=== PATIENT | male | born 1945 | race Caucasian/White ===

== ENCOUNTER → 2018-12-22 08:10 | Outpatient (CLI) | payer MEDICARE, SELFPAY ==
[2018-08-17 11:13] VITALS: BMI 33.3
[2018-12-22 10:04] LABS: Anion Gap 9 (5-15); BUN 16 mg/dL (7-18); BUN/Creat Ratio 13.1 RATIO (10-20); Calcium,Total 8.9 mg/dL (8.5-10.1); Chloride 103 mmol/L (98-107); Creatinine, Serum 1.22 mg/dL (0.70-1.30); EST Glomerular Filtration Rate 62 mL/min (>60); Est Glom Filt Rate - Afr Amer 75 mL/min (>60); Glucose 141 mg/dL (74-106); Potassium 4.3 mmol/L (3.5-5.1); Sodium Level 141 mmol/L (136-145)
--- OUTSIDE RECORDS SUMMARY | 2019-02-23 08:51 | XMS RPT_ITS ---
:1945 Author Organization OH[facility] Care Team Providers Name Role Phone Stefanie Almaguer Attending Unavailable Shiraz Mejia Attending Unavailable Antoino Jhon Referring Unavailable Shiraz Mejia Attending Unavailable Shiraz Mejia Referring Unavailable Small, Jhon Primary Care Unavailable SMALL, JHON L Attending Unavailable SMALL, JHON L Referring Unavailable SMALL, JHON L Referring Unavailable CORNIELLO, MADELYN L (BRUSHER TENDER) Referring Unavailable SMALL, JHON L Attending Unavailable SMALL, JHON L Referring Unavailable CORNIELLO, MADELYN L (BRUSHER TENDER) Referring Unavailable BABS BRONSON (WAX COATING MACHINE TENDER) Attending Unavailable SMALL, JHON L Referring Unavailable CORNIELLO, MADELYN L (BRUSHER TENDER) Referring Unavailable CORNIELLO, MADELYN L (BRUSHER TENDER) Attending Unavailable SMALL, JHON L Referring Unavailable SMALL, JHON L Attending Unavailable SMALL, JHON L Referring Unavailable SMALL, JHON L Attending Unavailable SMALL, JHON L Referring Unavailable SMALL, JHON L Referring Unavailable CORNIELLO, MADELYN L (BRUSHER TENDER) Referring Unavailable CORNIELLO, MADELYN L (BRUSHER TENDER) Attending Unavailable CORNIELLO, MADELYN L (BRUSHER TENDER) Referring Unavailable CORNIELLO, MADELYN L (BRUSHER TENDER) Referring Unavailable SMALL, JHON L Attending Unavailable SMALL, JHON L Referring Unavailable SMALL, JHON L Referring Unavailable Teofilo Bronson Attending Unavailable Russell Aparicio Attending Unavailable Jhon Small [place] Primary Care Unavailable Russell Aparicio Attending Unavailable Jhon Small Primary Care Unavailable Russell Aparicio Attending Unavailable Russell Aparicio Primary Care Unavailable Teofilo Bronson Attending Unavailable Jhon Small Primary Care Unavailable Toefilo Bronson Attending Unavailable Jhon Small Primary Care Unavailable Russell Aparicio Attending Unavailable PROBLEMS PROBLEMS DATE TYPE CONDITION / CODE ATTENDING STATUS SOURCE 11/20/2018 Active Encounter for NA Active [facility] screening for [facility] malignant neoplasm [place] of colon / Repository Z12.11(ICD-10) 10/30/2018 Active Other abnormal NA Active [facility] findings in urine / [facility] R82.998(ICD-10) [facility] Repository 10/21/2018 Active Pain in right knee / NA Active [facility] M25.561(ICD-10) [facility] Repository 10/21/2018 Active Pain in left knee / NA Active [facility] M25.562(ICD-10) [facility] Repository 10/21/2018 Active Other chronic pain / NA Active [facility] G89.29(ICD-10) [facility] Repository 07/01/2017 Active Type 2 diabetes NA Active [facility] mellitus without [facility] complications / [facility] E11.9(ICD-10) Repository 10/19/2018 Unknown I25.10 - [place], Active [place] Atherosclerotic [facility] heart disease of Hospital [place] coronary Repository artery without angina pectoris / I25.10(ICD-10) 10/19/2018 Unknown Z95.1 - Presence of [place], Active [facility] aortocoronary bypass [facility] graft / Hospital Z95.1(ICD-10) Repository 10/19/2018 Unknown I35.0 - Nonrheumatic [place], Active [facility] aortic (valve) [facility] stenosis / Hospital I35.0(ICD-10) Repository 10/19/2018 Unknown E78.00 - Pure [place], Active [place] hypercholesterolemia [facility] , unspecified / Hospital E78.00(ICD-10) Repository 10/19/2018 Unknown I10 - Essential [place], Active [facility] (primary) [facility] hypertension / Hospital I10(ICD-10) Repository 02/17/2018 Active Vitamin D SMALL, Active [place] deficiency, JHON L [facility] unspecified / [facility] E55.9(ICD-10) Repository 02/16/2018 Active Arthropathy, SMALL, Active [facility] unspecified / JHON L [facility] M12.9(ICD-10) [facility] Repository 02/16/2018 Active Spinal stenosis, SMALL, Active [facility] lumbar region JHON L [facility] without neurogenic [place] claudication / Repository M48.061(ICD-10) 07/01/2017 Active Essential (primary) SMALL, Active [place] hypertension / JHON L [facility] I10(ICD-10) [facility] Repository 07/01/2017 Active Obesity, unspecified SMALL, Active [place] / E66.9(ICD-10) JHON L [facility] [place] Repository 05/19/2018 Active Emphysema, SMALL, Active [place] unspecified / JHON L [facility] J43.9(ICD-10) [facility] Repository 05/13/2018 Active Other manager terminal NA Active [place] (current) drug [facility] therapy / [facility] Z79.899(ICD-10) Repository 03/08/2015 Active Hyperlipidemia, NA Active [place] unspecified / [facility] E78.5(ICD-10) [facility] Repository 03/16/2018 Admitting Unknown / Teofilo Bronson Active [facility] Medical diagnosis UNK(Unknown) [facility] [place] Repository 02/12/2018 Active Abnormal levels of NA Active [place] other serum enzymes [facility] / R74.8(ICD-10) [facility] Repository 02/05/2018 Active Cramp and spasm / NA Active [place] R25.2(ICD-10) [facility] [place] Repository 02/05/2018 Active Unspecified NA Active [place] abdominal pain / [facility] R10.9(ICD-10) [facility] Repository 02/05/2018 Active Other specified NA Active [place] diabetes mellitus [facility] with hyperglycemia / [facility] E13.65(ICD-10) Repository 01/02/2018 Active Unknown / SMALL, Active [place] UNK(Unknown) JHON L [facility] [place] Repository PROCEDURES PROCEDURES No Procedure Records FoundRESULTS RESULTS BASIC METABOLIC Collected: 12/22/2018 Status: F Source: [facility] PROFILE (BMP) 8:19 AM [facility] REPOSITORY TYPE CODE TESTS RESULT OUT OF RANGE REFERENCE UNITS LAB L501.0100 74-106 mg/dL High GLU 141 Result Comment: Fasting Glucose result greater than or equal to 126 mg/dL suggests DIABETES MELLITUS per A.D.A. criteria. Please note revised GLUCOSE reference range effective 2018. LAB L501.1000 7-18 mg/dL Normal BUN 16 LAB L501.1100 0.70-1.30 mg/dL Normal CREAT,SERUM 1.22 Result Comment: The validity of the calculated GFR AND GFRAA in patients over 70 years has not been determined. Clinical correlation is essential. LAB L501.1110 >60 mL/min Normal EST GFR 62 Result Comment: Non- GFR Calc LAB L501.1115 >60 mL/min Normal EST GFR - AA 75 Result Comment: GFR Calc LAB L501.1300 10-20 RATIO Normal BUN/CRE 13.1 LAB L501.2200 8.5-10.1 mg/dL CA Normal 8.9 LAB L501.5300 136-145 mmol/L NA Normal 141 LAB L501.5600 3.5-5.1 mmol/L K Normal 4.3 LAB L501.5900 98-107 mmol/L CL Normal 103 LAB L501.6100 21.0-32.0 mmol/L Normal CO2 29.0 LAB L501.6200 5-15 Normal GAP 9 Performed By: #### L500.2500 #### [facility] [address] [place], [address] TOXASSURE COMPR Collected: 12/07/2018 Status: F Source: [facility] 3:55 PM [facility] REPOSITORY TYPE CODE TESTS RESULT OUT OF RANGE REFERENCE UNITS LAB L600.84271 () Normal TOXASSURE COMPR FINAL Result Comment: TOXASSURE COMP DRUG ANALYSIS,UR Test Result Flag Units Drug Present and Declared for Prescription Verification Oxycodone 629 EXPECTED ng/mg creat Oxymorphone 401 EXPECTED ng/mg creat Noroxycodone 470 EXPECTED ng/mg creat Noroxymorphone 115 EXPECTED ng/mg creat Sources of oxycodone are scheduled prescription medications. Oxymorphone, noroxycodone, and noroxymorphone are expected metabolites of oxycodone. Oxymorphone is also available as a scheduled prescription medication. Acetaminophen PRESENT EXPECTED Drug Present not Declared for Prescription Verification Chlorpheniramine PRESENT UNEXPECTED Diphenhydramine PRESENT UNEXPECTED Dextromethorphan PRESENT UNEXPECTED Dextrorphan/Levorphanol PRESENT UNEXPECTED Dextrorphan is an expected metabolite of dextromethorphan, an ayni-itc-ytekryv or prescription cough suppressant. Dextrorphan cannot be distinguished from the scheduled prescription medication levorphanol by the method used for analysis. Metoprolol PRESENT UNEXPECTED Test Result Flag Units Ref Range Creatinine 157 mg/dL >=20 Declared Medications: The flagging and interpretation on this report are based on the following declared medications. Unexpected results may arise from inaccuracies in the declared medications. Note: The testing scope of this panel includes these medications: Oxycodone (Percocet) Note: The testing scope of this panel does not include small to moderate amounts of these reported medications: Acetaminophen (Percocet) For clinical consultation, please call . Performed At: [facility] [address], [place] [id number] [facility] [id number] Performed By: #### L600.31809 #### [facility] [id number] [place] [address] # [phone] FECAL OCCULT BLD Collected: 11/20/2018 Status: F Source: [place] 12:00 PM [facility] REPOSITORY TYPE CODE TESTS RESULT OUT OF REFERENCE UNITS RANGE LAB IFO Negative Immuno Negative FOB Result Comment: This test was developed and its performance characteristics determined by [facility]'s [facility] [place] ([facility] [place]). It has not been cleared or approved by the FDA. [facility] is regulated under CLIA as qualified to perform high-complexity testing. This test is used for clinical purposes. It should not be regarded as investigational or for research. Performed By: #### IFOBT #### [facility] [address] [place], [place] [address] PROGRESS Observed: 11/18/2018 Status: COMPLETED Source: [place] 4:45 PM [facility] REPOSITORY HNO ID: [id number] Author: Jhon Small Service: (none) Author Type: Physician Type: Progress Notes Filed: 11/18/2018 4:50 PM Note Text: Patient presents with: Follow Up: 3 months HPI: Kaitlynn Bronson is a 72 year old male who presents to the office today for review of health conditions. Concerns today: Bilateral knee pain, worsening, xray shows severe medial knee arthritis, in the process of possibly changing insurance due to high co pays. Hasn't seen Orthopedic surgeon recently but pain is worsening. Mr. Bronson has past history of diabetes. Since our last visit he denies excessive thirst or increased frequency of urination, chest pain or dyspnea , new or unusual visual symptoms and low sugar/hypoglycemic reactions. Follows a diabetic diet some of the time. He is compliant with medication(s) and is tolerating med(s) without any side effects. He reports checking his glucose on a once a day schedule with sugars in the <200 range. Patient's last HgA1C was Hemoglobin A1C (%) Date Value 10/21/2018 6.4 05/13/2018 6.6 ) Last Ophthalmology exam was within the past 12 months Mr. Bronson reports history of hyperlipidemia. Current therapy includes simvastatin (Zocor) 20 mg. Denies side effects of muscle weakness or achiness. His most recent lipid panels are reviewed. Cholesterol, Total (mg/dL) Date Value 08/19/2018 187 HDL Cholesterol (mg/dL) Date Value 08/19/2018 41 LDL Cholesterol (mg/dL) Date Value 08/19/2018 105 Triglyceride (mg/dL) Date Value 08/19/2018 204 Mr. Bronson indicates a history of hypertension and states that he is feeling well and denies any symptoms referable to elevated blood pressure. Specifically denies headache, chest pain, palpitations, dyspnea and peripheral edema. Patient denies any side effects of his medication(s) and is compliant with their regimen. Last 3 Encounter BP Readings: Date: BP: 11/18/2018 138/70 10/21/2018 130/86 08/19/2018 184/92 He watches his diet for sodium, low fat and low cholesterol some of the time. He does not check BP's generally. Kaitlynn gets minimal exercise. PAST MEDICAL HISTORY Diagnosis Date - Aortic valve stenosis mild per 04/27/14 echo - CAD (coronary artery disease) - Chronic back pain sees Dr. 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) - COPD (chronic obstructive pulmonary disease) (HCC) - Diabetes mellitus without mention of complication Diabetes mellitus - History of kidney stones - Hyperlipidemia - Unspecified essential hypertension Essential hypertension PAST SURGICAL HISTORY Procedure Laterality Date - COLONOSCOP W/ OR W/O BRSH SPEC 04/27/2015 Colonoscopy - EGD W/O OR W/BRUSH/WASH 04/27/2015 EGD - PAST SURGICAL HISTORY OF 2011 [address]pass Social History Marital status: Single Spouse name: Years of education: Number of children: Social History Main Topics Smoking status: Former Smoker Packs/day: 2.00 Years: 30.00 Types: Cigarettes Quit date: 03/08/2005 Smokeless tobacco: Former User Types: Chew Quit date: 03/08/2005 Alcohol use: Yes Comment: 1-2 beers daily Drug use: No FAMILY HISTORY Problem Relation Age of Onset - Heart Paternal Uncle - Heart Paternal Uncle Allergies: ALLERGIES Allergen Reactions - Crestor [Rosuvastat* Myalgia - Gabapentin Itching - Tape [Adhesive Tape* Other: See Comments Redness at site - Throat [place] [Pheno* Swelling Tongue swelled - Ultram [Tramadol Hc* itching - Vicodin [Hydrocodon* Itching Current Meds: acetaminophen (TYLENOL) 325 mg tablet Take 2 tablets by mouth every 6 hours as needed for Pain. albuterol HFA (PROAIR HFA) 90 mcg/actuation inhaler 2 puffs every 4 hours as needed amLODIPine (NORVASC) 10 mg tablet Take 1 tablet by mouth once daily. Dr. Mejia aspirin, enteric coated (ASPIRIN, ENTERIC COATED) 81 mg EC tablet Take 81 mg by mouth once daily. CETIRIZINE HCL (ZYRTEC ORAL) Take by mouth. cholecalciferol, Vitamin D3, (VITAMIN D3) 50,000 unit cap capsule Take 1 capsule by mouth once each week. dexamethasone 0.1% 0.1 % ophthalmic solution 1 Drop twice daily as needed (into bilateral ears for itchy prn). furosemide (LASIX) 40 mg tablet Take 1 tablet by mouth once daily. gabapentin enacarbil (HORIZANT) 600 mg TbER Take 1 tablet by mouth daily at bedtime. Dr. Nelson glimepiride (AMARYL) 2 mg tablet Take 1 tablet by mouth daily with breakfast. hydrOXYzine HCl (ATARAX) 25 mg tablet Take 1 tablet by mouth every 8 hours as needed for Itching/Rash. Ipratropium [place] (ATROVENT) 0.03 % nasal spray Use 2 Sprays in the nose every 12 hours. lidocaine viscous (LIDOCAINE VISCOUS) 2 % solution Gargle and spit 10-15mLs every 3-4 hours as need for throat discomfort. losartan (COZAAR) 100 mg tablet Take 1 tablet by mouth once daily. Dr. Mejia metoprolol tartrate, short acting, (LOPRESSOR) 100 mg tablet Take 1 tablet by mouth twice daily. Dr. Mejia omeprazole (PRILOSEC) 20 mg capsule Take 1 capsule by mouth twice daily. 1/2 hr before meal. oxyCODONE-acetaminophen (PERCOCET) 7.5-325 mg tablet simvastatin (ZOCOR) 20 mg tablet Take 1 tablet by mouth daily at bedtime. Vardenafil HCl (LEVITRA) 5 mg tablet Take 1 tablet by mouth as needed. Review of Systems: The remainder of the review of systems is negative. PE: 11/18/18 1533 BP: 138/70 Pulse: 84 Resp: 20 Temp: 37.8 ?C (100 ?F) TempSrc: Left Tympanic Weight: 93.4 kg (206 lb) Gen: AANDO, NAD, non-toxic appearing, Pleasant, cooperative HEENT: NT/AC, PERRLA, EOMs intact b/l, nares clear and patent b/l, pharynx without erythema, exudate or lesions. Uvula midline.MMM Neck: supple, No cervical LAD, no thyromegaly, no carotid bruits CV: RRR, normal S1 and S2, 3/6 HSM RUSB murmurs, no gallops, no rubs, Pulses 2+ and symmetric in UE and LE b/l Lungs: normal respiratory effort, CTA b/l, no wheezing or rhonchi or rales Abd: soft, obese, NT, ND, +BS, no hepatosplenomegaly MS: medial joint line TTP b/l knees without effusion or erythema, antalgic gait with use of cane Neuro: CN II-XII intact b/l, strength 5/5 b/l UE and LE, DTRs 2/4 UE and LE, sensation intact. Skin: warm, dry, intact, No rashes or lesions on exposed skin. Foot exam: Monofilament normal on right and left feet. Calluses heels ASSESSMENT/PLAN: 1. Type 2 diabetes mellitus without complication, unspecified whether manager terminal insulin use (HCC) - ICD9: 250.00, ICD10: E11.9 (primary diagnosis) Controlled. Poor adherence to plan of care. - Continue current medications - Blood glucose monitoring on a once a day schedule 2. Arthritis of knee - ICD9: 716.96, ICD10: M17.10 - rx as below, will need to f/u with Orthopedic surgeon, likely to need total knee replacement - PARKING FOR HANDICAPPED 3. Screening for colon cancer - ICD9: V76.51, ICD10: Z12.11 - FECAL OCCULT BLOOD TEST 4. Hyperlipidemia, unspecified hyperlipidemia type - ICD9: 272.4, ICD10: E78.5 - suboptimal control - Encouraged following a low fat, low cholesterol diet. - Discussed the benefits of regular aerobic exercise and weight loss. 5. Vitamin D deficiency - ICD9: 268.9, ICD10: E55.9 - continue supplement 6. Essential hypertension - ICD9: 401.9, ICD10: I10 - good control - Continue current medication(s) - Recommended regular aerobic exercise. - Recommend home blood pressure monitoring, to bring results in on next visit - Goal of BP <130/80 Jhon Small DO To ER if develops chest pain, shortness of breath, or severe worsening of symptoms. Discussed risks, benefits, alternatives, and potential side effects of medications. Patient expressed understanding and agreed with the plan. Jhon Small DO [address] [place] [address] CNOV Observed: 11/18/2018 Status: COMPLETED Source: [place] 3:40 PM [facility] REPOSITORY Office Visit (FAMPWS) KAITLYNN BRONSON ([id number]) 1945 M Date Time Provider Department 11/18/18 3:40 PM JHON SMALL During your visit today, we recorded the following information about you: Temperature Pulse Respiration Blood pressure 100 degrees 84/minute 20/minute 138/70 Weight 93.4 kg Jhon Small DO 11/18/2018 4:50 PM Signed Patient presents with: Follow Up: 3 months HPI: Kaitlynn Bronson is a 72 year old male who presents to the office today for review of health conditions. Concerns today: Bilateral knee pain, worsening, xray shows severe medial knee arthritis, in the process of possibly changing insurance due to high co pays. Hasn't seen Orthopedic surgeon recently but pain is worsening. Mr. Bronson has past history of diabetes. Since our last visit he denies excessive thirst or increased frequency of urination, chest pain or dyspnea , new or unusual visual symptoms and low sugar/hypoglycemic reactions. Follows a diabetic diet some of the time. He is compliant with medication(s) and is tolerating med(s) without any side effects. He reports checking his glucose on a once a day schedule with sugars in the <200 range. Patient's last HgA1C was Hemoglobin A1C (%) Date Value 10/21/2018 6.4 05/13/2018 6.6 ) Last Ophthalmology exam was within the past 12 months Mr. Bronson reports history of hyperlipidemia. Current therapy includes simvastatin (Zocor) 20 mg. Denies side effects of muscle weakness or achiness. His most recent lipid panels are reviewed. Cholesterol, Total (mg/dL) Date Value 08/19/2018 187 HDL Cholesterol (mg/dL) Date Value 08/19/2018 41 LDL Cholesterol (mg/dL) Date Value 08/19/2018 105 Triglyceride (mg/dL) Date Value 08/19/2018 204 Mr. Bronson indicates a history of hypertension and states that he is feeling well and denies any symptoms referable to elevated blood pressure. Specifically denies headache, chest pain, palpitations, dyspnea and peripheral edema. Patient denies any side effects of his medication(s) and is compliant with their regimen. Last 3 Encounter BP Readings: Date: BP: 11/18/2018 138/70 10/21/2018 130/86 08/19/2018 184/92 He watches his diet for sodium, low fat and low cholesterol some of the time. He does not check BP's generally. Kaitlynn gets minimal exercise. PAST MEDICAL HISTORY Diagnosis Date - Aortic valve stenosis mild per 04/27/14 echo - CAD (coronary artery disease) - Chronic back pain sees Dr. 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) - COPD (chronic obstructive pulmonary disease) (HCC) - Diabetes mellitus without mention of complication Diabetes mellitus - History of kidney stones - Hyperlipidemia - Unspecified essential hypertension Essential hypertension PAST SURGICAL HISTORY Procedure Laterality Date - COLONOSCOP W/ OR W/O BRSH SPEC 04/27/2015 Colonoscopy - EGD W/O OR W/BRUSH/WASH 04/27/2015 EGD - PAST SURGICAL HISTORY OF 2011 [address] Social History Marital status: Single Spouse name: Years of education: Number of children: Social History Main Topics Smoking status: Former Smoker Packs/day: 2.00 Years: 30.00 Types: Cigarettes Quit date: 03/08/2005 Smokeless tobacco: Former User Types: Chew Quit date: 03/08/2005 Alcohol use: Yes Comment: 1-2 beers daily Drug use: No FAMILY HISTORY Problem Relation Age of Onset - Heart Paternal Uncle - Heart Paternal Uncle Allergies: ALLERGIES Allergen Reactions - Crestor [Rosuvastat* Myalgia - Gabapentin Itching - Tape [Adhesive Tape* Other: See Comments Redness at site - Throat [place] [Pheno* Swelling Tongue swelled - Ultram [Tramadol Hc* itching - Vicodin [Hydrocodon* Itching Current Meds: acetaminophen (TYLENOL) 325 mg tablet Take 2 tablets by mouth every 6 hours as needed for Pain. albuterol HFA (PROAIR HFA) 90 mcg/actuation inhaler 2 puffs every 4 hours as needed amLODIPine (NORVASC) 10 mg tablet Take 1 tablet by mouth once daily. Dr. Mejia aspirin, enteric coated (ASPIRIN, ENTERIC COATED) 81 mg EC tablet Take 81 mg by mouth once daily. CETIRIZINE HCL (ZYRTEC ORAL) Take by mouth. cholecalciferol, Vitamin D3, (VITAMIN D3) 50,000 unit cap capsule Take 1 capsule by mouth once each week. dexamethasone 0.1% 0.1 % ophthalmic solution 1 Drop twice daily as needed (into bilateral ears for itchy prn). furosemide (LASIX) 40 mg tablet Take 1 tablet by mouth once daily. gabapentin enacarbil (HORIZANT) 600 mg TbER Take 1 tablet by mouth daily at bedtime. Dr. Nelson glimepiride (AMARYL) 2 mg tablet Take 1 tablet by mouth daily with breakfast. hydrOXYzine HCl (ATARAX) 25 mg tablet Take 1 tablet by mouth every 8 hours as needed for Itching/Rash. Ipratropium [place] (ATROVENT) 0.03 % nasal spray Use 2 Sprays in the nose every 12 hours. lidocaine viscous (LIDOCAINE VISCOUS) 2 % solution Gargle and spit 10-15mLs every 3-4 hours as need for throat discomfort. losartan (COZAAR) 100 mg tablet Take 1 tablet by mouth once daily. Dr. Mejia metoprolol tartrate, short acting, (LOPRESSOR) 100 mg tablet Take 1 tablet by mouth twice daily. Dr. Mejia omeprazole (PRILOSEC) 20 mg capsule Take 1 capsule by mouth twice daily. 1/2 hr before meal. oxyCODONE-acetaminophen (PERCOCET) 7.5-325 mg tablet simvastatin (ZOCOR) 20 mg tablet Take 1 tablet by mouth daily at bedtime. Vardenafil HCl (LEVITRA) 5 mg tablet Take 1 tablet by mouth as needed. Review of Systems: The remainder of the review of systems is negative. PE: 11/18/18 1533 BP: 138/70 Pulse: 84 Resp: 20 Temp: 37.8 ?C (100 ?F) TempSrc: Left Tympanic Weight: 93.4 kg (206 lb) Gen: AANDO, NAD, non-toxic appearing, Pleasant, cooperative HEENT: NT/AC, PERRLA, EOMs intact b/l, nares clear and patent b/l, pharynx without erythema, exudate or lesions. Uvula midline.MMM Neck: supple, No cervical LAD, no thyromegaly, no carotid bruits CV: RRR, normal S1 and S2, 3/6 HSM RUSB murmurs, no gallops, no rubs, Pulses 2+ and symmetric in UE and LE b/l Lungs: normal respiratory effort, CTA b/l, no wheezing or rhonchi or rales Abd: soft, obese, NT, ND, +BS, no hepatosplenomegaly MS: medial joint line TTP b/l knees without effusion or erythema, antalgic gait with use of cane Neuro: CN II-XII intact b/l, strength 5/5 b/l UE and LE, DTRs 2/4 UE and LE, sensation intact. Skin: warm, dry, intact, No rashes or lesions on exposed skin. Foot exam: Monofilament normal on right and left feet. Calluses heels ASSESSMENT/PLAN: 1. Type 2 diabetes mellitus without complication, unspecified whether senior care insulin use (HCC) - ICD9: 250.00, ICD10: E11.9 (primary diagnosis) Controlled. Poor adherence to plan of care. - Continue current medications - Blood glucose monitoring on a once a day schedule 2. Arthritis of knee - ICD9: 716.96, ICD10: M17.10 - rx as below, will need to f/u with Orthopedic surgeon, likely to need total knee replacement - PARKING FOR HANDICAPPED 3. Screening for colon cancer - ICD9: V76.51, ICD10: Z12.11 - FECAL OCCULT BLOOD TEST 4. Hyperlipidemia, unspecified hyperlipidemia type - ICD9: 272.4, ICD10: E78.5 - suboptimal control - Encouraged following a low fat, low cholesterol diet. - Discussed the benefits of regular aerobic exercise and weight loss. 5. Vitamin D deficiency - ICD9: 268.9, ICD10: E55.9 - continue supplement 6. Essential hypertension - ICD9: 401.9, ICD10: I10 - good control - Continue current medication(s) - Recommended regular aerobic exercise. - Recommend home blood pressure monitoring, to bring results in on next visit - Goal of BP <130/80 Jhon Small DO To ER if develops chest pain, shortness of breath, or severe worsening of symptoms. Discussed risks, benefits, alternatives, and potential side effects of medications. Patient expressed understanding and agreed with the plan. Jhon Small DO [address] [place] [address] Referring Provider: JHON SMALL [[id number]] Allergies As of Date: 11/18/2018 Noted Allergy Reaction CRESTOR (ROSUVASTATIN CALCIUM) 01/01/2017 17 - Myalgia GABAPENTIN 03/08/2015 9 - Itching TAPE (ADHESIVE TAPE-SILICONES) 03/08/2015 14 - Other: See Comments Comments: Redness at site THROAT SPRAY (PHENOL-PHENOLATE SO*10/30/2015 7 - Swelling Comments: Tongue swelled ULTRAM (TRAMADOL HCL) 03/13/2009 Comments: itching VICODIN (HYDROCODONE-ACETAMINOPHE*03/08/2015 9 - Itching Date Reviewed: 10/21/2018 Reviewed by: Benjamin Vega LPN - Fully Assessed Reason for Visit: Follow Up [171] Cmt: 3 months Primary Visit Diagnosis:Type 2 diabetes mellitus without complication, unspecified whether senior care insulin use (HCC) [E11.9] Other Visit Diagnoses:Arthritis of knee [M17.10] Screening for colon cancer [Z12.11] Hyperlipidemia, unspecified hyperlipidemia type [E78.5] Vitamin D deficiency [E55.9] Essential hypertension [I10] Order(s):FECAL OCCULT BLOOD TEST [SQIFOBT] Order #: [id number] FUTURE PARKING FOR HANDICAPPED [8843210] Order #: [id number]: 2 Prescriptions as of 11/18/2018 Sig: ACETAMINOPHEN 325 MG TABLET Take 2 tablets by mouth every* ALBUTEROL SULFATE HFA 90 MCG/* 2 puffs every 4 hours as need* AMLODIPINE 10 MG TABLET Take 1 tablet by mouth once d* ASPIRIN 81 MG TABLET,DELAYED * Take 81 mg by mouth once ho* ZYRTEC ORAL Take by mouth. CHOLECALCIFEROL (VITAMIN D3) * Take 1 capsule by mouth once * DEXAMETHASONE 0.1 % EYE DROPS 1 Drop twice daily as needed * FUROSEMIDE 40 MG TABLET Take 1 tablet by mouth once d* GABAPENTIN ENACARBIL ER 600 M* Take 1 tablet by mouth daily * GLIMEPIRIDE 2 MG TABLET Take 1 tablet by mouth daily * HYDROXYZINE HCL 25 MG TABLET Take 1 tablet by mouth every * IPRATROPIUM BROMIDE 0.03 % NA* Use 2 Sprays in the nose ever* LIDOCAINE 2 % MUCOSAL SOLUTION Gargle and spit 10-15mLs ever* LOSARTAN 100 MG TABLET Take 1 tablet by mouth once d* METOPROLOL TARTRATE 100 MG TA* Take 1 tablet by mouth twice * OMEPRAZOLE 20 MG CAPSULE,JAGDISH* Take 1 capsule by mouth twice* OXYCODONE-ACETAMINOPHEN 7.5 M* SIMVASTATIN 20 MG TABLET Take 1 tablet by mouth daily * VARDENAFIL 5 MG TABLET Take 1 tablet by mouth as nee* Problem List As Of Date 11/18/2018 Noted Resolved PAIN IN JOINT, LOWER LEG [M25.569] INVALID FOR* Chronic back pain [M54.9, G89.29] INVALID FOR* 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.1] INVALID FOR* Hyperlipidemia [E78.5] INVALID FOR* HTN (hypertension) [I10] INVALID FOR* DM2 (diabetes mellitus, type 2) (HCC) [E11.9] INVALID FOR* Heart murmur [R01.1] INVALID FOR* COPD (chronic obstructive pulmonary disease) (H*INVALID FOR* History of kidney stones [Z87.442] INVALID FOR* Aortic valve stenosis [I35.0] INVALID FOR* Obesity [E66.9] INVALID FOR* CAD (coronary artery disease) [I25.10] INVALID FOR* Nausea alone [R11.0] INVALID FOR*04/27/2015 Abdominal pain, right lower quadrant [R10.31] INVALID FOR*04/27/2015 BPH (benign prostatic hyperplasia) [N40.0] INVALID FOR* Adrenal mass (HCC) [E27.9] INVALID FOR* Bladder wall thickening [N32.89] INVALID FOR* Kidney stone [N20.0] INVALID FOR* Noncompliance with medication regimen [Z91.14] INVALID FOR* Obesity, Class I, BMI 30-34.9 [E66.9] INVALID FOR* Post-nasal drainage [R09.82] INVALID FOR* Malaise and fatigue [R53.81, R53.83] INVALID FOR* Essential hypertension [I10] INVALID FOR* Type 2 diabetes mellitus without complication (*INVALID FOR* 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 pylori infection [A04.8] INVALID FOR* Muscle cramp [R25.2] INVALID FOR* Arthritis of knee [M17.10] INVALID FOR* Encounter Status:Closed by JHON SMALL DO on 11/18/18 PROGRESS Observed: 10/30/2018 Status: COMPLETED Source: [place] 10:19 AM [facility] REPOSITORY HNO ID: [id number] Author: Cassandra Goins Rdms Service: (none) Author Type: (none) Type: Progress Notes Filed: 10/30/2018 10:19 AM Note Text: Radiology Service Progress Note PATIENT NAME: Kaitlynn Bronson DATE OF SERVICE: October 30, 2018 TIME: 10:19 AM PATIENT IDENTITY VERIFICATION COMPLETED USING TWO (2) METHODS: Patient confirmed name verbally and Date of . PATIENT GENDER DATA: Male PATIENT RELEVANT IMPLANT DATA REVIEWED: Not Applicable RADIOLOGY DEPARTMENT: Ultrasound PERIPHERAL IV DATA: Not applicable SIGNED BY: Cassandra Palmerclement Anthony October 30, 2018 10:19 AM US KIDNEY/BLADDER Observed: 10/30/2018 Status: F Source: [place] 10:18 AM [facility] REPOSITORY * * *Final Report* * * DATE OF EXAM: Oct 30 2018 10:18AM [facility]U [id number] - US KIDNEY/BLADDER / PROCEDURE REASON: High urine creatine/creatinine ratio * * * * Physician Interpretation * * * * EXAMINATION: RENAL ULTRASOUND CLINICAL HISTORY: Right-sided pain. TECHNIQUE: Sonography of the kidneys and urinary bladder was performed. Images were obtained and stored in a permanent archive. MQ: UR_1 COMPARISON: CT abdomen and pelvis dated 05/10/2015. RESULT: Right Kidney: -Renal length: 11.7 cm -Parenchyma: Normal parenchymal echogenicity. Normal parenchymal thickness. -Collecting system: No hydronephrosis. -Calculus: There is an approximately 1.7 cm shadowing calculus seen within interpolar segment of the right kidney. -Lesion: None. Left Kidney: -Renal length: 12.3 cm -Parenchyma: Normal parenchymal echogenicity. Normal parenchymal thickness. -Collecting system: No hydronephrosis. -Calculus: No echogenic, shadowing calculus. -Lesion: None. Bladder: Normal sonographic appearance. There is a urinary bladder volume of 120.7 cc. Patient unable to void. IMPRESSION: Nonobstructing right nephrolithiasis. No hydronephrosis. Fha Underwriter: PSCB Transcribe Date/Time: Nov 02 2018 8:16A Dictated by : KALLIE JOSEPH MD This examination was interpreted and the report reviewed and electronically signed by: KALLIE JOSEPH MD on Nov 02 2018 8:18AM EST [id number] PROGRESS Observed: 10/21/2018 Status: COMPLETED Source: [place] 9:08 AM [facility] REPOSITORY HNO ID: [id number] Author: Alejandro Valle (Rt) Service: (none) Author Type: Senior Inspector Type: Progress Notes Filed: 10/21/2018 9:09 AM Note Text: Radiology Service Progress Note PATIENT NAME: Kaitlynn Bronson DATE OF SERVICE: October 21, 2018 TIME: 9:08 AM PATIENT IDENTITY VERIFICATION COMPLETED USING TWO (2) METHODS: Patient confirmed name verbally and Date of . PATIENT GENDER DATA: Male PATIENT RELEVANT IMPLANT DATA REVIEWED: Not Applicable RADIOLOGY DEPARTMENT: General X-ray: Exam(s) Completed: Lower Extremity X-Ray(s): Knee, AP / Lat / Tunne / Merchant Bilateral and Wt. Bearing: PERIPHERAL IV DATA: Not applicable SIGNED BY: RT Tori October 21, 2018 9:08 AM XR KNEE 4V AP/PA/LAT/MERCH Observed: 10/21/2018 Status: F Source: [place] 9:07 AM [facility] REPOSITORY * * *Final Report* * * DATE OF EXAM: Oct 21 2018 9:07AM WOX [id number] - XR KNEE 4V AP/PA/LAT/MERCH MA[place] / PROCEDURE REASON: multiple diagnoses * * * * Physician Interpretation * * * * HISTORY: 72-YEAR-OLD MALE WITH Chronic pain of both knees Chronic pain of both knees Chronic pain of both knees . bilateral generalize chronic knee pain after back injection 1 month ago. no injury TECHNIQUE: XR KNEE 4V AP/PA/LAT/MERCH MAITE Laterality: BILATERAL Number of different views (projections): 4- each COMPARISON: 05/12/2009 RESULT: Severe medial compartment joint space narrowing bilaterally with [id number]-[id number] contact. Mild genu varus. Patellofemoral joint is maintained bilaterally with small osteophytes. Intra-articular osteophyte at the patellofemoral joint on the left. Small joint effusion on left. No joint effusion on the right. Enthesophyte on the patella tendon insertion quadriceps tendon bilaterally. Arterial calcifications are present bilaterally. Surgical clips in the soft tissues medial to the left knee. IMPRESSION: BILATERAL DEGENERATIVE JOINT DISEASE MOST SEVERE IN THE MEDIAL COMPARTMENT BILATERALLY AND SIGNIFICANTLY PROGRESSED SINCE THE PREVIOUS EXAM. Fha Underwriter: JOSEPH Transcribe Date/Time: Oct 21 2018 3:31P Dictated by : DARLEEN CHRISTIANSON MD This examination was interpreted and the report reviewed and electronically signed by: DARLEEN CHRISTIANSON MD on Oct 21 2018 3:33PM EST [id number] PROGRESS Observed: 10/21/2018 Status: COMPLETED Source: [place] 8:10 AM [facility] [place] REPOSITORY HNO ID: [id number] Author: Madelyn Majano (Senior Gamemaster) John Service: (none) Author Type: Nurse Practitioner Type: Progress Notes Filed: 10/21/2018 11:56 AM Note Text: HPI/CC: Kaitlynn Bronson is a 72 year old male who presents for Discussion (saw pain managment yesterday for chronic knee pain- recommended xrays and was told PCP needed to order). Bilateral knee pain x several years, pain is worsened by walking, pain is a achy pain. Sees pain management for chronic back pain- takes percocet, meloxicam and injections Reports right big toe pain x 3 weeks. Pain management thought it maybe gout. Denies numbness or tingling, falls, locking, giving out, weakness. ROS as above, otherwise non-contributory. Reviewed PMHx, PSHx, social Hx, medications and allergies. PHYSICAL EXAMINATION: BP 130/86 Pulse 72 Resp 16 Wt 92.1 kg (203 lb) BMI 33.27 kg/m? General appearance: Well appearing, alert, in no acute distress, well-hydrated, well nourished. and Obese Skin: Skin color, texture, turgor normal, no suspicious rashes or lesions Lungs: lungs clear to auscultation. No wheezing, rhonchi, rales Heart: RRR, +systoloc murmur at LSB, no gallop, or rubs. No ectopy Extremities: No deformities, edema, skin discoloration, clubbing or cyanosis. Good capillary refill. Musculoskeletal: No joint swelling, deformity, or tenderness. Bilateral knees- FROM, Bilateral knee : pain of the patellar tendon, medial joint line, lateral joint line, medial epicondyle and lateral epicondyle . Patellar Apprehension/subluxation negative Brian negative Lela negative. ROM: full ASSESSMENT/PLAN: 1. Toe joint pain, right - ICD9: 719.47, ICD10: M25.571 (primary diagnosis) - URIC ACID BLOOD 2. Chronic pain of both knees - ICD9: 719.46, 338.29, ICD10: M25.561, M25.562, G89.29 - XR KNEE GENERAL 4V AP BOTH/PA BOTH/LAT/MERC BILAT 3. History of tobacco use - ICD9: V15.82, ICD10: Z87.891 - CONSULT LUNG CANCER SCREENING CLINIC - f/u PRN Madelyn Lopez APRN.CNP CNOV Observed: 10/21/2018 Status: COMPLETED Source: [place] 8:00 AM [facility] REPOSITORY Office Visit (FAMPWS) KAITLYNN BRONSON ([id number]) 1945 M Date Time Provider Department 10/21/18 8:00 AM [facility] During your visit today, we recorded the following information about you: Pulse Respiration Blood pressure Weight 72/minute 16/minute 130/86 92.1 kg Madelyn Lopez APRN.CNP 10/21/2018 11:56 AM Addendum HPI/CC: Kaitlynn Bronson is a 72 year old male who presents for Discussion (saw pain managment yesterday for chronic knee pain- recommended xrays and was told PCP needed to order). Bilateral knee pain x several years, pain is worsened by walking, pain is a achy pain. Sees pain management for chronic back pain- takes percocet, meloxicam and injections Reports right big toe pain x 3 weeks. Pain management thought it maybe gout. Denies numbness or tingling, falls, locking, giving out, weakness. ROS as above, otherwise non-contributory. Reviewed PMHx, PSHx, social Hx, medications and allergies. PHYSICAL EXAMINATION: BP 130/86 Pulse 72 Resp 16 Wt 92.1 kg (203 lb) BMI 33.27 kg/m? General appearance: Well appearing, alert, in no acute distress, well-hydrated, well nourished. and Obese Skin: Skin color, texture, turgor normal, no suspicious rashes or lesions Lungs: lungs clear to auscultation. No wheezing, rhonchi, rales Heart: RRR, +systoloc murmur at LSB, no gallop, or rubs. No ectopy Extremities: No deformities, edema, skin discoloration, clubbing or cyanosis. Good capillary refill. Musculoskeletal: No joint swelling, deformity, or tenderness. Bilateral knees- FROM, Bilateral knee : pain of the patellar tendon, medial joint line, lateral joint line, medial epicondyle and lateral epicondyle . Patellar Apprehension/subluxation negative Brian negative Lela negative. ROM: full ASSESSMENT/PLAN: 1. Toe joint pain, right - ICD9: 719.47, ICD10: M25.571 (primary diagnosis) - URIC ACID BLOOD 2. Chronic pain of both knees - ICD9: 719.46, 338.29, ICD10: M25.561, M25.562, G89.29 - XR KNEE GENERAL 4V AP BOTH/PA BOTH/LAT/MERC BILAT 3. History of tobacco use - ICD9: V15.82, ICD10: Z87.891 - CONSULT LUNG CANCER SCREENING CLINIC - f/u PRN Madelyn Lopez APRN.LUCI Lopez APRN.CNP 10/21/2018 8:24 AM Signed Lung Cancer Screening: What to Expect What is screening? Screening means that a test is done to look for a disease, in someone at risk of developing the disease, before the disease has advanced enough to cause symptoms. The goal of screening is to reduce the number of people who from the disease by detecting the disease early in its course, when it is easier to treat, with minimal harm to those who are screened. Benefits of lung cancer screening You can be screened for lung cancer using a low-dose computed tomography (CT) scan. CT scans combine X-ray views from multiple angles, creating a two-dimensional, cross-sectional image of your lungs. Having a lung cancer screening chest CT reduces the chance of dying from lung cancer in those at very high risk of developing lung cancer. Eligibility for lung cancer screening To be a candidate for lung screening, an individual must be: ? 55 to 77 years old. ? A smoker or a person who quit smoking less than 15 years ago. ? Have a smoking history of at least 30 pack-years. (A pack year is a way of determining how many cigarettes a person has smoked during his or her lifetime. One pack year is equal to smoking 20 cigarettes, or one pack, every day for one year.) ? Have no new symptoms that could be related to lung cancer ? Be healthy enough to tolerate curative intent treatment for early stage lung cancer ? Have not had a Chest CT in the last 12 months Drawbacks to consider Screening for lung cancer with a chest CT can find small spots in the lungs of at least 25 percent of all people who get the scan. These spots are called lung nodules. Only three or four out of 100 lung nodules found are cancer. The rest are small scars that will never affect your health. There is no way to tell if many of these small lung nodules are scars or lung cancer without further tests. CT scans are usually done over time to see if the lung nodule grows. You might need a biopsy if the lung nodule is large enough. Therefore, many people who are screened will have further tests without actually having lung cancer. The lung cancer screening program will talk with you about whether or not you need more tests. Lung cancer screening CTs use a very small dose of radiation to take pictures of your lungs. The dose of radiation is quite low (five times less than a standard chest CT scan). The effects of radiation from lung cancer screening are not known. The benefits are thought to outweigh any consequences. Quitting smoking If you smoke, you can cut your risk of dying from lung cancer by quitting. We advise all smokers to quit. You can find help from your doctor or through counselors within the screening program. Components of our Lung Cancer Screening Program ? Participants selected according to current national health guidelines. ? In-person discussion about the benefits and harms of lung cancer screening to help make informed choices. ? Standardized low-dose chest CT. ? Chest CT interpretation by radiologists with expertise in chest imaging. ? Lung nodule evaluation care pathway. ? Tobacco treatment experts integrated with the program. ? Cutting-edge research to improve tomorrow?s outcomes. ? Experts in the treatment of lung cancer. ? Central call-in number for questions. Questions? If you have any questions about our Lung Cancer Screening Program, please call , or go on line to: [email or web address] Referring Provider: SELF [200] Allergies As of Date: 10/21/2018 Noted Allergy Reaction CRESTOR (ROSUVASTATIN CALCIUM) 01/01/2017 17 - Myalgia GABAPENTIN 03/08/2015 9 - Itching TAPE (ADHESIVE TAPE-SILICONES) 03/08/2015 14 - Other: See Comments Comments: Redness at site THROAT SPRAY (PHENOL-PHENOLATE SO*10/30/2015 7 - Swelling Comments: Tongue swelled ULTRAM (TRAMADOL HCL) 03/13/2009 Comments: itching VICODIN (HYDROCODONE-ACETAMINOPHE*03/08/2015 9 - Itching Date Reviewed: 10/21/2018 Reviewed by: Benjamin Vega LPN - Fully Assessed Reason for Visit: Discussion [813] Cmt: saw pain managment yesterday for chronic knee pain- recommended xrays and was told PCP needed to order Primary Visit Diagnosis:Toe joint pain, right [M25.571] Other Visit Diagnoses:Chronic pain of both knees [M25.561, M25.562, G89.29] History of tobacco use [Z87.891] Order(s):URIC ACID BLOOD [SQURIC] Order #: [id number] FUTURE XR KNEE GENERAL 4V AP BOTH/PA BOTH/LAT/MERC BILAT [[id number]] Order #: [id number] FUTURE CONSULT LUNG CANCER SCREENING CLINIC [[id number]] Order #: [id number]: 1 Prescriptions as of 10/21/2018 Sig: SIMVASTATIN 20 MG TABLET Take 1 tablet by mouth daily * VARDENAFIL 5 MG TABLET Take 1 tablet by mouth as nee* HYDROXYZINE HCL 25 MG TABLET Take 1 tablet by mouth every * GLIMEPIRIDE 2 MG TABLET Take 1 tablet by mouth daily * OMEPRAZOLE 20 MG CAPSULE,JAGDISH* Take 1 capsule by mouth twice* IPRATROPIUM BROMIDE 0.03 % NA* Use 2 Sprays in the nose ever* LIDOCAINE 2 % MUCOSAL SOLUTION Gargle and spit 10-15mLs ever* CHOLECALCIFEROL (VITAMIN D3) * Take 1 capsule by mouth once * ZYRTEC ORAL Take by mouth. DEXAMETHASONE 0.1 % EYE DROPS 1 Drop twice daily as needed * ALBUTEROL SULFATE HFA 90 MCG/* 2 puffs every 4 hours as need* OXYCODONE-ACETAMINOPHEN 7.5 M* ASPIRIN 81 MG TABLET,DELAYED * Take 81 mg by mouth once ho* LOSARTAN 100 MG TABLET Take 1 tablet by mouth once d* FUROSEMIDE 40 MG TABLET Take 1 tablet by mouth once d* METOPROLOL TARTRATE 100 MG TA* Take 1 tablet by mouth twice * AMLODIPINE 10 MG TABLET Take 1 tablet by mouth once d* GABAPENTIN ENACARBIL ER 600 M* Take 1 tablet by mouth daily * ACETAMINOPHEN 325 MG TABLET Take 2 tablets by mouth every* Problem List As Of Date 10/21/2018 Noted Resolved PAIN IN JOINT, LOWER LEG [M25.569] INVALID FOR* Chronic back pain [M54.9, G89.29] INVALID FOR* 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.1] INVALID FOR* Hyperlipidemia [E78.5] INVALID FOR* HTN (hypertension) [I10] INVALID FOR* DM2 (diabetes mellitus, type 2) (HCC) [E11.9] INVALID FOR* Heart murmur [R01.1] INVALID FOR* COPD (chronic obstructive pulmonary disease) (H*INVALID FOR* History of kidney stones [Z87.442] INVALID FOR* Aortic valve stenosis [I35.0] INVALID FOR* Obesity [E66.9] INVALID FOR* CAD (coronary artery disease) [I25.10] INVALID FOR* Nausea alone [R11.0] INVALID FOR*04/27/2015 Abdominal pain, right lower quadrant [R10.31] INVALID FOR*04/27/2015 BPH (benign prostatic hyperplasia) [N40.0] INVALID FOR* Adrenal mass (HCC) [E27.9] INVALID FOR* Bladder wall thickening [N32.89] INVALID FOR* Kidney stone [N20.0] INVALID FOR* Noncompliance with medication regimen [Z91.14] INVALID FOR* Obesity, Class I, BMI 30-34.9 [E66.9] INVALID FOR* Post-nasal drainage [R09.82] INVALID FOR* Malaise and fatigue [R53.81, R53.83] INVALID FOR* Essential hypertension [I10] INVALID FOR* Type 2 diabetes mellitus without complication (*INVALID FOR* 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 pylori infection [A04.8] INVALID FOR* Muscle cramp [R25.2] INVALID FOR* Other instructions from your clinician: Lung Cancer Screening: What to Expect What is screening? Screening means that a test is done to look for a disease, in someone at risk of developing the disease, before the disease has advanced enough to cause symptoms. The goal of screening is to reduce the number of people who from the disease by detecting the disease early in its course, when it is easier to treat, with minimal harm to those who are screened. Benefits of lung cancer screening You can be screened for lung cancer using a low-dose computed tomography (CT) scan. CT scans combine X-ray views from multiple angles, creating a two-dimensional, cross-sectional image of your lungs. Having a lung cancer screening chest CT reduces the chance of dying from lung cancer in those at very high risk of developing lung cancer. Eligibility for lung cancer screening To be a candidate for lung screening, an individual must be: ? 55 to 77 years old. ? A smoker or a person who quit smoking less than 15 years ago. ? Have a smoking history of at least 30 pack-years. (A pack year is a way of determining how many cigarettes a person has smoked during his or her lifetime. One pack year is equal to smoking 20 cigarettes, or one pack, every day for one year.) ? Have no new symptoms that could be related to lung cancer ? Be healthy enough to tolerate curative intent treatment for early stage lung cancer ? Have not had a Chest CT in the last 12 months Drawbacks to consider Screening for lung cancer with a chest CT can find small spots in the lungs of at least 25 percent of all people who get the scan. These spots are called lung nodules. Only three or four out of 100 lung nodules found are cancer. The rest are small scars that will never affect your health. There is no way to tell if many of these small lung nodules are scars or lung cancer without further tests. CT scans are usually done over time to see if the lung nodule grows. You might need a biopsy if the lung nodule is large enough. Therefore, many people who are screened will have further tests without actually having lung cancer. The lung cancer screening program will talk with you about whether or not you need more tests. Lung cancer screening CTs use a very small dose of radiation to take pictures of your lungs. The dose of radiation is quite low (five times less than a standard chest CT scan). The effects of radiation from lung cancer screening are not known. The benefits are thought to outweigh any consequences. Quitting smoking If you smoke, you can cut your risk of dying from lung cancer by quitting. We advise all smokers to quit. You can find help from your doctor or through counselors within the screening program. Components of our Lung Cancer Screening Program ? Participants selected according to current national health guidelines. ? In-person discussion about the benefits and harms of lung cancer screening to help make informed choices. ? Standardized low-dose chest CT. ? Chest CT interpretation by radiologists with expertise in chest imaging. ? Lung nodule evaluation care pathway. ? Tobacco treatment experts integrated with the program. ? Cutting-edge research to improve tomorrow?s outcomes. ? Experts in the treatment of lung cancer. ? Central call-in number for questions. Questions? If you have any questions about our Lung Cancer Screening Program, please call , or go on line to: [email or web address] Encounter Status:Closed by MADELYN LOPEZ CNP on 10/21/18 URIC ACID Collected: 10/21/2018 Status: F Source: [place] 7:41 [facility] REPOSITORY TYPE CODE TESTS RESULT OUT OF RANGE REFERENCE UNITS LAB URIC 4.0-8.1 mg/dL Uric Acid 7.3 Performed By: #### URIC #### [facility] [address] [place], [place] [address] COMP METABOLIC PANEL Collected: 10/21/2018 Status: F Source: [place] 7:41 [facility] REPOSITORY TYPE CODE TESTS RESULT OUT OF REFERENCE UNITS RANGE LAB TP 6.3-8.0 g/dL Protein, Total 6.6 LAB ALB 3.9-4.9 g/dL Albumin 4.3 LAB CA 8.5-10.2 mg/dL Calcium, Total 9.5 LAB TBIL 0.2-1.3 mg/dL Bilirubin, Total 0.6 LAB ALKP 38-113 U/L Alkaline Phosphatase 56 LAB AST 14-40 U/L AST 34 LAB GLU 74-99 mg/dL Glucose 95 Result Comment: The [place] Diabetes Association (ADA) provides guidance for cutoff values for fasting glucose and random glucose. The ADA defines fasting as no caloric intake for at least 8 hours. Fas ting plasma glucose results between 100 to 125 mg/dL indicate increased risk for diabetes (prediabetes). Fasting plasma glucose results greater than or equal to 126 mg/dL meet the criteria for diagnosis of diabetes. In the absence of unequivocal hyperglycemia, results should be confirmed by repeat testing. In a patient with classic symptoms of hyperglycemia or hyperglycemic crisis, random plasma glucose results greater than or equal to 200 mg/dL meet the criteria for diagnosis of diabetes. Reference: Standards of Medical Care in Diabetes 2016, [place] Diabetes Association. Diabetes Care. 2016.39(Suppl 1). LAB BUN 9-24 mg/dL BUN 18 LAB CRET 0.73-1.22 mg/dL Creatinine 1.13 LAB NA 136-144 mmol/L Sodium 142 LAB K 3.7-5.1 mmol/L Potassium 4.4 LAB CL 97-105 mmol/L Chloride 101 LAB CO2 22-30 mmol/L CO2 27 LAB AGAP 9-18 mmol/L Anion Gap 14 LAB ALT 10-54 U/L ALT 21 LAB GFRAA eGFR- Amer. >60 LAB GFRNAA . eGFR-All Other Races >60 Result Comment: eGFR (Estimated GFR) Units of measure: mL/min/1.73 meters squared eGFR is derived from the reexpressed MDRD Study equation using the following parameters: serum creatinine, age, gender and race. The creatinine assay has been calibrated to be traceable to IDMS. An eGFR <60 mL/min/1.73m2 for >3 months is consistent with chronic kidney disease. Refer to KDOQI guidelines for clinical interpretation. In patients with unstable renal function, e.g. those with acute kidney injury, the eGFR may not accurately reflect actual GFR. Performed By: #### CMP, HBA1C #### [facility] [address] [place], [place] [address] HEMOGLOBIN A1C Collected: 10/21/2018 Status: F Source: [place] 7:41 AM [facility] REPOSITORY TYPE CODE TESTS RESULT OUT OF REFERENCE UNITS RANGE LAB HGBA1C 4.3-5.6 % High Hemoglobin A1c 6.4 Result Comment: [place] Diabetes Association guidelines indicate that patients with HgbA1c in the range 5.7-6.4% are at increased risk for development of diabetes, and intervention by lifestyle modification may be beneficial. HgbA1c greater or equal to 6.5% is considered diagnostic of diabetes. LAB HBA0 mg/dL Est. Average Glucose 137 Result Comment: eAG: (Estimated average glucose) is a calculated value from HgbA1c and is medical claims representative of the average blood glucose level in the last 2-3 month period. Performed By: #### CMP, HBA1C #### [facility] [address] [place], [place] [id number] ALBUMIN/CREAT RATIO Collected: 10/21/2018 Status: F Source: [place] 7:33 AM [facility] REPOSITORY TYPE CODE TESTS RESULT OUT OF REFERENCE UNITS RANGE LAB UCRR 20-300 mg/dL Creatinine,Ur 92.2 ine,Ran LAB UALBR 0.0-23.0 mg/L High Albumin Urine 553.0 Random LAB UALBCR 0-30 mg/g High Albumin/Creat 600 Ratio Result Comment: 30 to 300 mg/g indicates an increased risk for diabetic nephropathy. Greater than 300 mg/g is consistent with clinical nephropathy. (Am J Kidney Disease 1994, 25:107) Performed By: #### UACR #### [facility] [address] [place], [place] [address] PROGRESS Observed: 08/24/2018 Status: COMPLETED Source: [place] 10:01 AM [facility] REPOSITORY HNO ID: [id number] Author: Ana Govea Cma Service: (none) Author Type: (none) Type: Progress Notes Filed: 08/24/2018 10:01 AM Note Text: Reminders/release mailed to patient. CNCO Observed: 08/24/2018 Status: COMPLETED Source: [place] 12:00 AM [facility] REPOSITORY Letter Text [id number] [id number] Kaitlynn Bronson [address] [address] Clinic #: [id number] 08/24/2018 Dear Mr. Bronson, I have received the results of your recent tests. No concerns with labs except cholesterol labs have come back and could be improved with diet and exercise in addition to the Zocor. ? For diet, please focus on: - More lean meats like chicken, fish, turkey rather than red meats - Less carbs and when having carbs, more complex carbs such as beans, wheat or multigrain and brown rice - more vegetables - healthy fats such as olive oil, nuts, avocados - portion control ? For exercise: Please try and aim for a goal of 30 min a day most days of the week with a goal of 150min/wk. Brisk walking is plenty, if you can increase it later, then that is good, but if you are going from little or no exercise to this new routine, I do not want you to go too extreme. If you already exercise, I encourage you to try and do a little more than what you have been doing. ? We can discuss this at your next visit. Please do not hesitate to contact me with any questions. Sincerely, Gini Eden APRN.BRUSHER TENDER electronically signed to expedite mailing PROGRESS Observed: 08/21/2018 Status: COMPLETED Source: [place] 9:54 AM [facility] REPOSITORY HNO ID: [id number] Author: Ana Govea Cma Service: (none) Author Type: (none) Type: Progress Notes Filed: 08/24/2018 10:01 AM Note Text: [facility] CARE GAP REGISTRY DOCUMENTATION (OUTSIDE TEAMLET) Provider Action/FYI: Please file future labs - I will send appointment reminders once labs are filed. PSR Action/FYI: Pend labs Send reminder and DM retinal reminder/release form Patient identified by name and date of . Last BP/Labs: Blood Pressure: Last 3 Encounter BP Readings: Date: BP: 08/19/2018 184/92 05/19/2018 138/80 05/04/2018 130/80 Lipids: Cholesterol, Total (mg/dL) Date Value 08/19/2018 187 04/07/2018 156 HDL Cholesterol (mg/dL) Date Value 08/19/2018 41 04/07/2018 30 LDL Cholesterol (mg/dL) Date Value 08/19/2018 105 04/07/2018 84 Triglyceride (mg/dL) Date Value 08/19/2018 204 04/07/2018 208 HGB A1C: Lab Results Component Value Date HBA1C 6.6 05/13/2018 HBA1C 6.1 11/18/2017 HBA1C 6.4 05/13/2017 TSH: TSH (uU/mL) Date Value 11/18/2017 1.810 ) ? Patient has the following care gap registry disease diagnosis:DM ? HTN ? COPD ? Hyperlipidemia ? CAD ? Patient has the following open care gaps: Health Maintenance Due: BP CONTROLLED (<130/80) due on 1962 DTAP,TDAP,TD(1 - Tdap) due on 1963 DILATED RETINAL EXAM due on 12/16/2017 DIABETIC FOOT EXAM due on 07/01/2018 ? Last office visit: 08/19/18 ? Future office visit:Follow-up scheduled 11/18/18 needs labs prior Ana Govea Cma CNPTOUTREACH Observed: 08/21/2018 Status: COMPLETED Source: [place] 12:00 AM [facility] REPOSITORY Patient Outreach (INTMWS) KAITLYNN BRONSON ([id number]) 1945 M Date Time Provider Department 08/21/18 ANA GOVEA ([facility]) INTMWS During your visit today, we recorded the following information about you: Ana Govea Cma 08/24/2018 10:01 AM Signed [facility] CARE GAP REGISTRY DOCUMENTATION (OUTSIDE TEAMLET) Provider Action/FYI: Please file future labs - I will send appointment reminders once labs are filed. PSR Action/FYI: Pend labs Send reminder and DM retinal reminder/release form Patient identified by name and date of . Last BP/Labs: Blood Pressure: Last 3 Encounter BP Readings: Date: BP: 08/19/2018 184/92 05/19/2018 138/80 05/04/2018 130/80 Lipids: Cholesterol, Total (mg/dL) Date Value 08/19/2018 187 04/07/2018 156 HDL Cholesterol (mg/dL) Date Value 08/19/2018 41 04/07/2018 30 LDL Cholesterol (mg/dL) Date Value 08/19/2018 105 04/07/2018 84 Triglyceride (mg/dL) Date Value 08/19/2018 204 04/07/2018 208 HGB A1C: Lab Results Component Value Date HBA1C 6.6 05/13/2018 HBA1C 6.1 11/18/2017 HBA1C 6.4 05/13/2017 TSH: TSH (uU/mL) Date Value 11/18/2017 1.810 ) ? Patient has the following care gap registry disease diagnosis:DM ? HTN ? COPD ? Hyperlipidemia ? CAD ? Patient has the following open care gaps: Health Maintenance Due: BP CONTROLLED (<130/80) due on 1962 DTAP,TDAP,TD(1 - Tdap) due on 1963 DILATED RETINAL EXAM due on 12/16/2017 DIABETIC FOOT EXAM due on 07/01/2018 ? Last office visit: 08/19/18 ? Future office visit:Follow-up scheduled 11/18/18 needs labs prior Ana Govea Yarn Weigher [place] Yarn Weigher 08/24/2018 10:01 AM Signed Reminders/release mailed to patient. Allergies As of Date: 08/21/2018 Noted Allergy Reaction CRESTOR (ROSUVASTATIN CALCIUM) 01/01/2017 17 - Myalgia GABAPENTIN 03/08/2015 9 - Itching TAPE (ADHESIVE TAPE-SILICONES) 03/08/2015 14 - Other: See Comments Comments: Redness at site THROAT SPRAY (PHENOL-PHENOLATE SO*10/30/2015 7 - Swelling Comments: Tongue swelled ULTRAM (TRAMADOL HCL) 03/13/2009 Comments: itching VICODIN (HYDROCODONE-ACETAMINOPHE*03/08/2015 9 - Itching Date Reviewed: 08/19/2018 Reviewed by: Yarelis Velasco LPN - Fully Assessed Reason for Visit: PHMA/Care Gap Outreach [[id number]] Primary Visit Diagnosis:Essential hypertension [I10] Other Visit Diagnosis:Type 2 diabetes mellitus without complication, unspecified whether senior care insulin use (HCC) [E11.9] Order(s):HGB A1C [[id number]] Order #: [id number] FUTURE COMP METABOLIC PANEL [SQCMP] Order #: [id number] FUTURE ALBUMIN/CREAT RATIO RND UR [SQUACR] Order #: [id number] FUTURE Prescriptions as of 08/21/2018 Sig: OMEPRAZOLE 20 MG CAPSULE,JAGDISH* Take 1 capsule by mouth twice* SIMVASTATIN 20 MG TABLET Take 1 tablet by mouth daily * HYDROXYZINE HCL 25 MG TABLET Take 1 tablet by mouth every * LIDOCAINE 2 % MUCOSAL SOLUTION Gargle and spit 10-15mLs ever* CHOLECALCIFEROL (VITAMIN D3) * Take 1 capsule by mouth once * ZYRTEC ORAL Take by mouth. DEXAMETHASONE 0.1 % EYE DROPS 1 Drop twice daily as needed * GLIMEPIRIDE 2 MG TABLET Take 1 tablet by mouth daily * ALBUTEROL SULFATE HFA 90 MCG/* 2 puffs every 4 hours as need* OXYCODONE-ACETAMINOPHEN 7.5 M* ASPIRIN 81 MG TABLET,DELAYED * Take 81 mg by mouth once ho* LOSARTAN 100 MG TABLET Take 1 tablet by mouth once d* FUROSEMIDE 40 MG TABLET Take 1 tablet by mouth once d* METOPROLOL TARTRATE 100 MG TA* Take 1 tablet by mouth twice * AMLODIPINE 10 MG TABLET Take 1 tablet by mouth once d* GABAPENTIN ENACARBIL ER 600 M* Take 1 tablet by mouth daily * ACETAMINOPHEN 325 MG TABLET Take 2 tablets by mouth every* Problem List As Of Date 08/21/2018 Noted Resolved PAIN IN JOINT, LOWER LEG [M25.569] INVALID FOR* Chronic back pain [M54.9, G89.29] INVALID FOR* 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.1] INVALID FOR* Hyperlipidemia [E78.5] INVALID FOR* HTN (hypertension) [I10] INVALID FOR* DM2 (diabetes mellitus, type 2) (HCC) [E11.9] INVALID FOR* Heart murmur [R01.1] INVALID FOR* COPD (chronic obstructive pulmonary disease) (H*INVALID FOR* History of kidney stones [Z87.442] INVALID FOR* Aortic valve stenosis [I35.0] INVALID FOR* Obesity [E66.9] INVALID FOR* CAD (coronary artery disease) [I25.10] INVALID FOR* Nausea alone [R11.0] INVALID FOR*04/27/2015 Abdominal pain, right lower quadrant [R10.31] INVALID FOR*04/27/2015 BPH (benign prostatic hyperplasia) [N40.0] INVALID FOR* Adrenal mass (HCC) [E27.9] INVALID FOR* Bladder wall thickening [N32.89] INVALID FOR* Kidney stone [N20.0] INVALID FOR* Noncompliance with medication regimen [Z91.14] INVALID FOR* Obesity, Class I, BMI 30-34.9 [E66.9] INVALID FOR* Post-nasal drainage [R09.82] INVALID FOR* Malaise and fatigue [R53.81, R53.83] INVALID FOR* Essential hypertension [I10] INVALID FOR* Type 2 diabetes mellitus without complication (*INVALID FOR* 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 pylori infection [A04.8] INVALID FOR* Muscle cramp [R25.2] INVALID FOR* Letter Text [facility] Jhon Small DO [address] [phone] Dear Kaitlynn Bronson Your health care is very important to us. Our records indicate that you may be due for a diabetic eye exam. If you have had a diabetic eye exam within the last year, please have your records sent to us so that we may update your medical records. There is a medical records of release of information included in this letter. Please take the release to your eye doctor for future appointments to have your records forwarded to us. Important facts about diabetic eye exams Diabetic retinal exams should be done yearly for all patients with a diagnosis of diabetes. Risks such as diabetic retinopathy can be reduced with blood glucose control and early detection of potential problems. Diabetic retinopathy is damage to the small blood vessels in the retina that can lead to blindness Thank you, Jhon Small DO Letter [facility] [address] [address] Office: [phone] Jhon Small DO REQUEST FOR EYE EXAM FINDINGS December 20, 2016 Dear eye career information specialist, Thank you for coordinating eye care for our mutual patient, Kaitlynn Bronson (1945). Please fax this letter back to me with the most appropriate response selected below. Please allow the patient's signature to serve as permission to share your findings. Sincerely, Jhon Small, DO Patient Signature Date Date of eye exam: Findings Both Eyes Right Left No Retinopathy Detected Non Proliferative Retinopathy Mild Moderate Severe Proliferative Retinopathy Macular Edema Further testing and/or treatment indicated Comments: Patient is to return: Encounter Status:Closed by ANA GOVEA CMA on 08/24/18 CBC Collected: 08/19/2018 Status: F Source: [place] 10:34 AM [facility] REPOSITORY TYPE CODE TESTS RESULT OUT OF REFERENCE UNITS RANGE LAB WBC 3.70-11.00 k/uL WBC 7.04 LAB RBC 4.20-6.00 m/uL RBC 4.43 LAB HGB 13.0-17.0 g/dL Hemoglobin 13.9 LAB HCT 39.0-51.0 % Hematocrit 42.3 LAB MCV 80.0-100.0 fL MCV 95.5 LAB MCH 26.0-34.0 pG MCH 31.4 LAB MCHC 30.5-36.0 g/dL MCHC 32.9 LAB RDWCV 11.5-15.0 % RDW-CV 12.8 LAB PLTCT 150-400 k/uL Platelet Count 167 LAB MPV 9.0-12.7 fL MPV 12.0 LAB ABSNUC <0.01 k/uL Absolute nRBC <0.01 Performed By: #### CBC, CMP, LIPB, VITD #### [facility] [address] [place], [place] [address] COMP METABOLIC PANEL Collected: 08/19/2018 Status: F Source: [place] 10:34 AM [facility] REPOSITORY TYPE CODE TESTS RESULT OUT OF REFERENCE UNITS RANGE LAB TP 6.3-8.0 g/dL Protein, Total 6.6 LAB ALB 3.9-4.9 g/dL Albumin 4.5 LAB CA 8.5-10.2 mg/dL Calcium, Total 9.2 LAB TBIL 0.2-1.3 mg/dL Bilirubin, Total 0.8 LAB ALKP 36-108 U/L Alkaline Phosphatase 48 LAB AST 14-40 U/L AST 34 LAB GLU 74-99 mg/dL Glucose High 128 Result Comment: The [place] Diabetes Association (ADA) provides guidance for cutoff values for fasting glucose and random glucose. The ADA defines fasting as no caloric intake for at least 8 hours. Fas ting plasma glucose results between 100 to 125 mg/dL indicate increased risk for diabetes (prediabetes). Fasting plasma glucose results greater than or equal to 126 mg/dL meet the criteria for diagnosis of diabetes. In the absence of unequivocal hyperglycemia, results should be confirmed by repeat testing. In a patient with classic symptoms of hyperglycemia or hyperglycemic crisis, random plasma glucose results greater than or equal to 200 mg/dL meet the criteria for diagnosis of diabetes. Reference: Standards of Medical Care in Diabetes 2016, [place] Diabetes Association. Diabetes Care. 2016.39(Suppl 1). LAB BUN 9-24 mg/dL BUN 18 LAB CRET 0.73-1.22 mg/dL Creatinine 0.86 LAB NA 136-144 mmol/L Sodium 141 LAB K 3.7-5.1 mmol/L Potassium 4.3 LAB CL 97-105 mmol/L Chloride 101 LAB CO2 22-30 mmol/L CO2 24 LAB AGAP 9-18 mmol/L Anion Gap 16 LAB ALT 10-54 U/L ALT 26 LAB GFRAA eGFR- Amer. >60 LAB GFRNAA . eGFR-All Other Races >60 Result Comment: eGFR (Estimated GFR) Units of measure: mL/min/1.73 meters squared eGFR is derived from the reexpressed MDRD Study equation using the following parameters: serum creatinine, age, gender and race. The creatinine assay has been calibrated to be traceable to IDMS. An eGFR <60 mL/min/1.73m2 for >3 months is consistent with chronic kidney disease. Refer to KDOQI guidelines for clinical interpretation. In patients with unstable renal function, e.g. those with acute kidney injury, the eGFR may not accurately reflect actual GFR. Performed By: #### CBC, CMP, LIPB, VITD #### [facility] [address] [place], [place] [address] LIPID PANEL, BASIC Collected: 08/19/2018 Status: F Source: [place] 10:34 AM [facility] REPOSITORY TYPE CODE TESTS RESULT OUT OF REFERENCE UNITS RANGE LAB CHOL <200 mg/dL Cholesterol 187 Result Comment: <200 mg/dL, Desirable 200-239 mg/dL, Borderline high >239 mg/dL, High LAB TRIGLY <150 mg/dL Triglyceride High 204 Result Comment: <150 mg/dL, Normal 150-199 mg/dL, Borderline high 200-499 mg/dL, High >499 mg/dL, Very high LAB HDL >39 mg/dL HDL-Cholesterol 41 Result Comment: 40-59 mg/dL, Acceptable >59 mg/dL, High: Negative risk factor for coronary heart disease <40 mg/dL, Low: Positive risk factor for coronary heart disease LAB LDL <100 mg/dL LDL-Cholesterol High 105 Result Comment: <100 mg/dL, Optimal 100-129 mg/dL, Near optimal/above optimal 130-159 mg/dL, Borderline high 160-189 mg/dL, High >189 mg/dL, Very high Secondary prevention optimal LDL Cholesterol levels are recommended to be < 70 mg/dL LAB NONHDL <130 mg/dL Non HDL High Cholesterol 146 Result Comment: <130 mg/dL, Optimal 130-159 mg/dL, Near optimal/above optimal 160-189 mg/dL, Borderline high 190-219 mg/dL, High >219 mg/dL, Very high Secondary prevention optimal non HDL Cholesterol levels are recommended to be < 100 mg/dL LAB FT hrs Fasting Time 2 Result Comment: CREAM IN COFFEE LAB VLDL <30 mg/dL VLDL High Cholesterol 41 LAB TCHDL <5.10 TC:HDL Ratio 4.56 LAB LDLHDL <2.54 LDL:HDL Ratio High 2.56 Result Comment: Reference: 1. National Cholesterol Education Program ATP III Guideline At-A-Glance Quick Desk Reference: National Heart, Lung, and Blood [place]. National Institutes of Health. 2001: NIH Publication No. 01-3305. 2. An International Atherosclerosis Society position paper: global recommendations for the management of dyslipidemia: executive summary, Atherosclerosis. 2014: 232(2):410-413. Performed By: #### CBC, CMP, LIPB, VITD #### [facility] [address] [place], [place] [address] VITAMIN D 25 HYDROXY Collected: 08/19/2018 Status: F Source: [place] 10:34 AM [facility] REPOSITORY TYPE CODE TESTS RESULT OUT OF REFERENCE UNITS RANGE LAB VITD 31.0-80.0 ng/mL Vitamin D 25 52.7 Hydroxy Result Comment: Classification of 25 [place] Vitamin D status: Insufficiency/Moderate Deficiency: < or = 30 ng/mL Sufficiency/Optimal Levels: 31 to 80 ng/mL Toxicity: > 100 ng/mL Test performed by chemiluminescent immunoassay. Performed By: #### CBC, CMP, LIPB, VITD #### [facility] [address] [place], [place] [address] PROGRESS Observed: 08/19/2018 Status: COMPLETED Source: [place] 10:02 AM [facility] REPOSITORY HNO ID: [id number] Author: Jhon Small Service: (none) Author Type: Physician Type: Progress Notes Filed: 08/19/2018 10:55 AM Note Text: Patient presents with: Follow Up: 3 months HPI: Kaitlynn Bronson is a 72 year old male who presents to the office today for review of health conditions. Concerns today: Chronic back pain, seeing pain mgmt, had spine injections without relief. Getting frustrated with his leg bilateral pain and weakness, difficulty with prolonged walking due to back pain, no fevers or chills or new bladder or bowel incontinence or retention symptoms. Elevated blood pressure, seen in Dr. Mejia office yesterday and it was also high, is supposed to follow up next week in his office and if still high will have medication changed at that time. Mr. Bronson has past history of diabetes. Since our last visit he denies excessive thirst or increased frequency of urination, chest pain or dyspnea , new or unusual visual symptoms and low sugar/hypoglycemic reactions. Follows a diabetic diet some of the time. He is compliant with medication(s) and is tolerating med(s) without any side effects. He reports checking his glucose on a once a day schedule with sugars in the <150 range. Patient's last HgA1C was Hemoglobin A1C (%) Date Value 05/13/2018 6.6 11/18/2017 6.1 ) Last Ophthalmology exam was within the past 12 months Mr. Bronson reports history of hyperlipidemia. Current therapy includes simvastatin (Zocor) 20 mg. Denies side effects of muscle weakness or achiness. His most recent lipid panels are reviewed. Cholesterol, Total (mg/dL) Date Value 04/07/2018 156 HDL Cholesterol (mg/dL) Date Value 04/07/2018 30 LDL Cholesterol (mg/dL) Date Value 04/07/2018 84 Triglyceride (mg/dL) Date Value 04/07/2018 208 Mr. Bronson indicates a history of hypertension and states that he is feeling well and denies any symptoms referable to elevated blood pressure. Specifically denies headache, chest pain, palpitations, dyspnea and peripheral edema. Patient denies any side effects of his medication(s) and is compliant with their regimen. Last 3 Encounter BP Readings: Date: BP: 08/19/2018 184/92 05/19/2018 138/80 05/04/2018 130/80 He watches his diet for sodium, low fat and low cholesterol some of the time. He does not check BP's generally. Kaitlynn gets minimal exercise. PAST MEDICAL HISTORY Diagnosis Date - Aortic valve stenosis mild per 04/27/14 echo - CAD (coronary artery disease) - Chronic back pain sees Dr. 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) - COPD (chronic obstructive pulmonary disease) (HCC) - Diabetes mellitus without mention of complication Diabetes mellitus - History of kidney stones - Hyperlipidemia - Unspecified essential hypertension Essential hypertension PAST SURGICAL HISTORY Procedure Laterality Date - [facility]/2015 Colonoscopy - EGD W/O OR W/BRUSH/WASH 04/27/2015 EGD - PAST SURGICAL HISTORY OF 2011 Quad Bypass Social History Marital status: Single Spouse name: Years of education: Number of children: Social History Main Topics Smoking status: Former Smoker Packs/day: 2.00 Years: 30.00 Types: Cigarettes Quit date: 03/08/2005 Smokeless tobacco: Former User Types: Chew Quit date: 03/08/2005 Alcohol use: Yes Comment: 1-2 beers daily Drug use: No FAMILY HISTORY Problem Relation Age of Onset - Heart Paternal Uncle - Heart Paternal Uncle Allergies: ALLERGIES Allergen Reactions - Crestor [Rosuvastat* Myalgia - Gabapentin Itching - Tape [Adhesive Tape* Other: See Comments Redness at site - Throat [place] [Pheno* Swelling Tongue swelled - Ultram [Tramadol Hc* itching - Vicodin [Hydrocodon* Itching Current Meds: omeprazole (PRILOSEC) 20 mg capsule Take 1 capsule by mouth twice daily. 1/2 hr before meal. simvastatin (ZOCOR) 20 mg tablet Take 1 tablet by mouth daily at bedtime. hydrOXYzine HCl (ATARAX) 25 mg tablet Take 1 tablet by mouth every 8 hours as needed for Itching/Rash. lidocaine viscous (LIDOCAINE VISCOUS) 2 % solution Gargle and spit 10-15mLs every 3-4 hours as need for throat discomfort. cholecalciferol, Vitamin D3, (VITAMIN D3) 50,000 unit cap capsule Take 1 capsule by mouth once each week. CETIRIZINE HCL (ZYRTEC ORAL) Take by mouth. dexamethasone 0.1% 0.1 % ophthalmic solution 1 Drop twice daily as needed (into bilateral ears for itchy prn). glimepiride (AMARYL) 2 mg tablet Take 1 tablet by mouth daily with breakfast. albuterol HFA (PROAIR HFA) 90 mcg/actuation inhaler 2 puffs every 4 hours as needed oxyCODONE-acetaminophen (PERCOCET) 7.5-325 mg tablet aspirin, enteric coated (ASPIRIN, ENTERIC COATED) 81 mg EC tablet Take 81 mg by mouth once daily. losartan (COZAAR) 100 mg tablet Take 1 tablet by mouth once daily. Dr. Mejia furosemide (LASIX) 40 mg tablet Take 1 tablet by mouth once daily. metoprolol tartrate, short acting, (LOPRESSOR) 100 mg tablet Take 1 tablet by mouth twice daily. Dr. Mejia amLODIPine (NORVASC) 10 mg tablet Take 1 tablet by mouth once daily. Dr. Mejia gabapentin enacarbil (HORIZANT) 600 mg TbER Take 1 tablet by mouth daily at bedtime. Dr. Nelson acetaminophen (TYLENOL) 325 mg tablet Take 2 tablets by mouth every 6 hours as needed for Pain. Review of Systems: The remainder of the review of systems is negative. PE: 08/19/18 0943 BP: 184/92 Pulse: 80 Resp: 16 Temp: 36.1 ?C (97 ?F) TempSrc: Left Tympanic Weight: 90.7 kg (200 lb) Gen: AANDO, NAD, non-toxic appearing, Pleasant, cooperative, hard of hearing, obese HEENT: NT/AC, PERRLA, EOMs intact b/l, nares clear and patent b/l, pharynx without erythema, exudate or lesions. Uvula midline. EACs without erythema or debris. TMs pearly pitts with intact landmarks b/l. Neck: supple, No cervical LAD, no thyromegaly, no carotid bruits CV: RRR, normal S S2, 2/6 HSM RUSB murmurs, no gallops, no rubs, Pulses 2+ and symmetric in UE and LE b/l Lungs: normal respiratory effort, CTA b/l, no wheezing or rhonchi or rales Abd: soft, obese, NT, ND, +BS, no hepatosplenomegaly MS: FROM all 4 extremities Neuro: CN II-XII intact b/l, strength 5/5 b/l UE and LE, DTRs 2/4 UE and LE, sensation intact. Skin: warm, dry, intact, scattered seborrheic keratoses, solar lentigos and angiomas Trace b/l leg non pitting edema ASSESSMENT/PLAN: 1. Type 2 diabetes mellitus without complication, unspecified whether senior care insulin use (HCC) - ICD9: 250.00, ICD10: E11.9 (primary diagnosis) Controlled. - Continue current medications 2. Vitamin D deficiency - ICD9: 268.9, ICD10: E55.9 - continue supplement, recheck level - VITAMIN D 25 HYDROXY 3. Need for vaccination - ICD9: V05.9, ICD10: Z23 - ADMIN OF INFLUENZA VACCINE - INFLUENZA SEASONAL HIGH DOSE AGE 65+ 4. Essential hypertension - ICD9: 401.9, ICD10: I10 - good control - Continue current medication(s) - Encouraged dietary sodium restriction/DASH diet - Recommended regular aerobic exercise. - Recommend home blood pressure monitoring, to bring results in on next visit - Goal of BP <130/80 5. Hyperlipidemia, unspecified hyperlipidemia type - ICD9: 272.4, ICD10: E78.5 - to be determined upon return of lab results - Continue current medication. - Encouraged following a low fat, low cholesterol diet. - Discussed the benefits of regular aerobic exercise and weight loss. - Check fasting lipid panel - LIPID PANEL BASIC - COMP METABOLIC PANEL - CBC Jhon Small DO To ER if develops chest pain, shortness of breath, or severe worsening of symptoms. Discussed risks, benefits, alternatives, and potential side effects of medications. Patient expressed understanding and agreed with the plan. Jhon Small DO [address] [place] [address] CNOV Observed: 08/19/2018 Status: COMPLETED Source: [place] 9:40 AM [facility] REPOSITORY Office Visit (FAMPWS) KAITLYNN BRONSON ([id number]) 1945 M Date Time Provider Department 08/19/18 9:40 AM [facility] During your visit today, we recorded the following information about you: Temperature Pulse Respiration Blood pressure 97 degrees 80/minute 16/minute 184/92 Weight 90.7 kg Yarelis FonsecaOmar DAI 08/19/2018 9:52 AM Signed Influenza Vaccine Documentation: ? Patient is identified by name and date of : Yes ? Patient is older than 6 months of age: Yes ? Patient denies a severe allergy to any vaccine component or to a previous dose of influenza vaccine: Yes FOR EGG ALLERGY CONCERNS, REFER TO PROVIDER. ? Denies allergy to gelatin, formaldehyde, thimerosol :Yes ? Patient is afebrile and not moderately or severely ill: Yes ? Does the patient have a history of Guillain ?[place] Syndrome (a severe paralytic illness): No ? Denies bone marrow transplant prior 6 months or solid organ transplant prior 3 months: Yes ? Denies a history of fainting after a prior injection or medical procedure? Yes If patient has fainted in the past, the CDC recommends sitting or lying down for 15 minutes after the vaccination. ? VIS sheet provided: Yes ? See Immunization Form in [employer] for details of immunizations administered today. If patient reports dizziness, vision changes or ringing in the ears post vaccination ? please have patient sit or lie down for 15 minutes. Jhon Small DO 08/19/2018 10:55 AM Signed Patient presents with: Follow Up: 3 months HPI: Kaitlynn Bronson is a 72 year old male who presents to the office today for review of health conditions. Concerns today: Chronic back pain, seeing pain mgmt, had spine injections without relief. Getting frustrated with his leg bilateral pain and weakness, difficulty with prolonged walking due to back pain, no fevers or chills or new bladder or bowel incontinence or retention symptoms. Elevated blood pressure, seen in Dr. Mejia office yesterday and it was also high, is supposed to follow up next week in his office and if still high will have medication changed at that time. Mr. Bronson has past history of diabetes. Since our last visit he denies excessive thirst or increased frequency of urination, chest pain or dyspnea , new or unusual visual symptoms and low sugar/hypoglycemic reactions. Follows a diabetic diet some of the time. He is compliant with medication(s) and is tolerating med(s) without any side effects. He reports checking his glucose on a once a day schedule with sugars in the <150 range. Patient's last HgA1C was Hemoglobin A1C (%) Date Value 05/13/2018 6.6 11/18/2017 6.1 ) Last Ophthalmology exam was within the past 12 months Mr. Bronson reports history of hyperlipidemia. Current therapy includes simvastatin (Zocor) 20 mg. Denies side effects of muscle weakness or achiness. His most recent lipid panels are reviewed. Cholesterol, Total (mg/dL) Date Value 04/07/2018 156 HDL Cholesterol (mg/dL) Date Value 04/07/2018 30 LDL Cholesterol (mg/dL) Date Value 04/07/2018 84 Triglyceride (mg/dL) Date Value 04/07/2018 208 Mr. Bronson indicates a history of hypertension and states that he is feeling well and denies any symptoms referable to elevated blood pressure. Specifically denies headache, chest pain, palpitations, dyspnea and peripheral edema. Patient denies any side effects of his medication(s) and is compliant with their regimen. Last 3 Encounter BP Readings: Date: BP: 08/19/2018 184/92 05/19/2018 138/80 05/04/2018 130/80 He watches his diet for sodium, low fat and low cholesterol some of the time. He does not check BP's generally. Kaitlynn gets minimal exercise. PAST MEDICAL HISTORY Diagnosis Date - Aortic valve stenosis mild per 04/27/14 echo - CAD (coronary artery disease) - Chronic back pain sees Dr. 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) - COPD (chronic obstructive pulmonary disease) (HCC) - Diabetes mellitus without mention of complication Diabetes mellitus - History of kidney stones - Hyperlipidemia - Unspecified essential hypertension Essential hypertension PAST SURGICAL HISTORY Procedure Laterality Date - COLONOSCOP W/ OR W/O BRSH SPEC 04/27/2015 Colonoscopy - EGD W/O OR W/BRUSH/WASH 04/27/2015 EGD - PAST SURGICAL HISTORY OF 2011 Quad Bypass Social History Marital status: Single Spouse name: Years of education: Number of children: Social History Main Topics Smoking status: Former Smoker Packs/day: 2.00 Years: 30.00 Types: Cigarettes Quit date: 03/08/2005 Smokeless tobacco: Former User Types: Chew Quit date: 03/08/2005 Alcohol use: Yes Comment: 1-2 beers daily Drug use: No FAMILY HISTORY Problem Relation Age of Onset - Heart Paternal Uncle - Heart Paternal Uncle Allergies: ALLERGIES Allergen Reactions - Crestor [Rosuvastat* Myalgia - Gabapentin Itching - Tape [Adhesive Tape* Other: See Comments Redness at site - Throat [place] [Pheno* Swelling Tongue swelled - Ultram [Tramadol Hc* itching - Vicodin [Hydrocodon* Itching Current Meds: omeprazole (PRILOSEC) 20 mg capsule Take 1 capsule by mouth twice daily. 1/2 hr before meal. simvastatin (ZOCOR) 20 mg tablet Take 1 tablet by mouth daily at bedtime. hydrOXYzine HCl (ATARAX) 25 mg tablet Take 1 tablet by mouth every 8 hours as needed for Itching/Rash. lidocaine viscous (LIDOCAINE VISCOUS) 2 % solution Gargle and spit 10-15mLs every 3-4 hours as need for throat discomfort. cholecalciferol, Vitamin D3, (VITAMIN D3) 50,000 unit cap capsule Take 1 capsule by mouth once each week. CETIRIZINE HCL (ZYRTEC ORAL) Take by mouth. dexamethasone 0.1% 0.1 % ophthalmic solution 1 Drop twice daily as needed (into bilateral ears for itchy prn). glimepiride (AMARYL) 2 mg tablet Take 1 tablet by mouth daily with breakfast. albuterol HFA (PROAIR HFA) 90 mcg/actuation inhaler 2 puffs every 4 hours as needed oxyCODONE-acetaminophen (PERCOCET) 7.5-325 mg tablet aspirin, enteric coated (ASPIRIN, ENTERIC COATED) 81 mg EC tablet Take 81 mg by mouth once daily. losartan (COZAAR) 100 mg tablet Take 1 tablet by mouth once daily. Dr. Mejia furosemide (LASIX) 40 mg tablet Take 1 tablet by mouth once daily. metoprolol tartrate, short acting, (LOPRESSOR) 100 mg tablet Take 1 tablet by mouth twice daily. Dr. Mejia amLODIPine (NORVASC) 10 mg tablet Take 1 tablet by mouth once daily. Dr. Mejia gabapentin enacarbil (HORIZANT) 600 mg TbER Take 1 tablet by mouth daily at bedtime. Dr. Nelson acetaminophen (TYLENOL) 325 mg tablet Take 2 tablets by mouth every 6 hours as needed for Pain. Review of Systems: The remainder of the review of systems is negative. PE: 08/19/18 0943 BP: 184/92 Pulse: 80 Resp: 16 Temp: 36.1 ?C (97 ?F) TempSrc: Left Tympanic Weight: 90.7 kg (200 lb) Gen: AANDO, NAD, non-toxic appearing, Pleasant, cooperative, hard of hearing, obese HEENT: NT/AC, PERRLA, EOMs intact b/l, nares clear and patent b/l, pharynx without erythema, exudate or lesions. Uvula midline. EACs without erythema or debris. TMs pearly pitts with intact landmarks b/l. Neck: supple, No cervical LAD, no thyromegaly, no carotid bruits CV: RRR, normal S S2, 2/6 HSM RUSB murmurs, no gallops, no rubs, Pulses 2+ and symmetric in UE and LE b/l Lungs: normal respiratory effort, CTA b/l, no wheezing or rhonchi or rales Abd: soft, obese, NT, ND, +BS, no hepatosplenomegaly MS: FROM all 4 extremities Neuro: CN II-XII intact b/l, strength 5/5 b/l UE and LE, DTRs 2/4 UE and LE, sensation intact. Skin: warm, dry, intact, scattered seborrheic keratoses, solar lentigos and angiomas Trace b/l leg non pitting edema ASSESSMENT/PLAN: 1. Type 2 diabetes mellitus without complication, unspecified whether manager terminal insulin use (HCC) - ICD9: 250.00, ICD10: E11.9 (primary diagnosis) Controlled. - Continue current medications 2. Vitamin D deficiency - ICD9: 268.9, ICD10: E55.9 - continue supplement, recheck level - VITAMIN D 25 HYDROXY 3. Need for vaccination - ICD9: V05.9, ICD10: Z23 - ADMIN OF INFLUENZA VACCINE - INFLUENZA SEASONAL HIGH DOSE AGE 65+ 4. Essential hypertension - ICD9: 401.9, ICD10: I10 - good control - Continue current medication(s) - Encouraged dietary sodium restriction/DASH diet - Recommended regular aerobic exercise. - Recommend home blood pressure monitoring, to bring results in on next visit - Goal of BP <130/80 5. Hyperlipidemia, unspecified hyperlipidemia type - ICD9: 272.4, ICD10: E78.5 - to be determined upon return of lab results - Continue current medication. - Encouraged following a low fat, low cholesterol diet. - Discussed the benefits of regular aerobic exercise and weight loss. - Check fasting lipid panel - LIPID PANEL BASIC - COMP METABOLIC PANEL - CBC Jhon Small DO To ER if develops chest pain, shortness of breath, or severe worsening of symptoms. Discussed risks, benefits, alternatives, and potential side effects of medications. Patient expressed understanding and agreed with the plan. Jhon Small DO [address] [place] [address] Referring Provider: JHON SMALL [[id number]] Allergies As of Date: 08/19/2018 Noted Allergy Reaction CRESTOR (ROSUVASTATIN CALCIUM) 01/01/2017 17 - Myalgia GABAPENTIN 03/08/2015 9 - Itching TAPE (ADHESIVE TAPE-SILICONES) 03/08/2015 14 - Other: See Comments Comments: Redness at site THROAT SPRAY (PHENOL-PHENOLATE SO*10/30/2015 7 - Swelling Comments: Tongue swelled ULTRAM (TRAMADOL HCL) 03/13/2009 Comments: itching VICODIN (HYDROCODONE-ACETAMINOPHE*03/08/2015 9 - Itching Date Reviewed: 08/19/2018 Reviewed by: Yarelis Velasco LPN - Fully Assessed Reason for Visit: Follow Up [171] Cmt: 3 months Primary Visit Diagnosis:Type 2 diabetes mellitus without complication, unspecified whether senior care insulin use (HCC) [E11.9] Other Visit Diagnoses:Vitamin D deficiency [E55.9] Need for vaccination [Z23] Essential hypertension [I10] Hyperlipidemia, unspecified hyperlipidemia type [E78.5] Order(s):ADMIN OF INFLUENZA VACCINE [[id number]] Order #: [id number]: 1 INFLUENZA SEASONAL HIGH DOSE AGE 65+ [[id number]] Order #: [id number] VITAMIN D 25 HYDROXY [SQVITD] Order #: [id number] FUTURE LIPID PANEL BASIC [SQLIPB] Order #: [id number] FUTURE COMP METABOLIC PANEL [SQCMP] Order #: [id number] FUTURE CBC [SQCBC] Order #: [id number] FUTURE Prescriptions as of 08/19/2018 Sig: OMEPRAZOLE 20 MG CAPSULE,JAGDISH* Take 1 capsule by mouth twice* SIMVASTATIN 20 MG TABLET Take 1 tablet by mouth daily * HYDROXYZINE HCL 25 MG TABLET Take 1 tablet by mouth every * LIDOCAINE 2 % MUCOSAL SOLUTION Gargle and spit 10-15mLs ever* CHOLECALCIFEROL (VITAMIN D3) * Take 1 capsule by mouth once * ZYRTEC ORAL Take by mouth. DEXAMETHASONE 0.1 % EYE DROPS 1 Drop twice daily as needed * GLIMEPIRIDE 2 MG TABLET Take 1 tablet by mouth daily * ALBUTEROL SULFATE HFA 90 MCG/* 2 puffs every 4 hours as need* OXYCODONE-ACETAMINOPHEN 7.5 M* ASPIRIN 81 MG TABLET,DELAYED * Take 81 mg by mouth once ho* LOSARTAN 100 MG TABLET Take 1 tablet by mouth once d* FUROSEMIDE 40 MG TABLET Take 1 tablet by mouth once d* METOPROLOL TARTRATE 100 MG TA* Take 1 tablet by mouth twice * AMLODIPINE 10 MG TABLET Take 1 tablet by mouth once d* GABAPENTIN ENACARBIL ER 600 M* Take 1 tablet by mouth daily * ACETAMINOPHEN 325 MG TABLET Take 2 tablets by mouth every* Problem List As Of Date 08/19/2018 Noted Resolved PAIN IN JOINT, LOWER LEG [M25.569] INVALID FOR* Chronic back pain [M54.9, G89.29] INVALID FOR* 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.1] INVALID FOR* Hyperlipidemia [E78.5] INVALID FOR* HTN (hypertension) [I10] INVALID FOR* DM2 (diabetes mellitus, type 2) (HCC) [E11.9] INVALID FOR* Heart murmur [R01.1] INVALID FOR* COPD (chronic obstructive pulmonary disease) (H*INVALID FOR* History of kidney stones [Z87.442] INVALID FOR* Aortic valve stenosis [I35.0] INVALID FOR* Obesity [E66.9] INVALID FOR* CAD (coronary artery disease) [I25.10] INVALID FOR* Nausea alone [R11.0] INVALID FOR*04/27/2015 Abdominal pain, right lower quadrant [R10.31] INVALID FOR*04/27/2015 BPH (benign prostatic hyperplasia) [N40.0] INVALID FOR* Adrenal mass (HCC) [E27.9] INVALID FOR* Bladder wall thickening [N32.89] INVALID FOR* Kidney stone [N20.0] INVALID FOR* Noncompliance with medication regimen [Z91.14] INVALID FOR* Obesity, Class I, BMI 30-34.9 [E66.9] INVALID FOR* Post-nasal drainage [R09.82] INVALID FOR* Malaise and fatigue [R53.81, R53.83] INVALID FOR* Essential hypertension [I10] INVALID FOR* Type 2 diabetes mellitus without complication (*INVALID FOR* 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 pylori infection [A04.8] INVALID FOR* Muscle cramp [R25.2] INVALID FOR* Visit Notes: >> Yarelis Velasco LPN Wed Aug 19, 2018 9:47 AM Status: Signed Influenza Vaccine Documentation: ? Patient is identified by name and date of : Yes ? Patient is older than 6 months of age: Yes ? Patient denies a severe allergy to any vaccine component or to a previous dose of influenza vaccine: Yes FOR EGG ALLERGY CONCERNS, REFER TO PROVIDER. ? Denies allergy to gelatin, formaldehyde, thimerosol :Yes ? Patient is afebrile and not moderately or severely ill: Yes ? Does the patient have a history of Guillain ?[place] Syndrome (a severe paralytic illness): No ? Denies bone marrow transplant prior 6 months or solid organ transplant prior 3 months: Yes ? Denies a history of fainting after a prior injection or medical procedure? Yes If patient has fainted in the past, the CDC recommends sitting or lying down for 15 minutes after the vaccination. ? VIS sheet provided: Yes ? See Immunization Form in [facility] for details of immunizations administered today. If patient reports dizziness, vision changes or ringing in the ears post vaccination ? please have patient sit or lie down for 15 minutes. Encounter Status:Closed by JHON SMALL DO on 08/19/18 CARDIOLOGY VISIT Observed: 08/17/2018 Status: F Source: [place] RE[facility] 12:01 PM [facility] REPOSITORY [facility] [address] [place] [address] OFFICE VISIT Date of Service: 08/17/18 MR#: [id number] Acct: [id number] Name: KAITLYNN BRONSON Rep #: [id number] : 1945 Provider: Shiraz Mejia MD Age/Sex: 72/M Location: [facility] Status: Signed HPI HPI Details: KAITLYNN BRONSON, is a 72 M who presents to the office today for for outpatient cardiovascular follow-up. He states overall he has been doing well with respect and not having ongoing chest discomfort or difficulty breathing at rest or with exertion. There has been no obvious issues with respect to palpitations or rapid heart rates. There is been no near syncope or syncope. He states his main concern has been intermittent hematuria and low back discomfort. He was referred to a urologist. He states he has yet to establish an appointment with the urologist. He notes his lipids have been obtained by his primary care physician. He believes they are under good control. They are unavailable at this time for review. His blood pressure was elevated today. He states it is because he is upset because of the need for automobile mechanical issues/parts. He states he does check his blood pressure at home and it is usually under good control. His blood pressure was rechecked today. His systolic blood pressure on repeat was approximately 160 mmHg with a diastolic blood pressure of approximately 84 mmHg. Intake Vital Signs08/17/18 Height 5 ft 5 in 08/17/18 Weight: 200 lb 08/17/18 Body Mass Index (BMI) 33.3 08/17/18 Blood Pressure 172/78 Intake Visit Reasons: 6 M FU Allergies tramadol [From [facility]] Allergy (Severe, Verified 08/17/18 11:13) Itching adhesive Allergy (Verified 08/17/18 11:13) Rash gabapentin Allergy (Verified 08/17/18 11:13) Itching Medications aspirin 81 mg tablet,delayed release 81 mg PO QDAY 11/03/17 [History Confirmed 08/17/18] glimepiride 2 mg tablet 2 mg PO QAM 11/03/17 [History Confirmed 08/17/18] losartan 100 mg tablet 100 mg PO QDAY 11/03/17 [History Confirmed 08/17/18] simvastatin 10 mg tablet 10 mg PO QPM 11/03/17 [History Confirmed 08/17/18] furosemide 40 mg tablet 40 mg PO QDAY 12/24/17 [History Confirmed 08/17/18] potassium chloride ER 10 mEq tablet,extended release 10 meq PO BID #60 tab 01/12/18 [Rx Confirmed 08/17/18] metoprolol tartrate 100 mg tablet 100 mg PO BID #60 tab 03/17/18 [Rx Confirmed 08/17/18] amlodipine 5 mg tablet 5 mg PO QDAY #90 tab 06/17/18 [Rx Confirmed 08/17/18] cetirizine 10 mg tablet 5 mg PO DAILY PRN 08/17/18 [History Confirmed 08/17/18] oxycodone-acetaminophen 7.5 mg-325 mg tablet 1 tab PO Q4H PRN 08/17/18 [History Confirmed 08/17/18] vitamin B complex and vit C no.3 15 mg-10 mg-50 mg-5 mg-300 mg capsule 1 cap PO DAILY 08/17/18 [History Confirmed 08/17/18] PFS Medical History Type 2 diabetes mellitus (Chronic) Hypertension (Chronic) Nonrheumatic aortic (valve) stenosis (Acute) Atherosclerotic heart disease of [place] coronary artery without angina pectoris (Chronic) Hyperlipidemia (Chronic) BPH (benign prostatic hyperplasia) (Chronic) COPD (chronic obstructive pulmonary disease) (Chronic) GERD (gastroesophageal reflux disease) (Chronic) Surgical History History of coronary artery bypass surgery (Chronic 09/30/12) Family History Mother , at age 48 PVD CAD (coronary artery disease) PVD (peripheral vascular disease) Father , Black lung disease No problems noted. Brother Hypertension PVD (peripheral vascular disease) Son Hypertension Social History adopted: No household members: spouse housing: house number of children: 5 current occupational status: retired current occupational exposures/hazards: No pets and animals: Yes (2) pets and animals: cat(s) leisure activities: other history of recent travel: No other: watching television Smoking Status: Former smoker second hand exposure: Yes alcohol intake: current alcohol intake frequency: holidays/special occasions only Alcohol type: beer substance use type: does not use well-balanced diet: about half the time caffeine: Yes Type: coffee Number of servings: 1 eating out: 1-3 times/week what type of physical activity do you participate in: none seatbelt use: always do you feel safe at home: Yes ROS Const Const: Negative for fatigue, weakness, weight gain, weight loss, frequent falls or excessive sweating Eyes Eyes: Negative for change in vision, blurry vision or transient loss of vision ENT ENT: Negative for dizziness or balance problems Cardio Chest Pain: No Palpitations: No Edema: Bilateral (occasional) Muscle aches with walking: None Resp Respiratory: Positive for SOB with activity (baseline); negative for SOB at rest GI GI: Negative vomiting or vomiting blood/hematemesis : Negative for hematuria Musc Musc: Positive for muscle aches/ myalgia (HX Chronic Back pain) and joint pain (HX Arthritis); negative for balance problems or muscle weakness Skin Skin: Negative non-healing lesions or rash Neuro Neuro: Positive for lightheadedness (occasional while up and moving about); negative for weakness, blurry vision, dizziness, frequent falls or orthostatic symptoms Garret Hematologic/Lymphatic: Negative for easy bleeding Endo Endo: Negative for fatigue or excessive sweating Psych Psych: Negative for anxiety or depression Allergy Allergy/Immunology: Negative for hives, Negative for rash Cardiology Exam Const Appearance: cooperative, healthy appearing, no acute distress, comfortable, well developed and well groomed Nutritional Appearance: overweight Orientation: alert and oriented x3 Head Head: normocephalic and normal to inspection Ears: hearing grossly normal bilaterally Nose: external nose normal Face and Sinus: face symmetric Mouth: oral mucosae normal Teeth and gingiva: fair dentition Eyes General: appearance normal, both eyes and all related structures Eyelids: eyelids normal Conjunctivae: conjunctivae normal Pupils: PERRL EOM: EOM intact bilaterally Neck Neck: normal visual inspection, no JVD and full ROM Carotids: normal carotid upstroke Chest Chest inspection: normal inspection of the chest and symmetric chest movement Auscultation: Bilateral: Clear to Auscultation Cardio Palpation: normal PMI Rate: regular rate Rhythm: regular rhythm Heart sounds: S1 normal, S2 normal and murmur Murmur: Grade 3/6, mid systolic, LLSB, LVOT and sternal notch GI GI: normal to inspection, soft and bowel sounds present Neuro General: alert, awake and oriented x3 Skin Skin: no rashes or lesions noted Extremities Pulses: Normal: Right Dorsalis Pedis Pulse, Left Dorsalis Pedis Pulse, Right Radial Pulse, Left Radial Pulse Lower Extremity Edema: None: Bilateral Psych Psychological: normal affect Supplemental Info He did have a transthoracic echocardiogram performed on 05/07/2017 at [facility] Interpretation Summary Left ventricular systolic function is normal. The estimated ejection fraction is 55 %. Post operative septal motion. Mild concentric left ventricular hypertrophy. Sigmoid septum. There is mild mitral annular calcification. Mild (1+) mitral valve insufficiency. Trivial tricuspid valve insufficiency. Mild aortic stenosis. Trivial pulmonic valve insufficiency. Calcified aortic root. Transmitral diastolic flow velocities suggest diastolic dysfunction (pseudonormal pattern). He did have a transesophageal echocardiogram performed on 08/25/2012 at [facility] ry Left ventricular systolic function is normal. The estimated ejection fraction is 60 %. There is no sponatenous contrast in the left atrium. No thrombus is detected in the left atrial appendage. There is mild mitral annular calcification. Trivial mitral valve insufficiency. Trivia.1 tricuspid valve insufficiency. Aortic valve a.aguila by planimetry: approximately 1.5 cm squared c/w mild aortic valve stenosis. Bubbl.e contrast study negative for right to left intera.tria.l shunt. Calcified aortic root. Mild atherosclerosis of the aortic arch. Mild atherosclerosis of the descending aorta. He did have an exercise tolerance test performed on 12/05/2017 at [facility] Procedure: Pharmacologic stress nuclear imaging study Indications: Shortness of breath/dyspnea; CAD; CABG Consent: Per the patient Procedure: The patient underwent pharmacologic (Regadenoson) evaluation with a peak heart rate of 90 bpm (60% predicted maximal heart rate) with a peak blood pressure 160/94 mmHg. The baseline ECG demonstrated normal sinus rhythm with a nonspecific IVCD pattern. The peak pharmacologic ECG demonstrated no obvious ECG changes. There were no obvious cardiac dysrhythmias pretest, during pharmacologic infusion, or recovery. There were no complaints of chest discomfort during pharmacologic infusion or recovery. The examination was discontinued secondary to completion of protocol. Impression: 1. Pharmacologic (Regadenoson) evaluation 2. Peak pharmacologic ECG with continued nonspecific IVCD pattern with no obvious ECG changes 3. Nuclear images pending Myocardial perfusion imaging study: Technique: The patient was injected with 14.0 mCi of technetium 99m Cardiolite and subsequently rest SPECT Cardiolite nuclear imaging was obtained in the horizontal long, vertical long, and short axis views. The patient underwent pharmacologic (Regadenoson) evaluation with a peak heart rate of 90 bpm (60% predicted maximal heart rate) with a peak blood pressure 160/94 mmHg and the patient was injected with 45.0 mCi of technetium 99m Cardiolite and subsequently stress SPECT Cardiolite nuclear imaging was obtained in the horizontal long, vertical long, and short axis views. A gated Cardiolite study at peak stress was obtained. Interpretation: Rest and stress SPECT cardiac nuclear imaging status post realignment, normalization, and attenuation correction, demonstrates the appearance of relative uniform tracer uptake with the exception of a small area of subtle diminished tracer uptake near the apical segments without significant change between rest and stress. There is end systolic thickening and brightening. The gated Cardiolite study demonstrates myocardial thickening and inward wall motion. The reported LVEF is 57%. Impression: 1. Rest and stress SPECT current nuclear imaging demonstrate myocardial perfusion changes appearing compatible with physiologic apical thinning with no myocardial perfusion changes consider diagnostic for associated stress-induced myocardial ischemia or previous myocardial injury/infarction. 2. The gated Cardiolite study reports an LVEF of 57%. He did have a diagnostic cardiac catheterization performed at [facility] on 06/17/2012 No complications. Impression: Severe coronary artery disease. Moderate to severe left main coronary artery disease. 50 to 75% stenosis in the left main coronary artery. Occluded mid left anterior descending artery. 50% stenosis in the proximal left circumflex artery. 85% stenosis in the proximal to mid ramus intermedius. Faint collateral vessels from the left circumflex artery to the left anterior descending artery were present. Mild aortic valve stenosis was seen. (see above> Mild to moderate pulmonary hypertension. The left internal thoracic artery was normal and large. The left ventricular ejection fraction was 65%. Normal left ventricular size and contractility. He did have a Holter monitor performed on 05/05/2013 at [facility] NORMAL SINUS RHYTHM WITH T WAVE INVERSION IN CHANNEL 2 AND 3. MINIMUM HR 64 BPM AT 8:47:27 PM, NO ACTIVITY OR SYMPTOM RECORDED. AVERAGE 84 6PM MAXIMUM HR 105 6PM AT 2:25:23 PM, NO ACTIVITY OR SYMPTOM RECORDED. RARE ISOLATED PREMATURE ATRIAL COMPLEXES, RARELY NONCONDUCTED. NO RUNS NOTED. RARE ISOLATED PREMATURE VENTRICULAR COMPLEXES. NO RUNS NOTED. NO SYMPTOMS DOCUMENTED IN 24 HOUR HOLTER DIARY. He had CT surgery performed at [facility] on 09/30/2012 PROCEDURE PERFORMED: Four-vessel coronary artery bypass grafting utilizing internal mammary to the anterior descending, saphenous vein grafting sequentially to the ramus branch and lateral circumflex branches and individual saphenous vein bypass grafting to the posterior descending branch of the right coronary artery. All utilizing cardiopulmonary bypass, cold blood cardioplegia with endo vein harvesting of the saphenous vein. Assessment AND Plan 1. Atherosclerotic heart disease of [place] coronary artery without angina pectoris I25.10 Plan At the present time he appears to be doing well. He will continue his current cardiovascular medical management. A copy of his lipid profile will be requested for continuity of care 2. History of coronary artery bypass graft Z95.1 CABG x 4 KNOWLES to LAD, SVG to Ramus, SVG to lateral CX, and SVG to post descending branch of RCA 09/30/12 @ [facility] Plan He does have a history of CABG as noted above. Again he will continue his current medical management and follow-up. 3. Nonrheumatic aortic (valve) stenosis I35.0 Plan His aortic valve is being followed. He had a transthoracic echocardiogram in 2017 as noted above. It was not felt this need to be repeated at this time. This will be reassessed over time as deemed appropriate. 4. Pure hypercholesterolemia E78.00 Plan Again, a copy of his lipid profile will be requested for continuity of care purposes. 5. Essential hypertension I10 Plan He was asked to monitor his blood pressure at home. He will bring us blood pressure recordings in approximately 4-6 weeks. If his blood pressures remain elevated then he will need adjustment of his medication Plan Detail Additional Comments Thank you for allowing me to participate in the care of your patient. Please don't hesitate to call if any issues arise. This note was generated using a voice recognition system and there may be incorrect words, spelling or punctuation that were not noted when reviewing the office note prior to saving. Follow Up 9 Months (PFM) 08/17/18 (Copy of PCP lipid labs) Coding Level of Care Code Off vis,est,level 3 Diagnoses Atherosclerotic heart disease of [place] coronary artery without angina pectoris I25.10 History of coronary artery bypass graft Z95.1 Nonrheumatic aortic (valve) stenosis I35.0 Pure hypercholesterolemia E78.00 Hyperlipidemia type: pure hypercholesterolemia Essential hypertension I10 Hypertension type: essential hypertension Coding Level of Care Code Off vis,est,level 3 Diagnoses Atherosclerotic heart disease of [place] coronary artery without angina pectoris I25.10 History of coronary artery bypass graft Z95.1 Nonrheumatic aortic (valve) stenosis I35.0 Pure hypercholesterolemia E78.00 Hyperlipidemia type: pure hypercholesterolemia Essential hypertension I10 Hypertension type: essential hypertension 08/17/18 1201 <Electronically signed by Shiraz Mejia MD> Date Shiraz Mejia MD Cosigner Signature: Date (if applicable) CC: Jhon Cuevas, DO FLUOROSCOPY IN OR/PAIN Observed: 07/30/2018 Status: F Source: [facility] MGT 7:04 AM [facility] FLUOROSCOPY IN OR/PAIN MGT Ordering Physician: Russell Aparicio MD 07/30/2018 9:30 AM FLUOROSCOPY IN OR/PAIN MANAGEMENT Clinical Statement: Sacroiliitis Comparison: None FINDINGS: Fluoroscopy was provided to Dr. Aparicio who performed the procedure. Two fluoroscopic spot views demonstrate needles directed over the bilateral SI joints. 8.2 seconds of fluoroscopic time was utilized. IMPRESSION: Report generated to document fluoroscopic time utilized in pain management. ---- Electronic Signature on File ---- Signed By: Jasson Akers MD [email or web address] Dictated: 07/30/2018 9:32 AM Signed: 07/30/2018 9:33 AM Reported By: JASSON AKERS M.D. Signed By: JASSON AKERS M.D. PROGRESS Observed: 05/19/2018 Status: COMPLETED Source: [place] 9:46 AM [facility] REPOSITORY HNO ID: [id number] Author: Jhon Small Service: (none) Author Type: Physician Type: Progress Notes Filed: 05/19/2018 10:24 AM Note Text: Patient presents with: Follow Up: 3 months HPI: Kaitlynn Bronson is a 72 year old male who presents to the office today for review of health conditions. Concerns today: Hx of tobacco abuse, pulmonary emphysema, no new symptoms/changes, no hemoptysis or chest pains or dyspnea or wheezing, Use of albuterol intermittently Chronic back pain, managed by Dr. Omid holman mgmt, no new changes Mr. Bronson has past history of diabetes. Since our last visit he denies excessive thirst or increased frequency of urination, chest pain or dyspnea , new or unusual visual symptoms and low sugar/hypoglycemic reactions. Follows a diabetic diet some of the time. He is compliant with medication(s) and is tolerating med(s) without any side effects. He reports checking his glucose on a infrequent to not at all basis schedule. Patient's last HgA1C was Hemoglobin A1C (%) Date Value 05/13/2018 6.6 11/18/2017 6.1 ) Last Ophthalmology exam was within the past 12 months Mr. Bronson reports history of hyperlipidemia. Current therapy includes simvastatin (Zocor) 20 mg. Denies side effects of muscle weakness or achiness. His most recent lipid panels are reviewed. Cholesterol, Total (mg/dL) Date Value 04/07/2018 156 HDL Cholesterol (mg/dL) Date Value 04/07/2018 30 LDL Cholesterol (mg/dL) Date Value 04/07/2018 84 Triglyceride (mg/dL) Date Value 04/07/2018 208 Mr. Bronson indicates a history of hypertension and states that he is feeling well and denies any symptoms referable to elevated blood pressure. Specifically denies headache, chest pain, palpitations, dyspnea and peripheral edema. Patient denies any side effects of his medication(s) and is compliant with their regimen. Last 3 Encounter BP Readings: Date: BP: 05/19/2018 138/80 05/04/2018 130/80 04/14/2018 142/78 He watches his diet for sodium, low fat and low cholesterol some of the time. He does not check BP's generally. Kaitlynn gets minimal exercise. PAST MEDICAL HISTORY Diagnosis Date - Aortic valve stenosis mild per 04/27/14 echo - CAD (coronary artery disease) - Chronic back pain sees Dr. Nelson for Pain Management - CKD stage 3 secondary to diabetes ([facility]) - COPD (chronic obstructive pulmonary disease) ([facility]) - Diabetes mellitus without mention of complication Diabetes mellitus - History of kidney stones - Hyperlipidemia - Unspecified essential hypertension Essential hypertension PAST SURGICAL HISTORY Procedure Laterality Date - [facility]/ [facility] 04/27/2015 Colonoscopy - EGD W/O OR W/BRUSH/WASH 04/27/2015 EGD - PAST SURGICAL HISTORY OF 2011 Quad Bypass Social History Marital status: Single Spouse name: Years of education: Number of children: Social History Main Topics Smoking status: Former Smoker Packs/day: 2.00 Years: 30.00 Types: Cigarettes Quit date: 03/08/2005 Smokeless tobacco: Former User Types: Chew Quit date: 03/08/2005 Alcohol use: Yes Comment: 1-2 beers daily Drug use: No FAMILY HISTORY Problem Relation Age of Onset - Heart Paternal Uncle - Heart Paternal Uncle Allergies: ALLERGIES Allergen Reactions - Crestor [Rosuvastat* Myalgia - Gabapentin Itching - Tape [Adhesive Tape* Other: See Comments Redness at site - Throat Joliet [Pheno* Swelling Tongue swelled - Ultram [Tramadol Hc* itching - Vicodin [Hydrocodon* Itching Current Meds: omeprazole (PRILOSEC) 20 mg capsule Take 1 capsule by mouth twice daily. 1/2 hr before meal. lidocaine viscous (LIDOCAINE VISCOUS) 2 % solution Gargle and spit 10-15mLs every 3-4 hours as need for throat discomfort. simvastatin (ZOCOR) 20 mg tablet Take 1 tablet by mouth daily at bedtime. cholecalciferol, Vitamin D3, (VITAMIN D3) 50,000 unit cap capsule Take 1 capsule by mouth once each week. CETIRIZINE HCL (ZYRTEC ORAL) Take by mouth. dexamethasone 0.1% 0.1 % ophthalmic solution 1 Drop twice daily as needed (into bilateral ears for itchy prn). glimepiride (AMARYL) 2 mg tablet Take 1 tablet by mouth daily with breakfast. albuterol HFA (PROAIR HFA) 90 mcg/actuation inhaler 2 puffs every 4 hours as needed aspirin, enteric coated (ASPIRIN, ENTERIC COATED) 81 mg EC tablet Take 81 mg by mouth once daily. losartan (COZAAR) 100 mg tablet Take 1 tablet by mouth once daily. Dr. Mejia furosemide (LASIX) 40 mg tablet Take 1 tablet by mouth once daily. metoprolol tartrate, short acting, (LOPRESSOR) 100 mg tablet Take 1 tablet by mouth twice daily. Dr. Mejia amLODIPine (NORVASC) 10 mg tablet Take 1 tablet by mouth once daily. Dr. Mejia gabapentin enacarbil (HORIZANT) 600 mg TbER Take 1 tablet by mouth daily at bedtime. Dr. Nelson acetaminophen (TYLENOL) 325 mg tablet Take 2 tablets by mouth every 6 hours as needed for Pain. predniSONE (DELTASONE) 10 mg tablet Take 40 mg x 3 days, 20 mg x 3 days, 10 mg x 3 days. Take with food, once daily B Complex Vitamins capsule Take 1 capsule by mouth once daily. KLOR-CON M10 10 mEq tablet oxyCODONE-acetaminophen (PERCOCET) 7.5-325 mg tablet Review of Systems: The remainder of the review of systems is negative. PE: 05/19/18 0923 BP: 138/80 Pulse: 76 Resp: 16 Temp: 36.1 ?C (97 ?F) TempSrc: Left Tympanic Weight: 89.4 kg (197 lb) Gen: AANDO, NAD, non-toxic appearing, obese, cooperative HEENT: NT/AC, PERRLA, EOMs intact b/l, nares clear and patent b/l, pharynx without erythema, exudate or lesions. Uvula midline. MMM Neck: supple, No cervical LAD, no thyromegaly, no carotid bruits CV: RRR, normal S1S2, 2/6 HSM RUSB murmurs, no gallops, no rubs, Pulses 2+ and symmetric in UE and LE b/l Lungs: normal respiratory effort, CTA b/l, no wheezing or rhonchi or rales Abd: soft, obese, NT, ND, +BS MS: FROM all 4 extremities Neuro: CN II-XII intact b/l grossly Skin: warm, dry, intact, No rashes or lesions on exposed skin. Trace non pitting edema b/l legs ASSESSMENT/PLAN: 1. Controlled type 2 diabetes mellitus without complication, without long-term current use of insulin (HCC) - ICD9: 250.00, ICD10: E11.9 (primary diagnosis) Controlled. - Continue current medications and monitoring daily fasting blood glucose - Check HgA1C, fasting glucose and fasting lipid panel in 3 months 2. Vitamin D deficiency - ICD9: 268.9, ICD10: E55.9 - continue supplement 3. Hyperlipidemia, unspecified hyperlipidemia type - ICD9: 272.4, ICD10: E78.5 - suboptimal control - Continue current medication. - Encouraged following a low fat, low cholesterol diet. - Discussed the benefits of regular aerobic exercise and weight loss. - Check fasting lipid panel and ALT in 12 weeks. 4. Spinal stenosis of lumbar region without neurogenic claudication - ICD9: 724.02, ICD10: M48.061 Chronic low back pain - f/u with pain mgmt 5. Essential hypertension - ICD9: 401.9, ICD10: I10 - good control - Continue current medication(s) - Encouraged dietary sodium restriction/DASH diet - Recommended regular aerobic exercise. - Recommend home blood pressure monitoring, to bring results in on next visit - Goal of BP <130/80 6. Arthritis, multiple joint involvement - ICD9: 716.99, ICD10: M12.9 - f/u with pain mgmt 7. Obesity, Class I, BMI 30-34.9 - ICD9: 278.00, ICD10: E66.9 - Lengthy discussion in office today regarding diet and exercise. Discussed use of small plate to eat meals from, drink 1 glass of water 10-15 minutes prior to eating meal, drink 8 glasses of water daily, eat fresh fruit and vegetable during meal first then lean protein such as grilled/baked chicken breast or fish, limit carbohydrate intake (less pasta, breads, rice and snack foods) as well as limiting sugars (desserts etc). Important to count / track your calories and exercise as well. 8. Pulmonary emphysema, unspecified emphysema type (HCC) - ICD9: 492.8, ICD10: J43.9 - stable Jhon Small DO To ER if develops chest pain, shortness of breath, or severe worsening of symptoms. Discussed risks, benefits, alternatives, and potential side effects of medications. Patient expressed understanding and agreed with the plan. Jhon Small DO [address] [place] [address] CNOV Observed: 05/19/2018 Status: COMPLETED Source: [place] 9:20 AM [facility] REPOSITORY Office Visit (FAMPWS) KAITLYNN BRONSON ([id number]) 1945 M Date Time Provider Department 05/19/18 9:20 AM JHON SMALL During your visit today, we recorded the following information about you: Temperature Pulse Respiration Blood pressure 97 degrees 76/minute 16/minute 138/80 Weight 89.4 kg Jhon Small DO 05/19/2018 10:24 AM Signed Patient presents with: Follow Up: 3 months HPI: Kaitlynn Bronson is a 72 year old male who presents to the office today for review of health conditions. Concerns today: Hx of tobacco abuse, pulmonary emphysema, no new symptoms/changes, no hemoptysis or chest pains or dyspnea or wheezing, Use of albuterol intermittently Chronic back pain, managed by Dr. Omid bingham, no new changes Mr. Bronson has past history of diabetes. Since our last visit he denies excessive thirst or increased frequency of urination, chest pain or dyspnea , new or unusual visual symptoms and low sugar/hypoglycemic reactions. Follows a diabetic diet some of the time. He is compliant with medication(s) and is tolerating med(s) without any side effects. He reports checking his glucose on a infrequent to not at all basis schedule. Patient's last HgA1C was Hemoglobin A1C (%) Date Value 05/13/2018 6.6 11/18/2017 6.1 ) Last Ophthalmology exam was within the past 12 months Mr. Bronson reports history of hyperlipidemia. Current therapy includes simvastatin (Zocor) 20 mg. Denies side effects of muscle weakness or achiness. His most recent lipid panels are reviewed. Cholesterol, Total (mg/dL) Date Value 04/07/2018 156 HDL Cholesterol (mg/dL) Date Value 04/07/2018 30 LDL Cholesterol (mg/dL) Date Value 04/07/2018 84 Triglyceride (mg/dL) Date Value 04/07/2018 208 Mr. Bronson indicates a history of hypertension and states that he is feeling well and denies any symptoms referable to elevated blood pressure. Specifically denies headache, chest pain, palpitations, dyspnea and peripheral edema. Patient denies any side effects of his medication(s) and is compliant with their regimen. Last 3 Encounter BP Readings: Date: BP: 05/19/2018 138/80 05/04/2018 130/80 04/14/2018 142/78 He watches his diet for sodium, low fat and low cholesterol some of the time. He does not check BP's generally. Kaitlynn gets minimal exercise. PAST MEDICAL HISTORY Diagnosis Date - Aortic valve stenosis mild per 04/27/14 echo - CAD (coronary artery disease) - Chronic back pain sees Dr. 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) - COPD (chronic obstructive pulmonary disease) (HCC) - Diabetes mellitus without mention of complication Diabetes mellitus - History of kidney stones - Hyperlipidemia - Unspecified essential hypertension Essential hypertension PAST SURGICAL HISTORY Procedure Laterality Date - COLONOSCOP W/ OR W/O [facility] SPEC 04/27/2015 Colonoscopy - EGD W/O OR W/BRUSH/WASH 04/27/2015 EGD - PAST SURGICAL HISTORY OF 2011 Quad Bypass Social History Marital status: Single Spouse name: Years of education: Number of children: Social History Main Topics Smoking status: Former Smoker Packs/day: 2.00 Years: 30.00 Types: Cigarettes Quit date: 03/08/2005 Smokeless tobacco: Former User Types: Chew Quit date: 03/08/2005 Alcohol use: Yes Comment: 1-2 beers daily Drug use: No FAMILY HISTORY Problem Relation Age of Onset - Heart Paternal Uncle - Heart Paternal Uncle Allergies: ALLERGIES Allergen Reactions - Crestor [Rosuvastat* Myalgia - Gabapentin Itching - Tape [Adhesive Tape* Other: See Comments Redness at site - Throat [place]ol[place] [Pheno* Swelling Tongue swelled - Ultram [Tramadol Hc* itching - Vicodin [Hydrocodon* Itching Current Meds: omeprazole (PRILOSEC) 20 mg capsule Take 1 capsule by mouth twice daily. 1/2 hr before meal. lidocaine viscous (LIDOCAINE VISCOUS) 2 % solution Gargle and spit 10-15mLs every 3-4 hours as need for throat discomfort. simvastatin (ZOCOR) 20 mg tablet Take 1 tablet by mouth daily at bedtime. cholecalciferol, Vitamin D3, (VITAMIN D3) 50,000 unit cap capsule Take 1 capsule by mouth once each week. CETIRIZINE HCL (ZYRTEC ORAL) Take by mouth. dexamethasone 0.1% 0.1 % ophthalmic solution 1 Drop twice daily as needed (into bilateral ears for itchy prn). glimepiride (AMARYL) 2 mg tablet Take 1 tablet by mouth daily with breakfast. albuterol HFA (PROAIR HFA) 90 mcg/actuation inhaler 2 puffs every 4 hours as needed aspirin, enteric coated (ASPIRIN, ENTERIC COATED) 81 mg EC tablet Take 81 mg by mouth once daily. losartan (COZAAR) 100 mg tablet Take 1 tablet by mouth once daily. Dr. Mejia furosemide (LASIX) 40 mg tablet Take 1 tablet by mouth once daily. metoprolol tartrate, short acting, (LOPRESSOR) 100 mg tablet Take 1 tablet by mouth twice daily. Dr. Mejia amLODIPine (NORVASC) 10 mg tablet Take 1 tablet by mouth once daily. Dr. Mejia gabapentin enacarbil (HORIZANT) 600 mg TbER Take 1 tablet by mouth daily at bedtime. Dr. Nelson acetaminophen (TYLENOL) 325 mg tablet Take 2 tablets by mouth every 6 hours as needed for Pain. predniSONE (DELTASONE) 10 mg tablet Take 40 mg x 3 days, 20 mg x 3 days, 10 mg x 3 days. Take with food, once daily B Complex Vitamins capsule Take 1 capsule by mouth once daily. KLOR-CON M10 10 mEq tablet oxyCODONE-acetaminophen (PERCOCET) 7.5-325 mg tablet Review of Systems: The remainder of the review of systems is negative. PE: 05/19/18 0923 BP: 138/80 Pulse: 76 Resp: 16 Temp: 36.1 ?C (97 ?F) TempSrc: Left Tympanic Weight: 89.4 kg (197 lb) Gen: AANDO, NAD, non-toxic appearing, obese, cooperative HEENT: NT/AC, PERRLA, EOMs intact b/l, nares clear and patent b/l, pharynx without erythema, exudate or lesions. Uvula midline. MMM Neck: supple, No cervical LAD, no thyromegaly, no carotid bruits CV: RRR, normal S1S2, 2/6 HSM RUSB murmurs, no gallops, no rubs, Pulses 2+ and symmetric in UE and LE b/l Lungs: normal respiratory effort, CTA b/l, no wheezing or rhonchi or rales Abd: soft, obese, NT, ND, +BS MS: FROM all 4 extremities Neuro: CN II-XII intact b/l grossly Skin: warm, dry, intact, No rashes or lesions on exposed skin. Trace non pitting edema b/l legs ASSESSMENT/PLAN: 1. Controlled type 2 diabetes mellitus without complication, without long-term current use of insulin (HCC) - ICD9: 250.00, ICD10: E11.9 (primary diagnosis) Controlled. - Continue current medications and monitoring daily fasting blood glucose - Check HgA1C, fasting glucose and fasting lipid panel in 3 months 2. Vitamin D deficiency - ICD9: 268.9, ICD10: E55.9 - continue supplement 3. Hyperlipidemia, unspecified hyperlipidemia type - ICD9: 272.4, ICD10: E78.5 - suboptimal control - Continue current medication. - Encouraged following a low fat, low cholesterol diet. - Discussed the benefits of regular aerobic exercise and weight loss. - Check fasting lipid panel and ALT in 12 weeks. 4. Spinal stenosis of lumbar region without neurogenic claudication - ICD9: 724.02, ICD10: M48.061 Chronic low back pain - f/u with pain mgmt 5. Essential hypertension - ICD9: 401.9, ICD10: I10 - good control - Continue current medication(s) - Encouraged dietary sodium restriction/DASH diet - Recommended regular aerobic exercise. - Recommend home blood pressure monitoring, to bring results in on next visit - Goal of BP <130/80 6. Arthritis, multiple joint involvement - ICD9: 716.99, ICD10: M12.9 - f/u with pain mgmt 7. Obesity, Class I, BMI 30-34.9 - ICD9: 278.00, ICD10: E66.9 - Lengthy discussion in office today regarding diet and exercise. Discussed use of small plate to eat meals from, drink 1 glass of water 10- 15 minutes prior to eating meal, drink 8 glasses of water daily, eat fresh fruit and vegetable during meal first then lean protein such as grilled/baked chicken breast or fish, limit carbohydrate intake (less pasta, breads, rice and snack foods) as well as limiting sugars (desserts etc). Important to count / track your calories and exercise as well. 8. Pulmonary emphysema, unspecified emphysema type (HCC) - ICD9: 492.8, ICD10: J43.9 - stable Jhon Small DO To ER if develops chest pain, shortness of breath, or severe worsening of symptoms. Discussed risks, benefits, alternatives, and potential side effects of medications. Patient expressed understanding and agreed with the plan. Jhon Small DO [address] [place] [address] Referring Provider: JHON SMALL [[id number]] Allergies As of Date: 05/19/2018 Noted Allergy Reaction CRESTOR (ROSUVASTATIN CALCIUM) 01/01/2017 17 - Myalgia GABAPENTIN 03/08/2015 9 - Itching TAPE (ADHESIVE TAPE-SILICONES) 03/08/2015 14 - Other: See Comments Comments: Redness at site THROAT SPRAY (PHENOL-PHENOLATE SO*10/30/2015 7 - Swelling Comments: Tongue swelled ULTRAM (TRAMADOL HCL) 03/13/2009 Comments: itching VICODIN (HYDROCODONE-ACETAMINOPHE*03/08/2015 9 - Itching Date Reviewed: 05/04/2018 Reviewed by: Alondra Nix Ma - Fully Assessed Reason for Visit: Follow Up [171] Cmt: 3 months Primary Visit Diagnosis:Controlled type 2 diabetes mellitus without complication, without long-term current use of insulin (HCC) [E11.9] Other Visit Diagnoses:Vitamin D deficiency [E55.9] Hyperlipidemia, unspecified hyperlipidemia type [E78.5] Spinal stenosis of lumbar region without neurogenic claudication [M48.061] Essential hypertension [I10] Arthritis, multiple joint involvement [M12.9] Obesity, Class I, BMI 30-34.9 [E66.9] Pulmonary emphysema, unspecified emphysema type (HCC) [J43.9] Prescriptions as of 05/19/2018 Sig: OMEPRAZOLE 20 MG CAPSULE,JAGDISH* Take 1 capsule by mouth twice* LIDOCAINE 2 % MUCOSAL SOLUTION Gargle and spit 10-15mLs ever* SIMVASTATIN 20 MG TABLET Take 1 tablet by mouth daily * CHOLECALCIFEROL (VITAMIN D3) * Take 1 capsule by mouth once * ZYRTEC ORAL Take by mouth. DEXAMETHASONE 0.1 % EYE DROPS 1 Drop twice daily as needed * GLIMEPIRIDE 2 MG TABLET Take 1 tablet by mouth daily * ALBUTEROL SULFATE HFA 90 MCG/* 2 puffs every 4 hours as need* ASPIRIN 81 MG TABLET,DELAYED * Take 81 mg by mouth once ho* LOSARTAN 100 MG TABLET Take 1 tablet by mouth once d* FUROSEMIDE 40 MG TABLET Take 1 tablet by mouth once d* METOPROLOL TARTRATE 100 MG TA* Take 1 tablet by mouth twice * AMLODIPINE 10 MG TABLET Take 1 tablet by mouth once d* GABAPENTIN ENACARBIL ER 600 M* Take 1 tablet by mouth daily * ACETAMINOPHEN 325 MG TABLET Take 2 tablets by mouth every* OXYCODONE-ACETAMINOPHEN 7.5 M* Problem List As Of Date 05/19/2018 Noted Resolved PAIN IN JOINT, LOWER LEG [M25.569] INVALID FOR* Chronic back pain [M54.9, G89.29] INVALID FOR* 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.1] INVALID FOR* Hyperlipidemia [E78.5] INVALID FOR* HTN (hypertension) [I10] INVALID FOR* DM2 (diabetes mellitus, type 2) (HCC) [E11.9] INVALID FOR* Heart murmur [R01.1] INVALID FOR* COPD (chronic obstructive pulmonary disease) (H*INVALID FOR* History of kidney stones [Z87.442] INVALID FOR* Aortic valve stenosis [I35.0] INVALID FOR* Obesity [E66.9] INVALID FOR* CAD (coronary artery disease) [I25.10] INVALID FOR* Nausea alone [R11.0] INVALID FOR*04/27/2015 Abdominal pain, right lower quadrant [R10.31] INVALID FOR*04/27/2015 BPH (benign prostatic hyperplasia) [N40.0] INVALID FOR* Adrenal mass (HCC) [E27.9] INVALID FOR* Bladder wall thickening [N32.89] INVALID FOR* Kidney stone [N20.0] INVALID FOR* Noncompliance with medication regimen [Z91.14] INVALID FOR* Obesity, Class I, BMI 30-34.9 [E66.9] INVALID FOR* Post-nasal drainage [R09.82] INVALID FOR* Malaise and fatigue [R53.81, R53.83] INVALID FOR* Essential hypertension [I10] INVALID FOR* Type 2 diabetes mellitus without complication (*INVALID FOR* 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 pylori infection [A04.8] INVALID FOR* Muscle cramp [R25.2] INVALID FOR* Medications Discontinued During This Encounter predniSONE (DELTASONE) 10 mg tablet 21 t* 0 04/14/2018 05/19/2018 Sig: Take 40 mg x 3 days, 20 mg x 3 days, 10 mg x 3 days. Take with food, once daily Disc: Reason for discontinue is not on file. B Complex Vitamins capsule 05/19/2018 Class: Historical Med Route: ORAL Sig: Take 1 capsule by mouth once daily. Disc: Reason for discontinue is not on file. KLOR-CON M10 10 mEq tablet 12/19/2016 05/19/2018 Class: Historical Med Sig: Disc: Reason for discontinue is not on file. Encounter Status:Closed by JHON SMALL DO on 05/19/18 HEMOGLOBIN A1C Collected: 05/13/2018 Status: F Source: [place] 2:48 PM [facility] REPOSITORY TYPE CODE TESTS RESULT OUT OF REFERENCE UNITS RANGE LAB HGBA1C 4.3-5.6 % High Hemoglobin A1c 6.6 LAB HBA0 mg/dL Est. Average Glucose 143 Result Comment: eAG: (Estimated average glucose) is a calculated value from HgbA1c and is medical claims representative of the average blood glucose level in the last 2-3 month period. Performed By: #### HBA1C #### [facility] [address] [place], [place] [address] CNPTOUTREACH Observed: 05/05/2018 Status: COMPLETED Source: [place] 12:00 AM [facility] REPOSITORY Patient Outreach ([facility]) KAITLYNN BRONSON ([id number]) 1945 M Date Time Provider Department 05/05/18 JHON SMALL [facility] During your visit today, we recorded the following information about you: Allergies As of Date: 05/05/2018 Noted Allergy Reaction CRESTOR (ROSUVASTATIN CALCIUM) 01/01/2017 17 - Myalgia GABAPENTIN 03/08/2015 9 - Itching TAPE (ADHESIVE TAPE-SILICONES) 03/08/2015 14 - Other: See Comments Comments: Redness at site THROAT SPRAY (PHENOL-PHENOLATE SO*10/30/2015 7 - Swelling Comments: Tongue swelled ULTRAM (TRAMADOL HCL) 03/13/2009 Comments: itching VICODIN (HYDROCODONE-ACETAMINOPHE*03/08/2015 9 - Itching Date Reviewed: 05/04/2018 Reviewed by: Alondra Nix Ma - Fully Assessed Visit Diagnosis:Medication management [Z79.899] Order(s):HGB A1C [[id number]] Order #: [id number] FUTURE Prescriptions as of 05/05/2018 Sig: PREDNISONE 20 MG TABLET Take 2 tablets by mouth once * TRIAMCINOLONE ACETONIDE 0.1 %* Apply 1 application to affect* LIDOCAINE 2 % MUCOSAL SOLUTION Gargle and spit 10-15mLs ever* X PREDNISONE 10 MG TABLET Take 40 mg x 3 days, 20 mg x * X OMEPRAZOLE 20 MG CAPSULE,JAGDISH* Take 1 capsule by mouth twice* X SIMVASTATIN 20 MG TABLET Take 1 tablet by mouth daily * CHOLECALCIFEROL (VITAMIN D3) * Take 1 capsule by mouth once * ZYRTEC ORAL Take by mouth. X VITAMIN B COMPLEX CAPSULE Take 1 capsule by mouth once * DEXAMETHASONE 0.1 % EYE DROPS 1 Drop twice daily as needed * X GLIMEPIRIDE 2 MG TABLET Take 1 tablet by mouth daily * ALBUTEROL SULFATE HFA 90 MCG/* 2 puffs every 4 hours as need* OXYCODONE-ACETAMINOPHEN 7.5 M* X KLOR-CON M10 MEQ TABLET,EXTEN* ASPIRIN 81 MG TABLET,DELAYED * Take 81 mg by mouth once ho* LOSARTAN 100 MG TABLET Take 1 tablet by mouth once d* FUROSEMIDE 40 MG TABLET Take 1 tablet by mouth once d* METOPROLOL TARTRATE 100 MG TA* Take 1 tablet by mouth twice * AMLODIPINE 10 MG TABLET Take 1 tablet by mouth once d* GABAPENTIN ENACARBIL ER 600 M* Take 1 tablet by mouth daily * ACETAMINOPHEN 325 MG TABLET Take 2 tablets by mouth every* Problem List As Of Date 05/05/2018 Noted Resolved PAIN IN JOINT, LOWER LEG [M25.569] INVALID FOR* Chronic back pain [M54.9, G89.29] INVALID FOR* 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.1] INVALID FOR* Hyperlipidemia [E78.5] INVALID FOR* HTN (hypertension) [I10] INVALID FOR* DM2 (diabetes mellitus, type 2) (HCC) [E11.9] INVALID FOR* Heart murmur [R01.1] INVALID FOR* COPD (chronic obstructive pulmonary disease) (H*INVALID FOR* History of kidney stones [Z87.442] INVALID FOR* Aortic valve stenosis [I35.0] INVALID FOR* Obesity [E66.9] INVALID FOR* CAD (coronary artery disease) [I25.10] INVALID FOR* Nausea alone [R11.0] INVALID FOR*04/27/2015 Abdominal pain, right lower quadrant [R10.31] INVALID FOR*04/27/2015 BPH (benign prostatic hyperplasia) [N40.0] INVALID FOR* Adrenal mass (HCC) [E27.9] INVALID FOR* Bladder wall thickening [N32.89] INVALID FOR* Kidney stone [N20.0] INVALID FOR* Noncompliance with medication regimen [Z91.14] INVALID FOR* Obesity, Class I, BMI 30-34.9 [E66.9] INVALID FOR* Post-nasal drainage [R09.82] INVALID FOR* Malaise and fatigue [R53.81, R53.83] INVALID FOR* Essential hypertension [I10] INVALID FOR* Type 2 diabetes mellitus without complication (*INVALID FOR* 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 pylori infection [A04.8] INVALID FOR* Muscle cramp [R25.2] INVALID FOR* Encounter Status:Closed by EPIC, PRODUSER on 09/11/18 PROGRESS Observed: 05/04/2018 Status: COMPLETED Source: [place] 11:56 AM [facility] REPOSITORY HNO ID: [id number] Author: Cori Gordillo Service: (none) Author Type: Nurse Practitioner Type: Progress Notes Filed: 05/04/2018 12:00 PM Note Text: Subjective HPI Pt presents with itchy rash to left arm x 2 days. Has been applying anti-itch cream and neosporin with no improvement. Pt also developed a sore throat this am. Denies fever, chills, URI sx. Has not taken any OTC medications. Review of Systems Constitutional: Negative for chills and fever. HENT: Positive for sore throat. Negative for congestion, ear discharge, ear pain, sinus pain and tinnitus. Respiratory: Negative for cough, sputum production, shortness of breath and wheezing. Cardiovascular: Negative for chest pain. Skin: Positive for itching and rash. Neurological: Negative for headaches. Objective Physical Exam Constitutional: He is oriented to person, place, and time and well-developed, well-nourished, and in no distress. No distress. HENT: Head: Normocephalic. Right Ear: Hearing, tympanic membrane, external ear and ear canal normal. Left Ear: Hearing, tympanic membrane, external ear and ear canal normal. Nose: Nose normal. Right sinus exhibits no maxillary sinus tenderness and no frontal sinus tenderness. Left sinus exhibits no maxillary sinus tenderness and no frontal sinus tenderness. Mouth/Throat: Uvula is midline and mucous membranes are normal. Posterior oropharyngeal erythema present. No oropharyngeal exudate, posterior oropharyngeal edema or tonsillar abscesses. Eyes: Conjunctivae are normal. Pupils are equal, round, and reactive to light. Right eye exhibits no discharge. Left eye exhibits no discharge. Neck: Neck supple. Cardiovascular: Normal rate, regular rhythm and normal heart sounds. Exam reveals no gallop and no friction rub. No murmur heard. Pulmonary/Chest: Effort normal and breath sounds normal. No accessory muscle usage. No tachypnea. No respiratory distress. He has no decreased breath sounds (CTA, good air movement throughout, no cough noted during exam.). He has no wheezes. He has no rhonchi. He has no rales. Lymphadenopathy: He has no cervical adenopathy. Neurological: He is alert and oriented to person, place, and time. Skin: Skin is warm and dry. Rash noted. Rash is maculopapular. He is not diaphoretic. [place], Maculopapular lesions scattered to areas noted. o signs of secondary infection. No drainage, heat, edema. +blanching. BP 130/80 Pulse 68 Temp 36.6 ?C (97.9 ?F) (Left Tympanic) Resp 18 Wt 91.6 kg (202 lb) BMI 33.10 kg/m? .Patient presents with: Sore Throat: started this am Rash: Left arm PAST MEDICAL HISTORY Diagnosis Date - Aortic valve stenosis mild per 04/27/14 echo - CAD (coronary artery disease) - Chronic back pain sees Dr. 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) - COPD (chronic obstructive pulmonary disease) (HCC) - Diabetes mellitus without mention of complication Diabetes mellitus - History of kidney stones - Hyperlipidemia - Unspecified essential hypertension Essential hypertension PAST SURGICAL HISTORY Procedure Laterality Date - [facility] Colonoscopy - EGD W/O OR W/BRUSH/WASH 04/27/2015 EGD - PAST SURGICAL HISTORY OF 2011 Quad Bypass ALLERGIES Crestor [Rosuvastatin Calcium]; Gabapentin; Tape [Adhesive Tape-Silicones]; Throat [place] [Phenol-Phenolate Sodium]; Ultram [Tramadol Hcl]; Vicodin [Hydrocodone-Acetaminophen] MEDICATIONS omeprazole (PRILOSEC) 20 mg capsule Take 1 capsule by mouth twice daily. 1/2 hr before meal. simvastatin (ZOCOR) 20 mg tablet Take 1 tablet by mouth daily at bedtime. cholecalciferol, Vitamin D3, (VITAMIN D3) 50,000 unit cap capsule Take 1 capsule by mouth once each week. B Complex Vitamins capsule Take 1 capsule by mouth once daily. CETIRIZINE HCL (ZYRTEC ORAL) Take by mouth. dexamethasone 0.1% 0.1 % ophthalmic solution 1 Drop twice daily as needed (into bilateral ears for itchy prn). glimepiride (AMARYL) 2 mg tablet Take 1 tablet by mouth daily with breakfast. albuterol HFA (PROAIR HFA) 90 mcg/actuation inhaler 2 puffs every 4 hours as needed KLOR-CON M10 10 mEq tablet oxyCODONE-acetaminophen (PERCOCET) 7.5-325 mg tablet aspirin, enteric coated (ASPIRIN, ENTERIC COATED) 81 mg EC tablet Take 81 mg by mouth once daily. losartan (COZAAR) 100 mg tablet Take 1 tablet by mouth once daily. Dr. Mejia furosemide (LASIX) 40 mg tablet Take 1 tablet by mouth once daily. metoprolol tartrate, short acting, (LOPRESSOR) 100 mg tablet Take 1 tablet by mouth twice daily. Dr. Mejia amLODIPine (NORVASC) 10 mg tablet Take 1 tablet by mouth once daily. Dr. Mejia gabapentin enacarbil (HORIZANT) 600 mg TbER Take 1 tablet by mouth daily at bedtime. Dr. Nelson acetaminophen (TYLENOL) 325 mg tablet Take 2 tablets by mouth every 6 hours as needed for Pain. predniSONE (DELTASONE) 20 mg tablet Take 2 tablets by mouth once daily for 5 days. Take daily with food. triamcinolone acetonide (KENALOG) 0.1 % ointment Apply 1 application to affected area twice daily for 7 days. lidocaine viscous (LIDOCAINE VISCOUS) 2 % solution Gargle and spit 10-15mLs every 3-4 hours as need for throat discomfort. predniSONE (DELTASONE) 10 mg tablet Take 40 mg x 3 days, 20 mg x 3 days, 10 mg x 3 days. Take with food, once daily FAMILY HISTORY Problem Relation Age of Onset - Heart Paternal Uncle - Heart Paternal Uncle Social History Substance Use Topics - Smoking status: Former Smoker Packs/day: 2.00 Years: 30.00 Types: Cigarettes Quit date: 03/08/2005 - Smokeless tobacco: Former User Types: Chew Quit date: 03/08/2005 - Alcohol use Yes Comment: 1-2 beers daily ASSESSMENT/PLAN: 1. Sore throat - ICD9: 462, ICD10: J02.9 (primary diagnosis) - Rapid Strep negative in the office today and Throat culture pending - Discussed supportive care treatment with fluids, rest and analgesia. - The patient should follow up in 3-5 days if symptoms persist or worsen - Call back if drooling, increased temperature, symptoms of dehydration and/or still sick in one week - RAPID STREP TEST B/O - LIDOCAINE 2 % MUCOSAL SOLUTION - GROUP A STREPTOCOCCUS BY PCR 2. Rash - ICD9: 782.1, ICD10: R21 - PREDNISONE 20 MG TABLET - TRIAMCINOLONE ACETONIDE 0.1 % TOPICAL OINTMENT The patient is instructed to return or seek emergency treatment if symptoms become worse or with any acute change in condition. The patient verbalizes understanding and is in agreement with plan of care. Cori Gordillo CNP GROUP A STREP BY Collected: 05/04/2018 Status: F Source: [place] PCR 11:40 AM [facility] REPOSITORY TYPE CODE TESTS RESULT OUT OF REFERENCE UNITS RANGE LAB GASSRC Throat Swab GAS Specimen Source LAB PCRGAS Negative for Group A Strep Group A PCR Streptococcus by PCR. Result Comment: This test was developed and its performance characteristics determined by [facility] [place] ([facility]). It has not been cleared or approved by the FDA. [facility] is regulated under CLIA as qualified to perform high-complexity testing. This test is used for clinical purposes. It should not be regarded as inv estigational or for research. Performed By: #### GASPCR #### [facility] [address] [place], [place] [address] CNOV Observed: 05/04/2018 Status: COMPLETED Source: [place] 11:15 AM [facility] REPOSITORY Office Visit ([facility]) KAITLYNN BRONSON ([id number]) 1945 M Date Time Provider Department 05/04/18 11:15 AM CORI GORDILLO [facility] During your visit today, we recorded the following information about you: Temperature Pulse Respiration Blood pressure 97.9 degrees 68/minute 18/minute 130/80 Weight 91.6 kg Cori Gordillo APRN.BRUSHER TENDER 05/04/2018 12:00 PM Signed Subjective HPI Pt presents with itchy rash to left arm x 2 days. Has been applying anti-itch cream and neosporin with no improvement. Pt also developed a sore throat this am. Denies fever, chills, URI sx. Has not taken any OTC medications. Review of Systems Constitutional: Negative for chills and fever. HENT: Positive for sore throat. Negative for congestion, ear discharge, ear pain, sinus pain and tinnitus. Respiratory: Negative for cough, sputum production, shortness of breath and wheezing. Cardiovascular: Negative for chest pain. Skin: Positive for itching and rash. Neurological: Negative for headaches. Objective Physical Exam Constitutional: He is oriented to person, place, and time and well-developed, well-nourished, and in no distress. No distress. HENT: Head: Normocephalic. Right Ear: Hearing, tympanic membrane, external ear and ear canal normal. Left Ear: Hearing, tympanic membrane, external ear and ear canal normal. Nose: Nose normal. Right sinus exhibits no maxillary sinus tenderness and no frontal sinus tenderness. Left sinus exhibits no maxillary sinus tenderness and no frontal sinus tenderness. Mouth/Throat: Uvula is midline and mucous membranes are normal. Posterior oropharyngeal erythema present. No oropharyngeal exudate, posterior oropharyngeal edema or tonsillar abscesses. Eyes: Conjunctivae are normal. Pupils are equal, round, and reactive to light. Right eye exhibits no discharge. Left eye exhibits no discharge. Neck: Neck supple. Cardiovascular: Normal rate, regular rhythm and normal heart sounds. Exam reveals no gallop and no friction rub. No murmur heard. Pulmonary/Chest: Effort normal and breath sounds normal. No accessory muscle usage. No tachypnea. No respiratory distress. He has no decreased breath sounds (CTA, good air movement throughout, no cough noted during exam.). He has no wheezes. He has no rhonchi. He has no rales. Lymphadenopathy: He has no cervical adenopathy. Neurological: He is alert and oriented to person, place, and time. Skin: Skin is warm and dry. Rash noted. Rash is maculopapular. He is not diaphoretic. [place], Maculopapular lesions scattered to areas noted. o signs of secondary infection. No drainage, heat, edema. +blanching. BP 130/80 Pulse 68 Temp 36.6 ?C (97.9 ?F) (Left Tympanic) Resp 18 Wt 91.6 kg (202 lb) BMI 33.10 kg/m? .Patient presents with: Sore Throat: started this am Rash: Left arm PAST MEDICAL HISTORY Diagnosis Date - Aortic valve stenosis mild per 04/27/14 echo - CAD (coronary artery disease) - Chronic back pain sees Dr. 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) - COPD (chronic obstructive pulmonary disease) (HCC) - Diabetes mellitus without mention of complication Diabetes mellitus - History of kidney stones - Hyperlipidemia - Unspecified essential hypertension Essential hypertension PAST SURGICAL HISTORY Procedure Laterality Date - [facility]COP W/ [facility] 04/27/2015 Colonoscopy - EGD W/O OR W/BRUSH/WASH 04/27/2015 EGD - PAST SURGICAL HISTORY OF 2011 Quad Bypass ALLERGIES Crestor [Rosuvastatin Calcium]; Gabapentin; Tape [Adhesive Tape-Silicones]; Throat [place] [Phenol-Phenolate Sodium]; Ultram [Tramadol Hcl]; Vicodin [Hydrocodone-Acetaminophen] MEDICATIONS omeprazole (PRILOSEC) 20 mg capsule Take 1 capsule by mouth twice daily. 1/2 hr before meal. simvastatin (ZOCOR) 20 mg tablet Take 1 tablet by mouth daily at bedtime. cholecalciferol, Vitamin D3, (VITAMIN D3) 50,000 unit cap capsule Take 1 capsule by mouth once each week. B Complex Vitamins capsule Take 1 capsule by mouth once daily. CETIRIZINE HCL (ZYRTEC ORAL) Take by mouth. dexamethasone 0.1% 0.1 % ophthalmic solution 1 Drop twice daily as needed (into bilateral ears for itchy prn). glimepiride (AMARYL) 2 mg tablet Take 1 tablet by mouth daily with breakfast. albuterol HFA (PROAIR HFA) 90 mcg/actuation inhaler 2 puffs every 4 hours as needed KLOR-CON M10 10 mEq tablet oxyCODONE-acetaminophen (PERCOCET) 7.5-325 mg tablet aspirin, enteric coated (ASPIRIN, ENTERIC COATED) 81 mg EC tablet Take 81 mg by mouth once daily. losartan (COZAAR) 100 mg tablet Take 1 tablet by mouth once daily. Dr. Mejia furosemide (LASIX) 40 mg tablet Take 1 tablet by mouth once daily. metoprolol tartrate, short acting, (LOPRESSOR) 100 mg tablet Take 1 tablet by mouth twice daily. Dr. Mejia amLODIPine (NORVASC) 10 mg tablet Take 1 tablet by mouth once daily. Dr. Mejia gabapentin enacarbil (HORIZANT) 600 mg TbER Take 1 tablet by mouth daily at bedtime. Dr. Nelson acetaminophen (TYLENOL) 325 mg tablet Take 2 tablets by mouth every 6 hours as needed for Pain. predniSONE (DELTASONE) 20 mg tablet Take 2 tablets by mouth once daily for 5 days. Take daily with food. triamcinolone acetonide (KENALOG) 0.1 % ointment Apply 1 application to affected area twice daily for 7 days. lidocaine viscous (LIDOCAINE VISCOUS) 2 % solution Gargle and spit 10-15mLs every 3-4 hours as need for throat discomfort. predniSONE (DELTASONE) 10 mg tablet Take 40 mg x 3 days, 20 mg x 3 days, 10 mg x 3 days. Take with food, once daily FAMILY HISTORY Problem Relation Age of Onset - Heart Paternal Uncle - Heart Paternal Uncle Social History Substance Use Topics - Smoking status: Former Smoker Packs/day: 2.00 Years: 30.00 Types: Cigarettes Quit date: 03/08/2005 - Smokeless tobacco: Former User Types: Chew Quit date: 03/08/2005 - Alcohol use Yes Comment: 1-2 beers daily ASSESSMENT/PLAN: 1. Sore throat - ICD9: 462, ICD10: J02.9 (primary diagnosis) - Rapid Strep negative in the office today and Throat culture pending - Discussed supportive care treatment with fluids, rest and analgesia. - The patient should follow up in 3-5 days if symptoms persist or worsen - Call back if drooling, increased temperature, symptoms of dehydration and/or still sick in one week - RAPID STREP TEST B/O - LIDOCAINE 2 % MUCOSAL SOLUTION - GROUP A STREPTOCOCCUS BY PCR 2. Rash - ICD9: 782.1, ICD10: R21 - PREDNISONE 20 MG TABLET - TRIAMCINOLONE ACETONIDE 0.1 % TOPICAL OINTMENT The patient is instructed to return or seek emergency treatment if symptoms become worse or with any acute change in condition. The patient verbalizes understanding and is in agreement with plan of care. Cori Gordillo CNP Referring Provider: SELF [[id number]] Allergies As of Date: 05/04/2018 Noted Allergy Reaction CRESTOR (ROSUVASTATIN CALCIUM) 01/01/2017 17 - Myalgia GABAPENTIN 03/08/2015 9 - Itching TAPE (ADHESIVE TAPE-SILICONES) 03/08/2015 14 - Other: See Comments Comments: Redness at site THROAT SPRAY (PHENOL-PHENOLATE SO*10/30/2015 7 - Swelling Comments: Tongue swelled ULTRAM (TRAMADOL HCL) 03/13/2009 Comments: itching VICODIN (HYDROCODONE-ACETAMINOPHE*03/08/2015 9 - Itching Date Reviewed: 05/04/2018 Reviewed by: Alondra Nix Ma - Fully Assessed Reason for Visit: Sore Throat [200] Cmt: started this am Rash [1087] Cmt: Left arm Primary Visit Diagnosis:Sore throat [J02.9] Other Visit Diagnosis:Rash [R21] Order(s):RAPID STREP TEST B/O [[id number]] Order #: [id number] predniSONE (DELTASONE) 20 mg tabletTake 2 tablets by mouth once daily for 5 days. Take daily with food.Disp: 10 tabletRfl: 0 triamcinolone acetonide (KENALOG) 0.1 % ointmentApply 1 application to affected area twice daily for 7 days.Disp: 80 gRfl: 0 lidocaine viscous (LIDOCAINE VISCOUS) 2 % solutionGargle and spit 10-15mLs every 3-4 hours as need for throat discomfort.Disp: 120 mLRfl: 0 GROUP A STREPTOCOCCUS BY PCR [SQGASPCR] Order #: [id number] Prescriptions as of 05/04/2018 Sig: OMEPRAZOLE 20 MG CAPSULE,JAGDISH* Take 1 capsule by mouth twice* SIMVASTATIN 20 MG TABLET Take 1 tablet by mouth daily * CHOLECALCIFEROL (VITAMIN D3) * Take 1 capsule by mouth once * VITAMIN B COMPLEX CAPSULE Take 1 capsule by mouth once * ZYRTEC ORAL Take by mouth. DEXAMETHASONE 0.1 % EYE DROPS 1 Drop twice daily as needed * GLIMEPIRIDE 2 MG TABLET Take 1 tablet by mouth daily * ALBUTEROL SULFATE HFA 90 MCG/* 2 puffs every 4 hours as need* KLOR-CON M10 MEQ TABLET,EXTEN* OXYCODONE-ACETAMINOPHEN 7.5 M* ASPIRIN 81 MG TABLET,DELAYED * Take 81 mg by mouth once ho* LOSARTAN 100 MG TABLET Take 1 tablet by mouth once d* FUROSEMIDE 40 MG TABLET Take 1 tablet by mouth once d* METOPROLOL TARTRATE 100 MG TA* Take 1 tablet by mouth twice * AMLODIPINE 10 MG TABLET Take 1 tablet by mouth once d* GABAPENTIN ENACARBIL ER 600 M* Take 1 tablet by mouth daily * ACETAMINOPHEN 325 MG TABLET Take 2 tablets by mouth every* PREDNISONE 20 MG TABLET Take 2 tablets by mouth once * TRIAMCINOLONE ACETONIDE 0.1 %* Apply 1 application to affect* LIDOCAINE 2 % MUCOSAL SOLUTION Gargle and spit 10-15mLs ever* PREDNISONE 10 MG TABLET Take 40 mg x 3 days, 20 mg x * Problem List As Of Date 05/04/2018 Noted Resolved PAIN IN JOINT, LOWER LEG [M25.569] INVALID FOR* Chronic back pain [M54.9, G89.29] INVALID FOR* 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.1] INVALID FOR* Hyperlipidemia [E78.5] INVALID FOR* HTN (hypertension) [I10] INVALID FOR* DM2 (diabetes mellitus, type 2) (HCC) [E11.9] INVALID FOR* Heart murmur [R01.1] INVALID FOR* COPD (chronic obstructive pulmonary disease) (H*INVALID FOR* History of kidney stones [Z87.442] INVALID FOR* Aortic valve stenosis [I35.0] INVALID FOR* Obesity [E66.9] INVALID FOR* CAD (coronary artery disease) [I25.10] INVALID FOR* Nausea alone [R11.0] INVALID FOR*04/27/2015 Abdominal pain, right lower quadrant [R10.31] INVALID FOR*04/27/2015 BPH (benign prostatic hyperplasia) [N40.0] INVALID FOR* Adrenal mass (HCC) [E27.9] INVALID FOR* Bladder wall thickening [N32.89] INVALID FOR* Kidney stone [N20.0] INVALID FOR* Noncompliance with medication regimen [Z91.14] INVALID FOR* Obesity, Class I, BMI 30-34.9 [E66.9] INVALID FOR* Post-nasal drainage [R09.82] INVALID FOR* Malaise and fatigue [R53.81, R53.83] INVALID FOR* Essential hypertension [I10] INVALID FOR* Type 2 diabetes mellitus without complication (*INVALID FOR* 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 pylori infection [A04.8] INVALID FOR* Muscle cramp [R25.2] INVALID FOR* Prescriptions ordered this encounter Disp Refills Start End PREDNISONE 20 MG TABLET 10 t* 0 05/04/2018 05/09/2018 Route: ORAL Sig: Take 2 tablets by mouth once daily for 5 days. Take daily with food. TRIAMCINOLONE ACETONIDE 0.1 % TOPICA* 80 g 0 05/04/2018 05/11/2018 Route: TOPICAL Sig: Apply 1 application to affected area twice daily for 7 days. LIDOCAINE 2 % MUCOSAL SOLUTION 120 * 0 05/04/2018 Sig: Gargle and spit 10-15mLs every 3-4 hours as need for throat discomfort. Encounter Status:Closed by CORI GORDILLO CNP on 05/04/18 PROGRESS Observed: 04/14/2018 Status: COMPLETED Source: [place] 11:53 AM [facility] REPOSITORY HNO ID: [id number] Author: Madelyn Majano (Luci) John Service: (none) Author Type: Nurse Practitioner Type: Progress Notes Filed: 04/14/2018 12:20 PM Note Text: This note was created using Earshotriter. Subjective Kaitlynn Bronson is a 72 year old male. The history is provided by the patient and a relative. No speech language pathologist assistant was used. Cough This is a new problem. The current episode started 2 days ago. The problem occurs constantly. The problem has been gradually worsening. The cough is productive of sputum. Maximum temperature: subjective. Associated symptoms include ear congestion, ear pain, headaches and sore throat. Treatments tried: zyertec, HBP, acetaminophen. Allergies This is a new problem. The current episode started in the past 7 days. The problem has been gradually worsening. Associated symptoms include congestion, coughing, headaches, a sore throat and swollen glands. Pertinent negatives include no rash. Nothing aggravates the symptoms. He has tried nothing for the symptoms. The treatment provided no relief. Sore Throat This is a new problem. The current episode started in the past 7 days. The problem has been gradually worsening. Neither side of throat is experiencing more pain than the other. The fever has been present for 1 to 2 days. Associated symptoms include congestion, coughing, diarrhea (resolved), ear pain, headaches, a hoarse voice, a plugged ear sensation and swollen glands. Pertinent negatives include no ear discharge. Review of Systems HENT: Positive for congestion, ear pain, hoarse voice and sore throat. Negative for ear discharge. Respiratory: Positive for cough. Gastrointestinal: Positive for diarrhea (resolved). Skin: Negative for rash. Neurological: Positive for headaches. Objective BP 142/78 Pulse 76 Temp 36.6 ?C (97.8 ?F) Resp 16 Wt 90.3 kg (199 lb) SpO2 97% BMI 32.61 kg/m? Physical Exam Constitutional: He appears well-developed and well-nourished. HENT: Head: Normocephalic and atraumatic. Right Ear: Tympanic membrane, external ear and ear canal normal. Left Ear: Hearing, tympanic membrane, external ear and ear canal normal. Nose: Nose normal. Mouth/Throat: Oropharynx is clear and moist. No oropharyngeal exudate. Right hearing aid removed for assessment Cardiovascular: Normal rate, regular rhythm, S1 normal, S2 normal and normal heart sounds. No murmur heard. Pulmonary/Chest: Effort normal. No respiratory distress. He has decreased breath sounds. He has no wheezes. He has no rales. Lymphadenopathy: Head (right side): No submental, no submandibular, no tonsillar, no preauricular and no posterior auricular adenopathy present. Head (left side): No submental, no submandibular, no tonsillar, no preauricular and no posterior auricular adenopathy present. He has no cervical adenopathy. Right cervical: No superficial cervical and no posterior cervical adenopathy present. Left cervical: No superficial cervical and no posterior cervical adenopathy present. ASSESSMENT/PLAN: 1. Viral illness - ICD9: 079.99, ICD10: B34.9 - Discussed viral etiology and rationale for treatment. - Symptomatic treatment with prn analgesia - Supportive care with fluids and rest - see patient instructions - PREDNISONE 10 MG TABLET PINKY RoqueOV Observed: 04/14/2018 Status: COMPLETED Source: [place] 11:20 AM [facility] REPOSITORY Office Visit (FAMPWS) KAITLYNN BRONSON ([id number]) 1945 M Date Time Provider Department 04/14/18 11:20 AM MADELYN LOPEZ (LUCI) FAMPWS During your visit today, we recorded the following information about you: Temperature Pulse Respiration Blood pressure 97.8 degrees 76/minute 16/minute 142/78 Weight 90.3 kg Madelyn Lopez APRN.CNP 04/14/2018 12:20 PM Signed This note was created using Earshotriter. Subjective Kaitlynnodilia Bronson is a 72 year old male. The history is provided by the patient and a relative. No speech language pathologist assistant was used. Cough This is a new problem. The current episode started 2 days ago. The problem occurs constantly. The problem has been gradually worsening. The cough is productive of sputum. Maximum temperature: subjective. Associated symptoms include ear congestion, ear pain, headaches and sore throat. Treatments tried: zyertec, HBP, acetaminophen. Allergies This is a new problem. The current episode started in the past 7 days. The problem has been gradually worsening. Associated symptoms include congestion, coughing, headaches, a sore throat and swollen glands. Pertinent negatives include no rash. Nothing aggravates the symptoms. He has tried nothing for the symptoms. The treatment provided no relief. Sore Throat This is a new problem. The current episode started in the past 7 days. The problem has been gradually worsening. Neither side of throat is experiencing more pain than the other. The fever has been present for 1 to 2 days. Associated symptoms include congestion, coughing, diarrhea (resolved), ear pain, headaches, a hoarse voice, a plugged ear sensation and swollen glands. Pertinent negatives include no ear discharge. Review of Systems HENT: Positive for congestion, ear pain, hoarse voice and sore throat. Negative for ear discharge. Respiratory: Positive for cough. Gastrointestinal: Positive for diarrhea (resolved). Skin: Negative for rash. Neurological: Positive for headaches. Objective BP 142/78 Pulse 76 Temp 36.6 ?C (97.8 ?F) Resp 16 Wt 90.3 kg (199 lb) SpO2 97% BMI 32.61 kg/m? Physical Exam Constitutional: He appears well-developed and well-nourished. HENT: Head: Normocephalic and atraumatic. Right Ear: Tympanic membrane, external ear and ear canal normal. Left Ear: Hearing, tympanic membrane, external ear and ear canal normal. Nose: Nose normal. Mouth/Throat: Oropharynx is clear and moist. No oropharyngeal exudate. Right hearing aid removed for assessment Cardiovascular: Normal rate, regular rhythm, S1 normal, S2 normal and normal heart sounds. No murmur heard. Pulmonary/Chest: Effort normal. No respiratory distress. He has decreased breath sounds. He has no wheezes. He has no rales. Lymphadenopathy: Head (right side): No submental, no submandibular, no tonsillar, no preauricular and no posterior auricular adenopathy present. Head (left side): No submental, no submandibular, no tonsillar, no preauricular and no posterior auricular adenopathy present. He has no cervical adenopathy. Right cervical: No superficial cervical and no posterior cervical adenopathy present. Left cervical: No superficial cervical and no posterior cervical adenopathy present. ASSESSMENT/PLAN: 1. Viral illness - ICD9: 079.99, ICD10: B34.9 - Discussed viral etiology and rationale for treatment. - Symptomatic treatment with prn analgesia - Supportive care with fluids and rest - see patient instructions - PREDNISONE 10 MG TABLET PINKY Roque APRN.CNP 04/14/2018 12:02 PM Signed Home going instructions for viral Upper Respiratory Infections and Sinusitis In General: - Drink lots of fluids - at least one gallon of non-caffeinated liquids per day - Make sure you are eating well - Get plenty of rest - at least 8 hours of sleep per night for adults - ibuprofen 600mg every 8 hours as needed for discomfort - acetaminophen 500mg every 4-6 hours as needed for fever and discomfort. - may alternate ibuprofen and acetaminophen For nasal congestion try: -Vaporizers, Neti Pot, humidifiers, hot showers, and hot fluids help open respiratory and sinus passages. - Gerton Nasal [place] may offer relief of nasal and head congestion 2-3 times per day as needed. For Sore Throat try: - Salt water gargles every 2-3 hours as needed for discomfort - Chloraceptic spray or throat lozenges (Cepacol) For Cough and chest congestion try one of the following: - If you have high blood pressure or hypertension it is safe to take Coricidin? HBP Cough AND Cold. If you smoke it is advised that you quit smoking. CONTACT YOUR DOCTOR IF: 1. You have fevers for longer than five days or a fever more than 102 degrees 2. You are still sick after 10 days 3. After several days you are getting worse rather than better 4. You develop nausea, vomiting, diarrhea, or a rash. Go to the ER if you - experience pressure or pain in your chest - experience difficulty swallowing - experience difficulty breathing Follow up in 7-10 days or before if your symptoms get worse. Madelyn Lopez APRN.CNP F [facility] [address] [facility] [phone] Referring Provider: SELF [200] Allergies As of Date: 04/14/2018 Noted Allergy Reaction CRESTOR (ROSUVASTATIN CALCIUM) 01/01/2017 17 - Myalgia GABAPENTIN 03/08/2015 9 - Itching TAPE (ADHESIVE TAPE-SILICONES) 03/08/2015 14 - Other: See Comments Comments: Redness at site THROAT SPRAY (PHENOL-PHENOLATE SO*10/30/2015 7 - Swelling Comments: Tongue swelled ULTRAM (TRAMADOL HCL) 03/13/2009 Comments: itching VICODIN (HYDROCODONE-ACETAMINOPHE*03/08/2015 9 - Itching Date Reviewed: 04/14/2018 Reviewed by: Benjamin Vega LPN - Fully Assessed Reason for Visit: Cough [28] Allergies [4] Sore Throat [200] Watery Eyes [1390] Headache [52] Reason For Visit History Recorded Primary Visit Diagnosis:Viral illness [B34.9] Order(s):predniSONE (DELTASONE) 10 mg tabletTake 40 mg x 3 days, 20 mg x 3 days, 10 mg x 3 days. Take with food, once dailyDisp: 21 tabletRfl: 0 Prescriptions as of 04/14/2018 Sig: OMEPRAZOLE 20 MG CAPSULE,JAGDISH* Take 1 capsule by mouth twice* SIMVASTATIN 20 MG TABLET Take 1 tablet by mouth daily * CHOLECALCIFEROL (VITAMIN D3) * Take 1 capsule by mouth once * ZYRTEC ORAL Take by mouth. DEXAMETHASONE 0.1 % EYE DROPS 1 Drop twice daily as needed * GLIMEPIRIDE 2 MG TABLET Take 1 tablet by mouth daily * ALBUTEROL SULFATE HFA 90 MCG/* 2 puffs every 4 hours as need* OXYCODONE-ACETAMINOPHEN 7.5 M* ASPIRIN 81 MG TABLET,DELAYED * Take 81 mg by mouth once ho* LOSARTAN 100 MG TABLET Take 1 tablet by mouth once d* FUROSEMIDE 40 MG TABLET Take 1 tablet by mouth once d* METOPROLOL TARTRATE 100 MG TA* Take 1 tablet by mouth twice * AMLODIPINE 10 MG TABLET Take 1 tablet by mouth once d* GABAPENTIN ENACARBIL ER 600 M* Take 1 tablet by mouth daily * ACETAMINOPHEN 325 MG TABLET Take 2 tablets by mouth every* PREDNISONE 10 MG TABLET Take 40 mg x 3 days, 20 mg x * VITAMIN B COMPLEX CAPSULE Take 1 capsule by mouth once * KLOR-CON M10 MEQ TABLET,EXTEN* Problem List As Of Date 04/14/2018 Noted Resolved PAIN IN JOINT, LOWER LEG [M25.569] INVALID FOR* Chronic back pain [M54.9, G89.29] INVALID FOR* 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.1] INVALID FOR* Hyperlipidemia [E78.5] INVALID FOR* HTN (hypertension) [I10] INVALID FOR* DM2 (diabetes mellitus, type 2) (HCC) [E11.9] INVALID FOR* Heart murmur [R01.1] INVALID FOR* COPD (chronic obstructive pulmonary disease) (H*INVALID FOR* History of kidney stones [Z87.442] INVALID FOR* Aortic valve stenosis [I35.0] INVALID FOR* Obesity [E66.9] INVALID FOR* CAD (coronary artery disease) [I25.10] INVALID FOR* Nausea alone [R11.0] INVALID FOR*04/27/2015 Abdominal pain, right lower quadrant [R10.31] INVALID FOR*04/27/2015 BPH (benign prostatic hyperplasia) [N40.0] INVALID FOR* Adrenal mass (HCC) [E27.9] INVALID FOR* Bladder wall thickening [N32.89] INVALID FOR* Kidney stone [N20.0] INVALID FOR* Noncompliance with medication regimen [Z91.14] INVALID FOR* Obesity, Class I, BMI 30-34.9 [E66.9] INVALID FOR* Post-nasal drainage [R09.82] INVALID FOR* Malaise and fatigue [R53.81, R53.83] INVALID FOR* Essential hypertension [I10] INVALID FOR* Type 2 diabetes mellitus without complication (*INVALID FOR* 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 pylori infection [A04.8] INVALID FOR* Muscle cramp [R25.2] INVALID FOR* Other instructions from your clinician: Home going instructions for viral Upper Respiratory Infections and Sinusitis In General: - Drink lots of fluids - at least one gallon of non-caffeinated liquids per day - Make sure you are eating well - Get plenty of rest - at least 8 hours of sleep per night for adults - ibuprofen 600mg every 8 hours as needed for discomfort - acetaminophen 500mg every 4-6 hours as needed for fever and discomfort. - may alternate ibuprofen and acetaminophen For nasal congestion try: -Vaporizers, Neti Pot, humidifiers, hot showers, and hot fluids help open respiratory and sinus passages. - [place] Nasal [place] may offer relief of nasal and head congestion 2-3 times per day as needed. For Sore Throat try: - Salt water gargles every 2-3 hours as needed for discomfort - Chloraceptic spray or throat lozenges (Cepacol) For Cough and chest congestion try one of the following: - If you have high blood pressure or hypertension it is safe to take Coricidin? HBP Cough AND Cold. If you smoke it is advised that you quit smoking. CONTACT YOUR DOCTOR IF: 1. You have fevers for longer than five days or a fever more than 102 degrees 2. You are still sick after 10 days 3. After several days you are getting worse rather than better 4. You develop nausea, vomiting, diarrhea, or a rash. Go to the ER if you - experience pressure or pain in your chest - experience difficulty swallowing - experience difficulty breathing Follow up in 7-10 days or before if your symptoms get worse. Madelyn Lopez APRN.[facility] [facility] [address] [phone] Prescriptions ordered this encounter Disp Refills Start End PREDNISONE 10 MG TABLET 21 t* 0 04/14/2018 Sig: Take 40 mg x 3 days, 20 mg x 3 days, 10 mg x 3 days. Take with food, once daily Encounter Status:Closed by MADELYN LOPEZ CNP on 04/14/18 LIPID PANEL, BASIC Collected: 04/07/2018 Status: F Source: [place] 8:20 AM [facility] REPOS[facility]ORY TYPE CODE TESTS RESULT OUT OF REFERENCE UNITS RANGE LAB CHOL <200 mg/dL Cholesterol 156 Result Comment: <200 mg/dL, Desirable 200-239 mg/dL, Borderline high >239 mg/dL, High LAB TRIGLY <150 mg/dL Triglyceride High 208 Result Comment: <150 mg/dL, Normal 150-199 mg/dL, Borderline high 200-499 mg/dL, High >499 mg/dL, Very high LAB HDL >39 mg/dL HDL-Cholesterol Low 30 Result Comment: 40-59 mg/dL, Acceptable >59 mg/dL, High: Negative risk factor for coronary heart disease <40 mg/dL, Low: Positive risk factor for coronary heart disease LAB LDL <100 mg/dL LDL-Cholesterol 84 Result Comment: <100 mg/dL, Optimal 100-129 mg/dL, Near optimal/above optimal 130-159 mg/dL, Borderline high 160-189 mg/dL, High >189 mg/dL, Very high Secondary prevention optimal LDL Cholesterol levels are recommended to be < 70 mg/dL LAB NONHDL <130 mg/dL Non HDL Cholesterol 126 Result Comment: <130 mg/dL, Optimal 130-159 mg/dL, Near optimal/above optimal 160-189 mg/dL, Borderline high 190-219 mg/dL, High >219 mg/dL, Very high Secondary prevention optimal non HDL Cholesterol levels are recommended to be < 100 mg/dL LAB FT hrs Fasting Time 10 LAB VLDL <30 mg/dL High VLDL Cholesterol 42 LAB TCHDL <5.10 High TC:HDL Ratio 5.20 LAB LDLHDL <2.54 High LDL:HDL Ratio 2.80 Result Comment: Reference: 1. National Cholesterol Education Program ATP III Guideline At-A-Glance Quick Desk Reference: National Heart, Lung, and Blood [place]. National Institutes of Health. 2001: NIH Publication No. 01-3305. 2. An International Atherosclerosis Society position paper: global recommendations for the management of dyslipidemia: executive summary, Atherosclerosis. 2014: 232(2):410-413. Performed By: #### LIPB #### [facility] [address], [place] [address] PROGRESS Observed: 02/27/2018 Status: COMPLETED Source: [place] 10:34 AM [facility] REPOSITORY HNO ID: [id number] Author: Babs Payan (Mara) Audie Service: (none) Author Type: Nurse Practitioner Type: Progress Notes Filed: 02/27/2018 12:21 PM Note Text: Chief Complaint Patient presents with: Hematuria HPI Kaitlynn Bronson is a 72 year old male who presents here today for ongoing hematuria. Was seen earlier this week in , note reviewed. H/o kidney stones. Was to have cystoscopy, patient refused in the past. States hematuria has been ongoing off and on for several months to few years. May have episodes of hematuria lasting few weeks, then will completely resolved. Describes as beet colored or punch colored urine, painless hematuria. Former smoker. Last episodes of hematuria was yesterday. Urine dip positive in UC, culture showed no growth. Was prescribed Cipro, then because patient was completing course of Clarithromycin and Amoxicillin for h pylori he was advised to hold off on Cipro. He denies any fever, chills, dysuria or urinary frequency, urgency. Component Latest Ref Rng AND Units 02/24/2018 Glucose, Urine Neg mg/dL NEG Bilirubin, Urine Neg SMALL Ketones, Urine Neg NEG Specific [place], Ur 1.005 - 1.030 1.010 Hemoglobin/Blood,Ur Neg LARGE pH, Urine 4.5 - 8.0 8.0 Protein, Urine Neg mg/dL 100 Urobilinogen, Urine Normal (<1.1) EU 0.2 Nitrites Neg POSITIVE Leukocytes Neg -- Color/Appearance comment: cloudy red Quality Check yes/no Yes Component Latest Ref Rng AND Units 02/24/2018 Specimen Request Specimen received in preservative Culture No growth (<1,000 CFU/ml) The ROS is otherwise negative. Past medical history, appointments, medications, allergies reviewed. Patient Allergies ALLERGIES Allergen Reactions - Crestor [Rosuvastat* Myalgia - Gabapentin Itching - Tape [Adhesive Tape* Other: See Comments Redness at site - Throat [place] [Pheno* Swelling Tongue swelled - Ultram [Tramadol Hc* itching - Vicodin [Hydrocodon* Itching Current Medications Current Outpatient Prescriptions on File Prior to Visit: B Complex Vitamins capsule Take 1 capsule by mouth once daily. CETIRIZINE HCL (ZYRTEC ORAL) Take by mouth. ciprofloxacin HCl (CIPRO) 500 mg tablet Take 1 tablet by mouth twice daily for 7 days. omeprazole (PRILOSEC) 20 mg capsule Take 1 capsule by mouth twice daily. 1/2 hr before meal. meloxicam (MOBIC) 15 mg tablet Take 1 tablet by mouth once daily. For joint pain cholecalciferol, Vitamin D3, (VITAMIN D3) 50,000 unit cap capsule Take 1 capsule by mouth once each week. dexamethasone 0.1% 0.1 % ophthalmic solution 1 Drop twice daily as needed (into bilateral ears for itchy prn). simvastatin (ZOCOR) 20 mg tablet Take 1 tablet by mouth daily at bedtime. glimepiride (AMARYL) 2 mg tablet Take 1 tablet by mouth daily with breakfast. albuterol HFA (PROAIR HFA) 90 mcg/actuation inhaler 2 puffs every 4 hours as needed oxyCODONE-acetaminophen (PERCOCET) 7.5-325 mg tablet aspirin, enteric coated (ASPIRIN, ENTERIC COATED) 81 mg EC tablet Take 81 mg by mouth once daily. losartan (COZAAR) 100 mg tablet Take 1 tablet by mouth once daily. Dr. Mejia furosemide (LASIX) 40 mg tablet Take 1 tablet by mouth once daily. metoprolol tartrate, short acting, (LOPRESSOR) 100 mg tablet Take 1 tablet by mouth twice daily. Dr. Mejia amLODIPine (NORVASC) 10 mg tablet Take 1 tablet by mouth once daily. Dr. Mejia gabapentin enacarbil (HORIZANT) 600 mg TbER Take 1 tablet by mouth daily at bedtime. Dr. Nelson acetaminophen (TYLENOL) 325 mg tablet Take 2 tablets by mouth every 6 hours as needed for Pain. KLOR-CON M10 10 mEq tablet No current facility-administered medications on file prior to visit. Previous Medical History PAST MEDICAL HISTORY Diagnosis Date - Aortic valve stenosis mild per 04/27/14 echo - CAD (coronary artery disease) - Chronic back pain sees Dr. 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) - COPD (chronic obstructive pulmonary disease) (HCC) - Diabetes mellitus without mention of complication Diabetes mellitus - History of kidney stones - Hyperlipidemia - Unspecified essential hypertension Essential hypertension Previous Surgical History PAST SURGICAL HISTORY Procedure Laterality Date - COLONOSCOP W/ OR W/O [facility] SPEC 04/27/2015 Colonoscopy - EGD W/O OR W/BRUSH/WASH 04/27/2015 EGD - PAST SURGICAL HISTORY OF 2012 Quad Bypass Family History FAMILY HISTORY Problem Relation Age of Onset - Heart Paternal Uncle - Heart Paternal Uncle Social History Social History Marital status: Single Spouse name: Years of education: Number of children: Social History Main Topics Smoking status: Former Smoker Packs/day: 2.00 Years: 30.00 Types: Cigarettes Quit date: 03/08/2005 Smokeless status: Former User Types: Chew Quit date: 03/08/2005 Alcohol use: Yes Comment: 1-2 beers daily Drug use: No EXAM: BP 142/82 (BP Site: Right Arm, BP Position: Sitting, BP Cuff Size: Large Adult) Pulse 98 Resp 16 Wt 92.5 kg (204 lb) BMI 33.43 kg/m2 General Appearance: Well appearing, alert, in no acute distress, well-hydrated, well nourished.. Neck: Supple, no adenopathy; thyroid symmetric, normal size, Lungs: Lungs clear to auscultation. No wheezing, rhonchi, rales. Heart: RRR without , gallop, or rubs. No ectopy, Positive findings: II/ PETER over 4th ICS LSB. Abdomen: obese to inspection. ASSESSMENT/PLAN: 1. Hematuria, unspecified type - ICD9: 599.70, ICD10: R31.9 - Bashir and lengthy discussion with patient regarding painless hematuria and need for further evaluation to r/o bladder lesion, specifically cancer. He is adamant that if he proceeds with procedure he wants to be sedated knocked out. Explained he needs to discuss his concerns and wishes with the specialist. - Reviewed case with Dr. Small, despite negative culture, recommending he go ahead and take the Cipro due to positive nitrites in urine. This was relayed to the patient. The patient indicates understanding of these issues and agrees with the plan. - CONSULT TO UROLOGY Babs Bronson MSN EVENT CREW TECHNICIAN.LUCI CNOV Observed: 02/27/2018 Status: COMPLETED Source: [place] 10:20 AM [facility] REPOSITORY Office Visit (FAMPWS) KAITLYNN BRONSON ([id number]) 1945 M Date Time Provider Department 02/27/18 10:20 AM BABS BRONSON (MARA) FAMBRIAN During your visit today, we recorded the following information about you: Pulse Respiration Blood pressure Weight 98/minute 16/minute 138/70 92.5 kg Babs Bronson MSN EVENT CREW TECHNICIAN.LUCI 02/27/2018 12:21 PM Signed Chief Complaint Patient presents with: Hematuria HPI Kaitlynn Bronson is a 72 year old male who presents here today for ongoing hematuria. Was seen earlier this week in UC, note reviewed. H/o kidney stones. Was to have cystoscopy, patient refused in the past. States hematuria has been ongoing off and on for several months to few years. May have episodes of hematuria lasting few weeks, then will completely resolved. Describes as ANDquot;beet coloredANDquot; or ANDquot; punchANDquot; colored urine, painless hematuria. Former smoker. Last episodes of hematuria was yesterday. Urine dip positive in UC, culture showed no growth. Was prescribed Cipro, then because patient was completing course of Clarithromycin and Amoxicillin for h pylori he was advised to hold off on Cipro. He denies any fever, chills, dysuria or urinary frequency, urgency. Component Latest Ref Rng ANDamp; Units 02/24/2018 Glucose, Urine Neg mg/dL NEG Bilirubin, Urine Neg SMALL Ketones, Urine Neg NEG Specific Montgomery, Ur 1.005 - 1.030 1.010 Hemoglobin/Blood,Ur Neg LARGE pH, Urine 4.5 - 8.0 8.0 Protein, Urine Neg mg/dL 100 Urobilinogen, Urine Normal (ANDlt;1.1) EU 0.2 Nitrites Neg POSITIVE Leukocytes Neg -- Color/Appearance comment: cloudy red Quality Check yes/no Yes Component Latest Ref Rng ANDamp; Units 02/24/2018 Specimen Request Specimen received in preservative Culture No growth (ANDlt;1,000 CFU/ml) The ROS is otherwise negative. Past medical history, appointments, medications, allergies reviewed. Patient Allergies ALLERGIES Allergen Reactions - Crestor [Rosuvastat* Myalgia - Gabapentin Itching - Tape [Adhesive Tape* Other: See Comments Redness at site - Throat [place] [Pheno* Swelling Tongue swelled - Ultram [Tramadol Hc* itching - Vicodin [Hydrocodon* Itching Current Medications Current Outpatient Prescriptions on File Prior to Visit: B Complex Vitamins capsule Take 1 capsule by mouth once daily. CETIRIZINE HCL (ZYRTEC ORAL) Take by mouth. ciprofloxacin HCl (CIPRO) 500 mg tablet Take 1 tablet by mouth twice daily for 7 days. omeprazole (PRILOSEC) 20 mg capsule Take 1 capsule by mouth twice daily. 1/2 hr before meal. meloxicam (MOBIC) 15 mg tablet Take 1 tablet by mouth once daily. For joint pain cholecalciferol, Vitamin D3, (VITAMIN D3) 50,000 unit cap capsule Take 1 capsule by mouth once each week. dexamethasone 0.1% 0.1 % ophthalmic solution 1 Drop twice daily as needed (into bilateral ears for itchy prn). simvastatin (ZOCOR) 20 mg tablet Take 1 tablet by mouth daily at bedtime. glimepiride (AMARYL) 2 mg tablet Take 1 tablet by mouth daily with breakfast. albuterol HFA (PROAIR HFA) 90 mcg/actuation inhaler 2 puffs every 4 hours as needed oxyCODONE-acetaminophen (PERCOCET) 7.5-325 mg tablet aspirin, enteric coated (ASPIRIN, ENTERIC COATED) 81 mg EC tablet Take 81 mg by mouth once daily. losartan (COZAAR) 100 mg tablet Take 1 tablet by mouth once daily. Dr. Mejia furosemide (LASIX) 40 mg tablet Take 1 tablet by mouth once daily. metoprolol tartrate, short acting, (LOPRESSOR) 100 mg tablet Take 1 tablet by mouth twice daily. Dr. Mejia amLODIPine (NORVASC) 10 mg tablet Take 1 tablet by mouth once daily. Dr. Mejia gabapentin enacarbil (HORIZANT) 600 mg TbER Take 1 tablet by mouth daily at bedtime. Dr. Nelson acetaminophen (TYLENOL) 325 mg tablet Take 2 tablets by mouth every 6 hours as needed for Pain. KLOR-CON M10 10 mEq tablet No current facility-administered medications on file prior to visit. Previous Medical History PAST MEDICAL HISTORY Diagnosis Date - Aortic valve stenosis mild per 04/27/14 echo - CAD (coronary artery disease) - Chronic back pain sees Dr. 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) - COPD (chronic obstructive pulmonary disease) (HCC) - Diabetes mellitus without mention of complication Diabetes mellitus - History of kidney stones - Hyperlipidemia - Unspecified essential hypertension Essential hypertension Previous Surgical History PAST SURGICAL HISTORY Procedure Laterality Date - COLONOSCOP W/ OR W/O BRSH SPEC 04/27/2015 Colonoscopy - EGD W/O OR W/BRUSH/WASH 04/27/2015 EGD - PAST SURGICAL HISTORY OF 2011 Quad Bypass Family History FAMILY HISTORY Problem Relation Age of Onset - Heart Paternal Uncle - Heart Paternal Uncle Social History Social History Marital status: Single Spouse name: Years of education: Number of children: Social History Main Topics Smoking status: Former Smoker Packs/day: 2.00 Years: 30.00 Types: Cigarettes Quit date: 03/08/2005 Smokeless status: Former User Types: Chew Quit date: 03/08/2005 Alcohol use: Yes Comment: 1-2 beers daily Drug use: No EXAM: BP 142/82 (BP Site: Right Arm, BP Position: Sitting, BP Cuff Size: Large Adult) Pulse 98 Resp 16 Wt 92.5 kg (204 lb) BMI 33.43 kg/m2 General Appearance: Well appearing, alert, in no acute distress, well-hydrated, well nourished.. Neck: Supple, no adenopathy; thyroid symmetric, normal size, Lungs: Lungs clear to auscultation. No wheezing, rhonchi, rales. Heart: RRR without , gallop, or rubs. No ectopy, Positive findings: II/ PETER over 4th ICS LSB. Abdomen: obese to inspection. ASSESSMENT/PLAN: 1. Hematuria, unspecified type - ICD9: 599.70, ICD10: R31.9 - Bashir and lengthy discussion with patient regarding painless hematuria and need for further evaluation to r/o bladder lesion, specifically cancer. He is adamant that if he proceeds with procedure he wants to be sedated ANDquot;knocked outANDquot;. Explained he needs to discuss his concerns and wishes with the specialist. - Reviewed case with Dr. Small, despite negative culture, recommending he go ahead and take the Cipro due to positive nitrites in urine. This was relayed to the patient. The patient indicates understanding of these issues and agrees with the plan. - CONSULT TO UROLOGY Babs Bronson, MSN EVENT CREW TECHNICIAN.BRUSHER TENDER Referring Provider: JHON SMALL [[id number]] Allergies As of Date: 02/27/2018 Noted Allergy Reaction CRESTOR (ROSUVASTATIN CALCIUM) 01/01/2017 17 - Myalgia GABAPENTIN 03/08/2015 9 - Itching TAPE (ADHESIVE TAPE-SILICONES) 03/08/2015 14 - Other: See Comments Comments: Redness at site THROAT SPRAY (PHENOL-PHENOLATE SO*10/30/2015 7 - Swelling Comments: Tongue swelled ULTRAM (TRAMADOL HCL) 03/13/2009 Comments: itching VICODIN (HYDROCODONE-ACETAMINOPHE*03/08/2015 9 - Itching Date Reviewed: 02/27/2018 Reviewed by: Crys Agosto LPN - Fully Assessed Reason for Visit: Hematuria [335] Primary Visit Diagnosis:Hematuria, unspecified type [R31.9] Order(s):CONSULT TO UROLOGY [9041] Order #: [id number]: 1 Prescriptions as of 02/27/2018 Sig: VITAMIN B COMPLEX CAPSULE Take 1 capsule by mouth once * ZYRTEC ORAL Take by mouth. CIPROFLOXACIN 500 MG TABLET Take 1 tablet by mouth twice * OMEPRAZOLE 20 MG CAPSULE,JAGDISH* Take 1 capsule by mouth twice* MELOXICAM 15 MG TABLET Take 1 tablet by mouth once d* CHOLECALCIFEROL (VITAMIN D3) * Take 1 capsule by mouth once * DEXAMETHASONE 0.1 % EYE DROPS 1 Drop twice daily as needed * SIMVASTATIN 20 MG TABLET Take 1 tablet by mouth daily * GLIMEPIRIDE 2 MG TABLET Take 1 tablet by mouth daily * ALBUTEROL SULFATE HFA 90 MCG/* 2 puffs every 4 hours as need* OXYCODONE-ACETAMINOPHEN 7.5 M* ASPIRIN 81 MG TABLET,DELAYED * Take 81 mg by mouth once ho* LOSARTAN 100 MG TABLET Take 1 tablet by mouth once d* FUROSEMIDE 40 MG TABLET Take 1 tablet by mouth once d* METOPROLOL TARTRATE 100 MG TA* Take 1 tablet by mouth twice * AMLODIPINE 10 MG TABLET Take 1 tablet by mouth once d* GABAPENTIN ENACARBIL ER 600 M* Take 1 tablet by mouth daily * ACETAMINOPHEN 325 MG TABLET Take 2 tablets by mouth every* KLOR-CON M10 MEQ TABLET,EXTEN* Problem List As Of Date 02/27/2018 Noted Resolved PAIN IN JOINT, LOWER LEG [M25.569] INVALID FOR* Chronic back pain [M54.9, G89.29] INVALID FOR* 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.1] INVALID FOR* Hyperlipidemia [E78.5] INVALID FOR* HTN (hypertension) [I10] INVALID FOR* DM2 (diabetes mellitus, type 2) (HCC) [E11.9] INVALID FOR* Heart murmur [R01.1] INVALID FOR* COPD (chronic obstructive pulmonary disease) (H*INVALID FOR* History of kidney stones [Z87.442] INVALID FOR* Aortic valve stenosis [I35.0] INVALID FOR* Obesity [E66.9] INVALID FOR* CAD (coronary artery disease) [I25.10] INVALID FOR* Nausea alone [R11.0] INVALID FOR*04/27/2015 Abdominal pain, right lower quadrant [R10.31] INVALID FOR*04/27/2015 BPH (benign prostatic hyperplasia) [N40.0] INVALID FOR* Adrenal mass (HCC) [E27.9] INVALID FOR* Bladder wall thickening [N32.89] INVALID FOR* Kidney stone [N20.0] INVALID FOR* Noncompliance with medication regimen [Z91.14] INVALID FOR* Obesity, Class I, BMI 30-34.9 [E66.9] INVALID FOR* Post-nasal drainage [R09.82] INVALID FOR* Malaise and fatigue [R53.81, R53.83] INVALID FOR* Essential hypertension [I10] INVALID FOR* Type 2 diabetes mellitus without complication (*INVALID FOR* 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 pylori infection [A04.8] INVALID FOR* Muscle cramp [R25.2] INVALID FOR* Medications Discontinued During This Encounter tamsulosin ER (FLOMAX) 0.4 mg cp24 90 c* 3 11/18/2017 02/27/2018 Route: ORAL Sig: Take 0.4 mg by mouth daily at bedtime. Disc: Discontinued by Patient potassium chloride (KLOR-CON 10) 10 * 03/08/2015 02/27/2018 Class: Historical Med Route: ORAL Sig: Take 1 tablet by mouth twice daily. Dr. Mejia Disc: Duplicate Entry DICLOFENAC SODIUM ORAL 02/27/2018 Class: Historical Med Route: ORAL Sig: Take 50 mg by mouth. Disc: Discontinued by Patient doxycycline monohydrate 100 mg tablet 20 t* 0 01/02/2018 02/27/2018 Route: ORAL Sig: Take 1 tablet by mouth twice daily. Disc: Course of therapy completed nystatin (MYCOSTATIN) 100,000 unit/m* 200 * 0 04/05/2017 02/27/2018 Route: ORAL Sig: Take 1 mL by mouth four times daily. 1tsp swish in mouth for several minutes, then swallow (or expectorate) 4 times daily until gone. Disc: Course of therapy completed gentamicin (GENTAK) 0.3 % (3 mg/gram* 3.5 g 0 03/17/2017 02/27/2018 Route: RIGHT EYE Sig: Use 1 Tube in the right eye three times daily. Disc: Discontinued by Patient tiaGABine (GABITRIL) 4 mg tablet 02/27/2018 Class: Historical Med Route: ORAL Sig: Take 4 mg by mouth daily at bedtime. Disc: Discontinued by Patient Encounter Status:Closed by AUDIE BABS Schuyler BELLA on 02/27/18 Observed: 02/24/2018 Status: F Source: [place] URINE CULTURE 3:08 PM [facility] REPOSITORY Sp. Request/Comment: - Specimen received in preservative Culture Result - No growth (<1,000 CFU/ml) Performed By: #### URCUL #### [facility] [address] [place], [place] [address] PROGRESS Observed: 02/24/2018 Status: COMPLETED Source: [place] 2:58 PM [facility] REPOSITORY HNO ID: [id number] Author: Jacquie (Senior Gamemaster) ABHINAV Landrum.BRUSHER TENDER Service: (none) Author Type: Nurse Practitioner Type: Progress Notes Filed: 02/24/2018 5:04 PM Note Text: Subjective The history is provided by the patient. No speech language pathologist assistant was used. HPI Kaitlynn Bronson is a 72 year old male who presents today for CC of blood in urine This started today He is also having dull lower back ache Symptoms are worsened by nothing He has tried no treatment or medication Risk factors none known PMH kidney stone BP 152/86 Pulse 80 Temp 36.8 ?C (98.3 ?F) (Tympanic) Resp 20 Wt 92.1 kg (203 lb) BMI 33.27 kg/m2 ALLERGIES Allergen Reactions - Crestor [Rosuvastat* Myalgia - Gabapentin Itching - Tape [Adhesive Tape* Other: See Comments Redness at site - Throat [place] [Pheno* Swelling Tongue swelled - Ultram [Tramadol Hc* itching - Vicodin [Hydrocodon* Itching ACTIVE PROBLEM LIST Pain in Joint, Lower Leg Chronic Back Pain H/O Heart Bypass Surgery Hyperlipidemia Htn (Hypertension) Dm2 (Diabetes Mellitus, Type 2) ([facility]) Heart Murmur Copd (Chronic Obstructive Pulmonary Disease) ([facility]) History of Kidney Stones Aortic Valve Stenosis Obesity Cad (Coronary Artery Disease) Bph (Benign Prostatic Hyperplasia) Adrenal Mass ([facility]) Bladder Wall Thickening Kidney Stone Noncompliance With Medication Regimen Obesity, Class I, Bmi 30-34.9 Post-Nasal Drainage Malaise and Fatigue Essential Hypertension Type 2 Diabetes Mellitus Without Complication ([facility]) Spinal Stenosis of Lumbar Region Without Neurogenic Claudication Arthritis, Multiple Joint Involvement Actinic Keratosis Vitamin D Deficiency H. Pylori Infection Muscle Cramp Family History Problem Relation Age of Onset - Heart Paternal Uncle - Heart Paternal Uncle Social History Marital status: Single Spouse name: Years of education: Number of children: Social History Main Topics Smoking status: Former Smoker Packs/day: 2.00 Years: 30.00 Types: Cigarettes Quit date: 03/08/2005 Smokeless status: Former User Types: Chew Quit date: 03/08/2005 Alcohol use: Yes Comment: 1-2 beers daily Drug use: No Review of Systems Constitutional: Negative for chills, fever and malaise/fatigue. Genitourinary: Positive for dysuria and hematuria. Negative for flank pain, frequency and urgency. Skin: Negative for rash. Neurological: Negative for headaches. Objective Physical Exam Constitutional: He is oriented to person, place, and time and well-developed, well-nourished, and in no distress. HENT: Head: Normocephalic and atraumatic. Eyes: Conjunctivae and EOM are normal. Pupils are equal, round, and reactive to light. Neck: Normal range of motion. Neck supple. Pulmonary/Chest: Effort normal. Abdominal: Soft. Normal appearance and bowel sounds are normal. He exhibits no abdominal bruit, no pulsatile midline mass and no mass. There is no hepatosplenomegaly. There is no tenderness. There is no rigidity, no rebound, no guarding, no CVA tenderness, no tenderness at McBurney's point and negative Marino's sign. Neurological: He is alert and oriented to person, place, and time. Skin: Skin is warm. Psychiatric: Affect normal. Nursing note and vitals reviewed. Urine Dip Result: Leukocytes: small Nitrates: Positive Urobilinogen: normal Protein: 100++ pH: 8.0 Blood: large +++ Specific Montgomery: 1,010 Ketones: negative Bilirubin: small + Glucose: negative ASSESSMENT/PLAN: 1. Hematuria, unspecified type - ICD9: 599.70, ICD10: R31.9 Urinary tract infection (UTI) We will send the urine for culture, which shows us what organism, if any, we are treating. If we need to change the antibiotic coverage, you will receive a call in 48-72 hours. * Seek medical care immediately, call 911, or go to ER if you have high fevers, severe flank or low back pain, blood in your urine. * Follow up with primary care provider if symptoms persist or worsen. - UA DIP B/O - URINE CULTURE - CIPROFLOXACIN 500 MG TABLET Diagnosis and treatment plan were discussed and questions were answered to the patient's satisfaction. Pt acknowledged understanding of concepts and follow up plan. Specific signs and symptoms that would indicate the need for higher level of care were discussed in detail warranting prompt ER evaluation. Jacquie Landrum APRN.CNP Addendum: Patient did not inform and was not on medication list he was on clarithromycin and amoxicillin for H. Pylori - advise to hold cipro until culture results are back from urine, will call with results and treat as needed. Jacquie Landrum APRN.CNP CNOV Observed: 02/24/2018 Status: COMPLETED Source: [place] 2:45 PM [facility] REPOSITORY Office Visit (WSTR) KAITLYNN BRONSON ([id number]) 1945 M Date Time Provider Department 02/24/18 2:45 PM JACQUIE LANDRUM (LUCI) WSTR During your visit today, we recorded the following information about you: Temperature Pulse Respiration Blood pressure 98.3 degrees 80/minute 20/minute 152/86 Weight 92.1 kg Jacquie Landrum APRN.CNP, APRN.CNP 02/24/2018 5:04 PM Addendum Subjective The history is provided by the patient. No speech language pathologist assistant was used. HPI Kaitlynn Bronson is a 72 year old male who presents today for CC of blood in urine This started today He is also having dull lower back ache Symptoms are worsened by nothing He has tried no treatment or medication Risk factors none known PMH kidney stone BP 152/86 Pulse 80 Temp 36.8 ?C (98.3 ?F) (Tympanic) Resp 20 Wt 92.1 kg (203 lb) BMI 33.27 kg/m2 ALLERGIES Allergen Reactions - Crestor [Rosuvastat* Myalgia - Gabapentin Itching - Tape [Adhesive Tape* Other: See Comments Redness at site - Throat [place] [Pheno* Swelling Tongue swelled - Ultram [Tramadol Hc* itching - Vicodin [Hydrocodon* Itching ACTIVE PROBLEM LIST Pain in Joint, Lower Leg Chronic Back Pain H/O Heart Bypass Surgery Hyperlipidemia Htn (Hypertension) Dm2 (Diabetes Mellitus, Type 2) ([facility]) Heart Murmur Copd (Chronic Obstructive Pulmonary Disease) ([facility]) History of Kidney Stones Aortic Valve Stenosis Obesity Cad (Coronary Artery Disease) Bph (Benign Prostatic Hyperplasia) Adrenal Mass ([facility]) Bladder Wall Thickening Kidney Stone Noncompliance With Medication Regimen Obesity, Class I, Bmi 30-34.9 Post-Nasal Drainage Malaise and Fatigue Essential Hypertension Type 2 Diabetes Mellitus Without Complication ([facility]) Spinal Stenosis of Lumbar Region Without Neurogenic Claudication Arthritis, Multiple Joint Involvement Actinic Keratosis Vitamin D Deficiency H. Pylori Infection Muscle Cramp Family History Problem Relation Age of Onset - Heart Paternal Uncle - Heart Paternal Uncle Social History Marital status: Single Spouse name: Years of education: Number of children: Social History Main Topics Smoking status: Former Smoker Packs/day: 2.00 Years: 30.00 Types: Cigarettes Quit date: 03/08/2005 Smokeless status: Former User Types: Chew Quit date: 03/08/2005 Alcohol use: Yes Comment: 1-2 beers daily Drug use: No Review of Systems Constitutional: Negative for chills, fever and malaise/fatigue. Genitourinary: Positive for dysuria and hematuria. Negative for flank pain, frequency and urgency. Skin: Negative for rash. Neurological: Negative for headaches. Objective Physical Exam Constitutional: He is oriented to person, place, and time and well-developed, well-nourished, and in no distress. HENT: Head: Normocephalic and atraumatic. Eyes: Conjunctivae and EOM are normal. Pupils are equal, round, and reactive to light. Neck: Normal range of motion. Neck supple. Pulmonary/Chest: Effort normal. Abdominal: Soft. Normal appearance and bowel sounds are normal. He exhibits no abdominal bruit, no pulsatile midline mass and no mass. There is no hepatosplenomegaly. There is no tenderness. There is no rigidity, no rebound, no guarding, no CVA tenderness, no tenderness at McBurney's point and negative Marino's sign. Neurological: He is alert and oriented to person, place, and time. Skin: Skin is warm. Psychiatric: Affect normal. Nursing note and vitals reviewed. Urine Dip Result: Leukocytes: small Nitrates: Positive Urobilinogen: normal Protein: 100++ pH: 8.0 Blood: large +++ Specific Montgomery: 1,010 Ketones: negative Bilirubin: small + Glucose: negative ASSESSMENT/PLAN: 1. Hematuria, unspecified type - ICD9: 599.70, ICD10: R31.9 Urinary tract infection (UTI) We will send the urine for culture, which shows us what organism, if any, we are treating. If we need to change the antibiotic coverage, you will receive a call in 48-72 hours. * Seek medical care immediately, call 911, or go to ER if you have high fevers, severe flank or low back pain, blood in your urine. * Follow up with primary care provider if symptoms persist or worsen. - UA DIP B/O - URINE CULTURE - CIPROFLOXACIN 500 MG TABLET Diagnosis and treatment plan were discussed and questions were answered to the patient's satisfaction. Pt acknowledged understanding of concepts and follow up plan. Specific signs and symptoms that would indicate the need for higher level of care were discussed in detail warranting prompt ER evaluation. Jacquie Landrum APRN.LUCI Addendum: Patient did not inform and was not on medication list he was on clarithromycin and amoxicillin for H. Pylori - advise to hold cipro until culture results are back from urine, will call with results and treat as needed. Jacquie Landrum APRN.LUCI Landrum APRN.ABHINAV BELLA.LUCI 02/24/2018 3:09 PM Signed ASSESSMENT/PLAN: 1. Hematuria, unspecified type - ICD9: 599.70, ICD10: R31.9 Urinary tract infection (UTI) We will send the urine for culture, which shows us what organism, if any, we are treating. If we need to change the antibiotic coverage, you will receive a call in 48-72 hours. * Seek medical care immediately, call 911, or go to ER if you have high fevers, severe flank or low back pain, blood in your urine. * Follow up with primary care provider if symptoms persist or worsen. - UA DIP B/O - URINE CULTURE - CIPROFLOXACIN 500 MG TABLET Referring Provider: SELF [[id number]] Allergies As of Date: 02/24/2018 Noted Allergy Reaction CRESTOR (ROSUVASTATIN CALCIUM) 01/01/2017 17 - Myalgia GABAPENTIN 03/08/2015 9 - Itching TAPE (ADHESIVE TAPE-SILICONES) 03/08/2015 14 - Other: See Comments Comments: Redness at site THROAT SPRAY (PHENOL-PHENOLATE SO*10/30/2015 7 - Swelling Comments: Tongue swelled ULTRAM (TRAMADOL HCL) 03/13/2009 Comments: itching VICODIN (HYDROCODONE-ACETAMINOPHE*03/08/2015 9 - Itching Date Reviewed: 02/24/2018 Reviewed by: Jacquie ([facility]) ABHINAV Landrum.BRUSHER TENDER - Fully Assessed Reason for Visit: Hematuria [335] Cmt: noted today Primary Visit Diagnosis:Hematuria, unspecified type [R31.9] Order(s):UA DIP B/O [[id number]] Order #: [id number] URINE CULTURE [SQURCUL] Order #: [id number] ciprofloxacin HCl (CIPRO) 500 mg tabletTake 1 tablet by mouth twice daily for 7 days.Disp: 14 tabletRfl: 0 Prescriptions as of 02/24/2018 Sig: VITAMIN B COMPLEX CAPSULE Take 1 capsule by mouth once * DICLOFENAC SODIUM ORAL Take 50 mg by mouth. ZYRTEC ORAL Take by mouth. OMEPRAZOLE 20 MG CAPSULE,JAGDIHS* Take 1 capsule by mouth twice* MELOXICAM 15 MG TABLET Take 1 tablet by mouth once d* CHOLECALCIFEROL (VITAMIN D3) * Take 1 capsule by mouth once * DOXYCYCLINE MONOHYDRATE 100 M* Take 1 tablet by mouth twice * DEXAMETHASONE 0.1 % EYE DROPS 1 Drop twice daily as needed * SIMVASTATIN 20 MG TABLET Take 1 tablet by mouth daily * GLIMEPIRIDE 2 MG TABLET Take 1 tablet by mouth daily * ALBUTEROL SULFATE HFA 90 MCG/* 2 puffs every 4 hours as need* NYSTATIN 100,000 UNIT/ML ORAL* Take 1 mL by mouth four times* GENTAMICIN 0.3 % (3 MG/GRAM) * Use 1 Tube in the right eye t* KLOR-CON M10 MEQ TABLET,EXTEN* OXYCODONE-ACETAMINOPHEN 7.5 M* ASPIRIN 81 MG TABLET,DELAYED * Take 81 mg by mouth once ho* LOSARTAN 100 MG TABLET Take 1 tablet by mouth once d* POTASSIUM CHLORIDE ER 10 MEQ * Take 1 tablet by mouth twice * FUROSEMIDE 40 MG TABLET Take 1 tablet by mouth once d* METOPROLOL TARTRATE 100 MG TA* Take 1 tablet by mouth twice * AMLODIPINE 10 MG TABLET Take 1 tablet by mouth once d* GABAPENTIN ENACARBIL ER 600 M* Take 1 tablet by mouth daily * ACETAMINOPHEN 325 MG TABLET Take 2 tablets by mouth every* CIPROFLOXACIN 500 MG TABLET Take 1 tablet by mouth twice * TAMSULOSIN 0.4 MG CAPSULE Take 0.4 mg by mouth daily at* TIAGABINE 4 MG TABLET Take 4 mg by mouth daily at b* Medication notes this encounter TAMSULOSIN 0.4 MG CAPSULE >> Emerald Pena LPN 02/24/2018 2:44 PM >> EMERALD PENA LPN diaz Feb 24, 2018 2:44 PM Not taking TIAGABINE 4 MG TABLET >> Emerald Pena LPN 02/24/2018 2:43 PM >> EMERALD PENA LPN diaz Feb 24, 2018 2:43 PM Not taking Problem List As Of Date 02/24/2018 Noted Resolved PAIN IN JOINT, LOWER LEG [M25.569] INVALID FOR* Chronic back pain [M54.9, G89.29] INVALID FOR* 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.1] INVALID FOR* Hyperlipidemia [E78.5] INVALID FOR* HTN (hypertension) [I10] INVALID FOR* DM2 (diabetes mellitus, type 2) (HCC) [E11.9] INVALID FOR* Heart murmur [R01.1] INVALID FOR* COPD (chronic obstructive pulmonary disease) (H*INVALID FOR* History of kidney stones [Z87.442] INVALID FOR* Aortic valve stenosis [I35.0] INVALID FOR* Obesity [E66.9] INVALID FOR* CAD (coronary artery disease) [I25.10] INVALID FOR* Nausea alone [R11.0] INVALID FOR*04/27/2015 Abdominal pain, right lower quadrant [R10.31] INVALID FOR*04/27/2015 BPH (benign prostatic hyperplasia) [N40.0] INVALID FOR* Adrenal mass (HCC) [E27.9] INVALID FOR* Bladder wall thickening [N32.89] INVALID FOR* Kidney stone [N20.0] INVALID FOR* Noncompliance with medication regimen [Z91.14] INVALID FOR* Obesity, Class I, BMI 30-34.9 [E66.9] INVALID FOR* Post-nasal drainage [R09.82] INVALID FOR* Malaise and fatigue [R53.81, R53.83] INVALID FOR* Essential hypertension [I10] INVALID FOR* Type 2 diabetes mellitus without complication (*INVALID FOR* 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 pylori infection [A04.8] INVALID FOR* Muscle cramp [R25.2] INVALID FOR* Other instructions from your clinician: ASSESSMENT/PLAN: 1. Hematuria, unspecified type - ICD9: 599.70, ICD10: R31.9 Urinary tract infection (UTI) We will send the urine for culture, which shows us what organism, if any, we are treating. If we need to change the antibiotic coverage, you will receive a call in 48-72 hours. * Seek medical care immediately, call 911, or go to ER if you have high fevers, severe flank or low back pain, blood in your urine. * Follow up with primary care provider if symptoms persist or worsen. - UA DIP B/O - URINE CULTURE - CIPROFLOXACIN 500 MG TABLET Prescriptions ordered this encounter Disp Refills Start End CIPROFLOXACIN 500 MG TABLET 14 t* 0 02/24/2018 03/03/2018 Route: ORAL Sig: Take 1 tablet by mouth twice daily for 7 days. Encounter Status:Closed by JACQUIE LANDRUM CNP on 02/24/18 US ABD SPLEEN -NB Observed: 02/17/2018 Status: F Source: [place] 9:58 [facility] REPOSITORY * * *Final Report* * * DATE OF EXAM: Feb 17 2018 9:58AM [facility] 1232 - US ABD SPLEEN -NB / PROCEDURE REASON: Abnormal levels of other serum enzymes * * * * Physician Interpretation * * * * RIGHT UPPER QUADRANT AND SPLENIC ULTRASOUND HISTORY: Elevated LFTs. COMPARISON: CT 05/10/2015. TECHNIQUE: Sonography of the right upper quadrant and spleen were performed. Images were obtained and stored in a permanent archive. RESULT: Pancreas: The visualized pancreas is unremarkable. Portions obscured: Distal body and tail Lesions: None Liver: Echotexture: Normal, homogeneous Echogenicity: Increased Surface contour: Smooth Lesions: None. Focal fatty sparing at the gallbladder fossa noted. Biliary: Intrahepatic Biliary Dilation: Absent CBD: 0.5 cm, normal Gallbladder: -Cholelithiasis: Several mobile, echogenic stones in the gallbladder neck. -Wall thickening: Absent No pericholecystic fluid, negative sonographic Marino's sign. Kidneys: No hydronephrosis. 1.1 cm echogenic, shadowing right interpolar calculus. Spleen: Measures 10.0 x 8.6 x 8.9 cm cm, within normal limits. Normal echotexture without focal lesion. Ascites: None. IMPRESSION: CHOLELITHIASIS WITHOUT SECONDARY SIGNS OF ACUTE CHOLECYSTITIS. HEPATIC STEATOSIS. RIGHT NEPHROLITHIASIS. Fha Underwriter: PSCB Transcribe Date/Time: Feb 17 2018 4:36P Dictated by : RUCHI SEN DO This examination was interpreted and the report reviewed and electronically signed by: RUCHI SEN DO on Feb 17 2018 4:42PM EST [id number] US ABD RIGHT UPPER Observed: 02/17/2018 Status: F Source: [facility] 9:58 AM [facility] REPOSITORY * * *Final Report* * * DATE OF EXAM: Feb 17 2018 9:58AM [facility] 1032 - US ABD RIGHT UPPER QUADRANT / PROCEDURE REASON: Abnormal levels of other serum enzymes * * * * Physician Interpretation * * * * RIGHT UPPER QUADRANT AND SPLENIC ULTRASOUND HISTORY: Elevated LFTs. COMPARISON: CT 05/10/2015. TECHNIQUE: Sonography of the right upper quadrant and spleen were performed. Images were obtained and stored in a permanent archive. RESULT: Pancreas: The visualized pancreas is unremarkable. Portions obscured: Distal body and tail Lesions: None Liver: Echotexture: Normal, homogeneous Echogenicity: Increased Surface contour: Smooth Lesions: None. Focal fatty sparing at the gallbladder fossa noted. Biliary: Intrahepatic Biliary Dilation: Absent CBD: 0.5 cm, normal Gallbladder: -Cholelithiasis: Several mobile, echogenic stones in the gallbladder neck. -Wall thickening: Absent No pericholecystic fluid, negative sonographic Marino's sign. Kidneys: No hydronephrosis. 1.1 cm echogenic, shadowing right interpolar calculus. Spleen: Measures 10.0 x 8.6 x 8.9 cm cm, within normal limits. Normal echotexture without focal lesion. Ascites: None. IMPRESSION: CHOLELITHIASIS WITHOUT SECONDARY SIGNS OF ACUTE CHOLECYSTITIS. HEPATIC STEATOSIS. RIGHT NEPHROLITHIASIS. Fha Underwriter: JOSEPH Transcribe Date/Time: Feb 17 2018 4:36P Dictated by : RUCHI SEN DO This examination was interpreted and the report reviewed and electronically signed by: RUCHI SEN DO on Feb 17 2018 4:42PM EST [id number] PROGRESS Observed: 02/17/2018 Status: COMPLETED Source: [place] 9:09 AM [facility] REPOSITORY HNO ID: [id number] Author: Elvira Allen Service: (none) Author Type: (none) Type: Progress Notes Filed: 02/17/2018 9:58 AM Note Text: Radiology Service Progress Note PATIENT NAME: Kaitlynn Bronson DATE OF SERVICE: February 17, 2018 TIME: 9:10 AM PATIENT IDENTITY VERIFICATION COMPLETED USING TWO (2) METHODS: Patient confirmed name verbally and Date of . PATIENT GENDER DATA: Male PATIENT RELEVANT IMPLANT DATA REVIEWED: Yes RADIOLOGY DEPARTMENT: Ultrasound PERIPHERAL IV DATA: Not applicable SIGNED BY: Elvira Allen February 17, 2018 9:10 AM PROGRESS Observed: 02/16/2018 Status: COMPLETED Source: [place] 10:58 AM [facility] REPOSITORY HNO ID: [id number] Author: Jhon Small Service: (none) Author Type: Physician Type: Progress Notes Filed: 02/17/2018 12:17 PM Note Text: Patient presents with: Follow Up: 3 months HPI: Kaitlynn Bronson is a 72 year old male who presents to the office today for review of health conditions. Concerns today: Several itching skin lesions on chest and right arm and back, no ulcerations Diagnosed with H Pylori infection, taking antibiotics as prescribed. Chronic pain, neck, shoulders and back Mr. Bronson has past history of diabetes. Since our last visit he denies excessive thirst or increased frequency of urination, chest pain or dyspnea , new or unusual visual symptoms and low sugar/hypoglycemic reactions. Follows a diabetic diet some of the time. He is compliant with medication(s) and is tolerating med(s) without any side effects. He reports checking his glucose on a once a day schedule with sugars in the <150 range. Patient's last HgA1C was Hemoglobin A1C (%) Date Value 11/18/2017 6.1 05/13/2017 6.4 ) Last Ophthalmology exam was within the past 12 months Mr. Bronson reports history of hyperlipidemia. Current therapy includes simvastatin (Zocor) 20 mg. Denies side effects of muscle weakness or achiness. His most recent lipid panels are reviewed. Cholesterol, Total (mg/dL) Date Value 05/13/2017 201 HDL Cholesterol (mg/dL) Date Value 05/13/2017 28 LDL Cholesterol (mg/dL) Date Value 05/13/2017 Unable to calculate due to increased Triglycerides. See LDL-Chol, Direct. Triglyceride (mg/dL) Date Value 05/13/2017 410 Mr. Bronson indicates a history of hypertension and states that he is feeling well and denies any symptoms referable to elevated blood pressure. Specifically denies headache, chest pain, palpitations, dyspnea and peripheral edema. Patient denies any side effects of his medication(s) and is compliant with their regimen. Last 3 Encounter BP Readings: Date: BP: 02/16/2018 150/80 01/02/2018 138/80 11/18/2017 138/60 He watches his diet for sodium, low fat and low cholesterol some of the time. He does not check BP's generally. Kaitlynn gets minimal exercise. PAST MEDICAL HISTORY Diagnosis Date - Aortic valve stenosis mild per 04/27/14 echo - CAD (coronary artery disease) - Chronic back pain sees Dr. Nelson for Pain Management - CKD stage 3 secondary to diabetes ([facility]) - COPD (chronic obstructive pulmonary disease) ([facility]) - Diabetes mellitus without mention of complication Diabetes mellitus - History of kidney stones - Hyperlipidemia - Unspecified essential hypertension Essential hypertension PAST SURGICAL HISTORY Procedure Laterality Date - COLONOSCOP W/ OR W/O BRSH SPEC 04/27/2015 Colonoscopy - EGD W/O OR W/BRUSH/WASH 04/27/2015 EGD - PAST SURGICAL HISTORY OF 2012 Quad Bypass Social History Marital status: Single Spouse name: Years of education: Number of children: Social History Main Topics Smoking status: Former Smoker Packs/day: 2.00 Years: 30.00 Types: Cigarettes Quit date: 03/08/2005 Smokeless status: Former User Types: Chew Quit date: 03/08/2005 Alcohol use: Yes Comment: 1-2 beers daily Drug use: No FAMILY HISTORY Problem Relation Age of Onset - Heart Paternal Uncle - Heart Paternal Uncle Allergies: ALLERGIES Allergen Reactions - Crestor [Rosuvastat* Myalgia - Gabapentin Itching - Tape [Adhesive Tape* Other: See Comments Redness at site - Throat Joliet [Pheno* Swelling Tongue swelled - Ultram [Tramadol Hc* itching - Vicodin [Hydrocodon* Itching Current Meds: omeprazole (PRILOSEC) 20 mg capsule Take 1 capsule by mouth twice daily. 1/2 hr before meal. cholecalciferol, Vitamin D3, (VITAMIN D3) 50,000 unit cap capsule Take 1 capsule by mouth once each week. amoxicillin (POLYMOX, AMOXIL) 500 mg capsule Take 2 capsules by mouth twice daily for 14 days. clarithromycin (BIAXIN) 500 mg tab Take 1 tablet by mouth every 12 hours for 14 days. dexamethasone 0.1% 0.1 % ophthalmic solution 1 Drop twice daily as needed (into bilateral ears for itchy prn). tamsulosin ER (FLOMAX) 0.4 mg cp24 Take 0.4 mg by mouth daily at bedtime. simvastatin (ZOCOR) 20 mg tablet Take 1 tablet by mouth daily at bedtime. glimepiride (AMARYL) 2 mg tablet Take 1 tablet by mouth daily with breakfast. albuterol HFA (PROAIR HFA) 90 mcg/actuation inhaler 2 puffs every 4 hours as needed nystatin (MYCOSTATIN) 100,000 unit/mL suspension Take 1 mL by mouth four times daily. 1tsp swish in mouth for several minutes, then swallow (or expectorate) 4 times daily until gone. KLOR-CON M10 10 mEq tablet oxyCODONE-acetaminophen (PERCOCET) 7.5-325 mg tablet tiaGABine (GABITRIL) 4 mg tablet Take 4 mg by mouth daily at bedtime. aspirin, enteric coated (ASPIRIN, ENTERIC COATED) 81 mg EC tablet Take 81 mg by mouth once daily. losartan (COZAAR) 100 mg tablet Take 1 tablet by mouth once daily. Dr. Mejia potassium chloride (KLOR-CON 10) 10 mEq tablet Take 1 tablet by mouth twice daily. Dr. Mejia furosemide (LASIX) 40 mg tablet Take 1 tablet by mouth once daily. metoprolol tartrate, short acting, (LOPRESSOR) 100 mg tablet Take 1 tablet by mouth twice daily. Dr. Mejia amLODIPine (NORVASC) 10 mg tablet Take 1 tablet by mouth once daily. Dr. Mejia gabapentin enacarbil (HORIZANT) 600 mg TbER Take 1 tablet by mouth daily at bedtime. Dr. Nelson diclofenac potassium (CATAFLAM) 50 mg tablet Take 1 tablet by mouth three times daily. Take with food. Dr. Nelson acetaminophen (TYLENOL) 325 mg tablet Take 2 tablets by mouth every 6 hours as needed for Pain. doxycycline monohydrate 100 mg tablet Take 1 tablet by mouth twice daily. gentamicin (GENTAK) 0.3 % (3 mg/gram) ophthalmic ointment Use 1 Tube in the right eye three times daily. Review of Systems: The remainder of the review of systems is negative. PE: 02/16/18 1032 BP: 150/80 Pulse: 64 Resp: 20 Temp: 36.4 ?C (97.6 ?F) TempSrc: Right Tympanic Weight: 86.6 kg (191 lb) Gen: AANDO, NAD, non-toxic appearing, Pleasant, obese, hard of hearing, cooperative HEENT: NT/AC, PERRLA, EOMs intact b/l, nares clear and patent b/l, pharynx without erythema, exudate or lesions. Uvula midline. EACs without erythema or debris. TMs pearly pitts with intact landmarks b/l. Neck: supple, No cervical LAD, no thyromegaly, no carotid bruits CV: RRR, normal S1 and S2, no murmurs, no gallops, no rubs, Pulses 2+ and symmetric in UE and LE b/l Lungs: normal respiratory effort, CTA b/l, no wheezing or rhonchi or rales Abd: soft, NT, ND, +BS, no hepatosplenomegaly MS: antalgic gait, reduced ROM of spine neck to lumbar due to discomfort, no spinal TTP, muscle tension paraspinals present Neuro: CN II-XII intact b/l, strength 4-5/5 b/l UE and LE, DTRs 2/4 UE and LE Skin: warm, dry, intact, multiple mari keratoses, 3 actinic keratoses- 2 right forearm, 1 on back mid. ASSESSMENT/PLAN: 1. Type 2 diabetes mellitus without complication, unspecified manager terminal insulin use status (HCC) - ICD9: 250.00, ICD10: E11.9 (primary diagnosis) Controlled. - Continue current medications - Blood glucose monitoring on a once a day schedule 2. Arthritis, multiple joint involvement - ICD9: 716.99, ICD10: M12.9 - d/c NSAID, start on alternative NSAID Mobic, PHYSICAL THERAPY as needed. - MELOXICAM 15 MG TABLET 3. Spinal stenosis of lumbar region without neurogenic claudication - ICD9: 724.02, ICD10: M48.061 - d/c NSAID, start on alternative NSAID Mobic, PHYSICAL THERAPY as needed. - MELOXICAM 15 MG TABLET 4. Essential hypertension - ICD9: 401.9, ICD10: I10 - good control - Continue current medication(s) - Encouraged dietary sodium restriction/DASH diet - Recommended regular aerobic exercise. - Recommend home blood pressure monitoring, to bring results in on next visit - Goal of BP <130/80 5. Muscle cramp - ICD9: 729.82, ICD10: R25.2 - secondary to statin vs. OA changes, start on vitamin D3 and coenzyme Q10 supplement 6. H. pylori infection - ICD9: 041.86, ICD10: A04.8 - finish course of rx 7. Vitamin D deficiency - ICD9: 268.9, ICD10: E55.9 - continue supplement 8. Hyperlipidemia, unspecified hyperlipidemia type - ICD9: 272.4, ICD10: E78.5 - good control - Continue current medication. - Encouraged following a low fat, low cholesterol diet. - Discussed the benefits of regular aerobic exercise and weight loss. 9. Obesity, Class I, BMI 30-34.9 - ICD9: 278.00, ICD10: E66.9 - Lengthy discussion in office today regarding diet and exercise. Discussed use of small plate to eat meals from, drink 1 glass of water 10-15 minutes prior to eating meal, drink 8 glasses of water daily, eat fresh fruit and vegetable during meal first then lean protein such as grilled/baked chicken breast or fish, limit carbohydrate intake (less pasta, breads, rice and snack foods) as well as limiting sugars (desserts etc). Important to count / track your calories and exercise as well. - 10. Actinic keratosis - ICD9: 702.0, ICD10: L57.0 - cryo x 3 today in office Jhon Small DO To ER if develops chest pain, shortness of breath, or severe worsening of symptoms. Discussed risks, benefits, alternatives, and potential side effects of medications. Patient expressed understanding and agreed with the plan. Jhon Small DO [address] [place] [address] CNOV Observed: 02/16/2018 Status: COMPLETED Source: [place] 10:40 AM [facility] REPOSITORY Office Visit (FAMPWS) KAITLYNN BRONSON ([id number]) 1945 M Date Time Provider Department 02/16/18 10:40 AM JHON SMALL During your visit today, we recorded the following information about you: Temperature Pulse Respiration Blood pressure 97.6 degrees 64/minute 20/minute 136/78 Weight 86.6 kg Jhon Small DO 02/17/2018 12:17 PM Signed Patient presents with: Follow Up: 3 months HPI: Kaitlynn Bronson is a 72 year old male who presents to the office today for review of health conditions. Concerns today: Several itching skin lesions on chest and right arm and back, no ulcerations Diagnosed with H Pylori infection, taking antibiotics as prescribed. Chronic pain, neck, shoulders and back Mr. Bronson has past history of diabetes. Since our last visit he denies excessive thirst or increased frequency of urination, chest pain or dyspnea , new or unusual visual symptoms and low sugar/hypoglycemic reactions. Follows a diabetic diet some of the time. He is compliant with medication(s) and is tolerating med(s) without any side effects. He reports checking his glucose on a once a day schedule with sugars in the ANDlt;150 range. Patient's last HgA1C was Hemoglobin A1C (%) Date Value 11/18/2017 6.1 05/13/2017 6.4 ) Last Ophthalmology exam was within the past 12 months Mr. Bronson reports history of hyperlipidemia. Current therapy includes simvastatin (Zocor) 20 mg. Denies side effects of muscle weakness or achiness. His most recent lipid panels are reviewed. Cholesterol, Total (mg/dL) Date Value 05/13/2017 201 HDL Cholesterol (mg/dL) Date Value 05/13/2017 28 LDL Cholesterol (mg/dL) Date Value 05/13/2017 Unable to calculate due to increased Triglycerides. See LDL-Chol, Direct. Triglyceride (mg/dL) Date Value 05/13/2017 410 Mr. Bronson indicates a history of hypertension and states that he is feeling well and denies any symptoms referable to elevated blood pressure. Specifically denies headache, chest pain, palpitations, dyspnea and peripheral edema. Patient denies any side effects of his medication(s) and is compliant with their regimen. Last 3 Encounter BP Readings: Date: BP: 02/16/2018 150/80 01/02/2018 138/80 11/18/2017 138/60 He watches his diet for sodium, low fat and low cholesterol some of the time. He does not check BP's generally. Kaitlynn gets minimal exercise. PAST MEDICAL HISTORY Diagnosis Date - Aortic valve stenosis mild per 04/27/14 echo - CAD (coronary artery disease) - Chronic back pain sees Dr. 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) - COPD (chronic obstructive pulmonary disease) (HCC) - Diabetes mellitus without mention of complication Diabetes mellitus - History of kidney stones - Hyperlipidemia - Unspecified essential hypertension Essential hypertension PAST SURGICAL HISTORY Procedure Laterality Date - COLONOSCOP W/ OR W/O BRSH SPEC 04/27/2015 Colonoscopy - EGD W/O OR W/BRUSH/WASH 04/27/2015 EGD - PAST SURGICAL HISTORY OF 2011 Quad Bypass Social History Marital status: Single Spouse name: Years of education: Number of children: Social History Main Topics Smoking status: Former Smoker Packs/day: 2.00 Years: 30.00 Types: Cigarettes Quit date: 03/08/2005 Smokeless status: Former User Types: Chew Quit date: 03/08/2005 Alcohol use: Yes Comment: 1-2 beers daily Drug use: No FAMILY HISTORY Problem Relation Age of Onset - Heart Paternal Uncle - Heart Paternal Uncle Allergies: ALLERGIES Allergen Reactions - Crestor [Rosuvastat* Myalgia - Gabapentin Itching - Tape [Adhesive Tape* Other: See Comments Redness at site - Throat [place]oliet [Pheno* Swelling Tongue swelled - Ultram [Tramadol Hc* itching - Vicodin [Hydrocodon* Itching Current Meds: omeprazole (PRILOSEC) 20 mg capsule Take 1 capsule by mouth twice daily. 1/2 hr before meal. cholecalciferol, Vitamin D3, (VITAMIN D3) 50,000 unit cap capsule Take 1 capsule by mouth once each week. amoxicillin (POLYMOX, AMOXIL) 500 mg capsule Take 2 capsules by mouth twice daily for 14 days. clarithromycin (BIAXIN) 500 mg tab Take 1 tablet by mouth every 12 hours for 14 days. dexamethasone 0.1% 0.1 % ophthalmic solution 1 Drop twice daily as needed (into bilateral ears for itchy prn). tamsulosin ER (FLOMAX) 0.4 mg cp24 Take 0.4 mg by mouth daily at bedtime. simvastatin (ZOCOR) 20 mg tablet Take 1 tablet by mouth daily at bedtime. glimepiride (AMARYL) 2 mg tablet Take 1 tablet by mouth daily with breakfast. albuterol HFA (PROAIR HFA) 90 mcg/actuation inhaler 2 puffs every 4 hours as needed nystatin (MYCOSTATIN) 100,000 unit/mL suspension Take 1 mL by mouth four times daily. 1tsp swish in mouth for several minutes, then swallow (or expectorate) 4 times daily until gone. KLOR-CON M10 10 mEq tablet oxyCODONE-acetaminophen (PERCOCET) 7.5-325 mg tablet tiaGABine (GABITRIL) 4 mg tablet Take 4 mg by mouth daily at bedtime. aspirin, enteric coated (ASPIRIN, ENTERIC COATED) 81 mg EC tablet Take 81 mg by mouth once daily. losartan (COZAAR) 100 mg tablet Take 1 tablet by mouth once daily. Dr. Mejia potassium chloride (KLOR-CON 10) 10 mEq tablet Take 1 tablet by mouth twice daily. Dr. Mejia furosemide (LASIX) 40 mg tablet Take 1 tablet by mouth once daily. metoprolol tartrate, short acting, (LOPRESSOR) 100 mg tablet Take 1 tablet by mouth twice daily. Dr. Mejia amLODIPine (NORVASC) 10 mg tablet Take 1 tablet by mouth once daily. Dr. Mejia gabapentin enacarbil (HORIZANT) 600 mg TbER Take 1 tablet by mouth daily at bedtime. Dr. Nelson diclofenac potassium (CATAFLAM) 50 mg tablet Take 1 tablet by mouth three times daily. Take with food. Dr. Nelson acetaminophen (TYLENOL) 325 mg tablet Take 2 tablets by mouth every 6 hours as needed for Pain. doxycycline monohydrate 100 mg tablet Take 1 tablet by mouth twice daily. gentamicin (GENTAK) 0.3 % (3 mg/gram) ophthalmic ointment Use 1 Tube in the right eye three times daily. Review of Systems: The remainder of the review of systems is negative. PE: 02/16/18 1032 BP: 150/80 Pulse: 64 Resp: 20 Temp: 36.4 ?C (97.6 ?F) TempSrc: Right Tympanic Weight: 86.6 kg (191 lb) Gen: AANDamp;O, NAD, non-toxic appearing, Pleasant, obese, hard of hearing, cooperative HEENT: NT/AC, PERRLA, EOMs intact b/l, nares clear and patent b/l, pharynx without erythema, exudate or lesions. Uvula midline. EACs without erythema or debris. TMs pearly pitts with intact landmarks b/l. Neck: supple, No cervical LAD, no thyromegaly, no carotid bruits CV: RRR, normal S1 and S2, no murmurs, no gallops, no rubs, Pulses 2+ and symmetric in UE and LE b/l Lungs: normal respiratory effort, CTA b/l, no wheezing or rhonchi or rales Abd: soft, NT, ND, +BS, no hepatosplenomegaly MS: antalgic gait, reduced ROM of spine neck to lumbar due to discomfort, no spinal TTP, muscle tension paraspinals present Neuro: CN II-XII intact b/l, strength 4-5/5 b/l UE and LE, DTRs 2/4 UE and LE Skin: warm, dry, intact, multiple mari keratoses, 3 actinic keratoses- 2 right forearm, 1 on back mid. ASSESSMENT/PLAN: 1. Type 2 diabetes mellitus without complication, unspecified manager terminal insulin use status (HCC) - ICD9: 250.00, ICD10: E11.9 (primary diagnosis) Controlled. - Continue current medications - Blood glucose monitoring on a once a day schedule 2. Arthritis, multiple joint involvement - ICD9: 716.99, ICD10: M12.9 - d/c NSAID, start on alternative NSAID Mobic, PHYSICAL THERAPY as needed. - MELOXICAM 15 MG TABLET 3. Spinal stenosis of lumbar region without neurogenic claudication - ICD9: 724.02, ICD10: M48.061 - d/c NSAID, start on alternative NSAID Mobic, PHYSICAL THERAPY as needed. - MELOXICAM 15 MG TABLET 4. Essential hypertension - ICD9: 401.9, ICD10: I10 - good control - Continue current medication(s) - Encouraged dietary sodium restriction/DASH diet - Recommended regular aerobic exercise. - Recommend home blood pressure monitoring, to bring results in on next visit - Goal of BP ANDlt;130/80 5. Muscle cramp - ICD9: 729.82, ICD10: R25.2 - secondary to statin vs. OA changes, start on vitamin D3 and coenzyme Q10 supplement 6. H. pylori infection - ICD9: 041.86, ICD10: A04.8 - finish course of rx 7. Vitamin D deficiency - ICD9: 268.9, ICD10: E55.9 - continue supplement 8. Hyperlipidemia, unspecified hyperlipidemia type - ICD9: 272.4, ICD10: E78.5 - good control - Continue current medication. - Encouraged following a low fat, low cholesterol diet. - Discussed the benefits of regular aerobic exercise and weight loss. 9. Obesity, Class I, BMI 30-34.9 - ICD9: 278.00, ICD10: E66.9 - Lengthy discussion in office today regarding diet and exercise. Discussed use of small plate to eat meals from, drink 1 glass of water 10- 15 minutes prior to eating meal, drink 8 glasses of water daily, eat fresh fruit and vegetable during meal first then lean protein such as grilled/baked chicken breast or fish, limit carbohydrate intake (less pasta, breads, rice and snack foods) as well as limiting sugars (desserts etc). Important to count / track your calories and exercise as well. - 10. Actinic keratosis - ICD9: 702.0, ICD10: L57.0 - cryo x 3 today in office Jhon Small DO To ER if develops chest pain, shortness of breath, or severe worsening of symptoms. Discussed risks, benefits, alternatives, and potential side effects of medications. Patient expressed understanding and agreed with the plan. Jhon Small DO [address] [place] [address] Jhon Small DO 02/16/2018 11:21 AM Signed Take Coenzyme Q10 supplement once at bedtime with your simvastatin cholesterol medication at bedtime to decrease the muscle cramping. Stop the Diclofenac medication and start the meloxicam for your joint pains (anti inflammatories) Referring Provider: JHON SMALL [[id number]] Allergies As of Date: 02/16/2018 Noted Allergy Reaction CRESTOR (ROSUVASTATIN CALCIUM) 01/01/2017 17 - Myalgia GABAPENTIN 03/08/2015 9 - Itching TAPE (ADHESIVE TAPE-SILICONES) 03/08/2015 14 - Other: See Comments Comments: Redness at site THROAT SPRAY (PHENOL-PHENOLATE SO*10/30/2015 7 - Swelling Comments: Tongue swelled ULTRAM (TRAMADOL HCL) 03/13/2009 Comments: itching VICODIN (HYDROCODONE-ACETAMINOPHE*03/08/2015 9 - Itching Date Reviewed: 02/16/2018 Reviewed by: Yarelis Velasco LPN - Fully Assessed Reason for Visit: Follow Up [171] Cmt: 3 months Primary Visit Diagnosis:Type 2 diabetes mellitus without complication, unspecified manager terminal insulin use status (HCC) [E11.9] Other Visit Diagnoses:Arthritis, multiple joint involvement [M12.9] 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 pylori infection [A04.8] Vitamin D deficiency [E55.9] Hyperlipidemia, unspecified hyperlipidemia type [E78.5] Obesity, Class I, BMI 30-34.9 [E66.9] Actinic keratosis [L57.0] Order(s):meloxicam (MOBIC) 15 mg tabletTake 1 tablet by mouth once daily. For joint painDisp: 30 tabletRfl: 11 Prescriptions as of 02/16/2018 Sig: OMEPRAZOLE 20 MG CAPSULE,JAGDISH* Take 1 capsule by mouth twice* CHOLECALCIFEROL (VITAMIN D3) * Take 1 capsule by mouth once * AMOXICILLIN 500 MG CAPSULE Take 2 capsules by mouth twic* CLARITHROMYCIN 500 MG TABLET Take 1 tablet by mouth every * DEXAMETHASONE 0.1 % EYE DROPS 1 Drop twice daily as needed * TAMSULOSIN 0.4 MG CAPSULE Take 0.4 mg by mouth daily at* SIMVASTATIN 20 MG TABLET Take 1 tablet by mouth daily * GLIMEPIRIDE 2 MG TABLET Take 1 tablet by mouth daily * ALBUTEROL SULFATE HFA 90 MCG/* 2 puffs every 4 hours as need* NYSTATIN 100,000 UNIT/ML ORAL* Take 1 mL by mouth four times* KLOR-CON M10 MEQ TABLET,EXTEN* OXYCODONE-ACETAMINOPHEN 7.5 M* TIAGABINE 4 MG TABLET Take 4 mg by mouth daily at b* ASPIRIN 81 MG TABLET,DELAYED * Take 81 mg by mouth once ho* LOSARTAN 100 MG TABLET Take 1 tablet by mouth once d* POTASSIUM CHLORIDE ER 10 MEQ * Take 1 tablet by mouth twice * FUROSEMIDE 40 MG TABLET Take 1 tablet by mouth once d* METOPROLOL TARTRATE 100 MG TA* Take 1 tablet by mouth twice * AMLODIPINE 10 MG TABLET Take 1 tablet by mouth once d* GABAPENTIN ENACARBIL ER 600 M* Take 1 tablet by mouth daily * ACETAMINOPHEN 325 MG TABLET Take 2 tablets by mouth every* MELOXICAM 15 MG TABLET Take 1 tablet by mouth once d* DOXYCYCLINE MONOHYDRATE 100 M* Take 1 tablet by mouth twice * GENTAMICIN 0.3 % (3 MG/GRAM) * Use 1 Tube in the right eye t* Problem List As Of Date 02/16/2018 Noted Resolved PAIN IN JOINT, LOWER LEG [M25.569] INVALID FOR* Chronic back pain [M54.9, G89.29] INVALID FOR* 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.1] INVALID FOR* Hyperlipidemia [E78.5] INVALID FOR* HTN (hypertension) [I10] INVALID FOR* DM2 (diabetes mellitus, type 2) (HCC) [E11.9] INVALID FOR* Heart murmur [R01.1] INVALID FOR* COPD (chronic obstructive pulmonary disease) (H*INVALID FOR* History of kidney stones [Z87.442] INVALID FOR* Aortic valve stenosis [I35.0] INVALID FOR* Obesity [E66.9] INVALID FOR* CAD (coronary artery disease) [I25.10] INVALID FOR* Nausea alone [R11.0] INVALID FOR*04/27/2015 Abdominal pain, right lower quadrant [R10.31] INVALID FOR*04/27/2015 BPH (benign prostatic hyperplasia) [N40.0] INVALID FOR* Adrenal mass (HCC) [E27.9] INVALID FOR* Bladder wall thickening [N32.89] INVALID FOR* Kidney stone [N20.0] INVALID FOR* Noncompliance with medication regimen [Z91.14] INVALID FOR* Obesity, Class I, BMI 30-34.9 [E66.9] INVALID FOR* Post-nasal drainage [R09.82] INVALID FOR* Malaise and fatigue [R53.81, R53.83] INVALID FOR* Essential hypertension [I10] INVALID FOR* Type 2 diabetes mellitus without complication (*INVALID FOR* 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 Stop the Diclofenac medication and start the meloxicam for your joint pains (anti inflammatories) Prescriptions ordered this encounter Disp Refills Start End MELOXICAM 15 MG TABLET 30 t* 11 02/16/2018 03/18/2018 Route: ORAL Sig: Take 1 tablet by mouth once daily. For joint pain Medications Discontinued During This Encounter diclofenac potassium (CATAFLAM) 50 m* 0 03/08/2015 02/16/2018 Class: Historical Med Route: ORAL Sig: Take 1 tablet by mouth three times daily. Take with food. Dr. Nelson Disc: Reason for discontinue is not on file. Encounter Status:Closed by JHON SMALL DO on 02/17/18 VITAMIN D 25 HYDROXY Collected: 02/12/2018 Status: F Source: [place] 1:36 PM [facility] REPOSITORY TYPE CODE TESTS RESULT OUT OF REFERENCE UNITS RANGE LAB VITD 31.0-80.0 ng/mL Low Vitamin D 25 18.9 Hydroxy Result Comment: Classification of 25 [place] Vitamin D status: Insufficiency/Moderate Deficiency: < or = 30 ng/mL Sufficiency/Optimal Levels: 31 to 80 ng/mL Toxicity: > 100 ng/mL Test performed by chemiluminescent immunoassay. Performed By: #### VITD, HFP, HREMOP #### [facility] [address] [place] [address] HEPATIC FUNCTN PANEL Collected: 02/12/2018 Status: F Source: [place] 1:36 PM [facility] REPOSITORY TYPE CODE TESTS RESULT OUT OF REFERENCE UNITS RANGE LAB ALB 3.9-4.9 g/dL Albumin 4.2 LAB TBIL 0.2-1.3 mg/dL Bilirubin, Total 0.4 LAB CBIL <0.2 mg/dL Bilirubin,Conjuga <0.2 yfn LAB ALKP 36-108 U/L Alkaline Phosphatase 48 LAB AST 14-40 U/L AST 31 LAB ALT 10-54 U/L ALT 21 LAB TP 6.3-8.0 g/dL Protein, Total 7.0 Performed By: #### VITD, HFP, HREMOP #### [facility] [address] [place] [id number] HEPATITIS REMOTE PANEL Collected: 02/12/2018 Status: F Source: [place] 1:36 PM [facility] REPOSITORY TYPE CODE TESTS RESULT OUT OF REFERENCE UNITS RANGE LAB AHBCOT Negative Hep B Core Ab,Total Negative LAB AHCV Negative Hepatitis C Ab Negative IA LAB HBSAGR Negative HBsAg Negative LAB AHBSAG Negative HepB Surface Ab,Qual Negative Result Comment: NEGATIVE Performed By: #### VITD, HFP, HREMOP #### [address] [address] CBC Collected: 02/05/2018 Status: F Source: [place] 11:25 AM [facility] REPOSITORY TYPE CODE TESTS RESULT OUT OF REFERENCE UNITS RANGE LAB WBC 3.70-11.00 k/uL WBC 8.08 LAB RBC 4.20-6.00 m/uL RBC 4.20 LAB HGB 13.0-17.0 g/dL Hemoglobin 13.3 LAB HCT 39.0-51.0 % Hematocrit 41.4 LAB MCV 80.0-100.0 fL MCV 98.6 LAB MCH 26.0-34.0 pG MCH 31.7 LAB MCHC 30.5-36.0 g/dL MCHC 32.1 LAB RDWCV 11.5-15.0 % RDW-CV 13.0 LAB PLTCT 150-400 k/uL Platelet Count 205 LAB MPV 9.0-12.7 fL MPV 12.0 LAB ABSNUC <0.01 k/uL Absolute nRBC <0.01 Performed By: #### CBC, GGT, AMYL, CMP, LIPA, MG1, VITD, HPYLRI, CELSCR #### [place] [id number] GGT Collected: 02/05/2018 Status: F Source: [place] 11:25 AM [facility] REPOSITORY TYPE CODE TESTS RESULT OUT OF RANGE REFERENCE UNITS LAB GGT 10-70 U/L High GGT 171 Performed By: #### CBC, GGT, AMYL, CMP, LIPA, MG1, VITD, HPYLRI, CELSCR #### [address] [address] AMYLASE Collected: 02/05/2018 Status: F Source: [place] 11:25 AM [facility] REPOSITORY TYPE CODE TESTS RESULT OUT OF REFERENCE UNITS RANGE LAB AMYL 30-104 U/L Amylase 55 Performed By: #### CBC, GGT, AMYL, CMP, LIPA, MG1, VITD, HPYLRI, CELSCR #### [facility] [address] [place], [place] [address] COMP METABOLIC PANEL Collected: 02/05/2018 Status: F Source: [place] 11:25 AM [facility] REPOSITORY TYPE CODE TESTS RESULT OUT OF REFERENCE UNITS RANGE LAB TP 6.3-8.0 g/dL Protein, High Total 8.2 LAB ALB 3.9-4.9 g/dL Albumin 4.5 LAB CA 8.5-10.2 mg/dL Calcium, Total 10.0 LAB TBIL 0.2-1.3 mg/dL Bilirubin, Total 0.6 LAB ALKP 36-108 U/L Alkaline Phosphatase 59 LAB AST 14-40 U/L AST 34 LAB GLU 74-99 mg/dL Glucose High 176 Result Comment: The [place] [employer] (ADA) provides guidance for cutoff values for fasting glucose and random glucose. The ADA defines fasting as no caloric intake for at least 8 hours. Fas ting plasma glucose results between 100 to 125 mg/dL indicate increased risk for diabetes (prediabetes). Fasting plasma glucose results greater than or equal to 126 mg/dL meet the criteria for diagnosis of diabetes. In the absence of unequivocal hyperglycemia, results should be confirmed by repeat testing. In a patient with classic symptoms of hyperglycemia or hyperglycemic crisis, random plasma glucose results greater than or equal to 200 mg/dL meet the criteria for diagnosis of diabetes. Reference: Standards of Medical Care in Diabetes 2016, [place] [employer] Association. Diabetes Care. 2016.39(Suppl 1). LAB BUN 9-24 mg/dL BUN 16 LAB CRET 0.73-1.22 mg/dL Creatinine 1.08 LAB NA 136-144 mmol/L Sodium 141 LAB K 3.7-5.1 mmol/L Potassium 4.2 LAB CL 97-105 mmol/L Chloride 99 LAB CO2 22-30 mmol/L Low CO2 19 LAB AGAP 9-18 mmol/L Anion Gap High 23 LAB ALT 10-54 U/L ALT 28 LAB GFRAA eGFR- Amer. >60 LAB GFRNAA . eGFR-All Other Races >60 Result Comment: eGFR (Estimated GFR) Units of measure: mL/min/1.73 meters squared eGFR is derived from the reexpressed MDRD Study equation using the following parameters: serum creatinine, age, gender and race. The creatinine assay has been calibrated to be traceable to IDDC. An eGFR <60 mL/min/1.73m2 for >3 months is consistent with chronic kidney disease. Refer to KDOQI guidelines for clinical interpretation. In patients with unstable renal function, e.g. those with acute kidney injury, the eGFR may not accurately reflect actual GFR. Performed By: #### CBC, GGT, AMYL, CMP, LIPA, MG1, VITD, HPYLRI, CELSCR #### [facility] [address] [place] [address] LIPASE Collected: 02/05/2018 Status: F Source: [place] 11:[address] [place] [address] REPOSITORY TYPE CODE TESTS RESULT OUT OF REFERENCE UNITS RANGE LAB LIPA 16-61 U/L Lipase 42 Performed By: #### CBC, GGT, AMYL, CMP, LIPA, MG1, VITD, HPYLRI, CELSCR #### [place] [address] MAGNESIUM Collected: 02/05/2018 Status: F Source: [place] 11:25 [facility] REPOSITORY TYPE CODE TESTS RESULT OUT OF REFERENCE UNITS RANGE LAB MG 1.7-2.3 mg/dL Magnesium 2.1 Performed By: #### CBC, GGT, AMYL, CMP, LIPA, MG1, VITD, HPYLRI, CELSCR #### [facility] [address] [place] [address] VITAMIN D 25 HYDROXY Collected: 02/05/2018 Status: F Source: [place] 11:[address] [place] [address] REPOSITORY TYPE CODE TESTS RESULT OUT OF REFERENCE UNITS RANGE LAB VITD 31.0-80.0 ng/mL Low Vitamin D 25 15.2 Hydroxy Result Comment: Classification of 25 [place] Vitamin D status: Insufficiency/Moderate Deficiency: < or = 30 ng/mL Sufficiency/Optimal Levels: 31 to 80 ng/mL Toxicity: > 100 ng/mL Test performed by chemiluminescent immunoassay. Performed By: #### CBC, GGT, AMYL, CMP, LIPA, MG1, VITD, HPYLRI, CELSCR #### [place] [address] HELICO PYLORI AB Collected: 02/05/2018 Status: F Source: [place] 11:25 AM [facility] REPOSITORY TYPE CODE TESTS RESULT OUT OF RANGE REFERENCE UNITS LAB HPYLRL Negative Abnormal H. pylori Positive Alert IgG, Qual Result Comment: H. pylori IgG antibodies were detected in the sample. LAB HPYLR U/mL H pylori Ab, IgG 1.1 Result Comment: U/mL are interpreted as follows: Negative specimens <0.9 Indeterminate specimens >=0.9 to <1.1 Positive specimens >=1.1 Results were obtained with the IMMULITE 2000 H.pylori IgG EIA. Results obtained from other manufacturers' assay methods may not be used interchangeably. Performed By: #### CBC, GGT, AMYL, CMP, LIPA, MG1, VITD, HPYLRI, CELSCR #### [facility] [address] [place], [place] [address] CELIAC SCR W REFLEX Collected: 02/05/2018 Status: F Source: [place] 11:25 AM [facility] REPOSITORY TYPE CODE TESTS RESULT OUT OF REFERENCE UNITS RANGE LAB IGA 78-391 mg/dL IgA 343 LAB TGLUTA <20 Units Transglutaminase IgA 5 Result Comment: Negative : < 20 Units Weak Positive : 20 - 30 Units Moderate Pos to Strong Pos: >30 Units The following results were obtained with the [employer] QUANTA Lite h-tTG IgA ANDRESSA. h-tTG IgA values obtained with different manufacturers' assay methods may not be used interchangeably. The magnitude of th e reported IgA levels cannot be correlated to an endpoint titer. LAB CINTER No serologic evidence of Interpretation No celiac disease. serologic evidence of celiac disease. Performed By: #### CBC, GGT, AMYL, CMP, LIPA, MG1, VITD, HPYLRI, CELSCR #### [facility] [address] [place], [place] [address] PROGRESS Observed: 01/02/2018 Status: COMPLETED Source: [place] 1:51 PM [facility] REPOSITORY HNO ID: [id number] Author: Jhon Small Service: (none) Author Type: Physician Type: Progress Notes Filed: 01/02/2018 1:54 PM Note Text: CC: Kaitlynn Bronson is a 72 year old male who presents to the office for cold symptoms HPI Cold symptoms, sinus congestion, rhinorrhea and PND symptoms, no fevers or chills, productive cough- worse at night. + sick contacts. 2-3 weeks of symptoms PAST MEDICAL HISTORY Diagnosis Date - Aortic valve stenosis mild per 04/27/14 echo - CAD (coronary artery disease) - Chronic back pain sees Dr. 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 tamsulosin ER (FLOMAX) 0.4 mg cp24 Take 0.4 mg by mouth daily at bedtime. simvastatin (ZOCOR) 20 mg tablet Take 1 tablet by mouth daily at bedtime. glimepiride (AMARYL) 2 mg tablet Take 1 tablet by mouth daily with breakfast. albuterol HFA (PROAIR HFA) 90 mcg/actuation inhaler 2 puffs every 4 hours as needed nystatin (MYCOSTATIN) 100,000 unit/mL suspension Take 1 mL by mouth four times daily. 1tsp swish in mouth for several minutes, then swallow (or expectorate) 4 times daily until gone. KLOR-CON M10 10 mEq tablet oxyCODONE-acetaminophen (PERCOCET) 7.5-325 mg tablet tiaGABine (GABITRIL) 4 mg tablet Take 4 mg by mouth daily at bedtime. aspirin, enteric coated (ASPIRIN, ENTERIC COATED) 81 mg EC tablet Take 81 mg by mouth once daily. losartan (COZAAR) 100 mg tablet Take 1 tablet by mouth once daily. Dr. Mejia potassium chloride (KLOR-CON 10) 10 mEq tablet Take 1 tablet by mouth twice daily. Dr. Mejia furosemide (LASIX) 40 mg tablet Take 1 tablet by mouth once daily. metoprolol tartrate, short acting, (LOPRESSOR) 100 mg tablet Take 1 tablet by mouth twice daily. Dr. Mejia amLODIPine (NORVASC) 10 mg tablet Take 1 tablet by mouth once daily. Dr. Mejia gabapentin enacarbil (HORIZANT) 600 mg TbER Take 1 tablet by mouth daily at bedtime. Dr. Nelson diclofenac potassium (CATAFLAM) 50 mg tablet Take 1 tablet by mouth three times daily. Take with food. Dr. Nelson acetaminophen (TYLENOL) 325 mg tablet Take 2 tablets by mouth every 6 hours as needed for Pain. doxycycline monohydrate 100 mg tablet Take 1 tablet by mouth twice daily. nystatin (MYCOSTATIN) 100,000 unit/mL suspension Take 5 mL by mouth four times daily for 7 days. 1tsp swish in mouth for several minutes, then swallow (or expectorate) 4 times daily until gone. codeine-guaiFENesin (ROBITUSSIN AC) 10-100 mg/5 mL syrup Take 5-10 mL by mouth four times daily as needed for Cough for up to 7 days. May cause drowsiness. gentamicin (GENTAK) 0.3 % (3 mg/gram) ophthalmic ointment Use 1 Tube in the right eye three times daily. No current facility-administered medications for this visit. ALLERGIES Allergen Reactions - Crestor [Rosuvastat* Myalgia - Gabapentin Itching - Tape [Adhesive Tape* Other: See Comments Redness at site - Throat [place] [Pheno* Swelling Tongue swelled - Ultram [Tramadol Hc* itching - Vicodin [Hydrocodon* Itching Social History Marital status: Single Spouse name: Years of education: Number of children: Social History Main Topics Smoking status: Former Smoker Packs/day: 2.00 Years: 30.00 Types: Cigarettes Quit date: 03/08/2005 Smokeless status: Former User Types: Chew Quit date: 03/08/2005 Alcohol use: Yes Comment: 1-2 beers daily Drug use: No ROS: See HPI PE: BP 138/80 Pulse 80 Temp (Src) 98 (Right Tympanic) Resp 20 Wt 192 lb (87.1kg) Gen: AANDOX3, NAD, non-toxic appearing. cooperative HEENT: PERRLA, EOMs intact b/l, nares with congestion and post nasal drainage, pharynx without erythema, exudate, lesions, or drainage. Uvula midline. MMM, EAC and TM normal b/l Neck: tender anterior cervical shotty LAD, no thyromegaly, no meningismus. CV: RRR, no murmur, normal s1s2 Lungs: coughing, bronchial breath sounds bases, no distress Skin: No rashes, lesions, or wounds on exposed skin. No edema legs ASSESSMENT/PLAN: 1. Acute bronchitis, unspecified organism - ICD9: 466.0, ICD10: J20.9 (primary diagnosis) - rx as ordered. F/u prn - DOXYCYCLINE MONOHYDRATE 100 MG TABLET - NYSTATIN 100,000 UNIT/ML ORAL SUSPENSION - CODEINE 10 MG-GUAIFENESIN 100 MG/5 ML ORAL LIQUID 2. Type 2 diabetes mellitus without complication, unspecified manager terminal insulin use status (HCC) - ICD9: 250.00, ICD10: E11.9 - recheck labs at follow up 3. Essential hypertension - ICD9: 401.9, ICD10: I10 - good control - Continue current medication(s) - Encouraged dietary sodium restriction/DASH diet - Recommended regular aerobic exercise. - Recommend home blood pressure monitoring, to bring results in on next visit - Discussed need and benefit for weight loss. - Goal of BP <130/80 Jhon Small DO Return if no improvement. Follow up with Jhon Small DO. Discussed risks, benefits, alternatives, and potential side effects of medications. Patient/Guardian expressed understanding and agreed with the plan. See patient instructions. Jhon Small DO [address] [place] [address] ALLERGIES ALLERGIES DATE TYPE / CODE NAME / CODE REACTION SEVERITY SOURCE 10/19/2018 Drug clonidine/[id number] Dry Mouth Unknown [place] Allergy/416 5(RXNORM) [place] [id number]([facility] ED CT) Repository 08/17/2018 Drug adhesive/[id number] Rash Unknown Zeb Allergy/416 (RXNORM) [place] 344922([facility] ED CT) Repository 08/17/2018 Drug tramadol/[id number] Itching SV Zeb Allergy/416 (RXNORM) [place] 344922([facility] ED CT) Repository 08/17/2018 Drug gabapentin/[id number] Itching Unknown [place] Allergy/416 15(RXNORM) [place] [address]([facility] ED CT) Repository 01/01/2017 DRUG ROSUVASTATIN Myalgia [facility] INGREDI/419 CALCIUM [place] 020826(SNOM Repository ED CT) 10/30/2015 DRUG/[id number] PHENOL-PHENOLATE SWELLING [facility] 003(SNOMED SODIUM [place]) Repository 03/08/2015 DRUG GABAPENTIN ITCHING [facility] INGREDI/419 [place] 752303(SNOM Repository ED CT) 03/08/2015 DRUG/[id number] ADHESIVE OTHER: SEE C [facility] 003(SNOMED TAPE-SILICONES [place]) Repository 03/08/2015 DRUG/[id number] HYDROCODONE-ACETAMI ITCHING [facility] 003(SNOMED NOPHEN [place] [facility]) Repository 03/13/2009 DRUG TRAMADOL HCL [facility] INGREDI/419 [place] 725903(SNOM Repository ED CT) ENCOUNTERS ENCOUNTERS ADMIT/DISCHARGE ACCOUNT ADMITTING ENCOUNTER LOCATION SOURCE NUMBER CLASS 12/22/2018 [id number] [facility] ing:LAB Repository 12/07/2018 [id number] Ambulatory [facility] [place] g:H.PMJ Repository 11/20/2018/11/20/20 [id number] Ambulatory [address] [place] Repository 11/18/2018/11/19/20 [id number] Ambulatory [address] [place] Repository 10/30/2018/10/30/20 [id number] Ambulatory [address] [place] Repository 10/21/2018/10/21/20 [id number] Ambulatory [address] [place] Repository 10/21/2018/10/23/20 [id number] Ambulatory [address] [place] Repository 10/21/2018/10/21/20 [id number] Ambulatory [address] [place] Repository 10/19/2018 [id number] Ambulatory [facility] g:H.PMJ Repository 09/07/2018 [id number] Ambulatory [facility] [place] g:H.PMJ Repository 08/19/2018/08/19/20 [id number] Ambulatory [address] [place] Repository 08/19/2018/08/20/20 [id number] Ambulatory [address] [place] Repository 08/17/2018/08/17/20 [id number] [place] [facility] 17 [place] [place]2018 [id number] [place] [facility] [id number] [facility] [place] [facility] 07/15/2018 [id number] [facility] [place] [facility] Rep[facility] 06/08/2018 [id number] [facility] [place] [facility] Rep[facility] 05/19/2018/05/20/20 [id number] Ambulatory [address] Repository 05/13/2018 [id number] Ambulatory [facility] Repository 05/04/2018/05/05/20 [id number] Ambulatory [address] Repository 04/14/2018/04/15/20 [id number] Ambulatory [address] Repository 04/07/2018/04/07/20 [id number] Ambulatory [address] Repository 03/16/2018 [id number] Ambulatory [facility] [place] g:H.PMJ Repository 02/27/2018/03/02/20 [id number] Ambulatory [address] [place] Repository 02/24/2018/02/25/20 [id number] Ambulatory [address] Repository 02/17/2018/02/18/20 [id number] Ambulatory [address] Repository 02/16/2018/02/18/20 [id number] Ambulatory [address] [place] Repository 02/12/2018 [id number] Ambulatory [facility] Repository 02/05/2018/02/06/20 [id number] Ambulatory [address] Repository 01/02/2018/01/02/20 [id number] Ambulatory [address] Repository PAYERS PAYERS ENCOUNTER GUARANTOR PAYER SUBSCRIBER SOURCE 12/22/2018 KAITLYNN [place] [facility] KAITLYNN [place] [id number] [place] Insurance:MEDICARE [place]OB: [place] [facility] [place] [place] PART A BPolicy [id number] Hospital [address]Mfi: (330) Number: Repository [phone] (HP) [id number] Date:2018-12-22 12/22/2018 Secondary NOT GIVENUNK [place] Insurance:SELF PAY [facility] Number: Effective Repository Date:2018-12-22 12/07/2018 KAITLYNN AYALA Primary KAITLYNN [facility] [place], [facility] [address]Gye: icy Number: Repository [id number] (HP) Date:[address] CODE KR429STWGBMTXFR[place]CHV[place] [address]: 10/19/2018 KAITLYNN AYALA Primary KAITLYNN [facility] [place], Insurance:[facility] [id number]: MEDICARE ALL ADV Repository PLANSPolicy Number: (HP) [id number] Date:[address]FFYNPD, [place] [address]TC: 09/07/2018 KAITLYNN AYALA [facility] [place], Insurance:[facility] [address]Nyw: MEDICARE ALL ADV Repository PLANSPolicy Number: (HP) [id number] Date:[address], [place] [address]BH: 08/17/2018 KAITLYNN J Primary KAITLYNN [place] [id number] [place] [facility] [place] SENIOR [id number] Hospital [address]Agl: (330) ADVANTAPolicy Number: Repository [phone] (HP) [id number] Date:[id number]XBJWQNZ, [place] [address]MU: 08/17/2018 Secondary NOT GIVENUNK [place] Insurance:SELF PAY [facility] [address] Number: Effective Repository Date:2018-08-17 08/10/2018 KAITLYNN J Primary KAITLYNN [place] [id number] [place] Insurance:MEDICARE SMITHDOB: [facility] [place] PART [facility] olicy [id number] Hospital [address]Wof: (104) Number: Repository [phone] () [id number] Date:2018-08-10 08/10/2018 Secondary KAITLYNN J Zeb Insurance:AARPPolicy ALTONDOB: Community Number: [id number] [id number] Repository Date:[id number]H, [place] [address]TP: 08/10/2018 Tertiary NOT GIVENUNK [place] Insurance:SELF PAY [facility] Number: Effective Repository Date:2018-08-10 07/30/2018 KAITLYNN AYALA Primary KAITLYNN [facility] [place], Insurance:[facility] [address]Uso: MEDICARE ALL ADV Repository PLANSPolicy Number: () [id number] Date:[address]IX[place]HWB, [place] [address]CQ: 07/15/2018 KAITLYNN AYALA Primary KAITLYNN [facility] [place], Insurance:[facility] [id number]: MEDICARE ALL ADV Repository PLANSPolicy Number: (HP) [id number] Date:[address]APSMKEX, [place] [address]WH: 06/08/2018 KAITLYNN AYALA Primary KAITLYNN [facility] [place], Insurance:[facility] [address]Hco: MEDICARE ALL ADV Repository PLANSPolicy Number: (HP) [id number] Date:[address]LCVKEDT [place] [id number]: 03/16/2018 JAMIE [id number] Primary [facility] [place], [place] [address]Oqi: icy Number: Repository [id number] (HP) Date:[address] CODE [place]L830[place]UVUKBOJFREN[place], [place] [address]DM: 03/16/2018 Secondary [facility] Insurance:[facility] [place] MEDICAREPolicy Repository Number: [id number] Date:[address]FNHPYFX [place] [id number]:
== END ==
PROVIDERS: Family Provider Student in an Organized Health Care Education/Training Program; PCP Student in an Organized Health Care Education/Training Program; Referring Provider Internal Medicine Cardiovascular Disease; Visit Provider Internal Medicine Cardiovascular Disease
DX: E11.9 Type 2 diabetes mellitus without complications (principal); I10 Essential (primary) hypertension
CPT/HCPCS: 36415; 80048

== ENCOUNTER → 2019-04-19 | Outpatient (CLI) | payer MEDICARE, OTHER, SELFPAY ==
--- NOTE | 2019-04-19 07:25 | CT_ITS ---
STUDY: CT ABDOMEN AND PELVIS WITH AND WITHOUT CONTRAST REASON FOR EXAM: Male, 73 years old. Chronic gross hematuria. History of kidney stones. RADIATION DOSAGE (If Supplied By Facility): CTDIvol = ( 23.05 ) mGy, DLP = ( 1729.73 ) mGycm TECHNIQUE: Transaxial images were obtained from the dome of the diaphragm to the symphysis pubis without oral contrast. 100mL IV Isovue 300 was administered. Sagittal and coronal images were reconstructed. Individualized dose optimization techniques were used for this CT. COMPARISON: Comparison is made with prior examination dated February 17, 2012. FINDINGS: The visualized lung bases are unremarkable. Coronary artery calcification. There is decreased attenuation of the liver consistent with steatosis. Small gallstone along the posterior dependent aspect of the gallbladder. Normal spleen. Normal pancreas. There is a small, circumscribed, smooth, low attenuation left adrenal mass, consistent with an adrenal adenoma. This measures 1.6 cm. Normal right adrenal gland. There is a 1.6 cm x 1.2 cm calculus in the mid inferior aspect of the right kidney. Normal right Normal left kidney. Normal visualized stomach. Normal small intestine. Normal colon. The appendix is visualized and appears normal. There is diffuse atherosclerotic calcification of the abdominal aorta and its major visceral branches, without a demonstrated aneurysm. Normal inferior vena cava. Normal retroperitoneum. Normal urinary bladder. There is a small umbilical hernia containing fat. Small bilateral inguinal hernias containing fat more prominent on the right side. There are mild degenerative changes of the visualized lumbar spine. CT/CT Abd/Pelvis W/WO Contrast IMPRESSION: 1.6 cm x 1.2 cm calculus in the mid inferior aspect of the right kidney. Fatty infiltration of the liver. Tiny gallstone along the dependent portion of the gallbladder. Electronically Signed: Truong Murray, at 10:56 EDT , Service support ,
[2019-04-19 07:46] LABS: CREATININE FINGERSTICK 1.4 mg/dL (0.70-1.30)
== END | disposition home or self-care (01) ==
LOC: CT 07:19
PROVIDERS: Family Provider Student in an Organized Health Care Education/Training Program; PCP Student in an Organized Health Care Education/Training Program; Referring Provider Nurse Practitioner Adult Health; Visit Provider Nurse Practitioner Adult Health
DX: R31.0 Gross hematuria (principal); N20.0 Calculus of kidney
CPT/HCPCS: 74178; Q9967

== ENCOUNTER 2019-06-04 08:56 | Day surgery (SDC) | payer MEDICARE, OTHER, SELFPAY ==
--- NOTE | 2019-06-04 08:45 | RAD_ITS ---
STUDY: X-RAY - ABDOMEN/PELVIS REASON FOR EXAM: Male, 73 years old. Right renal calculus. TECHNIQUE: Single AP view of the abdomen / pelvis. COMPARISON: None. FINDINGS: Normal visualized lung bases. There is a moderate amount of colonic fecal material. There is a 1.8 cm x 0.7 cm calculus in the mid calyx of the right kidney. There are calcified phleboliths in the pelvis. There are mild degenerative changes of the visualized lumbar spine. RAD/Abdomen Single View IMPRESSION: 1.8 cm x 0.7 cm calculus in the midpole calyx of the right kidney. Electronically Signed: Truong Murray, at 9:24 EDT , Service support ,
[2019-06-04 09:43] VITALS: BP 174/89; PULSE 70; RESP 16; TEMP 36.7; O2SAT 98; BMI 32.1
[2019-06-04 10:06] LABS: Bedside Glucose 152 mg/dL (70-110)
--- NOTE | 2019-06-04 12:43 | DCINST_ITS ---
Discharge Diet: Light diet - advance as tolerated Discharge Activity: Return to Normal Activity Call your doctor if your incision/area has: Sudden Increased Bleeding Call your doctor if you observe: Fever of 101 or Higher Suture Line Care: Avoid Pulling/Pushing, Avoid Pinching/Bending Allergies/Adverse Reactions: Allergies tramadol [From Ultram] Allergy (Severe, Verified 06/04/19 09:35) Itching adhesive Allergy (Verified 06/04/19 09:35) Rash gabapentin Allergy (Verified 06/04/19 09:35) Itching clonidine Adverse Reaction (Verified 06/04/19 09:35) dry mouth ropinirole Adverse Reaction (Verified 06/04/19 09:35) Vomiting Medications to take at Discharge aspirin 81 mg tablet,delayed release 81 mg PO QDAY 11/03/17 glimepiride 2 mg tablet 2 mg PO QAM 11/03/17 simvastatin 10 mg tablet 10 mg PO QPM 11/03/17 metoprolol tartrate 100 mg tablet 100 mg PO BID #60 tab 03/17/18 oxycodone-acetaminophen 7.5 mg-325 mg tablet 1 tab PO Q4H PRN 08/17/18 vitamin B complex and vit C no.3 15 mg-10 mg-50 mg-5 mg-300 mg capsule 1 cap PO MO 08/17/18 amlodipine 10 mg tablet 10 mg PO DAILY #90 tab 09/14/18 furosemide 40 mg tablet 40 mg PO QDAY #90 tab 03/22/19 Albuterol Inhaler [Ventolin Hfa (SP)] 1 - 2 puff INHALATION Q4H PRN PRN 05/25/19 Omeprazole 20 mg PO DAILY 05/25/19 Potassium Chloride 10 meq PO BID 05/25/19 Acetaminophen [Tylenol Extra Strength] 500 mg PO Q4H PRN PRN #20 tab 06/04/19 Ibuprofen 600 mg PO Q6H PRN PRN #20 tab 06/04/19 Phenazopyridine [Pyridium] 100 mg PO TID #14 tab 06/04/19 The following prescriptions were given: Ibuprofen 600 mg PO Q6H PRN PRN #20 tab PRN Reason: Pain Prescription Printed Phenazopyridine [Pyridium] 100 mg PO TID #14 tab Prescription Printed Acetaminophen [Tylenol Extra Strength] 500 mg PO Q4H PRN PRN #20 tab PRN Reason: Pain Prescription Printed Primary Care Physician: Jhon Alvarez DO [Primary Care Provider] - Test Results: Test results from this visit will be discussed in further detail at your follow- up appointment, if applicable. Please Follow Up With: Feliciano Benedict MD When: please call to make an appointment.
[2019-06-04] MEDS: Cefazolin 2 GM in 0.9% Normal Saline 100 ML IV (12:49)
--- NOTE | 2019-06-04 13:53 | PCM.OPRPT ---
Report of Operation Date of Procedure: 06/04/19 Pre-Operative Diagnosis: Right renal calculi, 1.8 cm size Post-Operative Diagnosis: Same Surgery/Procedure Performed:: Cystoscopy, balloon dilation of the right ureter, right ureteroscopy laser lithotripsy of stone and right stent placement, right retrograde pyelogram reintubation fluoroscopic images. Description of Surgical Findings:: 73-year-old male with gross hematuria was found to have a stone in the right kidney fairly large about 1.8 cm centimeter in size in the lower pole the right kidney I recommended we proceed with right ureteroscopy and laser lithotripsy of stone, he understands he may need multiple procedures given such a large hard stone. 73-year-old male taken back to the operating room at the smooth induction of general anesthesia he was placed in dorsolithotomy position went into the bladder with a 21 Tunisian rigid cystourethroscope scope Entire length urethra is normal the prostate was normal he had no significant obstruction of the prostate, the trigone left and right ureteral orifice were normal position then identified the bladder within the bladder there were no tumors or stones identified the right ureteral orifice cannulated this with a Glidewire advanced a wire up into the kidney over the wire then the balloon dilated the distal ureter and then after the balloon dilated the distal ureter went up with a ureteroscope was able to get the kidney quite easily could see the stone peeping out of the lower pole the right kidney and new immediately this can be very difficult case started lasering the stone but then the angulation became extremely difficult I had flex the scope 100% in order to reach the stone and even then I could not reach the stone completely crank the power up on the laser as much as possible the stone did break up the little tiny pieces but still has some fragments in the lower pole of the kidney and some fragments into the upper pole the kidney which is not reachable by ureteroscope so after lasering for about a good hour decided to just place a stent with the bring him back to treat the remaining fragments with ESWL, performed a retrograde pyelogram look to the anatomy and then worked my way down the ureter and interpreted the fluoroscopic images of the wire in place and then over the wire in place a stent to the 6 Tunisian by 28 cm stent stent: The kidney bladder good position took the string out the stent and will leave the stent in place plan to see him next week with a KUB and the plan set up for ESWL the next available appointment. Type of Anesthesia:: General Drains: stent - Admit VTE Documentation VTE Present on Admission: No VTE Mechan Device Prophylaxis: SCD's
[2019-06-04 14:00] VITALS: BP 174/89; BP 195/83; PULSE 79; RESP 16; TEMP 36.4; O2SAT 96
[2019-06-04 14:15] VITALS: BP 160/68; BP 174/89; PULSE 64; RESP 16; O2SAT 94
[2019-06-04 14:30] VITALS: BP 165/71; BP 174/89; PULSE 65; RESP 16; O2SAT 98
[2019-06-04 14:31] LABS: Bedside Glucose 158 mg/dL (70-110)
[2019-06-04] MEDS: Ketorolac 15 MG/ML Vial IV (14:39)
[2019-06-04 14:44] VITALS: BP 154/60; BP 174/89; PULSE 69; RESP 16; TEMP 36.6; O2SAT 96
[2019-06-04 15:52] VITALS: BP 156/63; BP 174/89; PULSE 72; RESP 16; TEMP 36.6; O2SAT 95
--- NOTE | 2019-06-09 12:01 | PCM.HP.BLA ---
History and Physical Date of Admission: 06/04/19 CC: I have blood in my urine. HPI: MODESTA CARRILLO is a 73 year-old male patient who was referred by JO SMALL D.O. who is here for blood in the urine. 73 yo male new pt referred for intermittent gross hematuria. He thinks he first noticed it 3 yrs ago. No dysuria. He has urgency. He quit pop and beer. C/o 2 yrs of intermittent pain right side abd, says w/u neg On tamsulosin for BPH He reports he has a large kidney stone, couldn't be treated since he needed CABG. That was 6 yrs ago. 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 He has not seen blood clots. He does not have a burning sensation when he urinates. He is not currently having trouble urinating. He is having pain. He has not recently had unwanted weight loss. CC: AUA Questions Scoring. HPI: AUA Symptom Score: He never has the sensation of not emptying his bladder completely after finishing urinating. 50% of the time he has to urinate again fewer than two hours after he has finished urinating. He does not have to stop and start again several times when he urinates. Almost always he finds it difficult to postpone urination. Less than 50% of the time he has a weak urinary stream. More than 50% of the time he has to push or strain to begin urination. He has to get up to urinate 3 times from the time he goes to bed until the time he gets up in the morning. Calculated AUA Symptom Score: 17 ALLERGIES: Adhesive tape Neurontin MEDICATIONS: Flomax 0.4 mg capsule Albuterol Sulfate Hfa 90 mcg hfa aerosol with adapter Calcium Magnesium Crestor 20 mg tablet Gabapentin 600 mg tablet Glimepiride Meloxicam Metoprolol Tartrate 100 mg tablet [place] 7.5 mg-325 mg tablet Norvasc 10 mg tablet Potassium Chloride 10 meq tablet, extended release Tylenol 325 mg tablet Notes: Has had the pneumonia vaccine PSH: None NON- PSH: Coronary Artery Bypass Grafting Patient documented to have received pneumococcal vaccination PMH: Calculus of kidney - 2014 Gross hematuria - 2014 Urgency of urination - 2014 Calculus of ureter Hematuria, unspecified Nocturia Other microscopic hematuria Other specified disorders of bladder Personal history of urinary calculi NON- PMH: Disorder of adrenal gland, unspecified Heart disease, unspecified Migraine, unsp, not intractable, without status migrainosus Mild intermittent asthma, uncomplicated Other secondary hypertension 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 Does not use smokeless tobacco. Light Drinker. Does not use drugs. Drinks 1 caffeinated drink per day. Has not had a blood transfusion. REVIEW OF SYSTEMS: Constitutional: Patient denies fever, chills, weight loss, and weight gain. Eyes: Patient reports cataracts. Patient denies blurry vision and vision problems. Ears, Nose, Mouth, Throat: Patient reports hearing loss and sinus infections. Patient denies nasal stuffiness and sleep apnea. Cardiovascular: Patient denies chest pains, swollen ankles, irregular heartbeat, and pacemaker/defibrillator. Respiratory: Patient reports wheezing. Patient denies shortness of breath, use oxygen, cpap at night., and copd. Gastrointestinal: Patient reports abdominal pain. Patient denies nausea/vomiting and change in bowels. Genitourinary: Patient reports frequent urination, get up at night to void, blood in urine, history of stones, and difficulty starting stream. Patient denies urinary retention, leakage of urine, frequent urinary tract infections, weak stream, and bedwetting. Musculoskeletal: Patient reports back pain. Patient denies sore muscles, gout, and arthritis. Integumentary/Skin: Patient reports persistent itching. Patient denies rash and skin cancer history. Neurological: Patient reports history of falling/unsteadiness.. Patient denies numbness, dizziness, and stroke/tia. Hematologic/Lymphatic: Patient denies swollen glands, abnormal bleeding, transfusion history, and blood clots/dvt/pulmonary embolism. VITAL SIGNS: 04/08/2019 08:46 AM Weight 205 lb / 92.99 kg Height 65 in / 165.1 cm BP 150/70 mmHg BMI 34.1 kg/m? PHYSICAL EXAMINATION: Anus and Perineum: No hemorrhoids. No anal stenosis. No rectal fissure, no anal fissure. No edema, no dimple, no perineal tenderness, no anal tenderness. Scrotum: No lesions. No edema. No cysts. No warts. Epididymides: Right: no spermatocele, no masses, no cysts, no tenderness, no induration, no enlargement. Left: no spermatocele, no masses, no cysts, no tenderness, no induration, no enlargement. Testes: No tenderness, no swelling, no enlargement left testes. No tenderness, no swelling, no enlargement right testes. Normal location left testes. Normal location right testes. No mass, no cyst, no varicocele, no hydrocele left testes. No mass, no cyst, no varicocele, no hydrocele right testes. Urethral Meatus: Normal size. No lesion, no wart, no discharge, no polyp. Normal location. Penis: Penis uncircumcised. No foreskin warts, no cracks. No dorsal peyronie's plaques, no left corporal peyronie's plaques, no right corporal peyronie's plaques, no scarring, no shaft warts. No balanitis, no meatal stenosis. Prostate: Prostate about 50 grams. Left lobe normal consistency, right lobe normal consistency. Symmetrical lobes. No prostate nodule. Left lobe no tenderness, right lobe no tenderness. Seminal Vesicles: Nonpalpable. Sphincter Tone: Normal sphincter. No rectal tenderness. No rectal mass. MULTI-SYSTEM PHYSICAL EXAMINATION: Constitutional: Well-nourished. No physical deformities. Normally developed. Good grooming. Skin: No paleness, no jaundice, no cyanosis. No lesion, no ulcer, no rash. Neurologic / Psychiatric: Oriented to time, oriented to place, oriented to person. No depression, no anxiety, no agitation. Gastrointestinal: Abdominal tenderness mid right, obese. No mass, no rigidity. Musculoskeletal: uses a cane PAST DATA REVIEWED: Source Of History: Patient Records Review: Previous Doctor Records Urine Test Review: Urinalysis PROCEDURES: Bladder Scan - 36063 Notes: Bladder scan was used to measure a bladder volume residual. Scanned Volume: 64 cc Urinalysis - 70500 Dipstick Dipstick Cont'd Specimen: Voided Blood: about 250 Appearance: Clear pH: 5.0 Color: Yellow Protein: 2+ Glucose: Normal Urobilinogen: Neg Bilirubin: Neg Nitrites: Neg Ketones: Neg Leukocyte Esterase: Neg ASSESSMENT: ICD-10 Details 1 : Gross hematuria - R31.0 2 Calculus of kidney - N20.0 3 Benign prostatic hyperplasia with lower urinary tract symptoms - N40.1 4 NON-: Type 2 diabetes mellitus without complications - E11.9 PLAN: Document Letter(s): Created for Patient: Clinical Summary The patient and I talked at length about etiologies of hematuria. We discussed the implications of hematuria and many of the possible etiologies including infection, malignancy, scar tissue, idiopathic, urinary tract stones, intrinsic renal disease, the use of blood thinners, bacteriuria, heavy lifting, straining, constipation, UTI, and others. We discussed the fact that hematuria can be indicative of serious urinary tract pathology. Alternative diagnostic and treatment options were discussed with the patient in detail. All questions were answered. I explained that the standard evaluation includes a radiologic test to evaluate the kidneys, ureters, and bladder, a urine culture and cystology or FISH when indicated and a cystoscopy with a possible biopsy to complete the evaluation. The patient gave fully informed consent to proceed with diagnostic and treatment options to evaluate their hematuria. The patient understands that if a urologic evaluation of their hematuria is normal, referral to a lan administrator may be recommended. The patient was given instructions to call for abdominal pain, pelvic pain, perirectal pain, nausea, vomiting, diarrhea, fever over 100??F, chills, continued hematuria, dysuria, frequency, urgency, or urge incontinence. Notes: 73 yo male with recurrent gross hematuria. We discussed in detail. Will get CT abd pel wwo IV contrast, office cystoscopy. Next Appointment: Next Appointment: 04/22/2019 11:00 AM Appointment Type: Active Pt Location: [facility] - [address] [place] [id number] Provider: AIDE Osuna Reason for Visit: Active Pt CARE TEAM: AIDE Osuna Signed by AIDE Osuna on 04/08/19 at 10:11 AM (EDT) APPENDED NOTES: CT/CT Abd/Pelvis W/WO Contrast IMPRESSION: 1.6 cm x 1.2 cm calculus in the mid inferior aspect of the right kidney. Fatty infiltration of the liver. Tiny gallstone along the dependent portion of the gallbladder. Plan for Right ureteroscopy laser stone and stent.
== END 2019-06-04 15:58 | disposition home or self-care (01) ==
LOC: SDC 09:00 → AC 09:00
PROVIDERS: Family Provider Student in an Organized Health Care Education/Training Program; PCP Student in an Organized Health Care Education/Training Program; Referring Provider Urology; Visit Provider Urology
PROC: 0TJ98ZZ Inspection of Ureter, Via Natural or Artificial Opening Endoscopic (ICD-10-PCS; CPT 52352; principal; 2019-06-04 11:05)
DX: N20.0 Calculus of kidney (principal); E11.9 Type 2 diabetes mellitus without complications; E78.00 Pure hypercholesterolemia, unspecified; I10 Essential (primary) hypertension; Z87.891 Personal history of nicotine dependence; Z79.899 Other long term (current) drug therapy; Z79.82 Long term (current) use of aspirin; I25.10 Atherosclerotic heart disease of native coronary artery without angina pectoris; Z95.1 Presence of aortocoronary bypass graft; J45.20 Mild intermittent asthma, uncomplicated; N40.1 Benign prostatic hyperplasia with lower urinary tract symptoms; R31.0 Gross hematuria
CPT/HCPCS: 00918; 52356; 74018; 76000; 82962; J7120; C1769; J2405

== ENCOUNTER 2019-06-16 06:40 | Day surgery (SDC) | payer MEDICARE, OTHER, SELFPAY ==
[2019-06-15 13:15] VITALS: BMI 33.3
[2019-06-16 07:15] VITALS: BP 173/73; PULSE 70; RESP 16; TEMP 36.5; O2SAT 100; BMI 32.9
[2019-06-16 07:21] VITALS: BMI 33.3
[2019-06-16 07:31] LABS: Bedside Glucose 156 mg/dL (70-110)
[2019-06-16] MEDS: Cefazolin 2 GM in 0.9% Normal Saline 100 ML IV (08:37)
--- NOTE | 2019-06-16 08:37 | PCM.DC.URO ---
Discharge Diet: Light diet - advance as tolerated Discharge Activity: Return to Normal Activity Allergies/Adverse Reactions: Allergies tramadol [From [facility]] Allergy (Severe, Verified 06/15/19 13:19) Itching adhesive Allergy (Verified 06/15/19 13:19) Rash gabapentin Allergy (Verified 06/15/19 13:19) Itching clonidine Adverse Reaction (Verified 06/15/19 13:19) dry mouth ropinirole Adverse Reaction (Verified 06/15/19 13:19) Vomiting Medications to take at Discharge aspirin 81 mg tablet,delayed release 81 mg PO QDAY 11/03/17 glimepiride 2 mg tablet 2 mg PO QAM 11/03/17 metoprolol tartrate 100 mg tablet 100 mg PO BID #60 tab 03/17/18 oxycodone-acetaminophen 7.5 mg-325 mg tablet 1 tab PO Q4H PRN 08/17/18 vitamin B complex and vit C no.3 15 mg-10 mg-50 mg-5 mg-300 mg capsule 1 cap PO MO 08/17/18 amlodipine 10 mg tablet 10 mg PO DAILY #90 tab 09/14/18 furosemide 40 mg tablet 40 mg PO QDAY #90 tab 03/22/19 Albuterol Inhaler [Ventolin Hfa (SP)] 1 - 2 puff INHALATION Q4H PRN PRN 05/25/19 Omeprazole 20 mg PO DAILY 05/25/19 Potassium Chloride 10 meq PO BID 05/25/19 Acetaminophen [Tylenol Extra Strength] 500 mg PO Q4H PRN PRN #20 tab 06/04/19 Ibuprofen 600 mg PO Q6H PRN PRN #20 tab 06/04/19 simvastatin 10 mg tablet 5 mg PO QPM tab 06/15/19 Ciprofloxacin [Cipro] 500 mg PO BID #6 tab 06/16/19 Hydrocodone/Acetaminophen [[place] 5-325 Tablet] 1 ea PO Q6H PRN PRN 7 Days #20 tab 06/16/19 The following prescriptions were given: Ciprofloxacin [Cipro] 500 mg PO BID #6 tab Prescription Printed Hydrocodone/Acetaminophen [[place] 5-325 Tablet] 1 ea PO Q6H PRN PRN 7 Days #20 tab PRN Reason: Pain Prescription Printed Primary Care Physician: Jhon Alvarez DO [Primary Care Provider] - Test Results: Test results from this visit will be discussed in further detail at your follow-up appointment, if applicable. Please Follow Up With: Feliciano Benedict MD When: in 2 weeks, please call to make an appointment.
--- NOTE | 2019-06-16 09:36 | OP.PCM_ITS ---
Report of Operation Date of Procedure: 06/16/19 Pre-Operative Diagnosis: Status post treatment of multiple large stones in the right kidney second stage ESWL Post-Operative Diagnosis: The same Surgery/Procedure Performed:: Right extracorporeal shockwave treatment second s tage treatment of stones in the kidney, and cystoscopy and right stent removal Description of Surgical Findings:: Indication is 73-year-old male who had a very large stone in the right kidney and underwent laser lithotripsy the stone however there are multiple fragments that went into the lower pole calyces and midpole calyces that were not able to reach with the cystoscope and the flexible ureteroscope therefore he now presents for treatment of the remaining fragments with shockwave lithotripsy and also we plan to remove the stent. 73-year-old male taken back to the operating room after smooth induction of general anesthesia he underwent a timeout procedure, he was loaded with antibiotics, he underwent anesthesia. Dr. adina Suarez was the anesthesiologist. We then placed him supine on the table and we could see the stent and we could see multiple fragments of the lower pole the kidney in the midpole of the kidney and some of the UPJ we then delivered shockwave treatments to the fragments under direct visualization with fluoroscopic monitoring. He started off at 90 shocks per minute slowly increased our fragmentation power 3 to 5 to 7 kV. We continue to monitor the stones with fluoroscopy during the treatment making sure that all the stones are treated. At the end of the treatment cycle we gave 3000 shockwaves which is the limit of our treatment to break all the stones a little tiny pieces. Penis and testicles were then prepped and draped in usual sterile fashion he was placed in dorsolithotomy position went into the bladder with a cystoscope, went to the urethra the entire length of the urethra was normal sphincter was intact the verumontanum was identified prostate was normal I then identified the stent stent was grabbed with a grasper extracted the stent and then went back into the bladder with a scope drained the bladder and the patient anesthetic was reversed he was extubated taken back to PACU in good condition. Plan to see him back in a few weeks with a KUB to review there are fragmented stones. Type of Anesthesia:: General Drains: remove stent right - Admit VTE Documentation VTE Present on Admission: No VTE Mechan Device Prophylaxis: SCD's
[2019-06-16 09:45] VITALS: BP 148/95; BP 173/73; PULSE 79; RESP 17; TEMP 36.2; O2SAT 98
[2019-06-16 10:00] VITALS: BP 161/87; BP 173/73; PULSE 66; RESP 16; O2SAT 98
[2019-06-16 10:15] VITALS: BP 160/79; BP 173/73; PULSE 64; RESP 16; TEMP 36.1; O2SAT 97
[2019-06-16 11:28] VITALS: BP 153/75; BP 173/73; PULSE 70; RESP 16; TEMP 36.2; O2SAT 97
--- NOTE | 2019-06-17 19:13 | PCM.HP.BLA ---
History and Physical Date of Admission: 06/16/19 I have blood in my urine. HPI: MODESTA CARRILLO is a 73 year-old male patient who was referred by JO SMALL D.O. who is here for blood in the urine. 73 yo male new pt referred for intermittent gross hematuria. He thinks he first noticed it 3 yrs ago. No dysuria. He has urgency. He quit pop and beer. C/o 2 yrs of intermittent pain right side abd, says w/u neg On tamsulosin for BPH He reports he has a large kidney stone, couldn't be treated since he needed CABG. That was 6 yrs ago. 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 He has not seen blood clots. He does not have a burning sensation when he urinates. He is not currently having trouble urinating. He is having pain. He has not recently had unwanted weight loss. CC: AUA Questions Scoring. HPI: AUA Symptom Score: He never has the sensation of not emptying his bladder completely after finishing urinating. 50% of the time he has to urinate again fewer than two hours after he has finished urinating. He does not have to stop and start again several times when he urinates. Almost always he finds it difficult to postpone urination. Less than 50% of the time he has a weak urinary stream. More than 50% of the time he has to push or strain to begin urination. He has to get up to urinate 3 times from the time he goes to bed until the time he gets up in the morning. Calculated AUA Symptom Score: 17 ALLERGIES: Adhesive tape Neurontin MEDICATIONS: Flomax 0.4 mg capsule Albuterol Sulfate Hfa 90 mcg hfa aerosol with adapter Calcium Magnesium Crestor 20 mg tablet Gabapentin 600 mg tablet Glimepiride Meloxicam Metoprolol Tartrate 100 mg tablet [place] 7.5 mg-325 mg tablet Norvasc 10 mg tablet Potassium Chloride 10 meq tablet, extended release Tylenol 325 mg tablet Notes: Has had the pneumonia vaccine PSH: None NON- PSH: Coronary Artery Bypass Grafting Patient documented to have received pneumococcal vaccination PMH: Calculus of kidney - 2014 Gross hematuria - 2014 Urgency of urination - 2014 Calculus of ureter Hematuria, unspecified Nocturia Other microscopic hematuria Other specified disorders of bladder Personal history of urinary calculi NON- PMH: Disorder of adrenal gland, unspecified Heart disease, unspecified Migraine, unsp, not intractable, without status migrainosus Mild intermittent asthma, uncomplicated Other secondary hypertension 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 Does not use smokeless tobacco. Light Drinker. Does not use drugs. Drinks 1 caffeinated drink per day. Has not had a blood transfusion. REVIEW OF SYSTEMS: Constitutional: Patient denies fever, chills, weight loss, and weight gain. Eyes: Patient reports cataracts. Patient denies blurry vision and vision problems. Ears, Nose, Mouth, Throat: Patient reports hearing loss and sinus infections. Patient denies nasal stuffiness and sleep apnea. Cardiovascular: Patient denies chest pains, swollen ankles, irregular heartbeat, and pacemaker/defibrillator. Respiratory: Patient reports wheezing. Patient denies shortness of breath, use oxygen, cpap at night., and copd. Gastrointestinal: Patient reports abdominal pain. Patient denies nausea/vomiting and change in bowels. Genitourinary: Patient reports frequent urination, get up at night to void, blood in urine, history of stones, and difficulty starting stream. Patient denies urinary retention, leakage of urine, frequent urinary tract infections, weak stream, and bedwetting. Musculoskeletal: Patient reports back pain. Patient denies sore muscles, gout, and arthritis. Integumentary/Skin: Patient reports persistent itching. Patient denies rash and skin cancer history. Neurological: Patient reports history of falling/unsteadiness.. Patient denies numbness, dizziness, and stroke/tia. Hematologic/Lymphatic: Patient denies swollen glands, abnormal bleeding, transfusion history, and blood clots/dvt/pulmonary embolism. VITAL SIGNS: 04/08/2019 08:46 AM Weight 205 lb / 92.99 kg Height 65 in / 165.1 cm BP 150/70 mmHg BMI 34.1 kg/m? PHYSICAL EXAMINATION: Anus and Perineum: No hemorrhoids. No anal stenosis. No rectal fissure, no anal fissure. No edema, no dimple, no perineal tenderness, no anal tenderness. Scrotum: No lesions. No edema. No cysts. No warts. Epididymides: Right: no spermatocele, no masses, no cysts, no tenderness, no induration, no enlargement. Left: no spermatocele, no masses, no cysts, no tenderness, no induration, no enlargement. Testes: No tenderness, no swelling, no enlargement left testes. No tenderness, no swelling, no enlargement right testes. Normal location left testes. Normal location right testes. No mass, no cyst, no varicocele, no hydrocele left testes. No mass, no cyst, no varicocele, no hydrocele right testes. Urethral Meatus: Normal size. No lesion, no wart, no discharge, no polyp. Normal location. Penis: Penis uncircumcised. No foreskin warts, no cracks. No dorsal peyronie's plaques, no left corporal peyronie's plaques, no right corporal peyronie's plaques, no scarring, no shaft warts. No balanitis, no meatal stenosis. Prostate: Prostate about 50 grams. Left lobe normal consistency, right lobe normal consistency. Symmetrical lobes. No prostate nodule. Left lobe no tenderness, right lobe no tenderness. Seminal Vesicles: Nonpalpable. Sphincter Tone: Normal sphincter. No rectal tenderness. No rectal mass. MULTI-SYSTEM PHYSICAL EXAMINATION: Constitutional: Well-nourished. No physical deformities. Normally developed. Good grooming. Skin: No paleness, no jaundice, no cyanosis. No lesion, no ulcer, no rash. Neurologic / Psychiatric: Oriented to time, oriented to place, oriented to person. No depression, no anxiety, no agitation. Gastrointestinal: Abdominal tenderness mid right, obese. No mass, no rigidity. Musculoskeletal: uses a cane PAST DATA REVIEWED: Source Of History: Patient Records Review: Previous Doctor Records Urine Test Review: Urinalysis PROCEDURES: Bladder Scan - [address] Notes: Bladder scan was used to measure a bladder volume residual. Scanned Volume: 64 cc Urinalysis - 47695 Dipstick Dipstick Cont'd Specimen: Voided Blood: about 250 Appearance: Clear pH: 5.0 Color: Yellow Protein: 2+ Glucose: Normal Urobilinogen: Neg Bilirubin: Neg Nitrites: Neg Ketones: Neg Leukocyte Esterase: Neg ASSESSMENT: ICD-10 Details 1 : Gross hematuria - R31.0 2 Calculus of kidney - N20.0 3 Benign prostatic hyperplasia with lower urinary tract symptoms - N40.1 4 NON-: Type 2 diabetes mellitus without complications - E11.9 PLAN: Document Letter(s): Created for Patient: Clinical Summary The patient and I talked at length about etiologies of hematuria. We discussed the implications of hematuria and many of the possible etiologies including infection, malignancy, scar tissue, idiopathic, urinary tract stones, intrinsic renal disease, the use of blood thinners, bacteriuria, heavy lifting, straining, constipation, UTI, and others. We discussed the fact that hematuria can be indicative of serious urinary tract pathology. Alternative diagnostic and treatment options were discussed with the patient in detail. All questions were answered. I explained that the standard evaluation includes a radiologic test to evaluate the kidneys, ureters, and bladder, a urine culture and cystology or FISH when indicated and a cystoscopy with a possible biopsy to complete the evaluation. The patient gave fully informed consent to proceed with diagnostic and treatment options to evaluate their hematuria. The patient understands that if a urologic evaluation of their hematuria is normal, referral to a ventilation mechanic may be recommended. The patient was given instructions to call for abdominal pain, pelvic pain, perirectal pain, nausea, vomiting, diarrhea, fever over 100??F, chills, continued hematuria, dysuria, frequency, urgency, or urge incontinence. Notes: 73 yo male with recurrent gross hematuria. We discussed in detail. Will get CT abd pel wwo IV contrast, office cystoscopy. Next Appointment: Next Appointment: 04/22/2019 11:00 AM Appointment Type: Active Pt Location: [facility] - [address] [place] [id number] Provider: AIDE Osuna Reason for Visit: Active Pt CARE TEAM: AIDE Osuna Signed by AIDE Osuna on 04/08/19 at 10:11 AM (EDT) APPENDED NOTES: CT/CT Abd/Pelvis W/WO Contrast IMPRESSION: 1.6 cm x 1.2 cm calculus in the mid inferior aspect of the right kidney. Fatty infiltration of the liver. Tiny gallstone along the dependent portion of the gallbladder. Plan for Right ureteroscopy laser stone and stent. s/p ureteroscopy plan for 2nd stage ESWL to treat remaining fragments.
== END 2019-06-16 11:31 | disposition home or self-care (01) ==
LOC: SDC 06:40 → AC 06:42
PROVIDERS: Family Provider Student in an Organized Health Care Education/Training Program; PCP Student in an Organized Health Care Education/Training Program; Referring Provider Urology; Visit Provider Urology
PROC: (CPT 50590; principal; 2019-06-16 08:40)
DX: N20.0 Calculus of kidney (principal); K21.9 Gastro-esophageal reflux disease without esophagitis; E78.00 Pure hypercholesterolemia, unspecified; E11.9 Type 2 diabetes mellitus without complications; Z79.899 Other long term (current) drug therapy; Z79.82 Long term (current) use of aspirin; I10 Essential (primary) hypertension; J44.9 Chronic obstructive pulmonary disease, unspecified; Z87.891 Personal history of nicotine dependence; Z79.84 Long term (current) use of oral hypoglycemic drugs; N40.1 Benign prostatic hyperplasia with lower urinary tract symptoms; R31.0 Gross hematuria
CPT/HCPCS: 00873; 50590; 82962; J7120; J2405

== ENCOUNTER → 2019-07-01 | Outpatient (CLI) | payer MEDICARE, OTHER, SELFPAY ==
[2019-06-16 07:21] VITALS: BMI 33.3
--- NOTE | 2019-07-01 10:20 | RAD_ITS ---
STUDY: X-RAY - ABDOMEN/PELVIS REASON FOR EXAM: Male, 73 years old. Right renal calculus, recheck TECHNIQUE: Two AP supine views of the abdomen and pelvis. COMPARISON: None. FINDINGS: None visualized lung bases. There is an unremarkable bowel gas pattern. There is no demonstrated free abdominal air. The hourglass shaped stone seen previously in the right kidney is fragmented. A miniscule remnant remains in a mid to lower pole calyx, while a oval-shaped, smoothly rounded 1 cm stone now projects in the expected position of the renal pelvis. The visualized liver and spleen are grossly normal in size and morphology. With atherosclerotic vascular calcifications and calcified phleboliths in the pelvic soft tissues are unchanged. There are stable degenerative changes of the visualized spine. RAD/Abdomen Single View IMPRESSION: 1. Right kidney stone seen previously has fragmented, a miniscule portion remaining in the mid to lower pole calyx while a 1 cm rounded stone is now in expected position of the renal pelvis. 2. Unremarkable bowel gas pattern. 3. Atherosclerotic vascular calcifications and calcified phleboliths again noted in the pelvic soft tissues. Electronically Signed: Lennox Hadley MD at 15:43 EDT , Service support ,
== END | disposition home or self-care (01) ==
LOC: RAD.FUTURE 10:13
PROVIDERS: Family Provider Student in an Organized Health Care Education/Training Program; PCP Student in an Organized Health Care Education/Training Program; Referring Provider Urology; Visit Provider Urology
DX: N20.0 Calculus of kidney (principal)
CPT/HCPCS: 74018

== ENCOUNTER 2019-07-07 10:24 | Day surgery (SDC) | payer MEDICARE, OTHER, SELFPAY ==
[2019-07-07 10:43] VITALS: BP 183/87; PULSE 75; RESP 16; TEMP 36.9; O2SAT 95; BMI 32.2
[2019-07-07 10:56] LABS: Bedside Glucose 145 mg/dL (70-110)
--- NOTE | 2019-07-07 13:18 | HP.PCM_ITS ---
History and Physical Date of Admission: 07/07/19 Patient returns, 73-year-old male weeks we start off of a very large stone in the right kidney underwent ureteroscopy and laser could not reach the entire stone because of its position so then he underwent shockwave lithotripsy. Now comes back after shockwave lithotripsy and still has a very large fragment in the kidney so you recommend we go back to ureteroscopy laser again and do a very best to try laser the stone in finish the stone off completely. ALLERGIES: Adhesive tape Neurontin MEDICATIONS: Flomax 0.4 mg capsule Albuterol Sulfate Hfa 90 mcg hfa aerosol with adapter Calcium Magnesium Crestor 20 mg tablet Gabapentin 600 mg tablet Glimepiride Meloxicam Metoprolol Tartrate 100 mg tablet [place] 7.5 mg-325 mg tablet Norvasc 10 mg tablet Potassium Chloride 10 meq tablet, extended release Tylenol 325 mg tablet Notes: Has had the pneumonia vaccine Immunizations: None MULTI-SYSTEM PHYSICAL EXAMINATION: Constitutional: Well-nourished. No physical deformities. Normally developed. Good grooming. Skin: No paleness, no jaundice, no cyanosis. No lesion, no ulcer, no rash. Neurologic / Psychiatric: Oriented to time, oriented to place, oriented to person. No depression, no anxiety, no agitation. Gastrointestinal: Abdominal tenderness mid right, obese. No mass, no rigidity. Musculoskeletal: uses a cane PAST DATA REVIEWED: Source Of History: Patient PROCEDURES: Notes: patient could not void ASSESSMENT: ICD-10 Details 1 : Calculus of kidney - N20.0 PLAN: Document Letter(s): Created for Patient: Clinical Summary Notes: 73-year-old male very large stone the right kidney's undergone multiple procedures to the persistent stone were to proceed with right ureteroscopy and laser the stone and stent placement.
[2019-07-07] MEDS: Cefazolin 2 GM in 0.9% Normal Saline 100 ML IV (14:00)
--- NOTE | 2019-07-07 14:34 | PCM.DC.URO ---
Discharge Diet: Light diet - advance as tolerated Discharge Activity: Return to Normal Activity Call your doctor if you observe: Fever of 101 or Higher Allergies/Adverse Reactions: Allergies tramadol [From [facility]] Allergy (Severe, Verified 07/06/19 09:36) Itching adhesive Allergy (Verified 07/06/19 09:36) Rash gabapentin Allergy (Verified 07/06/19 09:36) Itching clonidine Adverse Reaction (Verified 07/06/19 09:36) dry mouth ropinirole Adverse Reaction (Verified 07/06/19 09:36) Vomiting Medications to take at Discharge aspirin 81 mg tablet,delayed release 81 mg PO QDAY 11/03/17 glimepiride 2 mg tablet 2 mg PO QAM 11/03/17 metoprolol tartrate 100 mg tablet 100 mg PO BID #60 tab 03/17/18 oxycodone-acetaminophen 7.5 mg-325 mg tablet 1 tab PO Q4H PRN 08/17/18 vitamin B complex and vit C no.3 15 mg-10 mg-50 mg-5 mg-300 mg capsule 1 cap PO MO 08/17/18 amlodipine 10 mg tablet 10 mg PO DAILY #90 tab 09/14/18 furosemide 40 mg tablet 40 mg PO QDAY #90 tab 03/22/19 Albuterol Inhaler [Ventolin Hfa (SP)] 1 - 2 puff INHALATION Q4H PRN PRN 05/25/19 Omeprazole 20 mg PO DAILY 05/25/19 Potassium Chloride 10 meq PO BID 05/25/19 Acetaminophen [Tylenol Extra Strength] 500 mg PO Q4H PRN PRN #20 tab 06/04/19 Ibuprofen 600 mg PO Q6H PRN PRN #20 tab 06/04/19 simvastatin 5 mg tablet 5 mg PO QHS 07/06/19 Ciprofloxacin [Cipro] 500 mg PO BID #6 tab 07/07/19 Hydrocodone/Acetaminophen [[place] 5-325 Tablet] 1 ea PO Q4H PRN PRN 5 Days #14 tab 07/07/19 The following prescriptions were given: Ciprofloxacin [Cipro] 500 mg PO BID #6 tab Prescription Printed Hydrocodone/Acetaminophen [[place] 5-325 Tablet] 1 ea PO Q4H PRN PRN 5 Days #14 tab PRN Reason: Pain Prescription Printed Primary Care Physician: Jhon Alvarez DO [Primary Care Provider] - Test Results: Test results from this visit will be discussed in further detail at your follow-up appointment, if applicable. Please Follow Up With: Feliciano Benedict MD When: in 6 weeks, please call to make an appointment.
--- NOTE | 2019-07-07 14:36 | OP.PCM_ITS ---
Report of Operation Date of Procedure: 07/07/19 Pre-Operative Diagnosis: Right renal and ureteral calculi status post ESWL with remaining fragments Post-Operative Diagnosis: The same and stone in the mid ureter and stone up in the kidney Surgery/Procedure Performed:: Cystoscopy, right retrograde pyelogram, laser lithotripsy of stone in the ureter and stones in the kidney, no stent placed. Interpretation of fluo images. Description of Surgical Findings:: 73-year-old male who underwent shockwave lithotripsy after ureteroscopy for a very large hard stone recent KUB demonstrates still significant fragments in the kidney and some in the ureter and he still has some mild mild symptoms because of these fragments recommend we proceed with one more procedure to laser of the remaining fragments he may need a stent afterwards. 74-year-old male taken back to the operating room at the smooth induction of general anesthesia he is placed in dorsolithotomy position, penis and testicles were prepped and draped in usual sterile fashion, went into the bladder with a 21 [place] rigid cystourethroscope, identify the right ureteral orifice advanced a wire up immediately the wire had a stone in the mid ureter I then went up the wire with a flexible ureteroscope and encountered some stones in the mid ureter laser the stone little tiny pieces worked my way down the ureter the stones passes the breath bladder I then went back up the ureter with the ureteroscope. I then went to the kidney and there was multiple fragments still in the kidney after shockwave lithotripsy the midpole in the upper pole these were all lasered a little tiny pieces and after making sure that these were just then I worked my way down the ureter who performed a retrograde pyelogram interpreted the fluoroscopic images the bladder was drained no stent was placed was taken back to the PACU good condition. Type of Anesthesia:: General Drains: none - Admit VTE Documentation VTE Present on Admission: No VTE Mechan Device Prophylaxis: SCD's
[2019-07-07 14:43] VITALS: BP 168/92; BP 183/87; PULSE 83; RESP 14; TEMP 36.2; O2SAT 100
[2019-07-07 14:47] VITALS: BP 155/79; BP 183/87; PULSE 81; RESP 14; O2SAT 97
[2019-07-07 14:52] VITALS: BP 150/77; BP 183/87; PULSE 77; RESP 16; O2SAT 98
[2019-07-07 14:55] VITALS: BP 150/64; BP 183/87; PULSE 75; RESP 14; TEMP 36.4; O2SAT 96
[2019-07-07] MEDS: HYDROcodone Bitartrate/Apap 5/325 Tablet PO (15:22)
[2019-07-07 16:23] VITALS: BP 176/81; BP 183/87; PULSE 77; RESP 18; TEMP 36.5; O2SAT 95
== END 2019-07-07 16:25 | disposition home or self-care (01) ==
LOC: SDC 10:24 → AC 10:27
PROVIDERS: Family Provider Student in an Organized Health Care Education/Training Program; PCP Student in an Organized Health Care Education/Training Program; Referring Provider Urology; Visit Provider Urology
PROC: 0TJ98ZZ Inspection of Ureter, Via Natural or Artificial Opening Endoscopic (ICD-10-PCS; CPT 52352; principal; 2019-07-07 12:45)
DX: N20.2 Calculus of kidney with calculus of ureter (principal); E11.9 Type 2 diabetes mellitus without complications; K21.9 Gastro-esophageal reflux disease without esophagitis; E78.00 Pure hypercholesterolemia, unspecified; I25.10 Atherosclerotic heart disease of native coronary artery without angina pectoris; Z79.899 Other long term (current) drug therapy; Z79.84 Long term (current) use of oral hypoglycemic drugs; Z95.1 Presence of aortocoronary bypass graft; I10 Essential (primary) hypertension; J44.9 Chronic obstructive pulmonary disease, unspecified; G25.81 Restless legs syndrome
CPT/HCPCS: 52353; 76000; 82962; J7120; J2405

== ENCOUNTER → 2019-07-30 | Outpatient (CLI) | payer MEDICARE, OTHER, SELFPAY ==
[2019-07-07 10:43] VITALS: BMI 32.2
[2019-07-30 09:05] LABS: AST(SGOT) 27 U/L (15-37); Alanine Aminotransfer ALT/SGPT 28 U/L (16-61); Albumin, Serum 3.8 g/dL (3.2-5.0); Alkaline Phosphatase 69 U/L (45-117); Bilirubin, Direct 0.18 mg/dL (0.00-0.30); Cholesterol 241 mg/dL (200); Globulin 3.8 g/dL (2.2-4.2); High Density Lipoprotein 32 mg/dL; Protein, Total 7.6 g/dL (6.4-8.2); Triglycerides 284 mg/dL; Very Low Density Lipoprotein 57 mg/dL (5-40)
== END | disposition home or self-care (01) ==
LOC: LAB 07:46
PROVIDERS: Family Provider Student in an Organized Health Care Education/Training Program; PCP Student in an Organized Health Care Education/Training Program; Referring Provider Nurse Practitioner Family; Visit Provider Nurse Practitioner Family
DX: I25.10 Atherosclerotic heart disease of native coronary artery without angina pectoris (principal); E78.00 Pure hypercholesterolemia, unspecified; Z95.1 Presence of aortocoronary bypass graft
CPT/HCPCS: 36415; 80061; 80076

== ENCOUNTER → 2019-11-02 11:22 | Outpatient (CLI) | payer MEDICARE, OTHER, SELFPAY ==
[2019-11-02 12:47] LABS: Anion Gap 5 (5-15); BUN 13 mg/dL (7-18); Calcium,Total 8.9 mg/dL (8.5-10.1); Chloride 108 mmol/L (98-107); Creatinine, Serum 1.18 mg/dL (0.70-1.30); EST Glomerular Filtration Rate 64 mL/min (>60); Est Glom Filt Rate - Afr Amer 77 mL/min (>60); Glucose 109 mg/dL (74-106); Magnesium 1.7 mg/dL (1.6-2.6); Sodium Level 143 mmol/L (136-145)
== END ==
PROVIDERS: Family Provider Student in an Organized Health Care Education/Training Program; PCP Student in an Organized Health Care Education/Training Program; Referring Provider Internal Medicine Cardiovascular Disease; Visit Provider Internal Medicine Cardiovascular Disease
DX: I25.10 Atherosclerotic heart disease of native coronary artery without angina pectoris (principal); E11.9 Type 2 diabetes mellitus without complications; I10 Essential (primary) hypertension; I35.0 Nonrheumatic aortic (valve) stenosis; E78.5 Hyperlipidemia, unspecified; Z95.1 Presence of aortocoronary bypass graft
CPT/HCPCS: 36415; 80048; 83735

== ENCOUNTER → 2020-04-11 14:46 | Outpatient (CLI) | payer MEDICARE, OTHER, SELFPAY ==
[2019-12-30 11:01] VITALS: BMI 34.3
--- NOTE | 2020-04-11 14:50 | ECHOD_ITS ---
Reason For Study: MURMUR Procedure This was a 2D Doppler, Color Flow transthoracic echocardiogram. The exam was of adequate technical quality. Exam performed in department. Left Ventricle Normal LV size. Mild concentric left ventricular hypertrophy. Left ventricular systolic function is normal. The estimated ejection fraction is 60 %. There is evidence of diastolic dysfunction. No regional wall motion abnormalities noted. Right Ventricle Normal RV size. Normal systolic function. Atria The left atrium is mildly enlarged. Normal right atrium. No doppler evidence for ASD. Mitral Valve There is mild mitral annular calcification. Normal mitral valve. Mild (1+) mitral valve insufficiency. Tricuspid Valve Normal tricuspid valve. Mild tricuspid valve insufficiency. Right ventricular systolic pressure estimated to be 40 mmHg. Aortic Valve Trisinus/trileaflet aortic valve. Moderate diffuse aortic valve calcification. Moderately severe aortic valve stenosis. Pulmonic Valve The pulmonic valve is not well visualized. Great Vessels Normal sized aortic root. Calcified aortic root. Pericardium/Pleural No pericardial effusion. MMode/2D Measurements & Calculations LVIDd: 5.2 cm IVSd: 1.3 cm LVOT diam: 2.2 cm LVIDs: 3.5 cm LVPWd: 1.3 cm LVOT area: 3.7 cm2 RVDd: 3.1 cm FS: 33.0 % Ao root diam: 3.5 cm LAV(MOD-bp): 61.2 ml EDV(MOD-sp4): 84.7 ml LAV(MOD-bp) Indexed: 30.9 ml/m2 ESV(MOD-sp4): 38.5 ml LAV(MOD-sp2): 62.8 ml EF(MOD-sp4): 54.5 % LAV(MOD-sp4): 56.9 ml EDV(MOD-sp2): 93.8 ml SV(MOD-sp4): 46.2 ml SV(MOD-sp2): 64.2 ml EF(MOD-sp2): 68.4 % LA A4 area: 20.0 cm2 LA dimension(2D): 4.7 cm RA A4 area: 12.6 cm2 Time Measurements MV dec time: 0.22 sec Doppler Measurements & Calculations MV E max franco: 118.9 cm/sec Lat Peak E' Franco: 8.6 cm/sec Med Peak E' Franco: 4.8 cm/sec MV A max franco: 142.4 cm/sec E/E' lat: 13.8 E/E' med: 24.9 MV E/A: 0.84 Ao V2 max: 432.9 cm/sec LV V1 max: 114.6 cm/sec SV(LVOT): 88.2 ml Ao max P.0 mmHg LV V1 max P.3 mmHg Ao V2 mean: 314.1 cm/sec LV V1 mean P.8 mmHg Ao mean P.3 mmHg LV V1 mean: 78.0 cm/sec Ao V2 VTI: 88.4 cm LV V1 VTI: 23.5 cm CARLOS(I,D): 1.00 cm2 CARLOS(V,D): 0.99 cm2 PA V2 max: 148.6 cm/sec TR max franco: 304.7 cm/sec TR max P.1 mmHg Interpretation Summary Left ventricular systolic function is normal. The estimated ejection fraction is 60 %. Mild concentric left ventricular hypertrophy. The left atrium is mildly enlarged. There is mild mitral annular calcification. Mild (1+) mitral valve insufficiency. Mild tricuspid valve insufficiency. Moderately severe aortic valve stenosis. Calcified aortic root. Right ventricular systolic pressure estimated to be 40 mmHg. There is evidence of diastolic dysfunction. Ordering Physician: Shiraz Mejia Referring Physician: JO SMALL Performed By: Sayda Rogers, ALPHONSO, RVT
== END ==
PROVIDERS: PCP Student in an Organized Health Care Education/Training Program; Referring Provider Internal Medicine Cardiovascular Disease; Visit Provider Internal Medicine Cardiovascular Disease
DX: I25.10 Atherosclerotic heart disease of native coronary artery without angina pectoris (principal)
CPT/HCPCS: 93306

== ENCOUNTER → 2020-04-27 07:20 | Outpatient (CLI) | payer MEDICARE, OTHER, SELFPAY ==
[2020-04-21 14:28] VITALS: BMI 34.7
[2020-04-27 08:43] LABS: AST(SGOT) 29 U/L (15-37); Alanine Aminotransfer ALT/SGPT 26 U/L (16-61); Albumin, Serum 3.7 g/dL (3.2-5.0); Alkaline Phosphatase 58 U/L (45-117); Bilirubin, Direct 0.18 mg/dL (0.00-0.30); Cholesterol 234 mg/dL (200); Globulin 3.8 g/dL (2.2-4.2); High Density Lipoprotein 37 mg/dL; Protein, Total 7.5 g/dL (6.4-8.2); Triglycerides 254 mg/dL; Very Low Density Lipoprotein 51 mg/dL (5-40)
== END ==
PROVIDERS: PCP Student in an Organized Health Care Education/Training Program; Referring Provider Internal Medicine Cardiovascular Disease; Visit Provider Internal Medicine Cardiovascular Disease
DX: E78.00 Pure hypercholesterolemia, unspecified (principal)
CPT/HCPCS: 36415; 80061; 80076

== ENCOUNTER → 2020-07-26 07:37 | Outpatient (CLI) | payer MEDICARE, OTHER, SELFPAY ==
[2020-07-25 13:26] VITALS: BMI 34.1
[2020-07-26 08:20] LABS: Absolute Lymphocyte Count 2.56 X10^3/uL (0.83-4.51); Absolute Neutrophil Count 3.9 X10^3/uL (2.0-7.7); Basophil# 0.07 X10^3/uL; Basophil% 0.9 % (0-1); Eosinophil# 0.51 X10^3/uL; Eosinophils% 6.3 % (0-5); Hematocrit 39.9 % (40-54); Hemoglobin 13.2 g/dL (13.0-16.5); Lymphocyte # 2.56 X10^3/ul (4.0); Lymphocyte % 31.8 % (19-41); Mean Corp Hgb Conc 33.1 g/dL (32-36); Mean Corpuscular Hgb 31.6 pg (27.0-32.0); Mean Corpuscular Volume 95.5 fL (80-94); Mean Platelet Vol. 11.4 fl (6.2-12.0); Monocyte# 0.97 X10^3/uL; NRBC Flagged by Analyzer 0 % (0-5); Neutrophil # 3.92 X10^3/uL (2.7-7.7); Neutrophil % 48.8 % (47-70); Platelet Count 185 K/mm3 (150-450); RBC Distribution Width CV 12.4 % (11.6-14.6); RBC Distribution Width SD 42.9 fl (35.1-43.9); Red Blood Count 4.18 M/mm3 (4.6-6.2); White Blood Count 8.1 K/mm3 (4.4-11.0)
[2020-07-26 08:45] LABS: AST(SGOT) 31 U/L (15-37); Alanine Aminotransfer ALT/SGPT 27 U/L (16-61); Albumin, Serum 3.8 g/dL (3.2-5.0); Alkaline Phosphatase 61 U/L (45-117); Bilirubin, Direct 0.17 mg/dL (0.00-0.30); Cholesterol 163 mg/dL (200); Globulin 3.8 g/dL (2.2-4.2); High Density Lipoprotein 34 mg/dL; Protein, Total 7.6 g/dL (6.4-8.2); Triglycerides 300 mg/dL; Very Low Density Lipoprotein 60 mg/dL (5-40)
== END ==
PROVIDERS: PCP Student in an Organized Health Care Education/Training Program; Referring Provider Internal Medicine Cardiovascular Disease; Visit Provider Internal Medicine Cardiovascular Disease
DX: I10 Essential (primary) hypertension (principal); E78.5 Hyperlipidemia, unspecified; E11.9 Type 2 diabetes mellitus without complications
CPT/HCPCS: 36415; 80061; 80076; 85025

== ENCOUNTER → 2020-10-13 10:30 | Outpatient (CLI) | payer MEDICARE, OTHER, SELFPAY ==
[2020-07-25 13:26] VITALS: BMI 34.1
--- NOTE | 2020-08-04 07:09 | RAD_ITS ---
STUDY: X-RAY CHEST REASON FOR EXAM: Male, 74 years old. SOB, pre heart cath TECHNIQUE: PA and lateral views of the chest. COMPARISON: Comparison is made with prior study dated 10/19/2012. FINDINGS: Hyperinflation. Scattered calcified granulomas. No acute abnormality is seen. There is no demonstrated pleural abnormality. Sternal cerclage wires and vascular clips are present from a prior sternotomy and coronary artery bypass graft procedure (CABG). Normal mediastinum and clifton. Normal visualized pulmonary arteries. There is atherosclerotic calcification of the aortic arch with tortuosity. There are diffuse degenerative changes of the visualized thoracic spine. Normal visualized ribs, clavicles, and shoulders. There is no demonstrated abnormality of the visualized soft tissue structures of the upper abdomen. RAD/Chest PA and Lateral IMPRESSION: Hyperinflation. The lungs are clear. Prior CABG. Electronically Signed: Truong Murray, at 11:12 EDT , Service support ,
[2020-08-04 07:41] LABS: International Normalized Ratio 1.1; Prothrombin Time (Protime)PT. 13.6 SECONDS (11.7-14.9)
[2020-08-04 07:42] LABS: Partial Thromboplast Time 28.6 Seconds (24.1-36.2)
[2020-08-04 07:47] LABS: Anion Gap 6 (5-15); BUN 16 mg/dL (7-18); BUN/Creat Ratio 12.9 RATIO (10-20); Calcium,Total 8.7 mg/dL (8.5-10.1); Chloride 103 mmol/L (98-107); Creatinine, Serum 1.24 mg/dL (0.70-1.30); EST Glomerular Filtration Rate 60 mL/min (>60); Est Glom Filt Rate - Afr Amer 73 mL/min (>60); Glucose 134 mg/dL (74-106); Potassium 4.3 mmol/L (3.5-5.1); Sodium Level 139 mmol/L (136-145)
[2020-08-21 09:48] VITALS: BMI 34.1
--- NOTE | 2020-08-22 07:45 | HP.PCM_ITS ---
Problem List (1) SOB (shortness of breath) on exertion Status: Acute (2) CAD (coronary artery disease) Status: Chronic (3) History of coronary artery bypass surgery Status: Chronic Comment: CABG x 4 KNOWLES to LAD, SVG to Ramus, SVG to lateral CX, and SVG to post descending branch of RCA 09/30/12 @ [facility] (4) Nonrheumatic aortic (valve) stenosis Status: Chronic (5) Pure hypercholesterolemia Status: Chronic (6) Essential hypertension Status: Chronic History and Physical Date of Admission: 08/22/20 [facility] [address] [place] [address] OFFICE VISIT Date of Service: 07/25/20 MR#: [id number] Acct: [id number] Name: MODESTA CARRILLO Rep #: [id number] : [id number] Provider: DEBBIE Henning Age/Sex: 74/M Location: [facility] Status: Signed HPI HPI History of Present Illness Details: MODESTA CARRILLO, is a 74 year old white male who presents to the office today for for outpatient cardiovascular follow-up with a history of coronary artery disease status post CABG x 4 with KNOWLES to LAD, SVG to Ramus, SVG to lateral CX, and SVG to post descending branch of RCA on 09/30/12 at [facility], aortic valve stenosis, hypertension, and hyperlipidemia. Pt is dealing with sinus issues. He sts that 2 nights ago he had chest heaviness where he felt that it was difficult to breath. He sts that he does not get SOB frequently. He does use an inhaler. This did help with his heaviness the other day. He does have pain in his legs and back. This affects him walking. He does ambulate with a cane. He does not have any orthopnea. He does not any lightheadedness/dizziness. He does not have any syncope. He does not have any does not have any palpitations. He does have some edema. He does not sleep well. 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 Accompanied by: None Is patient in pain?: No Allergies tramadol [From Ultram] Allergy (Severe, Verified 07/25/20 13:26) Itching adhesive Allergy (Verified 07/25/20 13:26) Rash gabapentin Allergy (Verified 07/25/20 13:26) Itching clonidine Adverse Reaction (Verified 07/25/20 13:26) dry mouth ropinirole Adverse Reaction (Verified 07/25/20 13:26) Vomiting Medications aspirin 81 mg tablet,delayed release 81 mg PO QDAY 11/03/17 [History Confirmed 07/25/20] glimepiride 2 mg tablet 2 mg PO QAM 11/03/17 [History Confirmed 07/25/20] oxycodone-acetaminophen 7.5 mg-325 mg tablet 1 tab PO Q4H PRN 08/17/18 [History Confirmed 07/25/20] Albuterol Inhaler [Ventolin Hfa (SP)] 1 - 2 puff INHALATION Q4H PRN PRN 05/25/19 [History Confirmed 07/25/20] Omeprazole 20 mg PO DAILY 05/25/19 [History Confirmed 07/25/20] Acetaminophen [Tylenol Extra Strength] 500 mg PO Q4H PRN PRN #20 tab 06/04/19 [Rx Confirmed 07/25/20] amlodipine 10 mg tablet 10 mg PO DAILY #90 tab 11/26/19 [Rx Confirmed 07/25/20] dexamethasone 0.1 % eye drops,suspension 1 applic OTIC BID PRN 12/30/19 [History Confirmed 07/25/20] ergocalciferol (vitamin D2) 1,250 mcg (50,000 unit) capsule 1,250 mcg PO QWEEK 12/30/19 [History Confirmed 07/25/20] ipratropium bromide 0.03 % nasal spray 2 spray INTRANASAL BID 12/30/19 [History Confirmed 07/25/20] losartan 100 mg tablet 100 mg PO DAILY 12/30/19 [History Confirmed 07/25/20] sildenafil 100 mg tablet 100 mg PO DAILY PRN 12/30/19 [History Confirmed 07/25/20] potassium chloride 10 mEq tablet,extended release 10 meq PO BID #180 tab 01/14/20 [Rx Confirmed 07/25/20] evolocumab 140 mg/mL subcutaneous pen injector 140 mg SC Q2W #2 ml 04/27/20 [Rx Confirmed 07/25/20] furosemide 40 mg tablet 40 mg PO QDAY #90 tab 07/18/20 [Rx Confirmed 07/25/20] carvedilol 12.5 mg tablet 12.5 mg PO BID #60 tab 07/25/20 [Rx Confirmed 07/25/20] hydroxyzine HCl 25 mg tablet 25 mg PO BID PRN 07/25/20 [History Confirmed 07/25/20] [facility] Medical History Pure hypercholesterolemia (Chronic) Essential hypertension (Chronic) Type 2 diabetes mellitus (Chronic) Nonrheumatic aortic (valve) stenosis (Chronic) Atherosclerotic heart disease of sy[place] coronary artery without angina pectoris (Chronic) BPH (benign prostatic hyperplasia) (Chronic) COPD (chronic obstructive pulmonary disease) (Chronic) GERD (gastroesophageal reflux disease) (Chronic) Kidney stones (Resolved) Surgical History History of coronary artery bypass surgery (Chronic ~09/30/12) Family History Mother , at age 48 PVD CAD (coronary artery disease) PVD (peripheral vascular disease) Father , Black lung disease No problems noted. Brother Hypertension PVD (peripheral vascular disease) Son Hypertension Social History (Updated 07/25/20 @ 15:01 by DEBBIE Daly) adopted: No household members: spouse housing: house number of children: 5 current occupational status: retired current occupational exposures/hazards: No pets and animals: Yes (2) pets and animals: cat(s) leisure activities: other history of recent travel: No other: watching television Smoking Status: Former smoker second hand exposure: Yes alcohol intake: current alcohol intake frequency: holidays/special occasions only Alcohol type: beer substance use type: does not use well-balanced diet: about half the time caffeine: Yes Type: coffee Number of servings: 1 eating out: 1-3 times/week what type of physical activity do you participate in: none seatbelt use: always do you feel safe at home: Yes ROS Const Const: Negative for fatigue, weakness, fever(s) or headache(s) Eyes Eyes: Negative for blind spots, loss of peripheral vision or transient loss of vision ENT ENT: Positive for balance problems; negative for headache(s), dizziness, tinnitus or Nosebleed/epistaxis Cardio Chest Pain: No Palpitations: No Edema: None Muscle aches with walking: None Resp Respiratory: Positive for SOB with activity; negative for SOB at rest, SOB orthopnea\SOB lying down or Cough GI GI: Negative nausea, vomiting, heartburn or vomiting blood/hematemesis : Negative for hematuria Musc Musc: Positive for muscle aches/ myalgia, muscle weakness, joint pain and balance problems Neuro Neuro: Negative for dizziness, lightheadedness, near syncope, syncope, orthostatic symptoms, headache(s) or weakness Garret Hematologic/Lymphatic: Negative for easy bleeding Endo Endo: Negative for fatigue Cardiology Exam Const Appearance: cooperative, healthy appearing, comfortable, no acute distress, well developed, well groomed and other (walk with a cane) Nutritional Appearance: well nourished and obese Orientation: alert and oriented x3 Head Head: normal to inspection and normocephalic Ears: hearing grossly normal bilaterally Nose: external nose normal Face and Sinus: face symmetric Eyes Eyelids: eyelids normal Conjunctivae: conjunctivae normal Pupils: PERRL EOM: EOM intact bilaterally Neck Neck: normal visual inspection, full ROM and no JVD Carotids: normal carotid upstroke Chest Chest inspection: normal inspection of the chest, symmetric chest movement and normal respiratory effort Auscultation: Bilateral: Clear to Auscultation Cardio Palpation: normal PMI Rate: regular rate Rhythm: regular rhythm Heart sounds: S1 normal and diminished A2 Murmur: Grade 3/6, high pitched, mid systolic, LLSB, LVOT and sternal notch GI GI: obese Neuro General: alert, awake, oriented x3 and moves all extremities Skin Skin: no rashes or lesions noted Extremities Pulses: Normal: Right Posterior Tibial Pulse, Left Posterior Tibial Pulse, Right Radial Pulse, Left Radial Pulse Lower Extremity Edema: +1: Bilateral Psych Psychological: normal affect Assessment & Plan 1. Atherosclerosis of syc[place] coronary artery of [place] heart without angina pectoris I25.10 Plan Stable, from a cardiac standpoint patient does not have any symptoms of angina. We recommend that they continue with current aggressive medical management and risk factor modification. 2. Nonrheumatic aortic (valve) stenosis I35.0 Plan She does have symptoms of worsening valve function with his increased shortness of breath. Will refer him for surgery for evaluation for a TAVR. Patient Instructions I will refer you to a surgery to discuss your valve 3. Essential hypertension I10 Patient Instructions stop your metoprolol and start carvedilol at 12.5 mg twice a day. Monitor your blood pressure readings at home, I will see you in a few weeks to see if it is better 4. Pure hypercholesterolemia E78.00 Plan Recent lipid profile demonstrates total cholesterol of 234, HDL 37, LDL 146. He recently started repatha. He is d/t have these checked next week. Plan Detail Other Medications New: carvedilol (Coreg) must administer with a meal/food 12.5 mg PO BID 60 tabs 6RF Discontinued: metoprolol tartrate Discontinued Reason: Order Changed 100 mg PO BID 60 tabs 11RF Follow Up 2 Months (MMM) Coding Level of Care Code Off vis,est,level 4 Diagnoses Atherosclerosis of syc[place] coronary artery of [place] heart without angina pectoris I25.10 ??Knik vs. transplanted heart: sy[place] heart Nonrheumatic aortic (valve) stenosis I35.0 Essential hypertension I10 Pure hypercholesterolemia E78.00 Coding Level of Care Code Off vis,est,level 4 Diagnoses Atherosclerosis of [place] coronary artery of [place] heart without angina pectoris I25.10 ??[place] vs. transplanted heart: sy[place] heart Nonrheumatic aortic (valve) stenosis I35.0 Essential hypertension I10 Pure hypercholesterolemia E78.00 Supplemental Info Supplemental Information Echocardiogram from 05/07/2017: Interpretation Summary Left ventricular systolic function is normal. The estimate ejection fraction is 55%. Postoperative septal motion. Mild concentric left ventricular hypertrophy. Sigmoid symptom. There is mild mitral annular consultation. Mild (1+) mitral valve insufficiency. Trivial tricuspid valve insufficiency. Mild aortic stenosis. Trivial pulmonic valve insufficiency. Calcified aortic root. Transmitral diastolic flow velocities suggest diastolic dysfunction (pseudo- normal pattern). Echocardiogram: 04-11-2020 Interpretation Summary Left ventricular systolic function is normal. The estimated ejection fraction is 60 %. Mild concentric left ventricular hypertrophy. The left atrium is mildly enlarged. There is mild mitral annular calcification. Mild (1+) mitral valve insufficiency. Mild tricuspid valve insufficiency. Moderately severe aortic valve stenosis. Calcified aortic root. Right ventricular systolic pressure estimated to be 40 mmHg. There is evidence of diastolic dysfunction. Stress test: Date: 12/05/2017 Procedure: Pharmacologic stress nuclear imaging study Indications: Shortness of breath/dyspnea; CAD; CABG Consent: Per the patient Procedure: The patient underwent pharmacologic (Regadenoson) evaluation with a peak heart rate of 90 bpm (60% predicted maximal heart rate) with a peak blood pressure 160/94 mmHg. The baseline ECG demonstrated normal sinus rhythm with a nonspecific IVCD pattern. The peak pharmacologic ECG demonstrated no obvious ECG changes. There were no obvious cardiac dysrhythmias pretest, during pharmacologic infusion, or recovery. There were no complaints of chest discomfort during pharmacologic infusion or recovery. The examination was discontinued secondary to completion of protocol. Impression: 1. Pharmacologic (Regadenoson) evaluation 2. Peak pharmacologic ECG with continued nonspecific IVCD pattern with no obvious ECG changes 3. Nuclear images pending Myocardial perfusion imaging study: Technique: The patient was injected with 14.0 mCi of technetium 99m Cardiolite and subsequently rest SPECT Cardiolite nuclear imaging was obtained in the horizontal long, vertical long, and short axis views. The patient underwent pharmacologic (Regadenoson) evaluation with a peak heart rate of 90 bpm (60% predicted maximal heart rate) with a peak blood pressure 160/94 mmHg and the patient was injected with 45.0 mCi of technetium 99m Cardiolite and subsequently stress SPECT Cardiolite nuclear imaging was obtained in the horizontal long, vertical long, and short axis views. A gated Cardiolite study at peak stress was obtained. Interpretation: Rest and stress SPECT cardiac nuclear imaging status post realignment, no rmalization, and attenuation correction, demonstrates the appearance of relative uniform tracer uptake with the exception of a small area of subtle diminished tracer uptake near the apical segments without significant change between rest and stress. There is end systolic thickening and brightening. The gated Cardiolite study demonstrates myocardial thickening and inward wall motion. The reported LVEF is 57%. Impression: 1. Rest and stress SPECT current nuclear imaging demonstrate myocardial perfusion changes appearing compatible with physiologic apical thinning with no myocardial perfusion changes consider diagnostic for associated stress-induced myocardial ischemia or previous myocardial injury/infarction. 2. The gated Cardiolite study reports an LVEF of 57%. He did have a diagnostic cardiac catheterization performed at [facility] on 06/17/2012 No complications. Impression: Severe coronary artery disease. Moderate to severe left main coronary artery disease. 50 to 75% stenosis in the left main coronary artery. Occluded mid left anterior descending artery. 50% stenosis in the proximal left circumflex artery. 85% stenosis in the proximal to mid ramus intermedius. Faint collateral vessels from the left circumflex artery to the left anterior descending artery were present. Mild aortic valve stenosis was seen. (see above> Mild to moderate pulmonary hypertension. The left internal thoracic artery was normal and large. The left ventricular ejection fraction was 65%. Normal left ventricular size and contractility. He did have a Holter monitor performed on 05/05/2013 at [facility] NORMAL SINUS RHYTHM WITH T WAVE INVERSION IN CHANNEL 2 & 3. MINIMUM HR 64 BPM AT 8:47:27 PM, NO ACTIVITY OR SYMPTOM RECORDED. AVERAGE 84 6PM MAXIMUM HR 105 6PM AT 2:25:23 PM, NO ACTIVITY OR SYMPTOM RECORDED. RARE ISOLATED PREMATURE ATRIAL COMPLEXES, RARELY NONCONDUCTED. NO RUNS NOTED. RARE ISOLATED PREMATURE VENTRICULAR COMPLEXES. NO RUNS NOTED. NO SYMPTOMS DOCUMENTED IN 24 HOUR HOLTER DIARY. He had CT surgery performed at [facility] on 09/30/2012 PROCEDURE PERFORMED: Four-vessel coronary artery bypass grafting utilizing internal mammary to the anterior descending, saphenous vein grafting sequentially to the ramus branch and lateral circumflex branches and individual saphenous vein bypass grafting to the posterior descending branch of the right coronary artery. All utilizing cardiopulmonary bypass, cold blood cardioplegia with endo vein harvesting of the saphenous vein. He did have a transesophageal echocardiogram performed on 08/25/2012 at [facility] Summary Left ventricular systolic function is normal. The estimated ejection fraction is 60 %. There is no spontaneous contrast in the left atrium. No thrombus is detected in the left atrial appendage. There is mild mitral annular calcification. Trivial mitral valve insufficiency. Trivia.1 tricuspid valve insufficiency. Aortic valve area by planimetry: approximately 1.5 cm squared c/w mild aortic valve stenosis. Bubble contrast study negative for right to left interatrial shunt. Calcified aortic root. Mild atherosclerosis of the aortic arch. Mild atherosclerosis of the descending aorta. Labs LDL Cholesterol 146 mg/dL (0-130) H 04/27/20 HDL Cholesterol 37 mg/dL (40-) L 04/27/20 Triglycerides 254 mg/dL (-199) H 04/27/20 VLDL Cholesterol 51 mg/dL (5-40) H 04/27/20 Diagnostics Echocardiogram 04/11/20 07/25/20 1501 <Electronically signed by Stefanie Arellano> Date _ Stefanie LEWIS Cosigner Signature: Date (if applicable) CC: Dr. Jhon Alvarez, DO ~ I have re-examined the patient. There are no clinical changes since date of exam. Procedure Criteria Procedure Type: Elective COVID Risk Discussion: The surgeon/proceduralist and patient have discussed in detail the risk of exposure to and/or potential harm posed by the COVID-19 virus with having a surgery/procedure at this time versus the risk of delaying the surgery/procedure. It is not possible to know either the risk of delaying the surgery or procedure or chance of getting an infection with perfect accuracy, but a joint decision was made between the patient and the surgeon/proceduralist to proceed at this time with the scheduled surgery/procedure as indicated on the consent form.
[2020-09-01 10:25] LABS: International Normalized Ratio 1.1; Prothrombin Time (Protime)PT. 13.8 SECONDS (11.7-14.9)
[2020-09-01 10:26] LABS: Partial Thromboplast Time 30.7 Seconds (24.1-36.2)
[2020-09-01 10:31] LABS: Absolute Lymphocyte Count 1.04 X10^3/uL (0.83-4.51); Absolute Neutrophil Count 6.2 X10^3/uL (2.0-7.7); Basophil# 0.05 X10^3/uL; Basophil% 0.6 % (0-1); Eosinophil# 0.33 X10^3/uL; Eosinophils% 3.9 % (0-5); Erythrocyte Sedimentation Rate 20 mm/hr (0-20); Hematocrit 39.5 % (40-54); Hemoglobin 13.3 g/dL (13.0-16.5); Lymphocyte # 1.04 X10^3/ul (4.0); Lymphocyte % 12.1 % (19-41); Mean Corp Hgb Conc 33.7 g/dL (32-36); Mean Corpuscular Hgb 31.6 pg (27.0-32.0); Mean Corpuscular Volume 93.8 fL (80-94); Mean Platelet Vol. 11.6 fl (6.2-12.0); Monocyte# 0.91 X10^3/uL; Monocyte% 10.6 % (0-10); NRBC Flagged by Analyzer 0 % (0-5); Neutrophil % 72.4 % (47-70); Platelet Count 181 K/mm3 (150-450); RBC Distribution Width CV 12.4 % (11.6-14.6); Red Blood Count 4.21 M/mm3 (4.6-6.2); White Blood Count 8.6 K/mm3 (4.4-11.0)
[2020-09-01 10:40] LABS: Vitamin D,25 Hydroxy 65.5 ng/mL
[2020-09-01 10:49] LABS: Hemoglobin A1c 6.4 % (3.8-5.6)
[2020-09-01 10:49] LABS: AST(SGOT) 32 U/L (15-37); Alanine Aminotransfer ALT/SGPT 29 U/L (16-61); Albumin, Serum 3.9 g/dL (3.2-5.0); Alkaline Phosphatase 71 U/L (45-117); Amylase 40 U/L (25-115); Anion Gap 4 (5-15); BUN 20 mg/dL (7-18); BUN/Creat Ratio 17.9 RATIO (10-20); Bilirubin, Direct 0.27 mg/dL (0.00-0.30); CRP 7.71 mg/L (0.0-3.0); Calcium,Total 9.1 mg/dL (8.5-10.1); Chloride 107 mmol/L (98-107); Cholesterol 204 mg/dL (200); Creatinine, Serum 1.12 mg/dL (0.70-1.30); EST Glomerular Filtration Rate 68 mL/min (>60); Est Glom Filt Rate - Afr Amer 82 mL/min (>60); Estimated Creatinine Clearance 49.57 ml/min; Globulin 3.9 g/dL (2.2-4.2); Glucose 162 mg/dL (74-106); High Density Lipoprotein 39 mg/dL; Potassium 4.1 mmol/L (3.5-5.1); Protein, Total 7.8 g/dL (6.4-8.2); Sodium Level 139 mmol/L (136-145); Triglycerides 279 mg/dL; Very Low Density Lipoprotein 56 mg/dL (5-40)
== END ==
PROVIDERS: Physician Assistant Medical; PCP Student in an Organized Health Care Education/Training Program; Referring Provider Internal Medicine Cardiovascular Disease; Visit Provider Internal Medicine Cardiovascular Disease
DX: R10.11 Right upper quadrant pain (principal); R14.0 Abdominal distension (gaseous); R10.31 Right lower quadrant pain; G89.29 Other chronic pain; E11.9 Type 2 diabetes mellitus without complications; I10 Essential (primary) hypertension; E78.5 Hyperlipidemia, unspecified; E55.9 Vitamin D deficiency, unspecified
CPT/HCPCS: 36415; 71046; 80048; 80053; 80061; 82150; 82248; 82306; 83036; 85025; 85610; 85652; 85730; 86140

== ENCOUNTER → 2020-12-26 | Outpatient (CLI) | payer MEDICARE, OTHER, SELFPAY ==
[2020-12-26 11:16] VITALS: BMI 33.7
== END | disposition home or self-care (01) ==
LOC: LABSPEC 15:29
PROVIDERS: PCP Student in an Organized Health Care Education/Training Program; Visit Provider Physician Assistant Surgical
DX: Z20.822 Contact with and (suspected) exposure to COVID-19 (principal)
CPT/HCPCS: 87635; U0003

== ENCOUNTER → 2021-11-29 06:53 | Outpatient (CLI) | payer MEDICARE, SELFPAY ==
[2021-11-29 09:07] LABS: Hemoglobin A1c 5.9 % (3.8-5.6)
[2021-11-29 09:14] LABS: ALB/GLOB Ratio 0.8 RATIO (0.9-2.4); AST(SGOT) 39 U/L (15-37); Alanine Aminotransfer ALT/SGPT 29 U/L (16-61); Albumin, Serum 3.7 g/dL (3.2-5.0); Alkaline Phosphatase 70 U/L (45-117); Anion Gap 7 (5-15); BUN 19 mg/dL (7-18); BUN/Creat Ratio 16.7 RATIO (10-20); Calcium,Total 9.5 mg/dL (8.5-10.1); Chloride 103 mmol/L (98-107); Cholesterol 279 mg/dL (200); Creatinine, Serum 1.14 mg/dL (0.70-1.30); EST Glomerular Filtration Rate 66 mL/min (>60); Est Glom Filt Rate - Afr Amer 80 mL/min (>60); Globulin 4.4 g/dL (2.2-4.2); Glucose 128 mg/dL (74-106); High Density Lipoprotein 32 mg/dL; Potassium 4.2 mmol/L (3.5-5.1); Protein, Total 8.1 g/dL (6.4-8.2); Sodium Level 139 mmol/L (136-145); Triglycerides 374 mg/dL; Very Low Density Lipoprotein 75 mg/dL (5-40)
== END ==
PROVIDERS: Nurse Practitioner Family; PCP Student in an Organized Health Care Education/Training Program; Referring Provider Student in an Organized Health Care Education/Training Program; Visit Provider Student in an Organized Health Care Education/Training Program
DX: E11.22 Type 2 diabetes mellitus with diabetic chronic kidney disease (principal); N18.30 Chronic kidney disease, stage 3 unspecified; Z12.11 Encounter for screening for malignant neoplasm of colon; E78.5 Hyperlipidemia, unspecified
CPT/HCPCS: 36415; 80053; 80061; 83036

== ENCOUNTER → 2021-11-30 | Outpatient (CLI) | payer MEDICARE, SELFPAY ==
[2021-11-30 18:19] LABS: Microalbumin:Creatinine Ratio 414.7 mg/g CRE (<30 mg/g CRE)
== END | disposition home or self-care (01) ==
LOC: LABSPEC 17:05
PROVIDERS: PCP Student in an Organized Health Care Education/Training Program; Visit Provider Student in an Organized Health Care Education/Training Program
DX: E11.22 Type 2 diabetes mellitus with diabetic chronic kidney disease (principal); N18.30 Chronic kidney disease, stage 3 unspecified; Z12.11 Encounter for screening for malignant neoplasm of colon
CPT/HCPCS: 82043; 82274; 82570

== ENCOUNTER 2022-02-22 06:08 | Outpatient (CLI) | payer MEDICARE, SELFPAY ==
[2022-02-22 07:56] LABS: BNP,B-Type NATRIURETIC PEPTIDE 82.9 pg/mL (0-100)
[2022-02-22 08:02] LABS: AST(SGOT) 24 U/L (15-37); Alanine Aminotransfer ALT/SGPT 26 U/L (16-61); Albumin, Serum 4.2 g/dL (3.2-5.0); Alkaline Phosphatase 47 U/L (45-117); Anion Gap 5 (5-15); BUN 22 mg/dL (7-18); Bilirubin, Direct 0.19 mg/dL (0.00-0.30); Calcium,Total 9.5 mg/dL (8.5-10.1); Chloride 100 mmol/L (98-107); Cholesterol 264 mg/dL (200); Creatinine, Serum 1.47 mg/dL (0.70-1.30); EST Glomerular Filtration Rate 49 mL/min (>60); Est Glom Filt Rate - Afr Amer 60 mL/min (>60); Globulin 3.9 g/dL (2.2-4.2); Glucose 141 mg/dL (74-106); High Density Lipoprotein 36 mg/dL; Potassium 4.2 mmol/L (3.5-5.1); Protein, Total 8.1 g/dL (6.4-8.2); Sodium Level 138 mmol/L (136-145); Triglycerides 252 mg/dL; Very Low Density Lipoprotein 50 mg/dL (5-40)
== END 2022-02-22 23:59 | disposition home or self-care (01) ==
PROVIDERS: PCP Student in an Organized Health Care Education/Training Program; Visit Provider Nurse Practitioner Family
DX: I25.10 Atherosclerotic heart disease of native coronary artery without angina pectoris (principal); E78.00 Pure hypercholesterolemia, unspecified; R06.02 Shortness of breath; I10 Essential (primary) hypertension; I35.0 Nonrheumatic aortic (valve) stenosis; Z95.1 Presence of aortocoronary bypass graft
CPT/HCPCS: 36415; 80048; 80061; 80076; 83880

== ENCOUNTER → 2022-06-04 | Outpatient (CLI) | payer MEDICARE, SELFPAY ==
--- NOTE | 2022-06-04 08:14 | ECHOD_ITS ---
Reason For Study: Aortic Stenosis Procedure This was a 2D Doppler, Color Flow transthoracic echocardiogram. The exam was of adequate technical quality. Exam performed in department. Left Ventricle Normal LV size. Mild concentric left ventricular hypertrophy. Mild segmental systolic dysfunction (see wall motion). The estimated ejection fraction is 45 %. Mid-inferoseptal : Hypokinetic. Mid- anteroseptal : Hypokinetic. Septal Alpha : Akinetic. Right Ventricle Normal RV size. Normal systolic function. Atria The left atrium is mildly enlarged. Normal right atrium. No doppler evidence for ASD. Mitral Valve There is mild mitral annular calcification. Normal mitral valve. Mild (1+) mitral valve insufficiency. Tricuspid Valve Normal tricuspid valve. Mild tricuspid valve insufficiency. Right ventricular systolic pressure estimated to be 31 mmHg. Aortic Valve Trisinus/trileaflet aortic valve. Moderate to severe diffuse calcification of the aortic valve leaflets. Moderately severe aortic valve stenosis. Trivial aortic valve insufficiency. Pulmonic Valve The pulmonic valve is not well visualized. Great Vessels Calcified aortic root. Pericardium/Pleural No pericardial effusion. MMode/2D Measurements & Calculations LVIDd: 4.9 cm IVSd: 1.4 cm LVOT diam: 2.1 cm LVIDs: 3.9 cm LVPWd: 1.3 cm LVOT area: 3.3 cm2 RVDd: 3.2 cm FS: 20.7 % Ao root diam: 3.3 cm LAV(MOD-bp): 54.1 ml LA A4 area: 18.1 cm2 LA dimension: 4.2 cm LAV(MOD-bp) Indexed: 26.8 ml/m2 LAV(MOD-sp2): 58.8 ml LAV(MOD-sp4): 49.7 ml RA A4 area: 17.4 cm2 Time Measurements MV dec time: 0.19 sec Doppler Measurements & Calculations MV E max franco: 115.9 cm/sec Lat Peak E' Franco: 8.1 cm/sec Med Peak E' Franco: 4.4 cm/sec MV A max franco: 84.5 cm/sec E/E' lat: 14.4 E/E' med: 26.4 MV E/A: 1.4 MV V2 max: 139.7 cm/sec MV P1/2t max franco: 139.7 cm/sec Ao V2 max: 365.8 cm/sec MV max P.8 mmHg MV P1/2t: 95.6 msec Ao max P.6 mmHg MV V2 mean: 78.3 cm/sec MV dec slope: 427.8 cm/sec2 Ao V2 mean: 256.8 cm/sec MV mean P.9 mmHg Ao mean P.4 mmHg MV V2 VTI: 35.1 cm MVA(P1/2t): 2.3 cm2 Ao V2 VTI: 81.6 cm MVA(VTI): 2.2 cm2 CARLOS(I,D): 0.94 cm2 CARLOS(V,D): 0.88 cm2 LV V1 max: 96.0 cm/sec MR max franco: 484.9 cm/sec SV(LVOT): 77.1 ml LV V1 max P.7 mmHg MR max P.0 mmHg LV V1 mean P.1 mmHg MR mean franco: 388.8 cm/sec LV V1 mean: 66.3 cm/sec MR mean P.3 mmHg LV V1 VTI: 23.0 cm MR VTI: 187.7 cm PA V2 max: 96.3 cm/sec TR max franco: 266.4 cm/sec TR max P.4 mmHg ECHO/Echo Complete Interpretation Summary Mild segmental systolic dysfunction (see wall motion). The estimated ejection fraction is 45 %. Mild concentric left ventricular hypertrophy. The left atrium is mildly enlarged. There is mild mitral annular calcification. Mild (1+) mitral valve insufficiency. Mild tricuspid valve insufficiency. Moderately severe aortic valve stenosis. Trivial aortic valve insufficiency. Calcified aortic root. Right ventricular systolic pressure estimated to be 31 mmHg. Transmitral diastolic flow velocities suggest diastolic dysfunction (pseudonorm al pattern). Ordering Physician: Kingston Kerr Referring Physician: Jhon Alvarez Performed By: Bereket Pagan RCS
== END | disposition home or self-care (01) ==
PROVIDERS: PCP Student in an Organized Health Care Education/Training Program; Referring Provider Nurse Practitioner Family; Visit Provider Nurse Practitioner Family
DX: I35.0 Nonrheumatic aortic (valve) stenosis (principal); I25.10 Atherosclerotic heart disease of native coronary artery without angina pectoris; Z95.1 Presence of aortocoronary bypass graft
CPT/HCPCS: 93306

== ENCOUNTER 2023-01-08 17:03 | Inpatient (IN) | payer MEDICARE, SELFPAY ==
[2023-01-08 17:04] VITALS: BP 136/77; PULSE 56; RESP 16; TEMP 36.3; O2SAT 97; BMI 33.5
--- NOTE | 2023-01-08 17:15 | EX.ED.DYSGE1 ---
HPI History of Present Illness Chief Complaint: Hypoglycemia Narrative Narrative: 77-year-old male presenting with hypoglycemia. Patient states that he dropped off his at work at about 630 this morning and had a sausage McMuffin on his way home. He has not eaten anything else today. He reports he is drinking lots of fluids. He was on his way to the doctor's office to follow-up on recent thrush that he had and his states he started to act like he was confused. She states that initially he had left the hill in the car door and then got into the car. She put the hill in the ignition for him and he started to drive but she could tell he was not thinking clearly. He states I feel like I am stupid. So they pulled the car over and she drove to the doctor's office and when he got there he was very confused and his blood sugar was 60 EMS was called he was given D10 in route. He is now back to baseline. He states the only medication he takes for diabetes is glimepiride 2 mg. His states at first he thought he just took too many oxycodone, but she also adds that he never does this. [facility] Medical History Atherosclerotic heart disease of [place] coronary artery without angina pectoris BPH (benign prostatic hyperplasia) CAD (coronary artery disease) Contact with or suspected exposure to other viral communicable disease COPD (chronic obstructive pulmonary disease) Essential hypertension Gastroenteritis GERD (gastroesophageal reflux disease) Hypertriglyceridemia Kidney stones Nonrheumatic aortic (valve) stenosis Pure hypercholesterolemia Type 2 diabetes mellitus Home Medications aspirin 81 mg tablet,delayed release (Adult Low Dose Aspirin) 81 mg PO QDAY 11/03/17 [History Last Taken 06/11/19] glimepiride 2 mg tablet 2 mg PO QAM 11/03/17 [History Last Taken Unknown] albuterol sulfate 90 mcg/actuation aerosol inhaler 1 - 2 puff inhalation Q4H PRN PRN COPD 05/25/19 [History Last Taken Unknown] acetaminophen 500 mg tablet 500 mg PO Q4H PRN PRN Pain #20 tabs 06/04/19 [Rx Last Taken Unknown] ergocalciferol (vitamin D2) 1,250 mcg (50,000 unit) capsule 1,250 mcg PO QWEEK 12/30/19 [History Last Taken Unknown] ipratropium bromide 21 mcg (0.03 %) nasal spray 2 spray intranasal BID 12/30/19 [History Last Taken Unknown] sildenafil 100 mg tablet (Viagra) 100 mg PO DAILY PRN ED 12/30/19 [History Last Taken Unknown] fenofibrate nanocrystallized 145 mg tablet 145 mg PO DAILY #30 tabs 11/29/21 [Rx Last Taken Unknown] carvedilol 12.5 mg tablet (Coreg) 12.5 mg PO BID #180 tabs 01/09/22 [Rx Last Taken Unknown] losartan 100 mg tablet 100 mg PO DAILY #90 tabs 01/09/22 [Rx Last Taken Unknown] potassium chloride 10 mEq tablet,extended release (Klor-Con) 10 meq PO BID #180 tabs 01/09/22 [Rx Last Taken Unknown] coenzyme Q10 200 mg capsule 200 mg PO DAILY 02/21/22 [History Last Taken Unknown] dextromethorphan-guaifenesin 30 mg-600 mg tablet extended [id number] hr (Mucinex DM) 1 tab PO Q12H PRN 02/21/22 [History Last Taken Unknown] diphenhydramine HCl 25 mg tablet (Benadryl Allergy) 50 mg PO QHS PRN 02/21/22 [History Last Taken Unknown] docusate sodium 100 mg capsule 100 mg PO DAILY 02/21/22 [History Last Taken Unknown] meloxicam 15 mg tablet 15 mg PO DAILY 02/21/22 [History Last Taken Unknown] omeprazole 20 mg capsule,delayed release 20 mg PO BID GERD 02/21/22 [History Last Taken Unknown] oxycodone-acetaminophen 7.5 mg-325 mg tablet (Percocet) 1 tab PO Q8H PRN Pain 02/21/22 [History Last Taken Unknown] pregabalin 50 mg capsule 50 mg PO TID 02/21/22 [History Last Taken Unknown] tamsulosin 0.4 mg capsule 0.4 mg PO QHS 02/21/22 [History Last Taken Unknown] furosemide 40 mg tablet 40 mg PO DAILY #90 tabs 02/25/22 [Rx Last Taken Unknown] amlodipine 10 mg tablet 10 mg PO DAILY #90 tabs 03/04/22 [Rx Last Taken Unknown] Allergy/AdvReac Type Severity Reaction Status Date / Time tramadol [From [facility]] Allergy Severe Itching Verified 02/21/22 13:08 adhesive Allergy Rash Verified 02/21/22 13:08 gabapentin Allergy Itching Verified 02/21/22 13:08 Jtnpend-[id number]-AfY Reductase AdvReac Severe myalgias Verified 02/21/22 13:08 Inhibitor [Dsxevup-Prv-Ijz Reductase Inhibitor] clonidine AdvReac dry mouth Verified 02/21/22 13:08 ropinirole AdvReac Vomiting Verified 02/21/22 13:08 Family History Mother , at age 48 PVD CAD (coronary artery disease) PVD (peripheral vascular disease) Father , Black lung disease No problems noted. Brother Hypertension PVD (peripheral vascular disease) Son Hypertension Surgical History History of coronary artery bypass surgery (~09/30/12) Social History adopted: No household members: spouse housing: house number of children: 5 current occupational status: retired current occupational exposures/hazards: No pets and animals: Yes (2) pets and animals: cat(s) leisure activities: other history of recent travel: No other: watching television Smoking Status: Former smoker second hand exposure: Yes alcohol intake: current alcohol intake frequency: holidays/special occasions only Alcohol type: beer substance use type: does not use well-balanced diet: about half the time caffeine: Yes Type: coffee Number of servings: 1 eating out: 1-3 times/week what type of physical activity do you participate in: none seatbelt use: always do you feel safe at home: Yes ROS ROS ED Review of Systems ROS Unobtainable: Denies due to encephalopathy Constitutional Constitutional ED: Denies chills or fever(s) Eyes Eyes: Denies change in vision ENT ENT ED: Denies rhinorrhea or sore throat Cardiovascular Cardiovascular: Denies chest pain or palpitations Respiratory/Chest Respiratory/Chest: Denies cough or dyspnea Gastrointestinal Gastrointestinal: Denies abdominal pain Genitourinary Genitourinary ED: Denies dysuria or hematuria Musculoskeletal Musculoskeletal: Denies arthralgias Integumentary Denies abscess or Abrasions Neurologic Neurologic: Reports other Details: Confusion resolved EXAM Physical Exam Const Vital Signs: 01/08/23 17:04 01/08/23 17:31 01/08/23 18:18 Temperature 97.4 F L Temperature Source Temporal Pulse Rate 56 L 65 Respiratory Rate 16 16 Respiratory Effort Normal Non-Labored Respiratory Pattern Normal Blood Pressure 136/77 H 122/64 H Blood Pressure Mean 96 83 Pulse Ox 97 99 Oxygen Delivery Method Room Air Room Air Positive well nourished General Appearance ED: NAD; Negative for pallor HEENT Reports moist mucous membranes Eyes PERRL and EOMs intact bilaterally Resp normal respiratory effort and clear to auscultation bilaterally Cardio regular rate and regular rhythm GI normal to inspection, nondistended, normoactive bowel sounds Neuro oriented x3 and CN's II-XII intact bilaterally Sensorium / Orientation: alert Motor Exam: strength 5/5 throughout Psych mental status grossly normal Skin no rashes or lesions noted General Skin Exam: Negative for jaundice or pallor MDM MDM MDM Narrative Medical decision making narrative: Patient presented with hypoglycemic episode. Patient's only medication for diabetes is glimepiride. Differential at this time includes but is not limited to hypoglycemia, acute kidney injury, anemia, overdose. CBC to assess white blood cell count, hemoglobin, differential. CMP to assess liver function, renal function, electrolytes, glucose, anion gap. Urinalysis to assess for urinary tract infection. Patient alert and awake and well-appearing. He is back to baseline per his . I suspect with his recent thrush and not eating and drinking very much he is likely dehydrated. And with not eating very much and taking his diabetic medication he is probably hypoglycemic from this. CBC shows no leukocytosis. Hemoglobin hematocrit are stable. Platelets are normal. Renal function is abnormal. His creatinine is up to 2.91 today. His last creatinine was 1.47 in January. Patient given a liter of IV fluids. He was given D10 prior to arrival. Glucose on his BMP showed of 164. Potassium slightly high at 5.2. He will correct with fluids most likely. He does not need any other medications. Discussed with hospitalist for admission. Impression: 1. SARTHAK 2. Hypoglycemia 3. Hyperkalemia Lab Data Labs: Laboratory Results - last 24 hr 01/08/23 01/08/23 17:25 17:25 WBC 8.6 RBC 3.67 L Hgb 11.4 L Hct 35.2 L MCV 95.9 H MCH 31.1 MCHC 32.4 RDW Std Deviation 44.2 H RDW Coeff of [place] 12.6 Plt Count 175 MPV 12.6 H Immature Gran % (Auto) 0.500 Neut % (Auto) 73.3 H Lymph % (Auto) 14.8 L [place] % (Auto) 9.3 Eos % (Auto) 1.5 Baso % (Auto) 0.6 Absolute Neuts (auto) 6.3 Absolute Lymphs (auto) 1.27 Nucleated RBC % 0 Sodium 136 Potassium 5.2 H Chloride 105 Carbon Dioxide 24.0 Anion Gap 7 BUN 41 H Creatinine 2.91 H Estim Creat Clear Calc 18.20 Est GFR (MDRD) Af Amer 27 L Est GFR (MDRD) Non-Af 22 L BUN/Creatinine Ratio 14.1 Glucose 164 H Calcium 9.5 Total Bilirubin 0.60 AST 73 H ALT 19 Alkaline Phosphatase 132 H Total Protein 7.5 Albumin 3.3 Globulin 4.2 Albumin/Globulin Ratio 0.8 L Discharge Plan Triage Chief Complaint: Hypoglycemia ED Provider: Dominic Lugo Dx/Rx/DC Orders Prescriptions: No Action glimepiride 2 mg tablet 2 mg PO QAM aspirin [Adult Low Dose Aspirin] 81 mg tablet,delayed release (DR/EC) 81 mg PO QDAY Label Comments: has not taken since May oxycodone-acetaminophen [Percocet] 7.5-325 mg tablet 1 tab PO Q8H PRN (Reason: Pain) ergocalciferol (vitamin D2) 1,250 mcg (50,000 unit) capsule 1,250 mcg PO QWEEK ipratropium bromide 0.03 % spray,non-aerosol 2 spray INTRANASAL BID Rx Instructions: administer into each nostril sildenafil [Viagra] 100 mg tablet 100 mg PO DAILY PRN (Reason: ED) Rx Instructions: administer 30 minutes to 4 hours before activity tamsulosin 0.4 mg capsule 0.4 mg PO QHS pregabalin 50 mg capsule 50 mg PO TID Mucinex DM 30-600 mg tablet extended release 12 hr 1 tab PO Q12H PRN diphenhydramine HCl [Benadryl Allergy] 25 mg tablet 50 mg PO QHS PRN meloxicam 15 mg tablet 15 mg PO DAILY docusate sodium 100 mg capsule 100 mg PO DAILY coenzyme Q10 200 mg capsule 200 mg PO DAILY albuterol sulfate 1 INHALER inhaler 1 - 2 puff INHALATION Q4H PRN PRN (Reason: COPD) acetaminophen 500 MG tablet 500 mg PO Q4H PRN PRN (Reason: Pain) Qty: 20 0RF omeprazole 20 mg capsule,delayed release(DR/EC) 20 mg PO BID fenofibrate nanocrystallized 145 mg tablet 145 mg PO DAILY Qty: 30 11RF carvedilol [Coreg] 12.5 mg tablet 12.5 mg PO BID Qty: 180 3RF Rx Instructions: must administer with a meal/food losartan 100 mg tablet 100 mg PO DAILY Qty: 90 3RF potassium chloride [Klor-Con 10] 10 mEq tablet extended release 10 meq PO BID Qty: 180 4RF furosemide 40 mg tablet 40 mg PO DAILY Qty: 90 3RF amlodipine 10 mg tablet 10 mg PO DAILY Qty: 90 3RF Primary Care Provider: Jhon Alvarez Referrals: Jhon Alvarez DO [Primary Care Provider] -
[2023-01-08] MEDS: 0.9% Normal Saline 1,000 ML 999 ML IV ×2 (17:32→22:16)
[2023-01-08 17:53] LABS: Absolute Lymphocyte Count 1.27 X10^3/uL (0.83-4.51); Absolute Neutrophil Count 6.3 X10^3/uL (2.0-7.7); Basophil# 0.05 X10^3/uL; Basophil% 0.6 % (0-1); Eosinophil# 0.13 X10^3/uL; Eosinophils% 1.5 % (0-5); Hematocrit 35.2 % (40-54); Hemoglobin 11.4 g/dL (13.0-16.5); Lymphocyte # 1.27 X10^3/ul (0.83-4.51); Lymphocyte % 14.8 % (19-41); Mean Corp Hgb Conc 32.4 g/dL (32-36); Mean Corpuscular Hgb 31.1 pg (27.0-32.0); Mean Corpuscular Volume 95.9 fL (80-94); Mean Platelet Vol. 12.6 fl (6.2-12.0); Monocyte% 9.3 % (0-10); NRBC Flagged by Analyzer 0 % (0-5); Neutrophil % 73.3 % (47-70); Platelet Count 175 K/mm3 (150-450); RBC Distribution Width CV 12.6 % (11.6-14.6); RBC Distribution Width SD 44.2 fl (35.1-43.9); Red Blood Count 3.67 M/mm3 (4.6-6.2); White Blood Count 8.6 K/mm3 (4.4-11.0)
[2023-01-08 18:13] LABS: ALB/GLOB Ratio 0.8 RATIO (0.9-2.4); AST(SGOT) 73 U/L (15-37); Alanine Aminotransfer ALT/SGPT 19 U/L (16-61); Albumin, Serum 3.3 g/dL (3.2-5.0); Alkaline Phosphatase 132 U/L (45-117); Anion Gap 7 (5-15); BUN 41 mg/dL (7-18); BUN/Creat Ratio 14.1 RATIO (10-20); Calcium,Total 9.5 mg/dL (8.5-10.1); Chloride 105 mmol/L (98-107); Creatinine, Serum 2.91 mg/dL (0.70-1.30); EST Glomerular Filtration Rate 22 mL/min (>60); Est Glom Filt Rate - Afr Amer 27 mL/min (>60); Globulin 4.2 g/dL (2.2-4.2); Glucose 164 mg/dL (74-106); Potassium 5.2 mmol/L (3.5-5.1); Protein, Total 7.5 g/dL (6.4-8.2); Sodium Level 136 mmol/L (136-145)
[2023-01-08 18:18] VITALS: BP 122/64; PULSE 65; RESP 16; O2SAT 99
--- NOTE | 2023-01-08 18:34 | PCM.HP.STD ---
HPI - General General Date of Admission: 01/08/23 Date of Service: 01/08/23 Chief Complaint: Episode hypoglycemia HPI Narrative The patient is a 77 y/o M w/ PMHx: Chronic pain with severe osteoarthritis, Obesity, CAD s/p CABG, BPH, COPD w/ Former tobacco use, HTN, HLD, Diabetes mellitus type II who presents to the [facility] ED on 01/08/23 with history of reportedly dropping his at work at about 6:30 in the morning on day of presentation reportedly getting a meal at [employer] on his way home and reporting no further food intake throughout the day although does state he has maintained appropriate hydration with onset following evaluation at his doctor's office for recent oral thrush episode of confusion initially leaving the hill in the car door when he got out feeling like he could not think clearly eventually causing him to pull the car over and letting his drive with blood sugar assessment when he got to the office noted to be 60 with EMS call with D10 given in route with blood sugars now returned to his baseline prompting ED evaluation. did state that he is on chronic pain medication and if he does take too many of his narcotic therapies he does forget to eat and become hypoglycemic. Work-up in the ED included T97.4, heart rate 56, BP 136/77, respiratory rate 16, 97% on room air, CBC with a BC 8.6, hemoglobin 11.4, MCV 95.9, platelet 175 without marked shift, CMP with calcium 5.2 however this is moderately hemolyzed, BUN/creatinine 41/2.91, glucose 164, hepatic profile with AST/LT 73/19, alk phos 132. In the ED patient ministered 1 L normal saline. Urinalysis requested per ED physician and pending upon requesting evaluation of patient. [facility] Medical History (Updated 01/08/23 @ 19:[address] Amber Virgen MD) Atherosclerotic heart disease of [place] coronary artery without angina pectoris BPH (benign prostatic hyperplasia) CAD (coronary artery disease) Chronic pain syndrome Contact with or suspected exposure to other viral communicable disease COPD (chronic obstructive pulmonary disease) Essential hypertension Gastroenteritis GERD (gastroesophageal reflux disease) Hypertriglyceridemia Kidney stones Nonrheumatic aortic (valve) stenosis Pure hypercholesterolemia Type 2 diabetes mellitus Home Medications aspirin 81 mg tablet,delayed release (Adult Low Dose Aspirin) 81 mg PO QDAY 11/03/17 [History Last Taken 06/11/19] glimepiride 2 mg tablet 2 mg PO QAM 11/03/17 [History Last Taken Unknown] albuterol sulfate 90 mcg/actuation aerosol inhaler 1 - 2 puff inhalation Q4H PRN PRN COPD 05/25/19 [History Last Taken Unknown] acetaminophen 500 mg tablet 500 mg PO Q4H PRN PRN Pain #20 tabs 06/04/19 [Rx Last Taken Unknown] ergocalciferol (vitamin D2) 1,250 mcg (50,000 unit) capsule 1,250 mcg PO QWEEK 12/30/19 [History Last Taken Unknown] ipratropium bromide 21 mcg (0.03 %) nasal spray 2 spray intranasal BID 12/30/19 [History Last Taken Unknown] sildenafil 100 mg tablet (Viagra) 100 mg PO DAILY PRN ED 12/30/19 [History Last Taken Unknown] fenofibrate nanocrystallized 145 mg tablet 145 mg PO DAILY #30 tabs 11/29/21 [Rx Last Taken Unknown] carvedilol 12.5 mg tablet (Coreg) 12.5 mg PO BID #180 tabs 01/09/22 [Rx Last Taken Unknown] losartan 100 mg tablet 100 mg PO DAILY #90 tabs 01/09/22 [Rx Last Taken Unknown] potassium chloride 10 mEq tablet,extended release (Klor-Con) 10 meq PO BID #180 tabs 01/09/22 [Rx Last Taken Unknown] coenzyme Q10 200 mg capsule 200 mg PO DAILY 02/21/22 [History Last Taken Unknown] dextromethorphan-guaifenesin 30 mg-600 mg tablet extended [id number] hr (Mucinex DM) 1 tab PO Q12H PRN 02/21/22 [History Last Taken Unknown] diphenhydramine HCl 25 mg tablet (Benadryl Allergy) 50 mg PO QHS PRN 02/21/22 [History Last Taken Unknown] docusate sodium 100 mg capsule 100 mg PO DAILY 02/21/22 [History Last Taken Unknown] meloxicam 15 mg tablet 15 mg PO DAILY 02/21/22 [History Last Taken Unknown] omeprazole 20 mg capsule,delayed release 20 mg PO BID GERD 02/21/22 [History Last Taken Unknown] oxycodone-acetaminophen 7.5 mg-325 mg tablet (Percocet) 1 tab PO Q8H PRN Pain 02/21/22 [History Last Taken Unknown] pregabalin 50 mg capsule 50 mg PO TID PRN PRN Pain 02/21/22 [History Last Taken Unknown] tamsulosin 0.4 mg capsule 0.4 mg PO QHS 02/21/22 [History Last Taken Unknown] furosemide 40 mg tablet 40 mg PO DAILY #90 tabs 02/25/22 [Rx Last Taken Unknown] amlodipine 10 mg tablet 10 mg PO DAILY #90 tabs 03/04/22 [Rx Last Taken Unknown] Allergy/AdvReac Type Severity Reaction Status Date / Time tramadol [From Ultram] Allergy Severe Itching Verified 02/21/22 13:08 adhesive Allergy Rash Verified 02/21/22 13:08 gabapentin Allergy Itching Verified 02/21/22 13:08 Yqnohtp-VRG-OzK Reductase AdvReac Severe myalgias Verified 02/21/22 13:08 Inhibitor [Rmwepvu-Ecp-Wpi Reductase Inhibitor] clonidine AdvReac dry mouth Verified 02/21/22 13:08 ropinirole AdvReac Vomiting Verified 02/21/22 13:08 Family History Mother , at age 48 PVD CAD (coronary artery disease) PVD (peripheral vascular disease) Father , Black lung disease No problems noted. Brother Hypertension PVD (peripheral vascular disease) Son Hypertension Surgical History (Updated 01/08/23 @ 19:[address] Amber Virgen MD) History of coronary artery bypass surgery (~09/30/12) History of knee surgery Social History (Updated 01/08/23 @ 19:[address] Amber Virgen MD) adopted: No household members: spouse housing: house number of children: 5 current occupational status: retired current occupational exposures/hazards: No pets and animals: Yes (2) pets and animals: cat(s) leisure activities: other history of recent travel: No other: watching television Smoking Status: Former smoker how long ago did patient quit smoking: Reports quiting remotely. second hand exposure: Yes alcohol intake: current alcohol intake frequency: a few times a month Alcohol type: beer substance use type: does not use well-balanced diet: about half the time caffeine: Yes Type: coffee Number of servings: 1 eating out: 1-3 times/week what type of physical activity do you participate in: none seatbelt use: always do you feel safe at home: Yes ROS ROS Narrative Admission Review of Systems: CONSTITUTIONAL: No weight loss, fever, chills, + weakness or fatigue. HEENT: + Recent oral thrush. Eyes: No visual loss, blurred vision, double vision or yellow sclerae. Ears, Nose, Throat: No hearing loss, sneezing, congestion, runny nose or sore throat. SKIN: No rash or itching, lesions, wounds. CARDIOVASCULAR: No chest pain, chest pressure or chest discomfort, palpitations, edema, orthopnea, syncopal events. RESPIRATORY: No shortness of breath, cough or sputum, wheezing, hemoptysis. GASTROINTESTINAL: + anorexia, No nausea, vomiting or diarrhea, abdominal pain, melena, BRBPR. GENITOURINARY: No dysuria, frequency, urgency or retention. NEUROLOGICAL: + Confusion transiently with hypoglycemia. No headache, dizziness, syncope, paralysis, ataxia, numbness or tingling in the extremities, focal weakness, change in bowel or bladder control, seizure. MUSCULOSKELETAL: + muscle, back pain, joint pain or stiffness. HEMATOLOGIC: + anemia, bleeding or bruising. LYMPHATICS: No enlarged nodes. No history of splenectomy. PSYCHIATRIC: No history of depression or anxiety. ENDOCRINOLOGIC: No reports of sweating, cold or heat intolerance. No polyuria or polydipsia. ALLERGIES: No history of asthma, hives, eczema or rhinitis. Vital Signs Vital Signs Vital Signs: 01/08/23 17:04 01/08/23 17:31 01/08/23 18:18 Temperature 97.4 F L Temperature Source Temporal Pulse Rate 56 L 65 Respiratory Rate 16 16 Respiratory Effort Normal Non-Labored Respiratory Pattern Normal Blood Pressure 136/77 H 122/64 H Blood Pressure Mean 96 83 Pulse Ox 97 99 Oxygen Delivery Method Room Air Room Air Weight Weight: 201 lb 15.095 oz Body Mass Index (BMI) 33.5 Physical Exam Narrative Physical Examination: General: Awake, alert, oriented x 3 and cooperative, seated upright in the ED bed, hard of hearing, initially very reticent to stay. Skin: Normal color, normal turgor, no icterus, no cyanosis. HEENT: AT/NC, EOMI, PERRLA, MMM, no carotid bruits or JVD noted; however, thickened neck makes evaluation difficult, resolving thrush. Lungs: Diminished, mild decrease BL bases, appropriate effort, no rales, ronchi or wheezing. Heart: Currently regular rate and rhythm; no gallop, rub audible. Abdomen: Soft, obese, NTTP, denies distention, distant normal BS, no obvious evidence of HSM. Extremities: No cyanosis, no clubbing, mild BL peripheral non-pitting edema. Neurological: Patient awake, alert, oriented as noted, cognitive function improved and now baseline intact; pupils equally reactive to light and accommodation, cranial nerves grossly normal, moving all 4 extremities, no focal deficits, strength improved, mildly to moderately globally decreased. Psychiatric: Affect appears initially irritable at having to stay, calms with discussions, no acute evidence of depressive or anxiety feelings. Results Lab / Micro Data Result Diagrams: 01/08/23 17:25 01/08/23 17:25 Labs: Laboratory Results - last 24 hr 01/08/23 17:25: WBC 8.6, RBC 3.67 L, Hgb 11.4 L, Hct 35.2 L, MCV 95.9 H, MCH 31.1, MCHC 32.4, RDW Std Deviation 44.2 H, RDW Coeff of [place] 12.6, Plt Count 175, MPV 12.6 H, Immature Gran % (Auto) 0.500, Neut % (Auto) 73.3 H, Lymph % (Auto) 14.8 L, [place] % (Auto) 9.3, Eos % (Auto) 1.5, Baso % (Auto) 0.6, Absolute Neuts (auto) 6.3, Absolute Lymphs (auto) 1.27, Nucleated RBC % 0 01/08/23 17:25: Sodium 136, Potassium 5.2 H, Chloride 105, Carbon Dioxide 24.0, Anion Gap 7, BUN 41 H, Creatinine 2.91 H, Estim Creat Clear Calc 18.20, Est GFR (MDRD) Af Amer 27 L, Est GFR (MDRD) Non-Af 22 L, BUN/Creatinine Ratio 14.1, Glucose 164 H, Calcium 9.5, Total Bilirubin 0.60, AST 73 H, ALT 19, Alkaline Phosphatase 132 H, Total Protein 7.5, Albumin 3.3, Globulin 4.2, Albumin/Globulin Ratio 0.8 L Assessment & Plan Assessment/Plan (1) SARTHAK (acute kidney injury): PLAN: Plan The patient is a 77 y/o M w/ PMHx: Chronic pain with severe osteoarthritis, Obesity, CAD s/p CABG, BPH, COPD w/ Former tobacco use, HTN, HLD, Diabetes mellitus type II who presents to the [facility] ED on 01/08/23 with history of reportedly dropping his at work at about 6:30 in the morning on day of presentation reportedly getting a meal at [employer] on his way home and reporting no further food intake throughout the day although does state he has maintained appropriate hydration with onset following evaluation at his doctor's office for recent oral thrush episode of confusion initially leaving the hill in the car door when he got out feeling like he could not think clearly eventually causing him to pull the car over and letting his drive with blood sugar assessment when he got to the office noted to be 60 with EMS call with D10 given in route. #1. Acute kidney injury suspected secondary to poor intake secondary to oral discomfort with recent thrush: Will admission BUN/Cr 41/2.91, prior baseline creatinine noted to be previous to this primarily 1.1-1.4, most recent prior 02/22/2022 creatinine 1.47. Will judiciously hydrate, hold nephrotoxic medications and repeat chemistry in AM. Will obtain renal ultrasound as well as FeNa assessment and urinalysis. Pending further work-up findings or if worsening renal function may consider renal consultation. #2. Diabetes mellitus type II with reported hypoglycemic event, likely related to poor oral intake: Hold oral home regimen, given currently blood sugars have improved we will transition back to ADA diet, will continue accu checks w/ ISS but if any recurrent hypoglycemic events would plan broadening of diet and hold on any insulin with Accu-Cheks sliding scale and if necessary initiation of dextrose IV fluids. HgbA1c requested. Nutrition consulted for diet education. #3. Oral thrush: We will continue nystatin swish and swallow, encourage continued outpatient follow-up. #4. CAD: Status post prior CABG, will continue aspirin, statin intolerance, continue fenofibrate regimen, continue Coreg, holding patient home losartan given acute kidney injury is noted. #5. Anemia, chronic, macrocytic: Admission hemoglobin 11.4, MCV 95.9, previously has been 12-13, will obtain iron panel, ferritin, vitamin B12, folic acid level as well as guaiac to be cautious, repeat CBC in a.m. #6. Chronic COPD: Not on any chronic routine inhalers per review of current list, will have PRN albuterol, HOB, IS parameters. #7. Hypertension: Continue home regimen including Coreg, amlodipine, holding all other nephrotoxic regimen given acute kidney injury as noted, PRN hydralazine. #8. Hyperlipidemia: We will continue patient home fenofibrate regimen, not on statin therapy per current list with noted reaction of significant myalgias. #9. Obesity: Weight loss and lifestyle changes encouraged. #10. Former tobacco usage: Encourage continued tobacco cessation. #11. BPH: We will continue patient home Flomax regimen. #12. GERD: We will continue patient home PPI. #13. Chronic pain syndrome with severe osteoarthritis: Patient on chronic narcotic therapies as well as meloxicam, given SARTHAK will hold meloxicam and will cautiously continue oxycodone per patient very strong preference however will renally dose pregabalin regimen. #14. DVT Prophylaxis: SCDs, heparin. #15. CODE status: Patient does not have healthcare power of banking attorney per him and his spouse report, living will is however reportedly in place. Discussed CODE status at length including difference between FULL code, DNR-CCA and DNR-CC status. Following discussions about the differences in these status, requested Full Code status. Advanced Care Planning Face to Face Time: 17 minutes. Admission Evaluation Time spent evaluating chart, patient history, patient evaluation, care planning and discussion with specialists: 76 minutes. Charges/Coding Visit Charges Inpatient E&M: 11679 Init Hosp L3 Procedures Hospitalists Procedures: 56061 Advncd Care Plan 30 Min
--- NOTE | 2023-01-08 18:45 | US_ITS ---
INDICATION: SARTHAK EXAMINATION: Ultrasound US Kidney(s) complete (eg, kidneys and bladder) TECHNIQUE: Flores scale and color doppler images were obtained of the kidneys. COMPARISON: 04/19/2019 CT FINDINGS: RIGHT KIDNEY: 11.2 x 4.9 x 6.3 cm. There is no hydronephrosis. 2 calculi, the largest of which measures 8 mm. LEFT KIDNEY: 12.0 x 3.8 x 5.6 cm. There is no hydronephrosis. No shadowing calculus, focal lesion or perinephric collection is demonstrated. URINARY BLADDER: No acute abnormality. US/Kidney and Bladder IMPRESSION: Nonobstructing right renal calculi measure up to 8 mm. No hydronephrosis. Electronically Signed: Shiraz Lou MD at 19:56 EST ,
[2023-01-08 18:47] VITALS: BP 136/90; PULSE 67; RESP 16; TEMP 36.4; O2SAT 99
[2023-01-08] MEDS: 0.9% Normal Saline 1,000 ML 125 ML IV ×2 (19:25→23:20)
[2023-01-08 19:34] LABS: Bacteria 0 SEEN /hpf (None Seen); Mucous, Urine 0 SEEN /hpf (<or=2+); Red Blood Cells-Urine 0 SEEN /hpf (0-5); Squamous Epithelial Cells - UA 0 SEEN /hpf (0-5)
[2023-01-08 19:55] LABS: Bedside Glucose 95 mg/dL (74-106)
[2023-01-08 20:07] LABS: Color, Urine Yellow (Yellow); Glucose, Dipstick Normal (Normal); Ketone-Dipstick Negative (Negative); Leukocyte Esterase-Dipstick Negative /ul (Negative); Nitrite-Dipstick Negative (Negative); Occult Blood-Urine Negative /ul (Negative); Protein-Dipstick 15 mg/dl (Negative); Urine Bilirubin Dipstick Negative (Negative); Urine Clarity Clear (Clear); Urine Urobilinogen Normal (Normal)
[2023-01-08 20:12] LABS: White Blood Cells 0-5 SEEN /hpf (0-5)
[2023-01-08 20:16] LABS: Urine Sodium 56 mmol/L (Not Establ.)
[2023-01-08 20:39] VITALS: BP 145/94; PULSE 74; RESP 18; TEMP 36.8; O2SAT 97
[2023-01-08 21:53] VITALS: BP 139/67; PULSE 73; RESP 18; TEMP 36.5; O2SAT 97
[2023-01-08 21:58] VITALS: BMI 31.4
[2023-01-08 22:18] VITALS: O2SAT 98
[2023-01-08] MEDS: Pregabalin 25 MG Capsule PO (22:30)
[2023-01-08] MEDS: Carvedilol 12.5 MG Tablet PO (22:30)
[2023-01-08] MEDS: Heparin Injection (Vial) 5,000 UNIT/ML VIAL 5000 UNIT SC (22:30)
[2023-01-08] MEDS: Ipratropium Bromide 0.06% NASAL SPRAY 2 SPRAY NASAL (22:30)
[2023-01-08] MEDS: Pantoprazole Sodium 20 MG Tablet PO (22:30)
[2023-01-08] MEDS: NYSTATIN 500,000 UNIT/5 ML UDC 500000 UNIT PO (22:30)
[2023-01-08] MEDS: Tamsulosin HCl 0.4 MG Capsule PO (22:34)
[2023-01-08] MEDS: Acetaminophen 325 MG Tablet 650 MG PO (22:34)
[2023-01-08] MEDS: MELATONIN 3 MG TABLET PO (22:34)
[2023-01-09] MEDS: Dextrose 50%-Water 25 GM/50 ML DISP.SYRIN IV (00:32)
[2023-01-09] MEDS: Dextrose 5%/0.9% NaCl 1,000 ML 125 ML IV ×3 (00:32→18:26)
[2023-01-09 00:55] LABS: Bedside Glucose 59 mg/dL (74-106)
[2023-01-09 00:55] LABS: Bedside Glucose 57 mg/dL (74-106)
[2023-01-09 00:55] LABS: Bedside Glucose 52 mg/dL (74-106)
[2023-01-09 01:16] LABS: Bedside Glucose 177 mg/dL (74-106)
[2023-01-09 04:27] LABS: Absolute Lymphocyte Count 1.06 X10^3/uL (0.83-4.51); Absolute Neutrophil Count 3.3 X10^3/uL (2.0-7.7); Basophil# 0.03 X10^3/uL; Basophil% 0.6 % (0-1); Eosinophil# 0.15 X10^3/uL; Eosinophils% 2.8 % (0-5); Hematocrit 30.7 % (40-54); Hemoglobin 9.9 g/dL (13.0-16.5); Lymphocyte # 1.06 X10^3/ul (0.83-4.51); Lymphocyte % 19.9 % (19-41); Mean Corp Hgb Conc 32.2 g/dL (32-36); Mean Corpuscular Hgb 30.7 pg (27.0-32.0); Mean Platelet Vol. 11.9 fl (6.2-12.0); Monocyte# 0.78 X10^3/uL; Monocyte% 14.6 % (0-10); NRBC Flagged by Analyzer 0 % (0-5); Neutrophil # 3.31 X10^3/uL (2.7-7.7); Neutrophil % 61.9 % (47-70); Platelet Count 154 K/mm3 (150-450); RBC Distribution Width CV 12.6 % (11.6-14.6); Red Blood Count 3.23 M/mm3 (4.6-6.2); White Blood Count 5.3 K/mm3 (4.4-11.0)
[2023-01-09 04:55] LABS: Vitamin B12 378 pg/mL (211-911)
[2023-01-09 05:00] VITALS: BP 130/91; PULSE 65; RESP 18; TEMP 36.9; O2SAT 96
[2023-01-09 05:06] LABS: ALB/GLOB Ratio 0.8 RATIO (0.9-2.4); AST(SGOT) 52 U/L (15-37); Alanine Aminotransfer ALT/SGPT 14 U/L (16-61); Albumin, Serum 2.8 g/dL (3.2-5.0); Alkaline Phosphatase 112 U/L (45-117); Anion Gap 6 (5-15); BUN 35 mg/dL (7-18); Calcium,Total 8.6 mg/dL (8.5-10.1); Chloride 110 mmol/L (98-107); Creatinine, Serum 2.06 mg/dL (0.70-1.30); EST Glomerular Filtration Rate 33 mL/min (>60); Est Glom Filt Rate - Afr Amer 40 mL/min (>60); Estimated Creatinine Clearance 25.71 ml/min; Ferritin 133 ng/mL (26-388); Globulin 3.5 g/dL (2.2-4.2); Glucose 114 mg/dL (74-106); Iron 33 ug/dL (65-175); Iron Binding Capacity,Total 239 ug/dL (250-450); PERCENT IRON SATURATION 13.8 % (15.0-55.0); Protein, Total 6.3 g/dL (6.4-8.2); Sodium Level 140 mmol/L (136-145)
[2023-01-09] MEDS: Acetaminophen 325 MG Tablet 650 MG PO ×4 (05:30→21:45)
[2023-01-09 06:50] LABS: Bedside Glucose 86 mg/dL (74-106)
--- NOTE | 2023-01-09 07:45 | PN.HOSP_ITS ---
Reason for Visit Reason for Visit: Diagnoses Acute kidney failure, unspecified (01/08/23) Subjective Subjective Patient is a 77-year-old gentleman with multiple comorbidities including diabetes mellitus type 2 presented with lethargy found to be hypoglycemic with glucose levels in the 60s. Patient was also found to have acute kidney injury admitted to regular nursing floor for further management Objective Data Objective Data Vital Signs: Vital Signs Temp Pulse Resp BP Pulse Ox O2 Del Method 98.4 F 65 18 130/91 H 96 Room Air 01/09/23 05:00 01/09/23 05:00 01/09/23 05:00 01/09/23 05:00 01/09/23 05:00 01/09/23 05:00 Oxygen Delivery Method Room Air Weight: 84.3 kg Body Mass Index (BMI) 31.4 Intake & Output: Intake and Output for Last 24 Hours 01/07/23 01/08/23 01/09/23 23:59 23:59 23:59 Intake Total 2356.25 / 2506.25 510.42 / 510.42 Output Total 300 / 300 Balance 2356.25 / 2506.25 210.42 / 210.42 Lab / Micro Data Result Diagrams: 01/09/23 04:01 01/09/23 04:01 Labs: Laboratory Results - last 24 hr 01/08/23 17:25: WBC 8.6, RBC 3.67 L, Hgb 11.4 L, Hct 35.2 L, MCV 95.9 H, MCH 31.1, MCHC 32.4, RDW Std Deviation 44.2 H, RDW Coeff of Ashley 12.6, Plt Count 175, MPV 12.6 H, Immature Gran % (Auto) 0.500, Neut % (Auto) 73.3 H, Lymph % (Auto) 14.8 L, [place] % (Auto) 9.3, Eos % (Auto) 1.5, Baso % (Auto) 0.6, Absolute Neuts (auto) 6.3, Absolute Lymphs (auto) 1.27, Nucleated RBC % 0 01/08/23 17:25: Sodium 136, Potassium 5.2 H, Chloride 105, Carbon Dioxide 24.0, Anion Gap 7, BUN 41 H, Creatinine 2.91 H, Estim Creat Clear Calc 18.20, Est GFR (MDRD) Af Amer 27 L, Est GFR (MDRD) Non-Af 22 L, BUN/Creatinine Ratio 14.1, Glucose 164 H, Calcium 9.5, Total Bilirubin 0.60, AST 73 H, ALT 19, Alkaline Phosphatase 132 H, Total Protein 7.5, Albumin 3.3, Globulin 4.2, Albumin/Globulin Ratio 0.8 L 01/08/23 19:23: Urine Color Yellow, Urine Clarity Clear, Urine pH 6.0, Ur Specific [place] 1.010, Urine Protein 15 H, Urine Glucose (UA) Normal, Urine Ketones Negative, Urine Occult Blood Negative, Urine Nitrite Negative, Urine Bilirubin Negative, Urine Urobilinogen Normal, Ur Leukocyte Esterase Negative, Urine RBC 0 SEEN, Urine WBC 0-5 SEEN, Ur Squamous Epith Cells 0 SEEN, Urine Bacteria 0 SEEN, Urine Mucus 0 SEEN 01/08/23 19:23: Ur Random Sodium 56, Urine Creatinine 55.00 01/08/23 19:37: POC Glucose 95 01/08/23 22:27: POC Glucose 57 L 01/08/23 23:21: POC Glucose 52 L 01/08/23 23:59: POC Glucose 59 L 01/09/23 00:55: POC Glucose 177 H 01/09/23 04:01: WBC 5.3, RBC 3.23 L, Hgb 9.9 L, Hct 30.7 L, MCV 95.0 H, MCH 30.7, MCHC 32.2, RDW Std Deviation 44.0 H, RDW Coeff of [place] 12.6, Plt Count 154, MPV 11.9, Immature Gran % (Auto) 0.200, Neut % (Auto) 61.9, Lymph % (Auto) 19.9, [place] % (Auto) 14.6 H, Eos % (Auto) 2.8, Baso % (Auto) 0.6, Absolute Neuts (auto) 3.3, Absolute Lymphs (auto) 1.06, Nucleated RBC % 0 01/09/23 04:01: Sodium 140, Potassium 4.0, Chloride 110 H, Carbon Dioxide 24.0, Anion Gap 6, BUN 35 H, Creatinine 2.06 H, Estim Creat Clear Calc 25.71, Est GFR (MDRD) Af Amer 40 L, Est GFR (MDRD) Non-Af 33 L, BUN/Creatinine Ratio 17.0, Glucose 114 H, Calcium 8.6, Iron 33 L, TIBC 239 L, Iron Saturation 13.8 L, Ferritin 133, Total Bilirubin 0.50, AST 52 H, ALT 14 L, Alkaline Phosphatase 112, Total Protein 6.3 L, Albumin 2.8 L, Globulin 3.5, Albumin/Globulin Ratio 0.8 L, Folate 15.70 01/09/23 04:01: Vitamin B12 378 01/09/23 06:31: POC Glucose 86 Radiography Diagnostic Testing: Radiology Impression Renal Ultrasound 01/08/23 18:45 IMPRESSION: Nonobstructing right renal calculi measure up to 8 mm. No hydronephrosis. Electronically Signed: Shiraz Lou MD at 19:56 EST , Physical Exam Narrative GENERAL: cooperative HEENT: Atraumatic; normocephalic EYES; Anicteric, Normal Conjunctiva NECK; supple, normal thyroid, RESPIRATORY: Diminished to auscultation CARDIOVASCULAR: Regular S1 S2, GI: soft, normoactive bowel sounds, : No Renal angle tenderness; EXTREMITIES: No edema, no clubbing, MUSCULOSKELETAL: no muscle wasting NEURO: Awake; no lateralizing signs. SKIN: No Rash PSYCH; Flat affect Assessment & Plan Assessment/Plan (1) SARTHAK (acute kidney injury): PLAN: Plan Patient is a 77-year-old gentleman with multiple comorbidities including diabetes mellitus type 2 presented with lethargy found to be hypoglycemic with glucose levels in the 60s. Patient was also found to have acute kidney injury admitted to regular nursing floor for further management 1. Acute kidney injury ? Suspected to be secondary to decreased oral intake patient has been admitted to regular nursing floor being managed with IV fluid with subsequent monitoring of electrolytes ordered 2. Hypoglycemia ? The patient with diabetes mellitus type 2 oral medications (glimepiride) held resuscitated with dextrose with subsequent monitoring with Accu-Cheks before meals and at bedtime ordered 3. Oral candidiasis ? Nystatin ordered swish and swallow 4. Coronary artery disease ? With previous CABG. Patient is on aspirin as well as carvedilol continued 5. Hypertension - Blood pressure controlled, home medications continued with dose adjustment as needed 6. Anemia - Secondary to chronic disorder monitoring H&H and transfuse if patient becomes symptomatic or hemoglobin falls below 7 7. COPD ? Nursing exacerbation aerosol treatment as needed 8. Dyslipidemia ? Patient is on fenofibrate apparently has intolerance to statin therapy 9. BPH ? Patient is on tamsulosin discontinued 10. Chronic pain syndrome ? Secondary to severe osteoarthritis discontinue patient nonsteroidal anti- inflammatory medications in view of his impaired kidney function. Did continue with his narcotics 11. Class I obesity with BMI of 31 ? Weight loss advised 12. DVT prophylaxis ? SC heparin 13. Physical deconditioning - Requested for PT OT eval and social media marketing analyst to assist with discharge planning Time spent in the patient's overall evaluation,decision-making process, review of diagnostic data, adjustment of management, discussion with other providers, nursing nursing and ancillary staff involved in patient's care documentation, 56 Minutes Charges/Coding Visit Charges Inpatient E&M: 31408 Subs Hosp L3
[2023-01-09 09:07] VITALS: O2SAT 96
[2023-01-09 09:23] VITALS: BP 123/52; PULSE 65; RESP 18; TEMP 37.2; O2SAT 98
[2023-01-09] MEDS: amLODIPine 10 MG Tablet PO (09:28)
[2023-01-09] MEDS: Aspirin E.C. 81 MG Tablet PO (09:28)
[2023-01-09] MEDS: Docusate Sodium 100 MG Capsule PO (09:28)
[2023-01-09] MEDS: Carvedilol 12.5 MG Tablet PO ×2 (09:28→18:26)
[2023-01-09] MEDS: Ipratropium Bromide 0.06% NASAL SPRAY 2 SPRAY NASAL ×2 (09:29→21:39)
[2023-01-09] MEDS: NYSTATIN 500,000 UNIT/5 ML UDC 500000 UNIT PO ×4 (09:30→21:45)
[2023-01-09] MEDS: Heparin Injection (Vial) 5,000 UNIT/ML VIAL 5000 UNIT SC ×2 (09:30→21:45)
[2023-01-09] MEDS: Fenofibrate 145 MG Tablet PO (09:31)
[2023-01-09] MEDS: Pantoprazole Sodium 20 MG Tablet PO ×2 (09:31→21:45)
[2023-01-09] MEDS: Pregabalin 25 MG Capsule PO ×2 (09:36→21:45)
[2023-01-09 09:48] LABS: Hemoglobin A1c 5.7 % (3.8-5.6)
--- NOTE | 2023-01-09 12:00 | CASEMGMT ---
SUSAN FERNANDES DC Planning Assessment: Face to Face with patient for initial transition planning/care coordination assessment.?Pt sitting up in chair with at bedside. Pt agreeable to participating in assessment with present. SUSAN FERNANDES introduced self and role at [facility], pt voices understanding.?Pt hard of hearing with hearing aides noted to be in pt's ears, noted to be oriented to person, place, and situation but noted the year to be 2025. Pt states he has been having issues with remembering recent events including driving to a recent PCP appointment. Pt's assisted with answering questions. Care providers, pharmacy,?and demographics verified. ? Admitting Dx: SARTHAK PCP: Antonio Specialists: Dr. Russell Aparicio (pain mgmt) Preferred Pharmacy: [facility] Insurance: [facility] Prescription Benefit:?yes Living Will/HPOA: yes/yes--cannot recall who is listed as HPOA. Encouraged pt and pt's to bring in documents to have scanned into pt's EMR. LNOK: Zenaida Living Arrangements: pt lives with his in a single story home with 3 steps to enter. Pt and state pt has been independent with ADLs prior to admission. States he has [place] friends who help with household tasks intermittently. States these friends will be helping to build a ramp for his scooter. Transportation: pt has been driving. Pt's also drives. DME: scooter, cane, handicapped toilet, grab bars in bathroom, glucometer but has not been checking his blood sugars regularly. Pt's wifes states she thinks they have the supplies but will double check. HHC/SNF: denies ? Plan: Pt and pt's state the plan is for the pt to return home at discharge. Some concerns expressed related to pt's mentation and this being a change in the past month. Pt and deny DC needs at this time. Will continue to monitor and assist with DC needs as identified. Pt is not homebound for home health SN services. Zee Farrell RN CM
[2023-01-09 12:05] LABS: Bedside Glucose 161 mg/dL (74-106)
[2023-01-09] MEDS: Insulin Lispro 100 UNIT/ML INSULN.PEN SC (12:35)
[2023-01-09 14:10] VITALS: BP 127/62; PULSE 67; RESP 18; TEMP 37.1; O2SAT 98
[2023-01-09] MEDS: oxyCODONE 5 MG Tablet 7.5 MG PO (16:07)
[2023-01-09] MEDS: 0.9% Saline Lock 10 ML Syringe IV (16:56)
[2023-01-09 17:31] LABS: Bedside Glucose 119 mg/dL (74-106)
[2023-01-09 18:31] VITALS: BP 121/50; PULSE 73; RESP 18; TEMP 36.9; O2SAT 99
[2023-01-09 21:32] VITALS: BP 137/70; PULSE 66; RESP 18; TEMP 36.9; O2SAT 98
[2023-01-09] MEDS: Tamsulosin HCl 0.4 MG Capsule PO (21:45)
[2023-01-09] MEDS: MELATONIN 3 MG TABLET PO (21:45)
[2023-01-09 22:11] LABS: Bedside Glucose 145 mg/dL (74-106)
[2023-01-10] MEDS: oxyCODONE 5 MG Tablet 7.5 MG PO ×2 (00:09→08:40)
[2023-01-10] MEDS: Dextrose 5%/0.9% NaCl 1,000 ML 125 ML IV (02:00)
[2023-01-10 04:04] VITALS: BP 143/70; PULSE 65; RESP 18; TEMP 36.9; O2SAT 98
[2023-01-10 05:35] LABS: Absolute Lymphocyte Count 1.34 X10^3/uL (0.83-4.51); Absolute Neutrophil Count 2.9 X10^3/uL (2.0-7.7); Basophil# 0.05 X10^3/uL; Eosinophil# 0.13 X10^3/uL; Eosinophils% 2.5 % (0-5); Hematocrit 31.3 % (40-54); Hemoglobin 10.1 g/dL (13.0-16.5); Lymphocyte # 1.34 X10^3/ul (0.83-4.51); Lymphocyte % 25.6 % (19-41); Mean Corp Hgb Conc 32.3 g/dL (32-36); Mean Corpuscular Hgb 31.3 pg (27.0-32.0); Mean Corpuscular Volume 96.9 fL (80-94); Mean Platelet Vol. 12.1 fl (6.2-12.0); Monocyte# 0.82 X10^3/uL; Monocyte% 15.7 % (0-10); NRBC Flagged by Analyzer 0 % (0-5); Neutrophil # 2.88 X10^3/uL (2.7-7.7); Platelet Count 156 K/mm3 (150-450); RBC Distribution Width CV 12.7 % (11.6-14.6); RBC Distribution Width SD 45.4 fl (35.1-43.9); Red Blood Count 3.23 M/mm3 (4.6-6.2); White Blood Count 5.2 K/mm3 (4.4-11.0)
[2023-01-10 06:14] LABS: Anion Gap 6 (5-15); BUN 19 mg/dL (7-18); BUN/Creat Ratio 15.3 RATIO (10-20); Calcium,Total 8.6 mg/dL (8.5-10.1); Chloride 113 mmol/L (98-107); Creatinine, Serum 1.24 mg/dL (0.70-1.30); EST Glomerular Filtration Rate 60 mL/min (>60); Est Glom Filt Rate - Afr Amer 73 mL/min (>60); Estimated Creatinine Clearance 42.71 ml/min; Glucose 111 mg/dL (74-106); Magnesium 1.4 mg/dL (1.6-2.6); Phosphorus 2.8 mg/dL (2.5-4.9); Sodium Level 144 mmol/L (136-145)
[2023-01-10 06:31] LABS: Ferritin 134 ng/mL (26-388)
[2023-01-10 07:06] LABS: Bedside Glucose 130 mg/dL (74-106)
--- NOTE | 2023-01-10 07:39 | PN.HOSP_ITS ---
Reason for Visit Reason for Visit: Diagnoses Acute kidney failure, unspecified (01/08/23) Objective Data Objective Data Vital Signs: Vital Signs Temp Pulse Resp BP Pulse Ox O2 Del Method 98.4 F 65 18 143/70 H 98 Room Air 01/10/23 04:04 01/10/23 04:04 01/10/23 04:04 01/10/23 04:04 01/10/23 04:04 01/10/23 04:04 Oxygen Delivery Method Room Air Weight: 84.6 kg Body Mass Index (BMI) 31.4 Intake & Output: Intake and Output for Last 24 Hours 01/08/23 01/09/23 01/10/23 23:59 23:59 23:59 Intake Total 2356.25 / 2506.25 3760.42 / 3760.42 945.83 / 945.83 Output Total 300 / 300 Balance 2356.25 / 2506.25 3460.42 / 3460.42 945.83 / 945.83 Medical Nutrition Assessment Dietitian: Malnutrition Criteria Met Start: 01/09/23 13:36 Freq: Status: Active Protocol: Document 01/09/23 13:36 LO (Rec: 01/09/23 13:36 [id number]) Nutrition Malnutrition Evidence of Malnutrition Exists Yes Malnutrition (severe): Chronic Evidenced By Suboptimal Energy Intake ( Severe),Weight Loss (Severe) Clinical Problem Chronic Disease or Condition Related Malnutrition Etiology severe related to oral thrush Signs/Symptoms as evidenced by 9% weight loss in 1 month and <75% intake of estimated energy needs for 1 month Status Active Problem Recommendation Dietitian Recommendations/Changes Continue 1800 CCD diet to manage medical conditions. RD will order 120mL Glucerna TID with medpass to provide supplemental energy. Lab / Micro Data Result Diagrams: 01/10/23 04:56 01/10/23 04:56 Labs: Laboratory Results - last 24 hr 01/09/23 04:01: Hemoglobin A1c 5.7 H 01/09/23 11:47: POC Glucose 161 H 01/09/23 16:52: POC Glucose 119 H 01/09/23 21:37: POC Glucose 145 H 01/10/23 04:56: WBC 5.2, RBC 3.23 L, Hgb 10.1 L, Hct 31.3 L, MCV 96.9 H, MCH 31.3, MCHC 32.3, RDW Std Deviation 45.4 H, RDW Coeff of Ashley 12.7, Plt Count 156, MPV 12.1 H, Immature Gran % (Auto) 0.200, Neut % (Auto) 55.0, Lymph % (Auto) 25.6, [place] % (Auto) 15.7 H, Eos % (Auto) 2.5, Baso % (Auto) 1.0, Absolute Neuts (auto) 2.9, Absolute Lymphs (auto) 1.34, Nucleated RBC % 0 01/10/23 04:56: Sodium 144, Potassium 4.0, Chloride 113 H, Carbon Dioxide 25.0, Anion Gap 6, BUN 19 H, Creatinine 1.24, Estim Creat Clear Calc 42.71, Est GFR (MDRD) Af Amer 73, Est GFR (MDRD) Non-Af 60, BUN/Creatinine Ratio 15.3, Glucose 111 H, Calcium 8.6, Phosphorus 2.8, Magnesium 1.4 L 01/10/23 04:56: Ferritin 134 01/10/23 06:41: POC Glucose 130 H Physical Exam Narrative GENERAL: cooperative HEENT: Atraumatic; normocephalic EYES; Anicteric, Normal Conjunctiva NECK; supple, normal thyroid, RESPIRATORY: Diminished to auscultation CARDIOVASCULAR: Regular S1 S2, GI: soft, normoactive bowel sounds, : No Renal angle tenderness; EXTREMITIES: No edema, no clubbing, MUSCULOSKELETAL: no muscle wasting NEURO: Awake; no lateralizing signs. SKIN: No Rash PSYCH; Flat affect Assessment & Plan Assessment/Plan (1) SARTHAK (acute kidney injury): PLAN: Plan Patient is a 77-year-old gentleman with multiple comorbidities including diabetes mellitus type 2 presented with lethargy found to be hypoglycemic with g lucose levels in the 60s. Patient was also found to have acute kidney injury admitted to regular nursing floor for further management 1. Acute kidney injury ? Suspected to be secondary to decreased oral intake patient has been admitted to regular nursing floor being managed with IV fluid with subsequent monitoring of electrolytes ordered 2. Hypoglycemia ? The patient with diabetes mellitus type 2 oral medications (glimepiride) held resuscitated with dextrose with subsequent monitoring with Accu-Cheks before meals and at bedtime ordered 3. Oral candidiasis ? Nystatin ordered swish and swallow 4. Coronary artery disease ? With previous CABG. Patient is on aspirin as well as carvedilol continued 5. Hypertension - Blood pressure controlled, home medications continued with dose adjustment as needed 6. Anemia - Secondary to chronic disorder monitoring H&H and transfuse if patient becomes symptomatic or hemoglobin falls below 7 7. COPD ? Nursing exacerbation aerosol treatment as needed 8. Dyslipidemia ? Patient is on fenofibrate apparently has intolerance to statin therapy 9. BPH ? Patient is on tamsulosin discontinued 10. Chronic pain syndrome ? Secondary to severe osteoarthritis discontinue patient nonsteroidal anti- inflammatory medications in view of his impaired kidney function. Did continue with his narcotics 11. Class I obesity with BMI of 31 ? Weight loss advised 12. DVT prophylaxis ? SC heparin 13. Physical deconditioning - Requested for PT OT eval and social sciences professor to assist with discharge planning 14. Severe malnutrition related to oral thrush as evidenced by 9% weight loss in 1 month and <75% intake of estimated energy needs for 1 month, Continue 1800 CCD diet to manage medical conditions. RD will order 120mL Glucerna TID with medpass to provide supplemental energy. Time spent in the patient's overall evaluation,decision-making process, review of diagnostic data, adjustment of management, discussion with other providers, nursing nursing and ancillary staff involved in patient's care documentation, 39 Minutes Charges/Coding Visit Charges Inpatient E&M: 19129 Subs Hosp L2
[2023-01-10 07:56] VITALS: O2SAT 92
[2023-01-10 08:29] VITALS: BP 122/104; PULSE 74; RESP 18; TEMP 36.9; O2SAT 97
[2023-01-10] MEDS: Carvedilol 12.5 MG Tablet PO (08:32)
[2023-01-10] MEDS: amLODIPine 10 MG Tablet PO (08:32)
[2023-01-10] MEDS: 0.9% Saline Lock 10 ML Syringe IV (08:36)
[2023-01-10] MEDS: Acetaminophen 325 MG Tablet 650 MG PO ×2 (08:40→12:33)
--- NOTE | 2023-01-10 09:00 | PCM.DC.SUM ---
Providers Date of Admission: 01/08/23 Date of Discharge: 01/10/23 Primary Care Physician: Dr. Jhon Alvarez, DO Reason For Visit: SARTHAK Diagnosis Discharge Diagnosis (1) SARTHAK (acute kidney injury): Status: Acute Code(s): N17.9 - Acute kidney failure, unspecified Plan Patient is a 77-year-old gentleman with multiple comorbidities including diabetes mellitus type 2 presented with lethargy found to be hypoglycemic with glucose levels in the 60s. Patient was also found to have acute kidney injury admitted to regular nursing floor for further management 1. Acute kidney injury ? Suspected to be secondary to decreased oral intake patient has been admitted to regular nursing floor being managed with IV fluid with subsequent monitoring of electrolytes ordered 2. Hypoglycemia ? The patient with diabetes mellitus type 2 oral medications (glimepiride) held resuscitated with dextrose with subsequent monitoring with Accu-Cheks before meals and at bedtime ordered ? Patient was on glimepiride not listed on his home medications. This was discontinued on discharge patient and informed. 3. Oral candidiasis ? Nystatin ordered swish and swallow 4. Coronary artery disease ? With previous CABG. Patient is on aspirin as well as carvedilol continued 5. Hypertension - Blood pressure controlled, home medications continued with dose adjustment as needed 6. Anemia - Secondary to chronic disorder monitoring H&H and transfuse if patient becomes symptomatic or hemoglobin falls below 7 7. COPD ? Nursing exacerbation aerosol treatment as needed 8. Dyslipidemia ? Patient is on fenofibrate apparently has intolerance to statin therapy 9. BPH ? Patient is on tamsulosin discontinued 10. Chronic pain syndrome ? Secondary to severe osteoarthritis discontinue patient nonsteroidal anti-inflammatory medications in view of his impaired kidney function. Did continue with his narcotics 11. Class I obesity with BMI of 31 ? Weight loss advised 12. DVT prophylaxis ? SC heparin 13. Physical deconditioning - Requested for PT OT eval and family welfare social work professor to assist with discharge planning 14. Severe malnutrition related to oral thrush as evidenced by 9% weight loss in 1 month and <75% intake of estimated energy needs for 1 month, Continue 1800 CCD diet to manage medical conditions. RD will order 120mL Glucerna TID with medpass to provide supplemental energy. Time spent in the patient's overall evaluation,decision-making process, review of diagnostic data, adjustment of management, discussion with other providers, nursing nursing and ancillary staff involved in patient's care documentation, 39 Minutes Medications at Discharge Home Medications aspirin 81 mg tablet,delayed release (Adult Low Dose Aspirin) 81 mg PO QDAY heart health 11/03/17 albuterol sulfate 90 mcg/actuation aerosol inhaler 1 - 2 puff inhalation Q4H PRN PRN COPD 05/25/19 ipratropium bromide 21 mcg (0.03 %) nasal spray 2 spray intranasal BID Check with primary doctor 12/30/19 docusate sodium 100 mg capsule 100 mg PO DAILY stool softener 02/21/22 oxycodone-acetaminophen 7.5 mg-325 mg tablet (Percocet) 1 tab PO Q8H PRN Pain 02/21/22 pregabalin 50 mg capsule 50 mg PO TID Check with primary doctor 02/21/22 amlodipine 10 mg tablet 10 mg PO DAILY HTN 01/08/23 carvedilol 12.5 mg tablet (Coreg) 12.5 mg PO BID HTN 01/08/23 losartan 100 mg tablet 100 mg PO DAILY HTN 01/08/23 acetaminophen 325 mg capsule (Tylenol) 650 mg PO Q6H PRN Pain 01/09/23 albuterol sulfate 90 mcg/actuation aerosol inhaler 2 puff inhalation Q4H PRN PRN COPD 01/09/23 cholecalciferol (vitamin D3) 1,250 mcg (50,000 unit) tablet 1,250 mcg PO QWEEK supplement 01/09/23 diclofenac sodium 1 % topical gel 2 ea topical Q6H PRN PRN Pain 01/09/23 magnesium oxide 250 mg PO DAILY supplement 01/09/23 tamsulosin 0.4 mg capsule 0.4 mg PO QHS BPH 01/09/23 Hospital Course Operations None Summary of Care Provided Minutes Spent on Discharge: 39 Physical Exam Narrative GENERAL: cooperative HEENT: Atraumatic; normocephalic EYES; Anicteric, Normal Conjunctiva NECK; supple, normal thyroid, RESPIRATORY: Diminished to auscultation CARDIOVASCULAR: Regular S1 S2, GI: soft, normoactive bowel sounds, : No Renal angle tenderness; EXTREMITIES: No edema, no clubbing, MUSCULOSKELETAL: no muscle wasting NEURO: Awake; no lateralizing signs. SKIN: No Rash PSYCH; Flat affect Medical Records Data Medical Nutrition Assessment Dietitian: Malnutrition Criteria Met Start: 01/09/23 13:36 Freq: Status: Active Protocol: Document 01/09/23 13:36 (Rec: 01/09/23 13:36 [id number]) Nutrition Malnutrition Evidence of Malnutrition Exists Yes Malnutrition (severe): Chronic Evidenced By Suboptimal Energy Intake ( Severe),Weight Loss (Severe) Clinical Problem Chronic Disease or Condition Related Malnutrition Etiology severe related to oral thrush Signs/Symptoms as evidenced by 9% weight loss in 1 month and <75% intake of estimated energy needs for 1 month Status Active Problem Recommendation Dietitian Recommendations/Changes Continue 1800 CCD diet to manage medical conditions. RD will order 120mL Glucerna TID with medpass to provide supplemental energy. Weight / BMI Weight Weight: 84.6 kg Body Mass Index (BMI) 31.4 ABG / Lab / Microbiology Data Result Diagrams: 01/10/23 04:56 01/10/23 04:56 Laboratory: Laboratory Results - last 24 hr 01/09/23 04:01: Hemoglobin A1c 5.7 H 01/09/23 11:47: POC Glucose 161 H 01/09/23 16:52: POC Glucose 119 H 01/09/23 21:37: POC Glucose 145 H 01/10/23 04:56: WBC 5.2, RBC 3.23 L, Hgb 10.1 L, Hct 31.3 L, MCV 96.9 H, MCH 31.3, MCHC 32.3, RDW Std Deviation 45.4 H, RDW Coeff of Ashley 12.7, Plt Count 156, MPV 12.1 H, Immature Gran % (Auto) 0.200, Neut % (Auto) 55.0, Lymph % (Auto) 25.6, [place] % (Auto) 15.7 H, Eos % (Auto) 2.5, Baso % (Auto) 1.0, Absolute Neuts (auto) 2.9, Absolute Lymphs (auto) 1.34, Nucleated RBC % 0 01/10/23 04:56: Sodium 144, Potassium 4.0, Chloride 113 H, Carbon Dioxide 25.0, Anion Gap 6, BUN 19 H, Creatinine 1.24, Estim Creat Clear Calc 42.71, Est GFR (MDRD) Af Amer 73, Est GFR (MDRD) Non-Af 60, BUN/Creatinine Ratio 15.3, Glucose 111 H, Calcium 8.6, Phosphorus 2.8, Magnesium 1.4 L 01/10/23 04:56: Ferritin 134 01/10/23 06:41: POC Glucose 130 H D/C Instructions Discharge Diet: 1800 Calorie Control Diet Discharge Activity: Return to Normal Activity Call your doctor if you observe: Fever of 101 or Higher, Shortness of breath, Fainting spells and Chest pain Meaningful Use Info Meaningful Use Diagnoses (Choose all that apply): None applicable Discharge Plan Admission Admit Date/Time: 01/08/23 18:37 Attending Provider: Naveed May Primary Care Provider: Jhon Alvarez Consulting Providers: Amber Virgen Discharge Orders/Prescriptions Prescriptions: Continued aspirin [Adult Low Dose Aspirin] 81 mg tablet,delayed release (DR/EC) 81 mg PO QDAY Label Comments: has not taken since May oxycodone-acetaminophen [Percocet] 7.5-325 mg tablet 1 tab PO Q8H PRN (Reason: Pain) ipratropium bromide 0.03 % spray,non-aerosol 2 spray INTRANASAL BID Rx Instructions: administer into each nostril pregabalin 50 mg capsule 50 mg PO TID docusate sodium 100 mg capsule 100 mg PO DAILY albuterol sulfate 1 INHALER inhaler 1 - 2 puff INHALATION Q4H PRN PRN (Reason: COPD) carvedilol [Coreg] 12.5 mg tablet 12.5 mg PO BID Rx Instructions: must administer with a meal/food amlodipine 10 mg tablet 10 mg PO DAILY losartan 100 mg tablet 100 mg PO DAILY tamsulosin 0.4 mg Capsule 0.4 mg PO QHS albuterol sulfate 90 mcg/actuation HFA aerosol inhaler 2 puff INHALATION Q4H PRN PRN (Reason: COPD) magnesium oxide 250 mg magnesium Tablet 250 mg PO DAILY acetaminophen [Tylenol] 325 mg Capsule 650 mg PO Q6H PRN (Reason: Pain) diclofenac sodium 1 % Gel 2 ea TOPICAL Q6H PRN PRN (Reason: Pain) cholecalciferol (vitamin D3) 1,250 mcg (50,000 unit) Tablet 1,250 mcg PO QWEEK Discontinued meloxicam 15 mg tablet 15 mg PO DAILY PRN (Reason: Pain) furosemide 40 mg Tablet 40 mg PO DAILY potassium chloride 10 mEq Tablet Extended Release 10 meq PO BID Referrals / Follow Up: Jhon Alvarez DO [Primary Care Provider] - In 1 Week Disposition Disposition (needs filled in before D/C Order can be placed): Home, Self Care Charges/Coding Visit Charges Inpatient E&M: 11757 Disch Hosp >30min
--- NOTE | 2023-01-10 09:35 | CASEMGMT ---
SUSAN FERNANDES Follow-up: Face to face with pt and pt's at bedside. Pt sitting up in chair. Discussed PT recommendations for outpt tx at discharge. Pt and agreeable. Pt states he does not want to start therapy immediately after dc and wants to get settled back at home first. Explained that a prescription of PT will be provided and he can schedule his appointment based on his preference. Pt and agreeable. Reinforced need to monitor his blood sugars regularly as well as maintain a diet and fluid intake. Pt and expressed understanding. No additional dc needs identified at this time. Zee Farrell RN CM
[2023-01-10] MEDS: Magnesium Sulfate 4gm/100mL 4 GM/100 ML IV.SOLN. IV (09:47)
[2023-01-10] MEDS: Ipratropium Bromide 0.06% NASAL SPRAY 2 SPRAY NASAL (09:49)
[2023-01-10] MEDS: Aspirin E.C. 81 MG Tablet PO (09:50)
[2023-01-10] MEDS: Heparin Injection (Vial) 5,000 UNIT/ML VIAL 5000 UNIT SC (09:50)
[2023-01-10] MEDS: Pantoprazole Sodium 20 MG Tablet PO (09:50)
[2023-01-10] MEDS: Docusate Sodium 100 MG Capsule PO (09:50)
[2023-01-10] MEDS: Fenofibrate 145 MG Tablet PO (09:50)
[2023-01-10] MEDS: NYSTATIN 500,000 UNIT/5 ML UDC 500000 UNIT PO (09:50)
[2023-01-10] MEDS: Pregabalin 25 MG Capsule PO (10:01)
[2023-01-10 11:41] LABS: Bedside Glucose 182 mg/dL (74-106)
[2023-01-10] MEDS: Insulin Lispro 100 UNIT/ML INSULN.PEN SC (12:29)
[2023-01-10 14:07] VITALS: BP 132/64; PULSE 66; RESP 18; TEMP 36.4; O2SAT 99
== END 2023-01-10 14:18 | disposition home or self-care (01) | DRG 682 ==
LOC: ED 18:43 → MS3 21:20
PROVIDERS: Hospitalist; Admitting Provider Family Medicine; Emergency Provider Student in an Organized Health Care Education/Training Program; PCP Student in an Organized Health Care Education/Training Program; Visit Provider Internal Medicine
DX: N17.9 Acute kidney failure, unspecified (principal); E43 Unspecified severe protein-calorie malnutrition; B37.0 Candidal stomatitis; E11.649 Type 2 diabetes mellitus with hypoglycemia without coma; J44.9 Chronic obstructive pulmonary disease, unspecified; I10 Essential (primary) hypertension; E78.00 Pure hypercholesterolemia, unspecified; K21.9 Gastro-esophageal reflux disease without esophagitis; I25.10 Atherosclerotic heart disease of native coronary artery without angina pectoris; M19.90 Unspecified osteoarthritis, unspecified site; E87.5 Hyperkalemia; G89.4 Chronic pain syndrome; N40.0 Benign prostatic hyperplasia without lower urinary tract symptoms; Z68.31 Body mass index [BMI] 31.0-31.9, adult; Z79.82 Long term (current) use of aspirin; Z79.84 Long term (current) use of oral hypoglycemic drugs; Z79.899 Other long term (current) drug therapy; Z87.891 Personal history of nicotine dependence; Z95.1 Presence of aortocoronary bypass graft
CPT/HCPCS: 36415; 76770; 80048; 80053; 81001; 82570; 82607; 82728; 82746; 82962; 83036; 83540; 83550; 83735; 84100; 84300; 85025; 94668; 97162; 97166; 97530; 97802; 99252; 99285; J7030; A4216; G0463

== ENCOUNTER 2023-03-20 17:26 | Inpatient (IN) | payer MEDICARE, SELFPAY ==
[2023-03-20] VITALS (12 sets, daily range): BP systolic 134–182; BP diastolic 71–147; PULSE 75–112; RESP 12–39; TEMP 36.4–36.9; O2SAT 40–99; BMI 31.7; BMI 31.1
--- NOTE | 2023-03-20 17:49 | EKG12_ITS ---
Test Reason : SOB Blood Pressure : / mmHG Vent. Rate : 111 BPM Atrial Rate : 000 BPM P-R Int : 000 ms QRS Dur : 154 ms QT Int : 366 ms P-R-T Axes : 000 -39 118 degrees QTc Int : 497 ms Atrial fibrillation with premature ventricular complexes Left axis deviation Left bundle branch block Abnormal ECG Confirmed by SARAH JHAVERI, TOLU ([id number]), acquisitions editor ANSELMO HAMPTON ([id number]) on 03/24/2023 12:36:25 PM Referred By: Dominic Lugo Confirmed By:TOLU SMITH MD
--- NOTE | 2023-03-20 17:50 | ED.VIS.DYS ---
HPI History of Present Illness Chief Complaint: Shortness of Breath Narrative Narrative: 77-year-old male presenting with dyspnea. He states he has been more short of breath for about a week but acutely became short of breath about an hour ago and was having difficulty catching his breath. He states he walked outside and by the time he could walk back in he could not catch his breath. EMS was called. He presents on CPAP. Apparently he was wheezing prior to arrival and was given a breathing treatment. Patient does admit to history of COPD. Patient denies any chest pain. He is not smoking anymore. He has not had a fever this week. He does state that he has some abdominal discomfort in the right lower abdomen which has been there for about 2 years. He has some swelling in this area. He states that his primary care physician and is going to get obtain a CT scan of this as an outpatient this week. Its not severely painful. [facility] Medical History Atherosclerotic heart disease of enterprise coronary artery without angina pectoris BPH (benign prostatic hyperplasia) CAD (coronary artery disease) Chronic pain syndrome Contact with or suspected exposure to other viral communicable disease COPD (chronic obstructive pulmonary disease) Essential hypertension Gastroenteritis GERD (gastroesophageal reflux disease) Hypertriglyceridemia Kidney stones Nonrheumatic aortic (valve) stenosis Pure hypercholesterolemia Type 2 diabetes mellitus Home Medications aspirin 81 mg tablet,delayed release (Adult Low Dose Aspirin) 81 mg PO QDAY [facility] 11/03/17 [History Last Taken 01/08/23] albuterol sulfate 90 mcg/actuation aerosol inhaler 1 - 2 puff inhalation Q4H PRN PRN COPD 05/25/19 [History Last Taken 01/08/23] ipratropium bromide 21 mcg (0.03 %) nasal spray 2 spray intranasal BID Check with primary doctor 12/30/19 [History Last Taken Unknown] docusate sodium 100 mg capsule 100 mg PO DAILY stool softener 02/21/22 [History Last Taken 01/08/23] oxycodone-acetaminophen 7.5 mg-325 mg tablet (Percocet) 1 tab PO Q8H PRN Pain 02/21/22 [History Last Taken Unknown] pregabalin 50 mg capsule 50 mg PO TID Check with primary doctor 02/21/22 [History Last Taken 01/08/23] carvedilol 12.5 mg tablet (Coreg) 12.5 mg PO BID HTN 01/08/23 [History Last Taken 01/08/23] acetaminophen 325 mg capsule (Tylenol) 650 mg PO Q6H PRN Pain 01/09/23 [History Last Taken Unknown] albuterol sulfate 90 mcg/actuation aerosol inhaler 2 puff inhalation Q4H PRN PRN COPD 01/09/23 [History Last Taken Unknown] cholecalciferol (vitamin D3) 1,250 mcg (50,000 unit) tablet 1,250 mcg PO QWEEK supplement 01/09/23 [History Last Taken Unknown] diclofenac sodium 1 % topical gel 2 ea topical Q6H PRN PRN Pain 01/09/23 [History Last Taken Unknown] magnesium oxide 250 mg PO DAILY supplement 01/09/23 [History Last Taken 01/08/23] tamsulosin 0.4 mg capsule 0.4 mg PO QHS BPH 01/09/23 [History Last Taken 01/07/23] amlodipine 10 mg tablet 10 mg PO DAILY HTN #90 tabs 03/18/23 [Rx Last Taken Unknown] losartan 100 mg tablet 100 mg PO DAILY HTN #90 tabs 03/18/23 [Rx Last Taken Unknown] Allergy/AdvReac Type Severity Reaction Status Date / Time tramadol [From [facility]] Allergy Severe Itching Verified 02/21/22 13:08 adhesive Allergy Rash Verified 02/21/22 13:08 gabapentin Allergy Itching Verified 02/21/22 13:08 [id number] Reductase AdvReac Severe myalgias Verified 02/21/22 13:08 Inhibitor [Avztmgf-Aut-Khl Reductase Inhibitor] clonidine AdvReac dry mouth Verified 02/21/22 13:08 ropinirole AdvReac Vomiting Verified 02/21/22 13:08 Family History Mother , at age 48 PVD CAD (coronary artery disease) PVD (peripheral vascular disease) Father , Black lung disease No problems noted. Brother Hypertension PVD (peripheral vascular disease) Son Hypertension Surgical History History of coronary artery bypass surgery (~09/30/12) History of knee surgery Social History adopted: No household members: spouse housing: house number of children: 5 current occupational status: retired current occupational exposures/hazards: No pets and animals: Yes (2) pets and animals: cat(s) leisure activities: other history of recent travel: No other: watching television Smoking Status: Former smoker how long ago did patient quit smoking: Reports quiting remotely. second hand exposure: Yes alcohol intake: current alcohol intake frequency: a few times a month Alcohol type: beer substance use type: does not use well-balanced diet: about half the time caffeine: Yes Type: coffee Number of servings: 1 eating out: 1-3 times/week what type of physical activity do you participate in: none seatbelt use: always do you feel safe at home: Yes ROS ROS ED Constitutional Constitutional ED: Denies chills or fever(s) Eyes Eyes: Denies change in vision ENT ENT ED: Reports rhinorrhea Cardiovascular Cardiovascular: Denies chest pain or palpitations Respiratory/Chest Respiratory/Chest: Reports dyspnea and dyspnea on exertion Gastrointestinal Gastrointestinal: Reports abdominal pain; Denies nausea or vomiting Genitourinary Genitourinary ED: Denies dysuria or hematuria Musculoskeletal Musculoskeletal: Denies arthralgias Integumentary Denies abscess Neurologic Neurologic: Denies headache(s) or paresthesias Psychiatric Psychiatric: Denies anxiety or depression Endocrine Endocrinology: Denies cold intolerance Hematologic/Lymphatic Hematologic/Lymphatic: Denies easy bleeding EXAM Physical Exam Const Vital Signs: 03/20/23 17:27 03/20/23 17:26 03/20/23 17:32 Temperature 98.4 F Temperature Source Temporal Pulse Rate 107 H Respiratory Rate 26 H 30 H Respiratory Effort Labored Accessory Muscle Use Respiratory Pattern Tachypnea Blood Pressure 182/147 H Blood Pressure Mean 158 Pulse Ox 85 91 Oxygen Delivery Method Non-Rebreather Non-Rebreather Fraction of Inspired Oxygen (FIO2) 03/20/23 17:41 03/20/23 18:46 03/20/23 19:00 Temperature Temperature Source Pulse Rate 112 H 83 79 Respiratory Rate 39 H 22 H 13 Respiratory Effort Respiratory Pattern Normal Blood Pressure 134/80 H 149/79 H Blood Pressure Mean 98 102 Pulse Ox 98 98 99 Oxygen Delivery Method Bi-pap Bi-pap Fraction of Inspired Oxygen (FIO2) 60 Positive well nourished HEENT Reports moist mucous membranes Eyes PERRL and EOMs intact bilaterally Neck no lymphadenopathy and no meningeal signs Resp Resp Narrative: On BiPAP. Appears not to be in any distress. Cardio regular rhythm Rate: tachycardic GI GI Narrative: Mild tenderness to the right lower abdomen/flank Auscultation: normoactive bowel sounds Back/Spine no CVA tenderness Neuro oriented x3 and CN's II-XII intact bilaterally Motor Exam: strength 5/5 throughout Skin no wounds General Skin Exam: Negative for jaundice Sepsis Attestation Sepsis Alert: Yes Sepsis Attestation: Agree w/Sepsis Date exam was performed: 03/20/23 Time exam was performed: 17:55 Possible Source of Sepsis: Pulmonary Sepsis Organ Dysfunction Criteria Present: Acute Respiratory Failure (New need for BiPAP/CPAP or MV) and Lactic Acid > 2 mmol/L Fluid Resuscitation Reason for lesser fluid bolus:: Concern for fluid overload and Heart failure MDM MDM MDM Narrative Medical decision making narrative: 77-year-old male presenting with shortness of breath. He states its been about a week but he is acutely short of breath today after walking outside and back in. He arrives on CPAP and was switched to BiPAP. He states that this is helping him. EMS felt he was wheezing gave him a breathing treatment. I do not appreciate wheezing on examination. Patient was tachycardic, tachypneic, hypoxic so a septic work-up was undertaken. Patient was pancultured. Patient does have some lower extremity edema and I do have concern clinically for CHF so I withheld fluids since the patient has been normotensive. He looks very well on BiPAP as well. CBC shows a leukocytosis of 19.4. Hemoglobin 12.7, platelets 283. INR and PTT within normal limits. PT slightly prolonged at 15.9. Renal function and electrolytes are normal. Glucose 209 without anion gap. Total bilirubin 1.3. Other LFTs are normal lactic acid 2.6. Urinalysis was negative for infection. Chest x-ray on my interpretation shows a right lower lobe infiltrate with an effusion. It does not like he has some pulmonary vascular congestion as well. The radiologist services and agrees. Patient was given vancomycin and Zosyn as he had a recent admission in January. D-dimer came back elevated so I ordered a CTA of the chest. Patient was also complaining of some right-sided abdominal pain which has been there for a long time but I will image this as well. Patient has been doing very well on BiPAP. His vital signs are stable. Discussed with the hospitalist for admission. CT images are pending. These will be followed on the floor. Impression: 1. Sepsis 2. Right lower lobe pneumonia 3. CHF 4. Leukocytosis 5. Hypoxic respiratory failure 6. Abdominal pain Lab Data Labs: Laboratory Results - last 24 hr 03/20/23 03/20/23 03/20/23 17:32 17:32 17:32 WBC 19.4 H RBC 4.14 L Hgb 12.7 L Hct 39.3 L MCV 94.9 H MCH 30.7 MCHC 32.3 RDW Std Deviation 48.5 H RDW Coeff of Ashley 13.8 Plt Count 283 MPV 12.2 H Immature Gran % (Auto) 0.600 Neut % (Auto) 76.4 H Lymph % (Auto) 14.2 L [place] % (Auto) 8.2 Eos % (Auto) 0.2 Baso % (Auto) 0.4 Absolute Neuts (auto) 14.9 H Absolute Lymphs (auto) 2.76 Nucleated RBC % 0 Differential Comment SCANNED Diff Path Review March foll PT 15.9 H INR 1.3 APTT 29.4 D-Dimer Quant (PE/DVT) 1.56 H* Sodium 138 Potassium 3.5 Chloride 105 Carbon Dioxide 27.0 Anion Gap 6 BUN 16 Creatinine 1.09 Estim Creat Clear Calc 48.59 Est GFR (MDRD) Af Amer 84 Est GFR (MDRD) Non-Af 70 BUN/Creatinine Ratio 14.7 Glucose 209 H Lactic Acid Calcium 9.8 Total Bilirubin 1.30 H AST 25 ALT 18 Alkaline Phosphatase 104 Troponin I High Sens B-Natriuretic Peptide Total Protein 8.4 H Albumin 3.7 Globulin 4.7 H Albumin/Globulin Ratio 0.8 L Urine Color Urine Clarity Urine pH Ur Specific [place] Urine Protein Urine Glucose (UA) Urine Ketones Urine Occult Blood Urine Nitrite Urine Bilirubin Urine Urobilinogen Ur Leukocyte Esterase Urine RBC Urine WBC Ur Squamous Epith Cells Urine Bacteria Urine Mucus 03/20/23 03/20/23 03/20/23 17:32 17:32 17:40 WBC RBC Hgb Hct MCV MCH MCHC RDW Std Deviation RDW Coeff of Ashley Plt Count MPV Immature Gran % (Auto) Neut % (Auto) Lymph % (Auto) [place] % (Auto) Eos % (Auto) Baso % (Auto) Absolute Neuts (auto) Absolute Lymphs (auto) Nucleated RBC % Differential Comment Diff Path Review PT INR APTT D-Dimer Quant (PE/DVT) Sodium Potassium Chloride Carbon Dioxide Anion Gap BUN Creatinine Estim Creat Clear Calc Est GFR (MDRD) Af Amer Est GFR (MDRD) Non-Af BUN/Creatinine Ratio Glucose Lactic Acid Calcium Total Bilirubin AST ALT Alkaline Phosphatase Troponin I High Sens 62 B-Natriuretic Peptide 796.1 H Total Protein Albumin Globulin Albumin/Globulin Ratio Urine Color Yellow Urine Clarity Sl. Cloudy Urine pH 6.5 Ur Specific [place] 1.015 Urine Protein 500 H Urine Glucose (UA) Normal Urine Ketones Negative Urine Occult Blood 25 H Urine Nitrite Negative Urine Bilirubin Negative Urine Urobilinogen 1 H Ur Leukocyte Esterase Negative Urine RBC 0-5 SEEN Urine WBC 0-5 SEEN Ur Squamous Epith Cells 0 SEEN Urine Bacteria 1+ Urine Mucus 0 SEEN 03/20/23 17:55 WBC RBC Hgb Hct MCV MCH MCHC RDW Std Deviation RDW Coeff of Ashley Plt Count MPV Immature Gran % (Auto) Neut % (Auto) Lymph % (Auto) [place] % (Auto) Eos % (Auto) Baso % (Auto) Absolute Neuts (auto) Absolute Lymphs (auto) Nucleated RBC % Differential Comment Diff Path Review PT INR APTT D-Dimer Quant (PE/DVT) Sodium Potassium Chloride Carbon Dioxide Anion Gap BUN Creatinine Estim Creat Clear Calc Est GFR (MDRD) Af Amer Est GFR (MDRD) Non-Af BUN/Creatinine Ratio Glucose Lactic Acid 2.6 H* Calcium Total Bilirubin AST ALT Alkaline Phosphatase Troponin I High Sens B-Natriuretic Peptide Total Protein Albumin Globulin Albumin/Globulin Ratio Urine Color Urine Clarity Urine pH Ur Specific [place] Urine Protein Urine Glucose (UA) Urine Ketones Urine Occult Blood Urine Nitrite Urine Bilirubin Urine Urobilinogen Ur Leukocyte Esterase Urine RBC Urine WBC Ur Squamous Epith Cells Urine Bacteria Urine Mucus Radiography Diagnostic Testing: Clinical Impression(s) from Imaging Studies Chest X-Ray 03/20/23 18:19 IMPRESSION: Right lower lobe pneumonia with parapneumonic effusion. Mild central pulmonary venous congestion. Electronically Signed: Wisam Márquez MD at 18:45 EDT , Discharge Plan Triage Chief Complaint: Shortness of Breath ED Provider: Dominic Lugo Dx/Rx/DC Orders Primary Care Provider: Jhon Alvarez
[2023-03-20 17:57] LABS: Mucous, Urine 0 SEEN /hpf (<or=2+); Squamous Epithelial Cells - UA 0 SEEN /hpf (0-5)
[2023-03-20 17:59] LABS: Absolute Lymphocyte Count 2.76 X10^3/uL (0.83-4.51); Absolute Neutrophil Count 14.9 X10^3/uL (2.0-7.7); Basophil# 0.07 X10^3/uL; Basophil% 0.4 % (0-1); Eosinophil# 0.04 X10^3/uL; Eosinophils% 0.2 % (0-5); Hematocrit 39.3 % (40-54); Hemoglobin 12.7 g/dL (13.0-16.5); Lymphocyte # 2.76 X10^3/ul (0.83-4.51); Lymphocyte % 14.2 % (19-41); Mean Corp Hgb Conc 32.3 g/dL (32-36); Mean Corpuscular Hgb 30.7 pg (27.0-32.0); Mean Corpuscular Volume 94.9 fL (80-94); Mean Platelet Vol. 12.2 fl (6.2-12.0); Monocyte% 8.2 % (0-10); NRBC Flagged by Analyzer 0 % (0-5); Neutrophil # 14.85 X10^3/uL (2.7-7.7); Neutrophil % 76.4 % (47-70); POSITIVE DIFFERENTIAL YES; Platelet Count 283 K/mm3 (150-450); RBC Distribution Width CV 13.8 % (11.6-14.6); RBC Distribution Width SD 48.5 fl (35.1-43.9); Red Blood Count 4.14 M/mm3 (4.6-6.2); White Blood Count 19.4 K/mm3 (4.4-11.0)
[2023-03-20 18:00] LABS: Color, Urine Yellow (Yellow); Glucose, Dipstick Normal (Normal); Ketone-Dipstick Negative (Negative); Leukocyte Esterase-Dipstick Negative /ul (Negative); Nitrite-Dipstick Negative (Negative); Occult Blood-Urine 25 /ul (Negative); Protein-Dipstick 500 mg/dl (Negative); Specific Gravity, Urine 1.015 (1.002-1.030); Urine Bilirubin Dipstick Negative (Negative); Urine Clarity Sl. Cloudy (Clear); Urine Urobilinogen 1 mg/dl (Normal); Urine pH 6.5 (5.0 - 8.0)
[2023-03-20 18:19] LABS: White Blood Cells 0-5 SEEN /hpf (0-5)
--- NOTE | 2023-03-20 18:19 | RAD_ITS ---
INDICATION: dyspnea EXAMINATION/TECHNIQUE: X-RAY - XR Chest 1 View COMPARISON: 08/04/2020. FINDINGS: Right lower lobe consolidation. Mild central pulmonary venous congestion. Sternal cerclage wires and vascular clips are present from a prior sternotomy and coronary artery bypass graft procedure (CABG). Tortuous and calcified thoracic aorta. The heart is mildly enlarged. Trace right pleural effusion. No pneumothorax. Degenerative changes of the thoracic spine. RAD/Chest 1 View (Portable) IMPRESSION: Right lower lobe pneumonia with parapneumonic effusion. Mild central pulmonary venous congestion. Electronically Signed: Wisam Márquez MD at 18:45 EDT ,
[2023-03-20 18:20] LABS: Bacteria 1+ /hpf (None Seen); Red Blood Cells-Urine 0-5 SEEN /hpf (0-5)
[2023-03-20 18:31] LABS: International Normalized Ratio 1.3; Partial Thromboplast Time 29.4 Seconds (24.1-36.2); Prothrombin Time (Protime)PT. 15.9 SECONDS (11.7-14.9)
[2023-03-20 18:32] LABS: Differential Indicated SCAN CRITERIA MET
[2023-03-20 18:33] LABS: Differential Comment SCANNED
[2023-03-20 18:37] LABS: ALB/GLOB Ratio 0.8 RATIO (0.9-2.4); AST(SGOT) 25 U/L (15-37); Alanine Aminotransfer ALT/SGPT 18 U/L (16-61); Albumin, Serum 3.7 g/dL (3.2-5.0); Alkaline Phosphatase 104 U/L (45-117); Anion Gap 6 (5-15); BUN 16 mg/dL (7-18); BUN/Creat Ratio 14.7 RATIO (10-20); Calcium,Total 9.8 mg/dL (8.5-10.1); Chloride 105 mmol/L (98-107); Creatinine, Serum 1.09 mg/dL (0.70-1.30); EST Glomerular Filtration Rate 70 mL/min (>60); Est Glom Filt Rate - Afr Amer 84 mL/min (>60); Estimated Creatinine Clearance 48.59 ml/min; Globulin 4.7 g/dL (2.2-4.2); Glucose 209 mg/dL (74-106); Potassium 3.5 mmol/L (3.5-5.1); Protein, Total 8.4 g/dL (6.4-8.2); Sodium Level 138 mmol/L (136-145)
[2023-03-20 18:38] LABS: BNP,B-Type NATRIURETIC PEPTIDE 796.1 pg/mL (0-100)
[2023-03-20 18:44] LABS: Lactic Acid 2.6 mmol/L (0.4-1.9)
--- NOTE | 2023-03-20 18:44 | ED.RN ---
Critical lab called. Lactic 2.6. Dr. Lugo notified.
[2023-03-20 19:15] LABS: D-Dimer Quantitative (DVT/PE) 1.56 FEU/ug/m (0.27-0.49)
--- NOTE | 2023-03-20 19:16 | CT_ITS ---
INDICATION: hypoxic resiratory failure EXAMINATION: CTA Chest WO/W Contrast Injection TECHNIQUE: Helically acquired images were obtained of the chest following administration of IV contrast. A radiation dose optimization technique was used for this scan. 3D postprocessing images including MIPS were reviewed. IV Contrast dosage and agent: IV 100mL [id number] COMPARISON: None. FINDINGS: Lungs: Interlobular septal thickening in the lung bases. Groundglass opacities with consolidation in the lower lung zones. Mediastinum: The heart is mildly enlarged. No mediastinal, hilar or axillary adenopathy. Moderate aortic arch and coronary artery calcifications. No obvious filling defect seen within the visualized pulmonary arteries. Pleura: Small right and trace left pleural effusions. Bones/Soft tissues: There are diffuse degenerative changes of the spine. Upper abdomen: Refer to CT abdomen and pelvis report same date. CT/CTA Chest W/WO Contrast IMPRESSION: Cardiomegaly with pulmonary edema and small right/trace left pleural effusions. Cannot rule out superimposed infection in the right lung base. Electronically Signed: Wisam Márquez MD at 21:03 EDT ,
--- NOTE | 2023-03-20 19:16 | CT_ITS ---
INDICATION: hernia EXAMINATION: CT Abdomen And Pelvis W/ Contrast Injection TECHNIQUE: Helically acquired images were obtained of the abdomen and pelvis after IV contrast. A radiation dose optimization technique was used for this scan. IV Contrast dosage and agent: IV 100mL Isovue-370 Oral contrast: None. COMPARISON: None. FINDINGS: Visualized lung bases: Refer to CTA chest report same date. Liver: Nodular contour compatible with early cirrhosis. There is clot seen within the main portal vein, right portal vein and a more peripheral wedge shaped area in the right hepatic lobe. Gallbladder: Few small intraluminal stones seen. Spleen: Unremarkable Pancreas: Unremarkable Adrenal Glands: Unremarkable Kidneys: A few punctate nonobstructing stones in the right lower renal pole. Vasculature: Severe aortoiliac atherosclerotic disease. GI Tract: Unremarkable Lymphadenopathy: None Peritoneum: Trace ascites. Bladder: Unremarkable Reproductive organs: Unremarkable Bones/Soft tissues: Mild scattered degenerative changes of the visualized spine. Small fat-containing bilateral inguinal hernias. 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 There is also subtle hypoattenuation surrounding this area. Cannot rule out underlying malignancy. Recommend multiphase MR abdomen with and without contrast for further evaluation. Cirrhotic liver with evidence of portal hypertension including small volume ascites. Cholelithiasis. Nonobstructive nephrolithiasis. Small fat-containing bilateral inguinal hernias. Electronically Signed: Wisam Márquez MD at 20:59 EDT ,
[2023-03-20 19:28] LABS: Troponin-I HS 62 pg/mL (3.0-78.0)
--- NOTE | 2023-03-20 19:58 | PCM.HP.STD ---
HPI - General General Date of Admission: 03/20/23 Date of Service: 03/20/23 Chief Complaint: Dyspnea, respiratory distress. HPI Narrative The patient is a 77 y/o M w/ PMHx: Chronic anemia, CAD s/p CABG, HTN, HLD, BPH, Chronic pain syndrome, Valvular Heart Disease, Diabetes mellitus type II, COPD w/ former tobacco use history who presents to the [facility] ED on 03/20/23 with history of progressively worsening dyspnea over the last week although more severe approximately 1 hour prior to ED presentation reportedly being unable to catch his breath noting he had initially been walking outside but had to go in because of dyspnea prompting EMS call with significant respiratory distress upon their arrival prompting CPAP administration with also wheezing noted with breathing treatment administered with no recent fevers or chills although he does report some chronic abdominal discomfort to the right lower quadrant which has been persistent and ongoing for nearly 2 years with reportedly planned outpatient CT per his PCP this week but he denies any significant severe pain to this region and this has been stable and constant. Patient denies any significant marked productive cough but does report he had significant congestion and postnasal drip with mild diffuse throbbing aching headache, mildly severe rated 1-3 out of 10 in severity at [place]. Work-up in the ED included T98.4, heart rate 107 with most recent repeat 83, BP initially 182/147 with most recent repeat 134/80, initially presenting with respiratory rate 30 with oxygenation 91% on a nonrebreather worsening to 85% on a nonrebreather eventually placed on BiPAP with 60% FiO2 improving to oxygenation 98% with respiratory rate 22, CBC with WBC 19.4, hemoglobin 12.7, MCV 94.9, platelet 283 with left shift, coags with PT 15.9 and D-dimer 1.56 otherwise not marked appearing, CMP with glucose 209, lactic acid 2.6, T. bili 1.30, BNP 796.1, troponin 62, urinalysis with specific gravity 1.015, protein 500, occult blood 25, negative nitrite, leukocyte Estrace negative, urine 1+ bacteria, blood culture x2 pending per ED, urine culture pending per ED, rapid SARS COVID and influenza antigen negative, chest x-ray with right lower lobe pneumonia with parapneumonic effusion with mild central pulmonary venous congestion concurrently, CT abdomen pelvis as well as CTA chest being obtained per ED physician upon evaluation with results pending at admission. In the ED patient ministered vancomycin and Zosyn. [facility] Medical History Atherosclerotic heart disease of [place] coronary artery without angina pectoris BPH (benign prostatic hyperplasia) CAD (coronary artery disease) Chronic pain syndrome Contact with or suspected exposure to other viral communicable disease COPD (chronic obstructive pulmonary disease) Essential hypertension Gastroenteritis GERD (gastroesophageal reflux disease) Hypertriglyceridemia Kidney stones Nonrheumatic aortic (valve) stenosis Pure hypercholesterolemia Type 2 diabetes mellitus Home Medications aspirin 81 mg tablet,delayed release (Adult Low Dose Aspirin) 81 mg PO QDAY [facility] 11/03/17 [History Last Taken 01/08/23] albuterol sulfate 90 mcg/actuation aerosol inhaler 1 - 2 puff inhalation Q4H PRN PRN COPD 05/25/19 [History Last Taken 01/08/23] ipratropium bromide 21 mcg (0.03 %) nasal spray 2 spray intranasal BID Check with primary doctor 12/30/19 [History Last Taken Unknown] docusate sodium 100 mg capsule 100 mg PO DAILY stool softener 02/21/22 [History Last Taken 01/08/23] oxycodone-acetaminophen 7.5 mg-325 mg tablet (Percocet) 1 tab PO Q8H PRN Pain 02/21/22 [History Last Taken Unknown] pregabalin 50 mg capsule 50 mg PO TID Check with primary doctor 02/21/22 [History Last Taken 01/08/23] carvedilol 12.5 mg tablet (Coreg) 12.5 mg PO BID HTN 01/08/23 [History Last Taken 01/08/23] acetaminophen 325 mg capsule (Tylenol) 650 mg PO Q6H PRN Pain 01/09/23 [History Last Taken Unknown] albuterol sulfate 90 mcg/actuation aerosol inhaler 2 puff inhalation Q4H PRN PRN COPD 01/09/23 [History Last Taken Unknown] cholecalciferol (vitamin D3) 1,250 mcg (50,000 unit) tablet 1,250 mcg PO QWEEK supplement 01/09/23 [History Last Taken Unknown] diclofenac sodium 1 % topical gel 2 ea topical Q6H PRN PRN Pain 01/09/23 [History Last Taken Unknown] magnesium oxide 250 mg PO DAILY supplement 01/09/23 [History Last Taken 01/08/23] tamsulosin 0.4 mg capsule 0.4 mg PO QHS BPH 01/09/23 [History Last Taken 01/07/23] amlodipine 10 mg tablet 10 mg PO DAILY HTN #90 tabs 03/18/23 [Rx Last Taken Unknown] losartan 100 mg tablet 100 mg PO DAILY HTN #90 tabs 03/18/23 [Rx Last Taken Unknown] Allergy/AdvReac Type Severity Reaction Status Date / Time tramadol [From Ultra] Allergy Severe Itching Verified 02/21/22 13:08 adhesive Allergy Rash Verified 02/21/22 13:08 gabapentin Allergy Itching Verified 02/21/22 13:08 [id number] Reductase AdvReac Severe myalgias Verified 02/21/22 13:08 Inhibitor [Ozpvsjz-Cdb-Evn Reductase Inhibitor] clonidine AdvReac dry mouth Verified 02/21/22 13:08 ropinirole AdvReac Vomiting Verified 02/21/22 13:08 Family History Mother , at age 48 PVD CAD (coronary artery disease) PVD (peripheral vascular disease) Father , Black lung disease No problems noted. Brother Hypertension PVD (peripheral vascular disease) Son Hypertension Surgical History History of coronary artery bypass surgery (~09/30/12) History of knee surgery Social History adopted: No household members: spouse housing: house number of children: 5 current occupational status: retired current occupational exposures/hazards: No pets and animals: Yes (2) pets and animals: cat(s) leisure activities: other history of recent travel: No other: watching television Smoking Status: Former smoker how long ago did patient quit smoking: Reports quiting remotely. second hand exposure: Yes alcohol intake: current alcohol intake frequency: a few times a month Alcohol type: beer substance use type: does not use well-balanced diet: about half the time caffeine: Yes Type: coffee Number of servings: 1 eating out: 1-3 times/week what type of physical activity do you participate in: none seatbelt use: always do you feel safe at home: Yes ROS ROS Narrative Admission Review of Systems: CONSTITUTIONAL: No weight loss, fever, chills, + weakness or fatigue. HEENT: + Headache, post-nasal drip, congestion. Eyes: No visual loss, blurred vision, double vision or yellow sclerae. Ears, Nose, Throat: No hearing loss, sneezing, sore throat. SKIN: No rash or itching, lesions, wounds. CARDIOVASCULAR: + Mild peripheral pedal edema. No chest pain, chest pressure or chest discomfort, palpitations, orthopnea, syncopal events. RESPIRATORY: + shortness of breath, mild cough without productive sputum, occasional wheezing, No hemoptysis. GASTROINTESTINAL: No anorexia, nausea, vomiting or diarrhea, abdominal pain, melena, BRBPR. GENITOURINARY: No dysuria, frequency, urgency or retention. NEUROLOGICAL: + headache, No dizziness, syncope, paralysis, ataxia, numbness or tingling in the extremities, focal weakness, change in bowel or bladder control, seizure. MUSCULOSKELETAL: + muscle, back pain, joint pain or stiffness. HEMATOLOGIC: + anemia, bleeding or bruising. LYMPHATICS: No enlarged nodes. No history of splenectomy. PSYCHIATRIC: No history of depression or anxiety. ENDOCRINOLOGIC: No reports of sweating, cold or heat intolerance. No polyuria or polydipsia. ALLERGIES: + history of rhinitis. Vital Signs Vital Signs Vital Signs: 03/20/23 17:27 03/20/23 17:26 03/20/23 17:32 Temperature 98.4 F Temperature Source Temporal Pulse Rate 107 H Respiratory Rate 26 H 30 H Respiratory Effort Labored Accessory Muscle Use Respiratory Pattern Tachypnea Blood Pressure 182/147 H Blood Pressure Mean 158 Pulse Ox 85 91 Oxygen Delivery Method Non-Rebreather Non-Rebreather Fraction of Inspired Oxygen (FIO2) 03/20/23 17:41 03/20/23 18:46 Temperature Temperature Source Pulse Rate 112 H 83 Respiratory Rate 39 H 22 H Respiratory Effort Respiratory Pattern Normal Blood Pressure 134/80 H Blood Pressure Mean 98 Pulse Ox 98 98 Oxygen Delivery Method Bi-pap Fraction of Inspired Oxygen (FIO2) 60 Weight Weight: 190 lb 11.198 oz Body Mass Index (BMI) 31.7 Physical Exam Narrative Physical Examination: General: Awake, alert, oriented to self, place and recent events, notes feeling significantly improved following BiPAP administration, BiPAP still currently in place, cooperative, seated upright in ED bed, respiratory distress improved. Skin: Normal color, normal turgor, no icterus, no cyanosis. HEENT: AT/NC, EOMI, PERRLA, dry MM, BiPAP in place, difficult to assess carotid bruit given referred sounds with BiPAP, + mild JVD noted. Lungs: Significantly diffusely diminished, tight, currently unable to discern any rales, rhonchi or wheezing but respiratory rate is still increased with mild accessory muscle usage, BiPAP in place, respiratory distress is improving however. Heart: Tachycardic with regular rhythm; no gallop, rub audible, + SM. Abdomen: Soft, obese, mild discomfort to the right lower quadrant palpation but no rebound or guarding and unable to discern any specific hernia, no obvious distention, distant normal BS, no HSM. Extremities: No cyanosis, no clubbing, mild ankle edema. Neurological: Patient awake, alert, oriented as noted, cognitive function intact; pupils equally reactive to light and accommodation, cranial nerves II-XII grossly normal, moving all 4 extremities, no focal deficits, strength severely global decrease secondary to acute presentation. Psychiatric: Affect appears fatigued, respiratory distress is improving with BiPAP in place currently, no acute evidence of depressive or anxiety feelings. Results Lab / Micro Data Result Diagrams: 03/20/23 17:32 03/20/23 17:32 Labs: Laboratory Results - last 24 hr 03/20/23 17:32: WBC 19.4 H, RBC 4.14 L, Hgb 12.7 L, Hct 39.3 L, MCV 94.9 H, MCH 30.7, MCHC 32.3, RDW Std Deviation 48.5 H, RDW Coeff of [place] 13.8, Plt Count 283, MPV 12.2 H, Immature Gran % (Auto) 0.600, Neut % (Auto) 76.4 H, Lymph % (Auto) 14.2 L, [place] % (Auto) 8.2, Eos % (Auto) 0.2, Baso % (Auto) 0.4, Absolute Neuts (auto) 14.9 H, Absolute Lymphs (auto) 2.76, Nucleated RBC % 0, Differential Comment SCANNED, Diff Path Review March03/20/23 17:32: PT 15.9 H, INR 1.3, APTT 29.4, D-Dimer Quant (PE/DVT) 1.56 H* 03/20/23 17:32: Sodium 138, Potassium 3.5, Chloride 105, Carbon Dioxide 27.0, Anion Gap 6, BUN 16, Creatinine 1.09, Estim Creat Clear Calc 48.59, Est GFR (MDRD) Af Amer 84, Est GFR (MDRD) Non-Af 70, BUN/Creatinine Ratio 14.7, Glucose 209 H, Calcium 9.8, Total Bilirubin 1.30 H, AST 25, ALT 18, Alkaline Phosphatase 104, Total Protein 8.4 H, Albumin 3.7, Globulin 4.7 H, Albumin/Globulin Ratio 0.8 L 03/20/23 17:32: B-Natriuretic Peptide 796.1 H 03/20/23 17:40: Urine Color Yellow, Urine Clarity Sl. Cloudy, Urine pH 6.5, Ur Specific [place] 1.015, Urine Protein 500 H, Urine Glucose (UA) Normal, Urine Ketones Negative, Urine Occult Blood 25 H, Urine Nitrite Negative, Urine Bilirubin Negative, Urine Urobilinogen 1 H, Ur Leukocyte Esterase Negative, Urine RBC 0-5 SEEN, Urine WBC 0-5 SEEN, Ur Squamous Epith Cells 0 SEEN, Urine Bacteria 1+, Urine Mucus 0 SEEN 03/20/23 17:55: Lactic Acid 2.6 H* Micro: Microbiology 03/20/23 18:05 Nasal Secretion SARS-CoV-2 & FLU Antigen (Rapid) - Final Radiology Impression Chest X-Ray 03/20/23 18:19 IMPRESSION: Right lower lobe pneumonia with parapneumonic effusion. Mild central pulmonary venous congestion. Electronically Signed: Wisam Márquez MD at 18:45 EDT , Assessment & Plan Assessment/Plan (1) Pneumonia: PLAN: Plan The patient is a 77 y/o M w/ PMHx: Chronic anemia, CAD s/p CABG, HTN, HLD, BPH, Chronic pain syndrome, Valvular Heart Disease, Diabetes mellitus type II, COPD w/ former tobacco use history who presents to the [facility] ED on 03/20/23 with history of progressively worsening dyspnea over the last week although more severe approximately 1 hour prior to ED presentation reportedly being unable to catch his breath noting he had initially been walking outside but had to go in because of dyspnea prompting EMS call with significant respiratory distress upon their arrival prompting CPAP administration with also wheezing noted with breathing treatment administered with no recent fevers or chills although he does report some chronic abdominal discomfort to the right lower quadrant which has been persistent and ongoing for nearly 2 years with reportedly planned outpatient CT per his PCP this week but he denies any significant severe pain to this region and this has been stable and constant. #1. Acute Sepsis (Fever, leukocytosis, hypoxia, tachypnea, lactic acidosis, source present) secondary to Acute Hypoxic Respiratory Failure secondary to RLL PNA with concurrent Possible Acute on Chronic COPD Exacerbation and concern for Volume Overload w/ Possible Acute CHF Exacerbation, unclear type complicated by underlying valvular heart disease: Will admit to the PCU, will continue BIPAP, will then maintain on oxygen with wean as tolerated to room air, continue ATC duonebs, PRN albuterol, IV solumedrol, maintained on IV Zosyn and Vancomycin w/ MRSA screen pending w/ de-escalation as able, HOB, IS parameters w/ pending sputum cultures, full respiratory viral panel, COVID PCR and urine antigens. Bld cx x 2 obtained in the ED. Will also maintain on cardiac telemetry, obtain cardiac enzyme series, obtain serial EKGs, initiate pulse dose IV lasix diuresis given concern for concurrent overload, monitor I/Os, maintain on intake restriction, continue medical therapy, obtain TSH and magnesium level. Most recent ECHO noted 06/04/2022 with mild segmental systolic dysfunction, EF 45%, mild concentric LVH, LA mildly enlarged, mild MVI, mild TVI, moderately severe aortic valve stenosis, trivial AV insufficiency, calcified aortic root, RV systolic pressure 31 mmHg, transmitral diastolic flow velocities suggestive of diastolic dysfunction thus will repeat to be cautious. #2. Chronic right lower quadrant abdominal pain: Notes that this is stable and unchanged with planned PCP evaluation this coming week for planned scheduling of CT, ED physician did obtain CT abdomen pelvis, results pending upon evaluation. #3. Diabetes mellitus type II: Hold oral home regimen, continue home insulin regimen, ADA diet, accu checks w/ ISS. #4. Chronic macrocytic anemia: Admission hemoglobin 12.7, baseline appears primarily 09-12 but more recently 10-11, stable, continue to trend. #5. CAD: Status post prior CABG, will continue aspirin, statin intolerance, continue fenofibrate regimen, continue Coreg, holding patient home losartan given acute kidney injury is noted. #6. Hypertension: Continue home regimen including Coreg, amlodipine, losartan, IV Lasix given concern for mild overload with transition back to oral once appropriate, as needed IV hydralazine. #7. Hyperlipidemia: We will continue patient home fenofibrate regimen, not on statin therapy per current list with noted reaction of significant myalgias. FLP in AM. #8. Obesity: Weight loss and lifestyle changes encouraged. #9. Former tobacco usage: Encourage continued tobacco cessation. #10. BPH: We will continue patient home Flomax regimen. #11. GERD: We will continue patient home PPI. #12. Chronic pain syndrome with severe osteoarthritis: Patient on chronic narcotic therapies as well as meloxicam as well as pregabalin regimen, will continue with hold parameters as needed. #13. DVT Prophylaxis: Lovenox. #14. 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 Discussed CODE status at length including difference between FULL code, DNR-CCA and DNR-CC status. Following discussions about the differences in these status, requested Full Code status. Advanced Care Planning Face to Face Time: 17 minutes. Admission Evaluation Time spent evaluating chart, patient history, patient evaluation, care planning and discussion with specialists: 75 minutes.
[2023-03-20 20:31] LABS: Magnesium 1.7 mg/dL (1.6-2.6)
--- NOTE | 2023-03-20 20:36 | ECHOCS_ITS ---
Reason For Study: CHF Procedure This was a 2D Doppler, Color Flow transthoracic echocardiogram. The study was technically difficult. Contrast injection was performed. Exam performed portable in patient room. Left Ventricle Moderate concentric left ventricular hypertrophy. The estimated ejection fraction is 40-45 %. Right Ventricle Normal right ventricle. Normal systolic function. Atria The left atrium is mildly enlarged. Normal right atrium. Mitral Valve There is mild mitral annular calcification. Mild (1+) mitral valve insufficiency. Tricuspid Valve Normal tricuspid valve. Trivial tricuspid valve insufficiency. Aortic Valve Severe diffuse aortic valve calcification. Severe aortic stenosis. Peak aortic valve gradient 83.9 mmhg mmHg. Mean aortic valve gradient 53.4 mmhg mmHg. CARLOS 0.73 cm2. Mild (1+) aortic valve insufficiency. Pulmonic Valve The pulmonic valve is not well visualized. Great Vessels Normal aortic root. Pericardium/Pleural No pericardial effusion. Medication Diluted definity 2ml given slow IV push to enhance endocardial definition. MMode/2D Measurements & Calculations LVIDd: 5.5 cm IVSd: 1.7 cm LVOT diam: 2.1 cm LVIDs: 4.9 cm LVPWd: 1.1 cm RVDd: 3.3 cm FS: 11.1 % LVOT area: 3.6 cm2 Ao root diam: 3.2 cm LAV(MOD-bp): 58.8 ml LA A4 area: 18.5 cm2 LA dimension: 4.7 cm LAV(MOD-bp) Indexed: 30.6 ml/m2 LAV(MOD-sp2): 69.1 ml LAV(MOD-sp4): 45.0 ml RA A4 area: 11.8 cm2 Time Measurements MV dec time: 0.27 sec Doppler Measurements & Calculations MV E max franco: 104.3 cm/sec Lat Peak E' Franco: 9.2 cm/sec Med Peak E' Franco: 5.4 cm/sec MV A max franco: 85.5 cm/sec E/E' lat: 11.4 E/E' med: 19.3 MV E/A: 1.2 MV V2 max: 124.5 cm/sec MV P1/2t max franco: 125.5 cm/sec Ao V2 max: 457.6 cm/sec MV max P.2 mmHg MV P1/2t: 89.9 msec Ao max P.9 mmHg MV V2 mean: 66.9 cm/sec MV dec slope: 408.7 cm/sec2 Ao V2 mean: 345.4 cm/sec MV mean P.1 mmHg Ao mean P.4 mmHg MV V2 VTI: 32.8 cm MVA(P1/2t): 2.4 cm2 Ao V2 VTI: 117.5 cm MVA(VTI): 2.4 cm2 AV (velocity ratio): 0.19 CARLOS(I,D): 0.68 cm2 CARLOS(V,D): 0.73 cm2 LV V1 max: 93.5 cm/sec SV(LVOT): 80.1 ml PA V2 max: 122.8 cm/sec LV V1 max P.5 mmHg LV V1 mean P.9 mmHg LV V1 mean: 65.5 cm/sec LV V1 VTI: 22.3 cm ECHO/Echo Complete W/ Contrast Interpretation Summary The estimated ejection fraction is 40-45 %. Peak aortic valve gradient 83.9 mmhg mmHg. Mean aortic valve gradient 53.4 mmhg mmHg. CARLOS 0.73 cm2 Severe calcific aortic valve stenosis with mild AI. Mild to moderate LV systolic dysfunction with moderate concentric left ventricu lar hypertrophy Mild MR. In comparison to prior echocardiogram, worsening of aortic valve calcific steno sis, June 04, 2022 Ordering Physician: Amber Virgen Referring Physician: Dominic Lugo Performed By: Bereket Pagan RCS
--- NOTE | 2023-03-20 20:54 | PCM.RX.CS ---
Consult Pharmacy has been consulted to manage selected antiobiotic: Vancomycin Type of Consult: New start Prior Doses of Antibiotics Received/Current Regimen: Medications Vancomycin HCl 2,000 mg/ (Sodium Chloride) 540 mls @ 250 mls/hr IV X1 ONE Stop: 03/20/23 22:09 Last Admin: 03/20/23 20:16 Dose: 250 mls/hr Labs: Sodium 138 mmol/L (136-145) 03/20/23 17:32 Potassium 3.5 mmol/L (3.5-5.1) 03/20/23 17:32 Chloride 105 mmol/L (98-107) 03/20/23 17:32 Carbon Dioxide 27.0 mmol/L (21.0-32.0) 03/20/23 17:32 Anion Gap 6 (5-15) 03/20/23 17:32 BUN 16 mg/dL (7-18) 03/20/23 17:32 Creatinine 1.09 mg/dL (0.70-1.30) 03/20/23 17:32 Est GFR (MDRD) Af Amer 84 mL/min (>60) 03/20/23 17:32 Est GFR (MDRD) Non-Af 70 mL/min (>60) 03/20/23 17:32 BUN/Creatinine Ratio 14.7 RATIO (10-20) 03/20/23 17:32 Glucose 209 mg/dL (74-106) H 03/20/23 17:32 Microbiology: Microbiology 03/20/23 17:40 Urine, Clean Catch Legionella Antigen - Final 03/20/23 17:40 Urine, Clean Catch Streptococcus pneumoniae Antigen (M - Final 03/20/23 18:05 Nasal Secretion SARS-CoV-2 & FLU Antigen (Rapid) - Final Weight used for dosin kg Estimated Creatinine Clearance: 49 Goal Trough: 15-20 mcg/mL Pharmacy Plan for Drug Dosinmg given x1, 500mg q12h with trough prior to 4th dose. Pharmacy Service will continue to monitor and adjust dosing as required. Follow-Up Labs: Trough Vancomycin - 03/22 @ 0730
--- NOTE | 2023-03-20 21:09 | MRI_ITS ---
INDICATION: Abnormal CT, thrombi present, possible liver malig. EXAMINATION: MRI - MR Abdomen WO/W Contrast TECHNIQUE: Multiplanar and multisequence MR images of the abdomen were obtained. IV Contrast Dosage and Agent: 14ML CLARISCAN IV 14ML CLARISCAN COMPARISON: CT abdomen yesterday FINDINGS: Visualized lung bases: Refer to CTA chest report yesterday. Liver: Nodular contour compatible with early cirrhosis. Redemonstration of clot seen within the main portal vein, right portal vein and a more peripheral wedge shaped area in the right hepatic lobe. No T2 hyperintense or enhancing mass seen. Gallbladder: Few small intraluminal T2 dark stones seen. Spleen: Unremarkable Pancreas: Unremarkable Adrenal Glands: Unremarkable Kidneys: A few punctate nonobstructing stones in the right lower renal pole. Vasculature: Severe aortoiliac atherosclerotic disease. GI Tract: Unremarkable Lymphadenopathy: None Peritoneum: Trace ascites. Bones/Soft tissues: Mild scattered degenerative changes of the visualized spine. MRI/MRI Abd WITH and W/O Contrast IMPRESSION: Limited examination due to extreme motion and respiratory artifact on most sequences. Despite limitations: Redemonstration of portal venous thrombus within the main portal vein, right portal vein and a more peripheral wedge shaped area in the right hepatic lobe. No suspicious T2 hyperintense or enhancing mass seen. Cirrhotic liver with evidence of portal hypertension including small volume ascites. Cholelithiasis. Electronically Signed: Wisam Márquez MD at 17:38 EDT ,
[2023-03-20 21:36] LABS: Procalcitonin 0.29 ng/mL (0.00-0.09)
[2023-03-20 21:43] LABS: Troponin-I HS 1412 pg/mL (3.0-78.0)
[2023-03-20] MEDS: Tamsulosin HCl 0.4 MG Capsule PO (21:54)
[2023-03-20] MEDS: Furosemide 40 MG/4 ML Vial IV (21:54)
[2023-03-20] MEDS: Pregabalin 50 MG Capsule PO (21:54)
[2023-03-20] MEDS: Carvedilol 12.5 MG Tablet PO (21:54)
[2023-03-20 22:07] LABS: Reflex Lactate? Y
[2023-03-20] MEDS: Heparin Injection (Vial) 5,000 UNIT/ML VIAL 6000 UNIT IV (22:11)
[2023-03-20] MEDS: oxyCODONE 5 MG Tablet 7.5 MG PO (22:15)
[2023-03-20] MEDS: 0.9% Saline Lock 10 ML Syringe IV (22:22)
[2023-03-20] MEDS: Ipratropium/Albuterol Sulfate 3 ML AMPUL.NEB INHALATION (22:25)
[2023-03-20 23:04] LABS: Lactic Acid 2.5 mmol/L (0.4-1.9)
[2023-03-20] MEDS: HEPARIN/D5w 25,000 UNITS 25,000 UNITS/250 ML IV.SOLN. 12 UNITS CONT INF (23:11)
[2023-03-20] MEDS: Insulin Lispro 100 UNIT/ML INSULN.PEN SC (23:22)
[2023-03-21] VITALS (14 sets, daily range): BP systolic 125–142; BP diastolic 52–94; PULSE 61–82; RESP 12–22; TEMP 36.4–36.6; O2SAT 95–99; BMI 31.1
[2023-03-21 00:15] LABS: M R Staph aureus DNA By PCR Negative (Negative); Probe Check PASS; Specimen Processing Control PASS
[2023-03-21] MEDS: Acetaminophen 325 MG Tablet 650 MG PO ×3 (00:35→15:26)
[2023-03-21 00:47] LABS: Troponin-I HS 2811 pg/mL (3.0-78.0)
[2023-03-21 00:56] LABS: Bedside Glucose 179 mg/dL (74-106)
[2023-03-21] MEDS: 0.9% Saline Lock 10 ML Syringe IV ×6 (03:34→23:08)
[2023-03-21 05:21] LABS: Absolute Lymphocyte Count 0.74 X10^3/uL (0.83-4.51); Absolute Neutrophil Count 6.2 X10^3/uL (2.0-7.7); Basophil# 0.01 X10^3/uL; Basophil% 0.1 % (0-1); Hematocrit 33.1 % (40-54); Hemoglobin 10.9 g/dL (13.0-16.5); Lymphocyte # 0.74 X10^3/ul (0.83-4.51); Lymphocyte % 10.3 % (19-41); Mean Corp Hgb Conc 32.9 g/dL (32-36); Mean Corpuscular Hgb 31.1 pg (27.0-32.0); Mean Corpuscular Volume 94.6 fL (80-94); Mean Platelet Vol. 11.5 fl (6.2-12.0); Monocyte# 0.21 X10^3/uL; Monocyte% 2.9 % (0-10); NRBC Flagged by Analyzer 0 % (0-5); Neutrophil # 6.15 X10^3/uL (2.7-7.7); Neutrophil % 86.1 % (47-70); Platelet Count 173 K/mm3 (150-450); RBC Distribution Width CV 13.6 % (11.6-14.6); RBC Distribution Width SD 47.2 fl (35.1-43.9); White Blood Count 7.2 K/mm3 (4.4-11.0)
[2023-03-21 05:34] LABS: Partial Thromboplast Time 211.6 Seconds (24.1-36.2)
[2023-03-21] MEDS: Pregabalin 50 MG Capsule PO ×3 (05:43→20:59)
[2023-03-21 05:57] LABS: ALB/GLOB Ratio 0.8 RATIO (0.9-2.4); AST(SGOT) 33 U/L (15-37); Alanine Aminotransfer ALT/SGPT 17 U/L (16-61); Albumin, Serum 3.1 g/dL (3.2-5.0); Alkaline Phosphatase 82 U/L (45-117); Anion Gap 5 (5-15); BUN 17 mg/dL (7-18); BUN/Creat Ratio 16.5 RATIO (10-20); Chloride 105 mmol/L (98-107); Cholesterol 195 mg/dL (200); Creatinine, Serum 1.03 mg/dL (0.70-1.30); EST Glomerular Filtration Rate 74 mL/min (>60); Est Glom Filt Rate - Afr Amer 90 mL/min (>60); Estimated Creatinine Clearance 51.42 ml/min; Globulin 3.9 g/dL (2.2-4.2); Glucose 211 mg/dL (74-106); High Density Lipoprotein 47 mg/dL; Magnesium 2.1 mg/dL (1.6-2.6); Potassium 3.6 mmol/L (3.5-5.1); Sodium Level 136 mmol/L (136-145); Thyroid Stim Hormone (TSH) 0.62 uIU/mL (0.358-3.74); Triglycerides 75 mg/dL; Very Low Density Lipoprotein 15 mg/dL (5-40)
[2023-03-21] MEDS: Insulin Lispro 100 UNIT/ML INSULN.PEN SC ×4 (06:33→20:55)
[2023-03-21] MEDS: Ipratropium/Albuterol Sulfate 3 ML AMPUL.NEB INHALATION ×4 (07:26→19:10)
--- NOTE | 2023-03-21 07:53 | PN.HOSP_ITS ---
Reason for Visit Reason for Visit: Diagnoses Pneumonia, unspecified organism (03/20/23) Subjective Subjective Denies having had any prior heart history. Then, while talking about something else, asks why they did not do some abdominal procedure when he had his bypass. When I told that he does have a cardiac history with a CABG, he was dismissive. Objective Data Objective Data Vital Signs: Vital Signs Temp Pulse Resp BP Pulse Ox O2 Del Method O2 Flow Rate 36.6 C 71 22 H 128/71 H 95 Nasal Cannula 6 03/21/23 03:31 03/21/23 07:28 03/21/23 07:28 03/21/23 03:31 03/21/23 07:30 03/21/23 07:30 03/21/23 07:30 FiO2 35 03/21/23 03:44 Oxygen Flow Rate (L/min) 6 Oxygen Delivery Method Nasal Cannula Weight: 84.9 kg Body Mass Index (BMI) 31.1 Intake & Output: Intake and Output for Last 24 Hours 03/19/23 03/20/23 03/21/23 23:59 23:59 23:59 Intake Total 590 / 590 231.6 / 231.6 Output Total 1500 / 1500 Balance 590 / 590 -1268.4 / -1268.4 Lab / Micro Data Result Diagrams: 03/21/23 05:13 03/21/23 05:13 Labs: Laboratory Results - last 24 hr 03/20/23 17:32: WBC 19.4 H, RBC 4.14 L, Hgb 12.7 L, Hct 39.3 L, MCV 94.9 H, MCH 30.7, MCHC 32.3, RDW Std Deviation 48.5 H, RDW Coeff of Ashley 13.8, Plt Count 283, MPV 12.2 H, Immature Gran % (Auto) 0.600, Neut % (Auto) 76.4 H, Lymph % (Auto) 14.2 L, [place] % (Auto) 8.2, Eos % (Auto) 0.2, Baso % (Auto) 0.4, Absolute Neuts (auto) 14.9 H, Absolute Lymphs (auto) 2.76, Nucleated RBC % 0, Differential Comment SCANNED, Diff Path Review March03/20/23 17:32: PT 15.9 H, INR 1.3, APTT 29.4, D-Dimer Quant (PE/DVT) 1.56 H* 03/20/23 17:32: Sodium 138, Potassium 3.5, Chloride 105, Carbon Dioxide 27.0, Anion Gap 6, BUN 16, Creatinine 1.09, Estim Creat Clear Calc 48.59, Est GFR (MDRD) Af Amer 84, Est GFR (MDRD) Non-Af 70, BUN/Creatinine Ratio 14.7, Glucose 209 H, Calcium 9.8, Total Bilirubin 1.30 H, AST 25, ALT 18, Alkaline Phosphatase 104, Total Protein 8.4 H, Albumin 3.7, Globulin 4.7 H, Albumin/Globulin Ratio 0.8 L 03/20/23 17:32: B-Natriuretic Peptide 796.1 H 03/20/23 17:32: Troponin I High Sens 62 03/20/23 17:32: Magnesium 1.7 03/20/23 17:40: Urine Color Yellow, Urine Clarity Sl. Cloudy, Urine pH 6.5, Ur Specific [place] 1.015, Urine Protein 500 H, Urine Glucose (UA) Normal, Urine Ketones Negative, Urine Occult Blood 25 H, Urine Nitrite Negative, Urine Bilirubin Negative, Urine Urobilinogen 1 H, Ur Leukocyte Esterase Negative, Urine RBC 0-5 SEEN, Urine WBC 0-5 SEEN, Ur Squamous Epith Cells 0 SEEN, Urine Bacteria 1+, Urine Mucus 0 SEEN 03/20/23 17:55: Lactic Acid 2.6 H* 03/20/23 20:40: Procalcitonin 0.29 H 03/20/23 20:40: Troponin I High Sens 1412 H* 03/20/23 22:20: Lactic Acid 2.5 H* 03/20/23 22:30: COVID-19 (LIZETH) Not Detected 03/20/23 22:30: MRSA (PCR) Negative 03/20/23 23:18: POC Glucose 179 H 03/21/23 00:15: Troponin I High Sens 2811 H* 03/21/23 05:13: WBC 7.2, RBC 3.50 L, Hgb 10.9 L, Hct 33.1 L, MCV 94.6 H, MCH 31.1, MCHC 32.9, RDW Std Deviation 47.2 H, RDW Coeff of Ashley 13.6, Plt Count 173, MPV 11.5, Immature Gran % (Auto) 0.600, Neut % (Auto) 86.1 H, Lymph % (Auto) 10.3 L, [place] % (Auto) 2.9, Eos % (Auto) 0.0, Baso % (Auto) 0.1, Absolute Neuts (auto) 6.2, Absolute Lymphs (auto) 0.74 L, Nucleated RBC % 0 03/21/23 05:13: Sodium 136, Potassium 3.6, Chloride 105, Carbon Dioxide 26.0, Anion Gap 5, BUN 17, Creatinine 1.03, Estim Creat Clear Calc 51.42, Est GFR (MDRD) Af Amer 90, Est GFR (MDRD) Non-Af 74, BUN/Creatinine Ratio 16.5, Glucose 211 H, Calcium 9.0, Magnesium 2.1, Total Bilirubin 1.40 H, AST 33, ALT 17, Alkaline Phosphatase 82, Total Protein 7.0, Albumin 3.1 L, Globulin 3.9, Albumin/Globulin Ratio 0.8 L, Triglycerides 75, Cholesterol 195, LDL Cholesterol 133 H, VLDL Cholesterol 15, HDL Cholesterol 47, TSH 0.62 03/21/23 05:13: APTT 211.6 H* Micro: Microbiology 03/20/23 22:30 Mucosa - Nose Respiratory Panel (PCR) - Final Rhinovirus 03/20/23 17:40 Urine, Clean Catch Legionella Antigen - Final 03/20/23 17:40 Urine, Clean Catch Streptococcus pneumoniae Antigen (M - Fin al 03/20/23 18:05 Nasal Secretion SARS-CoV-2 & FLU Antigen (Rapid) - Final Radiography Diagnostic Testing: Radiology Impression Chest X-Ray 03/20/23 18:19 IMPRESSION: Right lower lobe pneumonia with parapneumonic effusion. Mild central pulmonary venous congestion. Electronically Signed: Wisam Márquez MD at 18:45 EDT , Abdomen/Pelvis CT 03/20/23 19:16 IMPRESSION: Portal venous thrombus within the main portal vein, right portal vein and a more peripheral wedge shaped area in the right hepatic lobe. There is also subtle hypoattenuation surrounding this area. Cannot rule out underlying malignancy. Recommend multiphase MR abdomen with and without contrast for further evaluation. Cirrhotic liver with evidence of portal hypertension including small volume ascites. Cholelithiasis. Nonobstructive nephrolithiasis. Small fat-containing bilateral inguinal hernias. Electronically Signed: Wisam Márquez MD at 20:59 EDT , Chest CTA 03/20/23 19:16 IMPRESSION: Cardiomegaly with pulmonary edema and small right/trace left pleural effusions. Cannot rule out superimposed infection in the right lung base. Electronically Signed: Wisam Márquez MD at 21:03 EDT , Physical Exam Const alert and no apparent distress HEENT head/scalp atraumatic Resp normal respiratory effort, no retractions, no use of accessory muscles and clear to auscultation bilaterally Cardio regular rate and regular rhythm Cardio Narrative: 3/6 PETER at [facility]. GI normal to inspection, nondistended, normoactive bowel sounds, soft to palpation and non-tender Extremity normal to inspection Assessment & Plan Assessment/Plan (1) Sepsis: PLAN: Acute Sepsis (Fever, leukocytosis, hypoxia, tachypnea, lactic acidosis, source present) secondary to pneumonia IV solumedrol, maintained on IV Zosyn and Vancomycin w/ MRSA screen pending w/ de-escalation as able, HOB, IS parameters w/ pending sputum cultures, full respi ratory viral panel, COVID PCR and urine antigens. Bld cx x 2 obtained in the ED. COVID 19 and influenza negative (2) Pneumonia: PLAN: Suspect pneumococcal On Pip/tazo and vanc pulmonary toilet (3) Acute respiratory failure with hypoxia: PLAN: Acute Hypoxic Respiratory Failure secondary to RLL PNA with concurrent Possible Acute on Chronic COPD Exacerbation and concern for Volume Overload w/ Possible Acute CHF Exacerbation, unclear type complicated by underlying valvular heart disease: Will admit to the PCU, will continue BIPAP, will then maintain on oxygen with wean as tolerated to room air, continue ATC duonebs, PRN albuterol, +Rhinovirus CT showed RLL infiltrate, pleural effusion, pulmonary vascular congestion. (4) NSTEMI, initial episode of care: PLAN: Troponins peaked at 2811 on heparin gtt ASA, carvedilol Cardiology consult check echo tentative plan for [facility] on 03/24 (5) Portal vein thrombosis: PLAN: In main portal vein, right portal vein. Cirrhotic liver. MRCP ordered. continue heparin gtt check hepatitis profile consult GI. Dr. Booker recommends checking an AFP PLAN: Plan The patient is a 77 y/o M w/ PMHx: Chronic anemia, CAD s/p CABG, HTN, HLD, BPH, Chronic pain syndrome, Valvular Heart Disease, Diabetes mellitus type II, COPD w/ former tobacco use history who presents to the [facility] [place] [facility] on 03/20/23 with history of progressively worsening dyspnea over the last week although more severe approximately 1 hour prior to ED presentation reportedly being unable to catch his breath noting he had initially been walking outside but had to go in because of dyspnea prompting EMS call with significant respiratory distress upon their arrival prompting CPAP administration with also wheezing noted with breathing treatment administered with no recent fevers or chills although he does report some chronic abdominal discomfort to the right lower quadrant which has been persistent and ongoing for nearly 2 years with reportedly planned outpatient CT per his PCP this week but he denies any significant severe pain to this region a nd this has been stable and constant. Chronic conditions: * Chronic right lower quadrant abdominal pain: Notes that this is stable and unchanged with planned PCP evaluation this coming week for planned scheduling of CT, ED physician did obtain CT abdomen pelvis, results pending upon evaluation. * Diabetes mellitus type II: Hold oral home regimen, continue home insulin regimen, ADA diet, accu checks w/ ISS. * Chronic macrocytic anemia: Admission hemoglobin 12.7, baseline appears primarily 10-13 but more recently 10-11, stable, continue to trend. * CAD: Status post prior CABG, will continue aspirin, statin intolerance, continue fenofibrate regimen, continue Coreg, holding patient home losartan given acute kidney injury is noted. * Hypertension: Continue home regimen including Coreg, amlodipine, losartan, IV Lasix given concern for mild overload with transition back to oral once appropriate, as needed IV hydralazine. * Hyperlipidemia: We will continue patient home fenofibrate regimen, not on statin therapy per current list with noted reaction of significant myalgias. FLP in AM. * Obesity: Weight loss and lifestyle changes encouraged. * Former tobacco usage: Encourage continued tobacco cessation. * BPH: We will continue patient home Flomax regimen. * GERD: We will continue patient home PPI. * Chronic pain syndrome with severe osteoarthritis: Patient on chronic narcotic therapies as well as meloxicam as well as pregabalin regimen, will continue with hold parameters as needed. DVT Prophylaxis: Lovenox. CODE status: Full Code status. Patient with basic medical illiteracy. Getting patient to have rough understanding and appreciation of his medical complexity may be challenging. Charges/Coding Visit Charges Inpatient E&M: 99083 Subs Hosp L2
[2023-03-21 08:20] LABS: Bedside Glucose 232 mg/dL (74-106)
[2023-03-21] MEDS: HEPARIN/D5w 25,000 UNITS 25,000 UNITS/250 ML IV.SOLN. 9 UNITS CONT INF (08:22)
--- NOTE | 2023-03-21 08:27 | PCM.CONS.C ---
Documented by User: Stefanie LEWIS, DEBBIE 03/21/23 12:49 Assessment & Plan Assessment/Plan (1) NSTEMI, initial episode of care: (2) Acute respiratory failure with hypoxia: (3) Pneumonia: (4) History of coronary artery bypass surgery: (5) Nonrheumatic aortic (valve) stenosis: (6) Essential hypertension: (7) Pure hypercholesterolemia: PLAN: Plan Non-STEMI: Patient's troponins did elevate. He is currently pain-free and feels that his shortness of breath has improved. Patient does have a history of coronary artery disease in addition to moderate to severe . His last echocardiogram was in May 2022. With his hypoxia, known coronary artery disease in addition to moderate to severe feel that this could have contributed to his non-STEMI and elevated troponins. Would like to further evaluate with a diagnostic heart catheterization. However would like for patient's pneumonia to be improved and for him to have several doses of antibiotics before proceeding. May consider proceeding with diagnostic heart catheterization on Friday. Patient will continue with his aggressive medical management with his carvedilol, losartan, amlodipine, aspirin. He is currently on heparin. HPI Consult Data Date of Consult: 03/21/23 HPI Narrative HPI Narrative: MODESTA CARRILLO, is a 77 M who presented to [facility] on 03/20/2023 with increased SOB. He was admitted for sepsis, right lower lobe pneumonia, CHF, hypoxic respiratory failure. BTNP was elevated at 796. Initial troponin came back as 62 however trending troponins came back as 1412, 2811. We were consulted for his elevated troponins. Patient was seen in our office a year ago. He does have a history of coronary artery disease status post CABG x 4? with KNOWLES to LAD, SVG to Ramus, SVG to lateral CX, and SVG to post descending branch of RCA on 09/30/12 at [facility], moderate severe aortic valve stenosis, hypertension, and hyperlipidemia. Pt notes that he has not had any CP. He has been having issues with kidney stones. What brought him in was his SOB. He does feel better than yesterday. After his last echo it was discussed with pt if he wanted to purse a heart cath. He was to think about this and call our office back. He did not call back. He sts that he would proceed with a heart cath if only it can be done through his wrist. [facility] Medical History Atherosclerotic heart disease of [place] coronary artery without angina pectoris BPH (benign prostatic hyperplasia) CAD (coronary artery disease) Chronic pain syndrome Contact with or suspected exposure to other viral communicable disease COPD (chronic obstructive pulmonary disease) Essential hypertension Gastroenteritis GERD (gastroesophageal reflux disease) Hypertriglyceridemia Kidney stones Nonrheumatic aortic (valve) stenosis Pure hypercholesterolemia Type 2 diabetes mellitus Home Medications aspirin 81 mg tablet,delayed release (Adult Low Dose Aspirin) 81 mg PO QDAY [facility] 11/03/17 [History Last Taken 03/20/23] albuterol sulfate 90 mcg/actuation aerosol inhaler 1 - 2 puff inhalation Q4H PRN PRN COPD 05/25/19 [History Last Taken 01/08/23] docusate sodium 100 mg capsule 100 mg PO DAILY stool softener 02/21/22 [History Last Taken 03/20/23] oxycodone-acetaminophen 7.5 mg-325 mg tablet (Percocet) 0.5 tab PO Q8H PRN Pain 02/21/22 [History Last Taken Unknown] pregabalin 50 mg capsule 50 mg PO TID neuropathy 02/21/22 [History Last Taken 01/08/23] carvedilol 12.5 mg tablet (Coreg) 12.5 mg PO BID HTN 01/08/23 [History Last Taken 03/20/23] acetaminophen 325 mg capsule (Tylenol) 650 mg PO Q6H PRN Pain 01/09/23 [History Last Taken Unknown] albuterol sulfate 90 mcg/actuation aerosol inhaler 2 puff inhalation Q4H PRN PRN COPD 01/09/23 [History Last Taken Unknown] cholecalciferol (vitamin D3) 1,250 mcg (50,000 unit) tablet 1,250 mcg PO QWEEK supplement 01/09/23 [History Last Taken Unknown] amlodipine 10 mg tablet 10 mg PO DAILY HTN #90 tabs 03/18/23 [Rx Last Taken 03/20/23] losartan 100 mg tablet 100 mg PO DAILY HTN #90 tabs 03/18/23 [Rx Last Taken Unknown] Allergy/AdvReac Type Severity Reaction Status Date / Time tramadol [From [facility]] Allergy Severe Itching Verified 02/21/22 13:08 adhesive Allergy Rash Verified 02/21/22 13:08 gabapentin Allergy Itching Verified 02/21/22 13:08 Gccpyfq-YFW-YuK Reductase AdvReac Severe myalgias Verified 02/21/22 13:08 Inhibitor [Uxicjpi-Kas-Skw Reductase Inhibitor] clonidine AdvReac dry mouth Verified 02/21/22 13:08 ropinirole AdvReac Vomiting Verified 02/21/22 13:08 Family History Mother , at age 48 PVD CAD (coronary artery disease) PVD (peripheral vascular disease) Father , Black lung disease No problems noted. Brother Hypertension PVD (peripheral vascular disease) Son Hypertension Surgical History History of coronary artery bypass surgery (~09/30/12) History of knee surgery Social History adopted: No household members: spouse housing: house number of children: 5 current occupational status: retired current occupational exposures/hazards: No pets and animals: Yes (2) pets and animals: cat(s) leisure activities: other history of recent travel: No other: watching television Smoking Status: Former smoker how long ago did patient quit smoking: Reports quiting remotely. second hand exposure: Yes alcohol intake: current alcohol intake frequency: a few times a month Alcohol type: beer substance use type: does not use well-balanced diet: about half the time caffeine: Yes Type: coffee Number of servings: 1 eating out: 1-3 times/week what type of physical activity do you participate in: none seatbelt use: always do you feel safe at home: Yes ROS Constitutional Constitutional: Denies change in weight, chills, fatigue, frequent falls, headache(s) or lethargy Eyes Eyes: Denies acute decrease in peripheral vision, blurry vision or change in vision ENT HEENT: Denies dizziness, dry mouth, epistaxis, headache(s), tinnitus or vertigo Cardiovascular Cardiovascular: Denies chest pain at rest, chest pain with activity, claudication, orthopnea, orthostatic symptoms, palpitations or pedal edema Respiratory/Chest Respiratory/Chest: Reports cough and dyspnea on exertion; Denies dyspnea, tachypnea or wheezing Gastrointestinal Gastrointestinal: Denies abdominal pain, bloating, coffee ground emesis, diarrhea, heartburn, hematemesis, hematochezia, melena or nausea Genitourinary Genitourinary: Reports other Details: has had issues with kidney stones ; Denies hematuria Musculoskeletal Musculoskeletal: Denies myalgias, numbness or tingling Neurologic Neurologic: Denies abnormal gait, abnormal speech, memory loss, paresthesias or weakness Physical Exam Const alert, oriented x3 and no apparent distress HEENT normocephalic, head/scalp atraumatic, hearing grossly normal bilaterally, external ears normal, external nose normal and moist oral mucous membranes Eyes PERRL, EOMs intact bilaterally, conjunctivae normal and no scleral icterus Neck no lymphadenopathy, supple and no JVD Resp Auscultation: crackles bilateral base and diminished lung sounds bilateral throughout Cardio Rate: regular rate Rhythm: regular rhythm Heart Sounds: S1 normal, S2 normal and murmur systolic III/ harsh GI normal to inspection, nondistended, normoactive bowel sounds, soft to palpation, non-tender and non-distended Extremity normal to inspection, normal capillary refill, no clubbing, cyanosis or edema and no pedal edema Neuro oriented x3, CN's II-XII intact bilaterally, moves all extremities and no focal motor deficits Psych cooperative and affect normal Risk Stratification Risk Stratification Applicable: Yes Age >/= 65: Yes >/= 3 CAD Risk Factors (HTN, HLD, DM, family hx of CAD, or current smoker): Yes Aspirin Use in the Past 7 Days: Yes Severe Angina (>/= episodes in 24 hours): No EKG ST Changes >/= 0.5mm: No Positive Cardiac Marker: Yes POOL Risk Stratification Score: 4 POOL % Risk: 20% Risk Charges/Coding Visit Charges Office Visits / Consults: 14939 OP Consult L3 Objective Data Vital Signs: Vital Signs Temp Pulse Resp BP Pulse Ox O2 Del Method O2 Flow Rate 97.9 F 71 22 H 128/71 H 95 Nasal Cannula 6 03/21/23 03:31 03/21/23 07:28 03/21/23 07:28 03/21/23 03:31 03/21/23 07:30 03/21/23 07:30 03/21/23 07:30 FiO2 35 03/21/23 03:44 Oxygen Flow Rate (L/min) 6 Oxygen Delivery Method Nasal Cannula Weight: 187 lb 2.759 oz Body Mass Index (BMI) 31.1 Intake & Output: Intake and Output for Last 24 Hours 03/19/23 03/20/23 03/21/23 23:59 23:59 23:59 Intake Total 590 / 590 231.6 / 231.6 Output Total 1500 / 1500 Balance 590 / 590 -1268.4 / -1268.4 Lab / Micro Data Result Diagrams: 03/21/23 05:13 03/21/23 05:13 Labs: Laboratory Results - last 24 hr 03/20/23 17:32: WBC 19.4 H, RBC 4.14 L, Hgb 12.7 L, Hct 39.3 L, MCV 94.9 H, MCH 30.7, MCHC 32.3, RDW Std Deviation 48.5 H, RDW Coeff of Ashley 13.8, Plt Count 283, MPV 12.2 H, Immature Gran % (Auto) 0.600, Neut % (Auto) 76.4 H, Lymph % (Auto) 14.2 L, [place] % (Auto) 8.2, Eos % (Auto) 0.2, Baso % (Auto) 0.4, Absolute Neuts (auto) 14.9 H, Absolute Lymphs (auto) 2.76, Nucleated RBC % 0, Differential Comment SCANNED, Diff Path Review March03/20/23 17:32: PT 15.9 H, INR 1.3, APTT 29.4, D-Dimer Quant (PE/DVT) 1.56 H* 03/20/23 17:32: Sodium 138, Potassium 3.5, Chloride 105, Carbon Dioxide 27.0, Anion Gap 6, BUN 16, Creatinine 1.09, Estim Creat Clear Calc 48.59, Est GFR (MDRD) Af Amer 84, Est GFR (MDRD) Non-Af 70, BUN/Creatinine Ratio 14.7, Glucose 209 H, Calcium 9.8, Total Bilirubin 1.30 H, AST 25, ALT 18, Alkaline Phosphatase 104, Total Protein 8.4 H, Albumin 3.7, Globulin 4.7 H, Albumin/Globulin Ratio 0.8 L 03/20/23 17:32: B-Natriuretic Peptide 796.1 H 03/20/23 17:32: Troponin I High Sens 62 03/20/23 17:32: Magnesium 1.7 03/20/23 17:40: Urine Color Yellow, Urine Clarity Sl. Cloudy, Urine pH 6.5, Ur Specific [place] 1.015, Urine Protein 500 H, Urine Glucose (UA) Normal, Urine Ketones Negative, Urine Occult Blood 25 H, Urine Nitrite Negative, Urine Bilirubin Negative, Urine Urobilinogen 1 H, Ur Leukocyte Esterase Negative, Urine RBC 0-5 SEEN, Urine WBC 0-5 SEEN, Ur Squamous Epith Cells 0 SEEN, Urine Bacteria 1+, Urine Mucus 0 SEEN 03/20/23 17:55: Lactic Acid 2.6 H* 03/20/23 20:40: Procalcitonin 0.29 H 03/20/23 20:40: Troponin I High Sens 1412 H* 03/20/23 22:20: Lactic Acid 2.5 H* 03/20/23 22:30: COVID-19 (LIZETH) Not Detected 03/20/23 22:30: MRSA (PCR) Negative 03/20/23 23:18: POC Glucose 179 H 03/21/23 00:15: Troponin I High Sens 2811 H* 03/21/23 05:13: WBC 7.2, RBC 3.50 L, Hgb 10.9 L, Hct 33.1 L, MCV 94.6 H, MCH 31.1, MCHC 32.9, RDW Std Deviation 47.2 H, RDW Coeff of Ashley 13.6, Plt Count 173, MPV 11.5, Immature Gran % (Auto) 0.600, Neut % (Auto) 86.1 H, Lymph % (Auto) 10.3 L, [place]win % (Auto) 2.9, Eos % (Auto) 0.0, Baso % (Auto) 0.1, Absolute Neuts (auto) 6.2, Absolute Lymphs (auto) 0.74 L, Nucleated RBC % 0 03/21/23 05:13: Sodium 136, Potassium 3.6, Chloride 105, Carbon Dioxide 26.0, Anion Gap 5, BUN 17, Creatinine 1.03, Estim Creat Clear Calc 51.42, Est GFR (MDRD) Af Amer 90, Est GFR (MDRD) Non-Af 74, BUN/Creatinine Ratio 16.5, Glucose 211 H, Calcium 9.0, Magnesium 2.1, Total Bilirubin 1.40 H, AST 33, ALT 17, Alkaline Phosphatase 82, Total Protein 7.0, Albumin 3.1 L, Globulin 3.9, Albumin/Globulin Ratio 0.8 L, Triglycerides 75, Cholesterol 195, LDL Cholesterol 133 H, VLDL Cholesterol 15, HDL Cholesterol 47, TSH 0.62 03/21/23 05:13: APTT 211.6 H* 03/21/23 06:32: POC Glucose 232 H Micro: Microbiology 03/20/23 22:30 Mucosa - Nose Respiratory Panel (PCR) - Final Rhinovirus 03/20/23 17:40 Urine, Clean Catch Legionella Antigen - Final 03/20/23 17:40 Urine, Clean Catch Streptococcus pneumoniae Antigen (M - Final 03/20/23 18:05 Nasal Secretion SARS-CoV-2 & FLU Antigen (Rapid) - Final Cardiology Labs/Tests 03/20/23 17:32: WBC 19.4 H, RBC 4.14 L, Hgb 12.7 L, Hct 39.3 L, MCV 94.9 H, MCH 30.7, MCHC 32.3, Plt Count 283, MPV 12.2 H, Immature Gran % (Auto) 0.600, Neut % (Auto) 76.4 H, Lymph % (Auto) 14.2 L, [place] % (Auto) 8.2, Eos % (Auto) 0.2, Baso % (Auto) 0.4, Absolute Neuts (auto) 14.9 H, Nucleated RBC % 0 03/20/23 17:32: PT 15.9 H, INR 1.3, APTT 29.4, D-Dimer Quant (PE/DVT) 1.56 H* 03/20/23 17:32: Sodium 138, Potassium 3.5, Chloride 105, Carbon Dioxide 27.0, Anion Gap 6, BUN 16, Creatinine 1.09, Est GFR (MDRD) Af Amer 84, Est GFR (MDRD) Non-Af 70, BUN/Creatinine Ratio 14.7, Glucose 209 H, Calcium 9.8, Total Bilirubin 1.30 H 03/20/23 17:32: B-Natriuretic Peptide 796.1 H 03/20/23 17:32: Magnesium 1.7 03/20/23 17:40: Urine Color Yellow, Urine Clarity Sl. Cloudy, Urine pH 6.5, Ur Specific [place] 1.015, Urine Protein 500 H, Urine Glucose (UA) Normal, Urine Ketones Negative, Urine Occult Blood 25 H, Urine Nitrite Negative, Urine Bilirubin Negative, Urine Urobilinogen 1 H, Ur Leukocyte Esterase Negative, Urine RBC 0-5 SEEN, Urine WBC 0-5 SEEN 03/20/23 17:55: Lactic Acid 2.6 H* 03/20/23 22:20: Lactic Acid 2.5 H* 03/21/23 05:13: WBC 7.2, RBC 3.50 L, Hgb 10.9 L, Hct 33.1 L, MCV 94.6 H, MCH 31.1, MCHC 32.9, Plt Count 173, MPV 11.5, Immature Gran % (Auto) 0.600, Neut % (Auto) 86.1 H, Lymph % (Auto) 10.3 L, [place] % (Auto) 2.9, Eos % (Auto) 0.0, Baso % (Auto) 0.1, Absolute Neuts (auto) 6.2, Nucleated RBC % 0 03/21/23 05:13: Sodium 136, Potassium 3.6, Chloride 105, Carbon Dioxide 26.0, Anion Gap 5, BUN 17, Creatinine 1.03, Est GFR (MDRD) Af Amer 90, Est GFR (MDRD) Non-Af 74, BUN/Creatinine Ratio 16.5, Glucose 211 H, Calcium 9.0, Magnesium 2.1, Total Bilirubin 1.40 H, Triglycerides 75, Cholesterol 195, LDL Cholesterol 133 H, VLDL Cholesterol 15, HDL Cholesterol 47 03/21/23 05:13: APTT 211.6 H* Radiography Diagnostic Testing: Radiology Impression Chest X-Ray 03/20/23 18:19 IMPRESSION: Right lower lobe pneumonia with parapneumonic effusion. Mild central pulmonary venous congestion. Electronically Signed: Wisam Márquez MD at 18:45 EDT , Abdomen/Pelvis CT 03/20/23 19:16 IMPRESSION: Portal venous thrombus within the main portal vein, right portal vein and a more peripheral wedge shaped area in the right hepatic lobe. There is also subtle hypoattenuation surrounding this area. Cannot rule out underlying malignancy. Recommend multiphase MR abdomen with and without contrast for further evaluation. Cirrhotic liver with evidence of portal hypertension including small volume ascites. Cholelithiasis. Nonobstructive nephrolithiasis. Small fat-containing bilateral inguinal hernias. Electronically Signed: Wisam Márquez MD at 20:59 EDT , Chest CTA 03/20/23 19:16 IMPRESSION: Cardiomegaly with pulmonary edema and small right/trace left pleural effusions. Cannot rule out superimposed infection in the right lung base. Electronically Signed: Wisam Márquez MD at 21:03 EDT , Documented by User: Dr. Mark James MD 03/21/23 20:37 Assessment & Plan Assessment/Plan (1) NSTEMI, initial episode of care: (2) Acute respiratory failure with hypoxia: (3) Pneumonia: (4) History of coronary artery bypass surgery: (5) Nonrheumatic aortic (valve) stenosis: (6) Essential hypertension: (7) Pure hypercholesterolemia: PLAN: Plan Non-STEMI: Patient's troponins did elevate. He is currently pain-free and feels that his shortness of breath has improved. Patient does have a history of coronary artery disease in addition to moderate to severe . His last echocardiogram was in May 2022. With his hypoxia, known coronary artery disease in addition to moderate to severe feel that this could have contributed to his non-STEMI and elevated troponins. Would like to further evaluate with a diagnostic heart catheterization. However would like for patient's pneumonia to be improved and for him to have several doses of antibiotics before proceeding. May consider proceeding with diagnostic heart catheterization on Friday. Patient will continue with his aggressive medical management with his carvedilol, losartan, amlodipine, aspirin. He is currently on heparin. I discussed in detail the cardiac care plan with the patient and nursing staff The recent echocardiogram which is done today showed severe aortic stenosis With a valve area of 0.7 cm? Cardiac care plan recommendation 1. Patient will be evaluated further with cardiac catheterization/left radial artery approach by Dr. Diaz on Friday 2. We will continue current medical treatment HPI Consult Data Date of Consult: 03/21/23 [facility] Medical History Atherosclerotic heart disease of [place] coronary artery without angina pectoris BPH (benign prostatic hyperplasia) CAD (coronary artery disease) Chronic pain syndrome Contact with or suspected exposure to other viral communicable disease COPD (chronic obstructive pulmonary disease) Essential hypertension Gastroenteritis GERD (gastroesophageal reflux disease) Hypertriglyceridemia Kidney stones Nonrheumatic aortic (valve) stenosis Pure hypercholesterolemia Type 2 diabetes mellitus Home Medications aspirin 81 mg tablet,delayed release (Adult Low Dose Aspirin) 81 mg PO QDAY [facility] 11/03/17 [History Last Taken 03/20/23] albuterol sulfate 90 mcg/actuation aerosol inhaler 1 - 2 puff inhalation Q4H PRN PRN COPD 05/25/19 [History Last Taken 01/08/23] docusate sodium 100 mg capsule 100 mg PO DAILY stool softener 02/21/22 [History Last Taken 03/20/23] oxycodone-acetaminophen 7.5 mg-325 mg tablet (Percocet) 0.5 tab PO Q8H PRN Pain 02/21/22 [History Last Taken Unknown] pregabalin 50 mg capsule 50 mg PO TID neuropathy 02/21/22 [History Last Taken 01/08/23] carvedilol 12.5 mg tablet (Coreg) 12.5 mg PO BID HTN 01/08/23 [History Last Taken 03/20/23] acetaminophen 325 mg capsule (Tylenol) 650 mg PO Q6H PRN Pain 01/09/23 [History Last Taken Unknown] albuterol sulfate 90 mcg/actuation aerosol inhaler 2 puff inhalation Q4H PRN PRN COPD 01/09/23 [History Last Taken Unknown] cholecalciferol (vitamin D3) 1,250 mcg (50,000 unit) tablet 1,250 mcg PO QWEEK supplement 01/09/23 [History Last Taken Unknown] amlodipine 10 mg tablet 10 mg PO DAILY HTN #90 tabs 03/18/23 [Rx Last Taken 03/20/23] losartan 100 mg tablet 100 mg PO DAILY HTN #90 tabs 03/18/23 [Rx Last Taken Unknown] Allergy/AdvReac Type Severity Reaction Status Date / Time tramadol [From Ultram] Allergy Severe Itching Verified 02/21/22 13:08 adhesive Allergy Rash Verified 02/21/22 13:08 gabapentin Allergy Itching Verified 02/21/22 13:08 Dggwyzx-SBX-NbH Reductase AdvReac Severe myalgias Verified 02/21/22 13:08 Inhibitor [Qiadekl-Hhs-Cyy Reductase Inhibitor] clonidine AdvReac dry mouth Verified 02/21/22 13:08 ropinirole AdvReac Vomiting Verified 02/21/22 13:08 Family History Mother , at age 48 PVD CAD (coronary artery disease) PVD (peripheral vascular disease) Father , Black lung disease No problems noted. Brother Hypertension PVD (peripheral vascular disease) Son Hypertension Surgical History History of coronary artery bypass surgery (~09/30/12) History of knee surgery Social History adopted: No household members: spouse housing: house number of children: 5 current occupational status: retired current occupational exposures/hazards: No pets and animals: Yes (2) pets and animals: cat(s) leisure activities: other history of recent travel: No other: watching television Smoking Status: Former smoker how long ago did patient quit smoking: Reports quiting remotely. second hand exposure: Yes alcohol intake: current alcohol intake frequency: a few times a month Alcohol type: beer substance use type: does not use well-balanced diet: about half the time caffeine: Yes Type: coffee Number of servings: 1 eating out: 1-3 times/week what type of physical activity do you participate in: none seatbelt use: always do you feel safe at home: Yes Risk Stratification Age >/= 65: Yes POOL Risk Stratification Score: 4 POOL % Risk: 20% Risk Lab / Micro Data Result Diagrams: 03/21/23 05:13 03/21/23 05:13
[2023-03-21] MEDS: Vancomycin IV 500 MG/100 ML BAG 100 MG IV ×2 (08:34→20:43)
[2023-03-21] MEDS: oxyCODONE 5 MG Tablet 7.5 MG PO ×2 (08:36→19:29)
[2023-03-21] MEDS: Aspirin E.C. 81 MG Tablet PO (08:38)
[2023-03-21] MEDS: Docusate Sodium 100 MG Capsule PO (08:38)
[2023-03-21] MEDS: Carvedilol 12.5 MG Tablet PO ×2 (08:39→20:59)
[2023-03-21] MEDS: Losartan Potassium 100 MG Tablet PO (08:39)
[2023-03-21] MEDS: amLODIPine 10 MG Tablet PO (08:39)
[2023-03-21] MEDS: LORazepam 2 MG/ML Syringe IV (09:17)
--- NOTE | 2023-03-21 10:40 | CASEMGMT ---
SUSAN FERNANDES Face to Face with patient for initial transition planning/care coordination assessment. RN CM introduced self and role at [facility]. Patient lying in bed, alert and oriented. Patient willing to participate in assessment and is able to answer all questions appropriately. Care providers, pharmacy, and demographics verified. Patient wishes to discharge home, will monitor progress with therapy. Patient states he has no further needs or concerns at this time. CM to follow for discharge planning needs that may arise. PCP: Antonio Specialists: Pain specialist [facility] Preferred Pharmacy: [facility] Insurance: [employer] [facility] Prescription Benefit: yes Living Will/HPOA: none LNOK: Living Arrangements: Patient lives with in a single story home with 2 steps and railing to enter the home. Patient states he is independent at home. Transportation: self, DME/HHC: Patient states he has shower chair, raised toilet, grab bars, walker, and electric scooter at home. No previous HHC or SNF, will monitor progress with therapy. Disposition Plan: Patient to discharge home with family support and follow-up plans in place. Will monitor for HHC pending progress with therapy. Carol BRAND, RN, CM
[2023-03-21 12:15] LABS: Pathologist Review Reviewed
--- NOTE | 2023-03-21 13:30 | EX.PCM.CON.G ---
HPI Consult Data Date of Consult: 03/21/23 HPI Narrative Reason for Consultation: Portal vein thrombosis HPI Narrative: MODESTA CARRILLO, is a 77 M who presented with shortness of breath. He has a past medical history of?chronic anemia, CAD s/p CABG, HTN, HLD, BPH, Chronic pain syndrome, Valvular Heart Disease, Diabetes mellitus type II, COPD. He states he has been more short of breath for about a week but acutely became short of breath about an hour ago and was having difficulty catching his breath.? He states he walked outside and by the time he could walk back in he could not catch his breath.? EMS was called.? He presents on CPAP.? Apparently he was wheezing prior to arrival and was given a breathing treatment.? Patient does admit to history of COPD.? Patient denies any chest pain.? He is not smoking anymore.? He has not had a fever this week.? He does state that he has some abdominal discomfort in the right lower abdomen which has been there for about 2 years.? He has some swelling in this area.?? Since being admitted he was discovered to have a non-ST segment elevation OK. A CT scan abdomen pelvis was ordered due to his worsening right upper and right lower quadrant pain and he was discovered to have portal vein thrombosis extending to the right hepatic lobe. [facility] Medical History Atherosclerotic heart disease of [place] coronary artery without angina pectoris BPH (benign prostatic hyperplasia) CAD (coronary artery disease) Chronic pain syndrome Contact with or suspected exposure to other viral communicable disease COPD (chronic obstructive pulmonary disease) Essential hypertension Gastroenteritis GERD (gastroesophageal reflux disease) Hypertriglyceridemia Kidney stones Nonrheumatic aortic (valve) stenosis Pure hypercholesterolemia Type 2 diabetes mellitus Home Medications aspirin 81 mg tablet,delayed release (Adult Low Dose Aspirin) 81 mg PO QDAY [facility] 11/03/17 [History Last Taken 03/20/23] albuterol sulfate 90 mcg/actuation aerosol inhaler 1 - 2 puff inhalation Q4H PRN PRN COPD 05/25/19 [History Last Taken 01/08/23] docusate sodium 100 mg capsule 100 mg PO DAILY stool softener 02/21/22 [History Last Taken 03/20/23] oxycodone-acetaminophen 7.5 mg-325 mg tablet (Percocet) 0.5 tab PO Q8H PRN Pain 02/21/22 [History Last Taken Unknown] pregabalin 50 mg capsule 50 mg PO TID neuropathy 02/21/22 [History Last Taken 01/08/23] carvedilol 12.5 mg tablet (Coreg) 12.5 mg PO BID HTN 01/08/23 [History Last Taken 03/20/23] acetaminophen 325 mg capsule (Tylenol) 650 mg PO Q6H PRN Pain 01/09/23 [History Last Taken Unknown] albuterol sulfate 90 mcg/actuation aerosol inhaler 2 puff inhalation Q4H PRN PRN COPD 01/09/23 [History Last Taken Unknown] cholecalciferol (vitamin D3) 1,250 mcg (50,000 unit) tablet 1,250 mcg PO QWEEK supplement 01/09/23 [History Last Taken Unknown] amlodipine 10 mg tablet 10 mg PO DAILY HTN #90 tabs 03/18/23 [Rx Last Taken 03/20/23] losartan 100 mg tablet 100 mg PO DAILY HTN #90 tabs 03/18/23 [Rx Last Taken Unknown] Allergy/AdvReac Type Severity Reaction Status Date / Time tramadol [From Ultram] Allergy Severe Itching Verified 02/21/22 13:08 adhesive Allergy Rash Verified 02/21/22 13:08 gabapentin Allergy Itching Verified 02/21/22 13:08 Gpbsnxq-CLB-BkR Reductase AdvReac Severe myalgias Verified 02/21/22 13:08 Inhibitor [Etqxdiy-Ccv-Brt Reductase Inhibitor] clonidine AdvReac dry mouth Verified 02/21/22 13:08 ropinirole AdvReac Vomiting Verified 02/21/22 13:08 Family History Mother , at age 48 PVD CAD (coronary artery disease) PVD (peripheral vascular disease) Father , Black lung disease No problems noted. Brother Hypertension PVD (peripheral vascular disease) Son Hypertension Surgical History History of coronary artery bypass surgery (~09/30/12) History of knee surgery Social History adopted: No household members: spouse housing: house number of children: 5 current occupational status: retired current occupational exposures/hazards: No pets and animals: Yes (2) pets and animals: cat(s) leisure activities: other history of recent travel: No other: watching television Smoking Status: Former smoker how long ago did patient quit smoking: Reports quiting remotely. second hand exposure: Yes alcohol intake: current alcohol intake frequency: a few times a month Alcohol type: beer substance use type: does not use well-balanced diet: about half the time caffeine: Yes Type: coffee Number of servings: 1 eating out: 1-3 times/week what type of physical activity do you participate in: none seatbelt use: always do you feel safe at home: Yes ROS Constitutional Constitutional: Denies change in weight, chills, fatigue, frequent falls, headache(s) or lethargy Eyes Eyes: Denies acute decrease in peripheral vision, blurry vision or change in vision ENT HEENT: Denies dizziness, dry mouth, epistaxis, headache(s), tinnitus or vertigo Cardiovascular Cardiovascular: Denies chest pain at rest, chest pain with activity, claudication, orthopnea, orthostatic symptoms, palpitations or pedal edema Respiratory/Chest Respiratory/Chest: Reports cough and dyspnea on exertion; Denies dyspnea, tachypnea or wheezing Gastrointestinal Gastrointestinal: Denies abdominal pain, bloating, coffee ground emesis, diarrhea, heartburn, hematemesis, hematochezia, melena or nausea Genitourinary Genitourinary: Reports other Details: has had issues with kidney stones ; Denies hematuria Musculoskeletal Musculoskeletal: Denies myalgias, numbness or tingling Neurologic Neurologic: Denies abnormal gait, abnormal speech, memory loss, paresthesias or weakness Physical Exam Const alert, oriented x3 and no apparent distress HEENT normocephalic, head/scalp atraumatic, hearing grossly normal bilaterally, external ears normal, external nose normal and moist oral mucous membranes Eyes PERRL, EOMs intact bilaterally, conjunctivae normal and no scleral icterus Neck no lymphadenopathy, supple and no JVD Resp Auscultation: crackles bilateral base and diminished lung sounds bilateral throughout Cardio Rate: regular rate Rhythm: regular rhythm Heart Sounds: S1 normal, S2 normal and murmur systolic III/ harsh GI normal to inspection, nondistended, normoactive bowel sounds, soft to palpation, non-tender and non-distended Extremity normal to inspection, normal capillary refill, no clubbing, cyanosis or edema and no pedal edema Neuro oriented x3, CN's II-XII intact bilaterally, moves all extremities and no focal motor deficits Psych cooperative and affect normal Lab / Micro Data Result Diagrams: 03/21/23 05:13 03/21/23 05:13 Labs: Laboratory Results - last 24 hr 03/20/23 17:32: WBC 19.4 H, RBC 4.14 L, Hgb 12.7 L, Hct 39.3 L, MCV 94.9 H, MCH 30.7, MCHC 32.3, RDW Std Deviation 48.5 H, RDW Coeff of Ashley 13.8, Plt Count 283, MPV 12.2 H, Immature Gran % (Auto) 0.600, Neut % (Auto) 76.4 H, Lymph % (Auto) 14.2 L, Fergus % (Auto) 8.2, Eos % (Auto) 0.2, Baso % (Auto) 0.4, Absolute Neuts (auto) 14.9 H, Absolute Lymphs (auto) 2.76, Nucleated RBC % 0, Differential Comment SCANNED, Diff Path Review Reviewed 03/20/23 17:32: PT 15.9 H, INR 1.3, APTT 29.4, D-Dimer Quant (PE/DVT) 1.56 H* 03/20/23 17:32: Sodium 138, Potassium 3.5, Chloride 105, Carbon Dioxide 27.0, Anion Gap 6, BUN 16, Creatinine 1.09, Estim Creat Clear Calc 48.59, Est GFR (MDRD) Af Amer 84, Est GFR (MDRD) Non-Af 70, BUN/Creatinine Ratio 14.7, Glucose 209 H, Calcium 9.8, Total Bilirubin 1.30 H, AST 25, ALT 18, Alkaline Phosphatase 104, Total Protein 8.4 H, Albumin 3.7, Globulin 4.7 H, Albumin/Globulin Ratio 0.8 L 03/20/23 17:32: B-Natriuretic Peptide 796.1 H 03/20/23 17:32: Troponin I High Sens 62 03/20/23 17:32: Magnesium 1.7 03/20/23 17:40: Urine Color Yellow, Urine Clarity Sl. Cloudy, Urine pH 6.5, Ur Specific [place] 1.015, Urine Protein 500 H, Urine Glucose (UA) Normal, Urine Ketones Negative, Urine Occult Blood 25 H, Urine Nitrite Negative, Urine Bilirubin Negative, Urine Urobilinogen 1 H, Ur Leukocyte Esterase Negative, Urine RBC 0-5 SEEN, Urine WBC 0-5 SEEN, Ur Squamous Epith Cells 0 SEEN, Urine Bacteria 1+, Urine Mucus 0 SEEN 03/20/23 17:55: Lactic Acid 2.6 H* 03/20/23 20:40: Procalcitonin 0.29 H 03/20/23 20:40: Troponin I High Sens 1412 H* 03/20/23 22:20: Lactic Acid 2.5 H* 03/20/23 22:30: COVID-19 (LIZETH) Not Detected 03/20/23 22:30: MRSA (PCR) Negative 03/20/23 23:18: POC Glucose 179 H 03/21/23 00:15: Troponin I High Sens 2811 H* 03/21/23 05:13: WBC 7.2, RBC 3.50 L, Hgb 10.9 L, Hct 33.1 L, MCV 94.6 H, MCH 31.1, MCHC 32.9, RDW Std Deviation 47.2 H, RDW Coeff of Ashley 13.6, Plt Count 173, MPV 11.5, Immature Gran % (Auto) 0.600, Neut % (Auto) 86.1 H, Lymph % (Auto) 10.3 L, Fergus % (Auto) 2.9, Eos % (Auto) 0.0, Baso % (Auto) 0.1, Absolute Neuts (auto) 6.2, Absolute Lymphs (auto) 0.74 L, Nucleated RBC % 0 03/21/23 05:13: Sodium 136, Potassium 3.6, Chloride 105, Carbon Dioxide 26.0, Anion Gap 5, BUN 17, Creatinine 1.03, Estim Creat Clear Calc 51.42, Est GFR (MDRD) Af Amer 90, Est GFR (MDRD) Non-Af 74, BUN/Creatinine Ratio 16.5, Glucose 211 H, Calcium 9.0, Magnesium 2.1, Total Bilirubin 1.40 H, AST 33, ALT 17, Alkaline Phosphatase 82, Total Protein 7.0, Albumin 3.1 L, Globulin 3.9, Albumin/Globulin Ratio 0.8 L, Triglycerides 75, Cholesterol 195, LDL Cholesterol 133 H, VLDL Cholesterol 15, HDL Cholesterol 47, TSH 0.62 03/21/23 05:13: APTT 211.6 H* 03/21/23 06:32: POC Glucose 232 H Micro: Microbiology 03/20/23 17:40 Urine, Clean Catch Urine Culture - Final Mixed Gram Positive Organisms 03/20/23 22:30 Mucosa - Nose Respiratory Panel (PCR) - Final Rhinovirus 03/20/23 17:40 Urine, Clean Catch Legionella Antigen - Final 03/20/23 17:40 Urine, Clean Catch Streptococcus pneumoniae Antigen (M - Final 03/20/23 18:05 Nasal Secretion SARS-CoV-2 & FLU Antigen (Rapid) - Final Radiology Impression Chest X-Ray 03/20/23 18:19 IMPRESSION: Right lower lobe pneumonia with parapneumonic effusion. Mild central pulmonary venous congestion. Electronically Signed: Wisam Márquez MD at 18:45 EDT , Abdomen/Pelvis CT 03/20/23 19:16 IMPRESSION: Portal venous thrombus within the main portal vein, right portal vein and a more peripheral wedge shaped area in the right hepatic lobe. There is also subtle hypoattenuation surrounding this area. Cannot rule out underlying malignancy. Recommend multiphase MR abdomen with and without contrast for further evaluation. Cirrhotic liver with evidence of portal hypertension including small volume ascites. Cholelithiasis. Nonobstructive nephrolithiasis. Small fat-containing bilateral inguinal hernias. Electronically Signed: Wisam Márquez MD at 20:59 EDT , Chest CTA 03/20/23 19:16 IMPRESSION: Cardiomegaly with pulmonary edema and small right/trace left pleural effusions. Cannot rule out superimposed infection in the right lung base. Electronically Signed: Wisam Márquez MD at 21:03 EDT , Assessment & Plan Assessment/Plan (1) SARTHAK (acute kidney injury): (2) NSTEMI, initial episode of care: (3) Portal vein thrombosis: PLAN: Plan Patient is a 77-year-old gentleman with multiple comorbidities including diabetes mellitus type 2 presented with shortness of breath and abdominal pain and discovered to have a non-ST segment elevation OK and portal vein thrombosis. He is currently on a heparin drip. For a cirrhotic patient with non-acute symptomatic PVT, the initiation of antithrombotic therapy should depend on the grade, extension, and dynamic evolution of PVT. When deciding whether and when to start treatment for cirrhotic. I can tell that the clot extends up into the portal vein without extension into the mesenteric vein. You get 50 to 74% of your blood supply through the liver portal vein and 20% at that hepatic artery. 4. Coronary artery disease with non-ST segment ovation OK ? With previous CABG. Patient is on aspirin as well as carvedilol continued. -Management as per cardiology 5. Hypertension - Blood pressure controlled, home medications continued with dose adjustment as needed 6. Anemia - Secondary to chronic disorder monitoring H&H and transfuse if patient becomes symptomatic or hemoglobin falls below 7 Charges/Coding Visit Charges Inpatient E&M: 22479 Init Hosp L3
[2023-03-21 15:45] LABS: Bedside Glucose 282 mg/dL (74-106)
[2023-03-21 16:02] LABS: Partial Thromboplast Time 61.5 Seconds (24.1-36.2)
--- NOTE | 2023-03-21 17:05 | CASEMGMT ---
SUSAN FERNANDES NOTE: Insurance review for hospitals In-network with [facility] Insurance if transfer is recommended is as follows: [facility], [place], [facility], [facility], [facility], [facility]), [facility], and . Radha BRAND RN CM
[2023-03-21 17:36] LABS: Bedside Glucose 246 mg/dL (74-106)
[2023-03-21] MEDS: Tamsulosin HCl 0.4 MG Capsule PO (20:59)
[2023-03-21 21:21] LABS: Bedside Glucose 218 mg/dL (74-106)
[2023-03-21 22:39] LABS: Partial Thromboplast Time 62.9 Seconds (24.1-36.2)
[2023-03-22] VITALS (14 sets, daily range): BP systolic 127–139; BP diastolic 42–73; PULSE 61–78; RESP 12–23; TEMP 35.6–36.6; O2SAT 96–100
[2023-03-22] MEDS: Ipratropium Bromide 0.06% NASAL SPRAY 1 SPRAY NASAL ×2 (00:20→21:08)
[2023-03-22] MEDS: Acetaminophen 325 MG Tablet 650 MG PO ×3 (00:20→16:39)
[2023-03-22] MEDS: HEPARIN/D5w 25,000 UNITS 25,000 UNITS/250 ML IV.SOLN. 9 UNITS CONT INF (00:52)
[2023-03-22] MEDS: oxyCODONE 5 MG Tablet 7.5 MG PO ×2 (04:13→16:38)
[2023-03-22] MEDS: Pregabalin 50 MG Capsule PO ×3 (05:29→21:08)
[2023-03-22] MEDS: Insulin Lispro 100 UNIT/ML INSULN.PEN SC ×4 (06:33→21:08)
[2023-03-22 07:00] LABS: Bedside Glucose 273 mg/dL (74-106)
[2023-03-22] MEDS: Ipratropium/Albuterol Sulfate 3 ML AMPUL.NEB INHALATION ×4 (07:20→20:42)
--- NOTE | 2023-03-22 07:40 | PN.HOSP_ITS ---
Reason for Visit Reason for Visit: Diagnoses Sepsis, unspecified organism (03/20/23) Pure hypercholesterolemia, unspecified (03/20/23) Essential (primary) hypertension (03/20/23) Non-ST elevation (NSTEMI) myocardial infarction (03/20/23) Nonrheumatic aortic (valve) stenosis (03/20/23) Portal vein thrombosis (03/20/23) Pneumonia, unspecified organism (03/20/23) Acute respiratory failure with hypoxia (03/20/23) Acute kidney failure, unspecified (03/20/23) Presence of aortocoronary bypass graft (03/20/23) Subjective Subjective Breathing well. Complains about recent inability to abduct left arm past horizontal. Objective Data Objective Data Vital Signs: Vital Signs Temp Pulse Resp BP Pulse Ox O2 Del Method O2 Flow Rate 35.6 C L 71 23 H 127/57 H 97 Nasal Cannula 2 03/22/23 05:45 03/22/23 07:20 03/22/23 07:20 03/22/23 05:45 03/22/23 07:20 03/22/23 07:20 03/22/23 07:20 FiO2 30 03/22/23 02:49 Oxygen Flow Rate (L/min) 2 Oxygen Delivery Method Nasal Cannula Weight: 84.9 kg Body Mass Index (BMI) 31.1 Intake & Output: Intake and Output for Last 24 Hours 03/20/23 03/21/23 03/22/23 23:59 23:59 23:59 Intake Total 590 / 590 1513.4 / 1513.4 198.5 / 198.5 Output Total 3425 / 3425 350 / 350 Balance 590 / 590 -1911.6 / -1911.6 -151.5 / -151.5 Medical Nutrition Assessment Dietitian: Malnutrition Criteria Met Start: 03/21/23 14:27 Freq: Status: Active Protocol: Document 03/21/23 14:27 AG (Rec: 03/21/23 14:28 AG [id number]) Nutrition Malnutrition Evidence of Malnutrition Exists Yes Malnutrition (moderate): Chronic Evidenced By Suboptimal Energy Intake ( Moderate),Weight Loss ( Moderate) Clinical Problem Chronic Disease or Condition Related Malnutrition Etiology chronic, moderate malnutrition related to inadequate energy intake Signs/Symptoms as evidenced by estimated PO intake meeting <75% of estimated energy needs x 3 months; unintentional 17.8#/9% wt loss x 3 months Status Active Problem Recommendation Dietitian Recommendations/Changes continue cardiac, 1800 calorie controlled diet as ordered; 120mL glucerna w/ medpass if pt becomes agreeable. Will monitor PO intake and liberalize diet as indicated. Lab / Micro Data Result Diagrams: 03/22/23 07:30 03/22/23 07:30 Labs: Laboratory Results - last 24 hr 03/20/23 17:32: Diff Path Review Reviewed 03/21/23 06:32: POC Glucose 232 H 03/21/23 12:25: POC Glucose 282 H 03/21/23 15:35: APTT 61.5 H 03/21/23 17:06: POC Glucose 246 H 03/21/23 20:08: APTT 62.9 H 03/21/23 20:50: POC Glucose 218 H 03/22/23 06:31: POC Glucose 273 H Micro: Microbiology 03/20/23 17:40 Urine, Clean Catch Urine Culture - Final Mixed Gram Positive Organisms 03/20/23 22:30 Mucosa - Nose Respiratory Panel (PCR) - Final Rhinovirus 03/20/23 17:40 Urine, Clean Catch Legionella Antigen - Final 03/20/23 17:40 Urine, Clean Catch Streptococcus pneumoniae Antigen (M - Final 03/20/23 18:05 Nasal Secretion SARS-CoV-2 & FLU Antigen (Rapid) - Final Radiography Diagnostic Testing: Radiology Impression Echocardiogram 03/20/23 20:36 Interpretation Summary The estimated ejection fraction is 40-45 %. Peak aortic valve gradient 83.9 mmhg mmHg. Mean aortic valve gradient 53.4 mmhg mmHg. CARLOS 0.73 cm2 Severe calcific aortic valve stenosis with mild AI. Mild to moderate LV systolic dysfunction with moderate concentric left arleth tricular hypertrophy Mild MR. In comparison to prior echocardiogram, worsening of aortic valve calcific stenosis, June 04, 2022 Ordering Physician: Amber Virgen Referring Physician: Dominic Lugo Performed By: Bereket Pagan, [facility] Abdomen MRI 03/20/23 21:09 IMPRESSION: Limited examination due to extreme motion and respiratory artifact on most sequences. Despite limitations: Redemonstration of portal venous thrombus within the main portal vein, right portal vein and a more peripheral wedge shaped area in the right hepatic lobe. No suspicious T2 hyperintense or enhancing mass seen. Cirrhotic liver with evidence of portal hypertension including small volume ascites. Cholelithiasis. Electronically Signed: Wisam Márquez MD at 17:38 EDT , Physical Exam Const alert and no apparent distress Assessment & Plan Assessment/Plan (1) Sepsis: PLAN: Acute Sepsis (Fever, leukocytosis, hypoxia, tachypnea, lactic acidosis, source present) secondary to pneumonia IV solumedrol, maintained on IV Zosyn and Vancomycin w/ MRSA screen pending w/ de-escalation as able, HOB, IS parameters w/ pending sputum cultures, full respiratory viral panel, COVID PCR and urine antigens. Bld cx x 2 obtained in the ED. COVID 19 and influenza negative BCx pending (2) Pneumonia: PLAN: Suspect pneumococcal On Pip/tazo and vanc pulmonary toilet (3) Acute respiratory failure with hypoxia: PLAN: Acute Hypoxic Respiratory Failure secondary to RLL PNA with concurrent Possible Acute on Chronic COPD Exacerbation and concern for Volume Overload w/ Possible Acute CHF Exacerbation, unclear type complicated by underlying valvular heart disease: Will admit to the PCU, will continue BIPAP, will then maintain on oxygen with wean as tolerated to room air, continue ATC duonebs, PRN albuterol, +Rhinovirus. Legionella and strep antigens negative. CT showed RLL infiltrate, pleural effusion, pulmonary vascular congestion. (4) NSTEMI, initial episode of care: PLAN: Troponins peaked at 2811 on heparin gtt ASA, carvedilol Cardiology consult echo shows and EF 40-45% severe with mild AI tentative plan for [facility] on 03/24 (5) Portal vein thrombosis: PLAN: In main portal vein, right portal vein. Cirrhotic liver. MRCP ordered. continue heparin gtt check hepatitis profile consult GI. Dr. Booker recommends checking an AFP MRI shows portal venous thrombus within main portal vein, right portal vein. No suspicious mass. Cirrhotic liver with evidence of portal hypertension including small volume ascites. (6) Type 2 diabetes mellitus: PLAN: Uncontrolled Check a1c continue home insulin regimen, ADA diet, accu checks w/ ISS. PLAN: Plan The patient is a 77 y/o M w/ PMHx: Chronic anemia, CAD s/p CABG, HTN, HLD, BPH, Chronic pain syndrome, Valvular Heart Disease, Diabetes mellitus type II, COPD w/ former tobacco use history who presents to the [facility] ED on 03/20/23 with history of progressively worsening dyspnea over the last week although more severe approximately 1 hour prior to ED presentation reportedly being unable to catch his breath noting he had initially been walking outside but had to go in because of dyspnea prompting EMS call with significant respiratory distress upon their arrival prompting CPAP administration with also wheezing noted with breathing treatment administered with no recent fevers or chills although he does report some chronic abdominal discomfort to the right lower quadrant which has been persistent and ongoing for nearly 2 years with reportedly planned outpatient CT per his PCP this week but he denies any significant severe pain to this region and this has been stable and constant. Chronic conditions: * Chronic right lower quadrant abdominal pain: Notes that this is stable and unchanged with planned PCP evaluation this coming week for planned scheduling of CT, ED physician did obtain CT abdomen pelvis, results pending upon evaluation. * Chronic macrocytic anemia: Admission hemoglobin 12.7, baseline appears primarily 10-13 but more recently 10-11, stable, continue to trend. * CAD: Status post prior CABG, will continue aspirin, statin intolerance, continue fenofibrate regimen, continue Coreg, holding patient home losartan given acute kidney injury is noted. * Hypertension: Continue home regimen including Coreg, amlodipine, losartan, IV Lasix given concern for mild overload with transition back to oral once appropriate, as needed IV hydralazine. * Hyperlipidemia: We will continue patient home fenofibrate regimen, not on statin therapy per current list with noted reaction of significant myalgias. FLP in AM. * Obesity: Weight loss and lifestyle changes encouraged. * Former tobacco usage: Encourage continued tobacco cessation. * BPH: We will continue patient home Flomax regimen. * GERD: We will continue patient home PPI. * Chronic pain syndrome with severe osteoarthritis: Patient on chronic narcotic therapies as well as meloxicam as well as pregabalin regimen, will continue with hold parameters as needed. DVT Prophylaxis: Lovenox. CODE status: Full Code status. Explained work up to patient and his today. Discussed cirrhosis and it current work up and explained that further work up will be when he is discharged as well. Charges/Coding Visit Charges Inpatient E&M: 91085 Subs Hosp L2
[2023-03-22 07:51] LABS: Absolute Lymphocyte Count 0.81 X10^3/uL (0.83-4.51); Absolute Neutrophil Count 7.8 X10^3/uL (2.0-7.7); Basophil# 0.01 X10^3/uL; Basophil% 0.1 % (0-1); Hematocrit 32.1 % (40-54); Hemoglobin 10.5 g/dL (13.0-16.5); Lymphocyte # 0.81 X10^3/ul (0.83-4.51); Lymphocyte % 8.9 % (19-41); Mean Corp Hgb Conc 32.7 g/dL (32-36); Mean Corpuscular Hgb 31.1 pg (27.0-32.0); Mean Platelet Vol. 11.8 fl (6.2-12.0); Monocyte# 0.43 X10^3/uL; Monocyte% 4.7 % (0-10); NRBC Flagged by Analyzer 0 % (0-5); Neutrophil # 7.77 X10^3/uL (2.7-7.7); Neutrophil % 85.1 % (47-70); Platelet Count 178 K/mm3 (150-450); RBC Distribution Width CV 13.6 % (11.6-14.6); RBC Distribution Width SD 47.3 fl (35.1-43.9); Red Blood Count 3.38 M/mm3 (4.6-6.2); White Blood Count 9.1 K/mm3 (4.4-11.0)
[2023-03-22 08:18] LABS: Hemoglobin A1c 6.2 % (3.8-5.6); Vancomycin, Trough Level 11.9 ug/mL (5.0-15.0)
[2023-03-22 08:23] LABS: ALB/GLOB Ratio 0.8 RATIO (0.9-2.4); AST(SGOT) 25 U/L (15-37); Alanine Aminotransfer ALT/SGPT 22 U/L (16-61); Albumin, Serum 3.1 g/dL (3.2-5.0); Alkaline Phosphatase 73 U/L (45-117); Anion Gap 4 (5-15); BUN 27 mg/dL (7-18); BUN/Creat Ratio 22.9 RATIO (10-20); Calcium,Total 8.9 mg/dL (8.5-10.1); Chloride 102 mmol/L (98-107); Creatinine, Serum 1.18 mg/dL (0.70-1.30); EST Glomerular Filtration Rate 63 mL/min (>60); Est Glom Filt Rate - Afr Amer 77 mL/min (>60); Estimated Creatinine Clearance 44.88 ml/min; Globulin 3.9 g/dL (2.2-4.2); Glucose 258 mg/dL (74-106); Potassium 3.4 mmol/L (3.5-5.1); Sodium Level 134 mmol/L (136-145)
[2023-03-22] MEDS: Docusate Sodium 100 MG Capsule PO (09:02)
[2023-03-22] MEDS: Losartan Potassium 100 MG Tablet PO (09:02)
[2023-03-22] MEDS: Aspirin E.C. 81 MG Tablet PO (09:02)
[2023-03-22] MEDS: amLODIPine 10 MG Tablet PO (09:02)
[2023-03-22] MEDS: Carvedilol 12.5 MG Tablet PO ×2 (09:02→21:08)
[2023-03-22 09:41] LABS: Partial Thromboplast Time 57.3 Seconds (24.1-36.2)
--- NOTE | 2023-03-22 10:41 | PCM.RX.CS ---
Consult Pharmacy has been consulted to manage selected antiobiotic: Vancomycin Type of Consult: Follow-up Suspected Infection: Sepsis, Pneumonia Prior Doses of Antibiotics Received/Current Regimen: janet on vanc 500mg IV q12h Labs: Sodium 134 mmol/L (136-145) L 03/22/23 07:30 Potassium 3.4 mmol/L (3.5-5.1) L 03/22/23 07:30 Chloride 102 mmol/L (98-107) 03/22/23 07:30 Carbon Dioxide 28.0 mmol/L (21.0-32.0) 03/22/23 07:30 Anion Gap 4 (5-15) L 03/22/23 07:30 BUN 27 mg/dL (7-18) H 03/22/23 07:30 Creatinine 1.18 mg/dL (0.70-1.30) 03/22/23 07:30 Est GFR (MDRD) Af Amer 77 mL/min (>60) 03/22/23 07:30 Est GFR (MDRD) Non-Af 63 mL/min (>60) 03/22/23 07:30 BUN/Creatinine Ratio 22.9 RATIO (10-20) H 03/22/23 07:30 Glucose 258 mg/dL (74-106) H 03/22/23 07:30 Vancomycin Trough 11.9 ug/mL (5.0-15.0) 03/22/23 07:30 Microbiology: Microbiology 03/22/23 05:54 Sputum, Expectorated/Coughed Gram Stain - Final 03/20/23 17:40 Urine, Clean Catch Urine Culture - Final Mixed Gram Positive Organisms 03/20/23 22:30 Mucosa - Nose Respiratory Panel (PCR) - Final Rhinovirus 03/20/23 17:40 Urine, Clean Catch Legionella Antigen - Final 03/20/23 17:40 Urine, Clean Catch Streptococcus pneumoniae Antigen (M - Final 03/20/23 18:05 Nasal Secretion SARS-CoV-2 & FLU Antigen (Rapid) - Final Weight used for dosin.9 kg Estimated Creatinine Clearance: 51.7ml/min Goal Trough: 15-20 mcg/mL Pharmacy Plan for Drug Dosing: The vanc trough drawn at 07:30 today (approx 10.75 hrs after the previous dose) was 11.9. If drawn closer to 12 hrs, it would have been a little lower even. Since short of goal range, will increase dose to 750mg IV q12h starting with this morning's dose. Repeat a trough before the 4th new dose tomorrow night. The patient's CrCl of 51.7ml/min was calculated using an adjusted body weight. Pharmacy Service will continue to monitor and adjust dosing as required. Follow-Up Labs: Trough Vancomycin Labs to be done on [date and time ordered]: 03/23/23 21:30
[2023-03-22 11:51] LABS: Bedside Glucose 227 mg/dL (74-106)
[2023-03-22 13:07] LABS: AFP, Tumor Marker 51.2 ng/mL (0.0-8.4); HEPATITIS B SURFACE AG Negative (Negative); Hep C Antibodies Non Reactive (Non Reactive); Hepatitis A IgM Antibody Negative (Negative); Hepatitis B Core AB IgM Negative (Negative)
--- NOTE | 2023-03-22 14:32 | PCM.PN.CARD ---
Subjective Subjective Seen evaluated today at bedside No symptoms of chest pain reported. Objective Data Vital Signs: Vital Signs Temp Pulse Resp BP Pulse Ox O2 Del Method O2 Flow Rate 97.5 F L 67 20 H 135/73 H 98 Nasal Cannula 2 03/22/23 08:57 03/22/23 11:24 03/22/23 11:24 03/22/23 08:57 03/22/23 08:57 03/22/23 08:57 03/22/23 12:45 FiO2 30 03/22/23 02:49 Oxygen Flow Rate (L/min) 2 Oxygen Delivery Method Nasal Cannula Weight: 187 lb 2.759 oz Body Mass Index (BMI) 31.1 Intake & Output: Intake and Output for Last 24 Hours 03/20/23 03/21/23 03/22/23 23:59 23:59 23:59 Intake Total 590 / 590 1513.4 / 1513.4 753.5 / 753.5 Output Total 3425 / 3425 350 / 350 Balance 590 / 590 -1911.6 / -1911.6 403.5 / 403.5 Lab / Micro Data Result Diagrams: 03/22/23 07:30 03/22/23 07:30 Labs: Laboratory Results - last 24 hr 03/20/23 20:40: Tumor Marker AFP 51.2 H, Hepatitis A IgM Ab Negative, Hep Bs Antigen Negative, Hep B Core IgM Ab Negative, Hepatitis C Ab (EIA) Non Reactive, Hep C Ab Comment Comment 03/21/23 12:25: POC Glucose 282 H 03/21/23 15:35: APTT 61.5 H 03/21/23 17:06: POC Glucose 246 H 03/21/23 20:08: APTT 62.9 H 03/21/23 20:50: POC Glucose 218 H 03/22/23 06:31: POC Glucose 273 H 03/22/23 07:30: Vancomycin Trough 11.9 03/22/23 07:30: WBC 9.1, RBC 3.38 L, Hgb 10.5 L, Hct 32.1 L, MCV 95.0 H, MCH 31.1, MCHC 32.7, RDW Std Deviation 47.3 H, RDW Coeff of Ashley 13.6, Plt Count 178, MPV 11.8, Immature Gran % (Auto) 1.200 H, Neut % (Auto) 85.1 H, Lymph % (Auto) 8.9 L, [place] % (Auto) 4.7, Eos % (Auto) 0.0, Baso % (Auto) 0.1, Absolute Neuts (auto) 7.8 H, Absolute Lymphs (auto) 0.81 L, Nucleated RBC % 0 03/22/23 07:30: Sodium 134 L, Potassium 3.4 L, Chloride 102, Carbon Dioxide 28.0, Anion Gap 4 L, BUN 27 H, Creatinine 1.18, Estim Creat Clear Calc 44.88, Est GFR (MDRD) Af Amer 77, Est GFR (MDRD) Non-Af 63, BUN/Creatinine Ratio 22.9 H, Glucose 258 H, Calcium 8.9, Total Bilirubin 0.90, AST 25, ALT 22, Alkaline Phosphatase 73, Total Protein 7.0, Albumin 3.1 L, Globulin 3.9, Albumin/Globulin Ratio 0.8 L 03/22/23 07:30: Hemoglobin A1c 6.2 H 03/22/23 08:40: APTT 57.3 H 03/22/23 11:23: POC Glucose 227 H Micro: Microbiology 03/22/23 05:54 Sputum, Expectorated/Coughed Gram Stain - Final 03/20/23 17:40 Urine, Clean Catch Urine Culture - Final Mixed Gram Positive Organisms Cardiology Labs/Tests 03/21/23 15:35: APTT 61.5 H 03/21/23 20:08: APTT 62.9 H 03/22/23 07:30: WBC 9.1, RBC 3.38 L, Hgb 10.5 L, Hct 32.1 L, MCV 95.0 H, MCH 31.1, MCHC 32.7, Plt Count 178, MPV 11.8, Immature Gran % (Auto) 1.200 H, Neut % (Auto) 85.1 H, Lymph % (Auto) 8.9 L, [place] % (Auto) 4.7, Eos % (Auto) 0.0, Baso % (Auto) 0.1, Absolute Neuts (auto) 7.8 H, Nucleated RBC % 0 03/22/23 07:30: Sodium 134 L, Potassium 3.4 L, Chloride 102, Carbon Dioxide 28.0, Anion Gap 4 L, BUN 27 H, Creatinine 1.18, Est GFR (MDRD) Af Amer 77, Est GFR (MDRD) Non-Af 63, BUN/Creatinine Ratio 22.9 H, Glucose 258 H, Calcium 8.9, Total Bilirubin 0.90 03/22/23 07:30: Hemoglobin A1c 6.2 H 03/22/23 08:40: APTT 57.3 H Rhythm: EKG: ECHO: Stress Test: Cardiac Cath: PCI: CT Surgery: Holter monitor: EPS: PPM: CXR: Chest CT Scan: Radiography Diagnostic Testing: Radiology Impression Echocardiogram 03/20/23 20:36 Interpretation Summary The estimated ejection fraction is 40-45 %. Peak aortic valve gradient 83.9 mmhg mmHg. Mean aortic valve gradient 53.4 mmhg mmHg. CARLOS 0.73 cm2 Severe calcific aortic valve stenosis with mild AI. Mild to moderate LV systolic dysfunction with moderate concentric left ventricular hypertrophy Mild MR. In comparison to prior echocardiogram, worsening of aortic valve calcific stenosis, June 04, 2022 Ordering Physician: Amber Virgen Referring Physician: Dominic Lugo Performed By: Bereket Pagan RCS Abdomen MRI 03/20/23 21:09 IMPRESSION: Limited examination due to extreme motion and respiratory artifact on most sequences. Despite limitations: Redemonstration of portal venous thrombus within the main portal vein, right portal vein and a more peripheral wedge shaped area in the right hepatic lobe. No suspicious T2 hyperintense or enhancing mass seen. Cirrhotic liver with evidence of portal hypertension including small volume ascites. Cholelithiasis. Electronically Signed: Wisam Márquez MD at 17:38 EDT , Physical Exam Cardio Cardio Narrative: Review of monitoring specialist showed underlying normal sinus Cardiovascular Leo S1-S2 is regular Chest exam is clear to auscultation bilateral. Assessment & Plan Assessment/Plan (1) Pneumonia: (2) History of coronary artery bypass surgery: (3) Type 2 diabetes mellitus: (4) NSTEMI, initial episode of care: PLAN: Plan 77-year-old patient with multiple medical comorbidities This admission patient has acute sepsis/fever leukocytosis with hypoxia secondary to pneumonia. Treated with IV Zosyn and vancomycin in addition to IV Solu-Medrol.. Patient has acute respiratory failure with hypoxia Also has a non-ST elevation VA with significant elevated troponins up to 2811. Currently on heparin treatment in addition to aspirin beta-barrera. Repeat echocardiogram showed reduced LV function ejection fraction in the range of 40-45%. With severe aortic stenosis and mild aortic incompetence. Cardiac care plan recommendation 1. Patient to continue current treatment for pneumonia and sepsis 2. If he remained stable to consider further evaluation by cardiac catheterization to assess patency of the bypass graft Evaluate for progression of CAD Patient has severe aortic valve stenosis and discussion regarding further plan with Referral for TAVR evaluation based on finding of cardiac catheterization. From cardiac standpoint he remains stable clinically he does not have any active chest pain. Patient requested to have the cardiac catheterization from the left radial artery and also requested if transfer to transferred to [facility]. We will tentatively schedule for Friday.
[2023-03-22 17:00] LABS: Bedside Glucose 298 mg/dL (74-106)
--- NOTE | 2023-03-22 19:43 | PN_ITS ---
Subjective Subjective Patient knows that he is in the hospital. He knows what year it is. He does not know who the president is at this time. He had one bowel movement. He denies any chest pain or shortness of breath. Objective Data Objective Data Vital Signs: Vital Signs Temp Pulse Resp BP Pulse Ox O2 Del Method O2 Flow Rate 97.9 F 77 18 139/55 H 96 Nasal Cannula 2 03/22/23 14:51 03/22/23 14:51 03/22/23 14:51 03/22/23 14:51 03/22/23 14:51 03/22/23 14:51 03/22/23 14:51 FiO2 30 03/22/23 02:49 Oxygen Flow Rate (L/min) 2 Oxygen Delivery Method Nasal Cannula Weight: 187 lb 2.759 oz Body Mass Index (BMI) 31.1 Intake & Output: Intake and Output for Last 24 Hours 03/20/23 03/21/23 03/22/23 23:59 23:59 23:59 Intake Total 590 / 590 1513.4 / 1513.4 993.5 / 993.5 Output Total 3425 / 3425 350 / 350 Balance 590 / 590 -1911.6 / -1911.6 643.5 / 643.5 Medical Nutrition Assessment Dietitian: Malnutrition Criteria Met Start: 03/21/23 14:27 Freq: Status: Active Protocol: Document 03/21/23 14:27 (Rec: 03/21/23 14:28 [id number]) Nutrition Malnutrition Evidence of Malnutrition Exists Yes Malnutrition (moderate): Chronic Evidenced By Suboptimal Energy Intake ( Moderate),Weight Loss ( Moderate) Clinical Problem Chronic Disease or Condition Related Malnutrition Etiology chronic, moderate malnutrition related to inadequate energy intake Signs/Symptoms as evidenced by estimated PO intake meeting <75% of estimated energy needs x 3 months; unintentional 17.8#/9% wt loss x 3 months Status Active Problem Recommendation Dietitian Recommendations/Changes continue cardiac, 1800 calorie controlled diet as ordered; 120mL glucerna w/ medpass if pt becomes agreeable. Will monitor PO intake and liberalize diet as indicated. Lab / Micro Data Result Diagrams: 03/22/23 07:30 03/22/23 07:30 Labs: Laboratory Results - last 24 hr 03/20/23 20:40: Tumor Marker AFP 51.2 H, Hepatitis A IgM Ab Negative, Hep Bs Antigen Negative, Hep B Core IgM Ab Negative, Hepatitis C Ab (EIA) Non Reactive, Hep C Ab Comment Comment 03/21/23 20:08: APTT 62.9 H 03/21/23 20:50: POC Glucose 218 H 03/22/23 06:31: POC Glucose 273 H 03/22/23 07:30: Vancomycin Trough 11.9 03/22/23 07:30: WBC 9.1, RBC 3.38 L, Hgb 10.5 L, Hct 32.1 L, MCV 95.0 H, MCH 31.1, MCHC 32.7, RDW Std Deviation 47.3 H, RDW Coeff of Ashley 13.6, Plt Count 178, MPV 11.8, Immature Gran % (Auto) 1.200 H, Neut % (Auto) 85.1 H, Lymph % (Auto) 8.9 L, [place] % (Auto) 4.7, Eos % (Auto) 0.0, Baso % (Auto) 0.1, Absolute Neuts (auto) 7.8 H, Absolute Lymphs (auto) 0.81 L, Nucleated RBC % 0 03/22/23 07:30: Sodium 134 L, Potassium 3.4 L, Chloride 102, Carbon Dioxide 28.0, Anion Gap 4 L, BUN 27 H, Creatinine 1.18, Estim Creat Clear Calc 44.88, Est GFR (MDRD) Af Amer 77, Est GFR (MDRD) Non-Af 63, BUN/Creatinine Ratio 22.9 H , Glucose 258 H, Calcium 8.9, Total Bilirubin 0.90, AST 25, ALT 22, Alkaline Phosphatase 73, Total Protein 7.0, Albumin 3.1 L, Globulin 3.9, Albumin/Globulin Ratio 0.8 L 03/22/23 07:30: Hemoglobin A1c 6.2 H 03/22/23 08:40: APTT 57.3 H 03/22/23 11:23: POC Glucose 227 H 03/22/23 16:37: POC Glucose 298 H Micro: Microbiology 03/22/23 05:54 Sputum, Expectorated/Coughed Gram Stain - Final 03/20/23 17:40 Urine, Clean Catch Urine Culture - Final Mixed Gram Positive Organisms 03/20/23 22:30 Mucosa - Nose Respiratory Panel (PCR) - Final Rhinovirus 03/20/23 17:40 Urine, Clean Catch Legionella Antigen - Final 03/20/23 17:40 Urine, Clean Catch Streptococcus pneumoniae Antigen (M - Final 03/20/23 18:05 Nasal Secretion SARS-CoV-2 & FLU Antigen (Rapid) - Final Physical Exam Const alert and no apparent distress Assessment & Plan Assessment/Plan (1) SARTHAK (acute kidney injury): (2) NSTEMI, initial episode of care: (3) Portal vein thrombosis: PLAN: Plan Patient is a 77-year-old gentleman with multiple comorbidities including diabetes mellitus type 2 presented with shortness of breath and abdominal pain and discovered to have a non-ST segment elevation IL and portal vein thrombosis. He is currently on a heparin drip. For a cirrhotic patient with non-acute symptomatic PVT, the initiation of antithrombotic therapy should depend on the grade, extension, and dynamic evolution of PVT. When deciding whether and when to start treatment for cirrhotic. -I can tell that the clot extends up into the portal vein without extension into the mesenteric vein. You get 50 to 74% of your blood supply through the liver portal vein and 20% at that hepatic artery. This was confirmed by the MRI that the patient had today. A clot that extensive usually involves a HCC (hepatocellular carcinoma). Awaiting CEA, AFP and CA 19-9. He seems to have a grade 1 encephalopathy. I will order Ammonia level and continue lactulose. - Coronary artery disease with non-ST segment ovation IL ? With previous CABG. Patient is on aspirin as well as carvedilol continued. - Worsening Aortic stenosis with Aortic Insufficiency. - Management as per cardiology - Hypertension - Blood pressure controlled, home medications continued with dose adjustment as needed -Anemia - Secondary to chronic disorder monitoring H&H and transfuse if patient becomes symptomatic or hemoglobin falls below 7 Charges/Coding Visit Charges Inpatient E&M: 70919 Subs Hosp L3
[2023-03-22] MEDS: Tamsulosin HCl 0.4 MG Capsule PO (21:08)
[2023-03-22 21:40] LABS: Bedside Glucose 279 mg/dL (74-106)
[2023-03-22] MEDS: Lactulose 20 GM/30 ML UDC PO (22:33)
[2023-03-22] MEDS: 0.9% Saline Lock 10 ML Syringe IV (22:33)
[2023-03-23] VITALS (11 sets, daily range): BP systolic 122–147; BP diastolic 45–61; PULSE 63–85; RESP 14–22; TEMP 36.3–36.6; O2SAT 93–100; BMI 31.1
[2023-03-23] MEDS: Acetaminophen 325 MG Tablet 650 MG PO ×2 (00:17→18:25)
[2023-03-23] MEDS: oxyCODONE 5 MG Tablet 7.5 MG PO ×2 (02:00→21:48)
[2023-03-23] MEDS: HEPARIN/D5w 25,000 UNITS 25,000 UNITS/250 ML IV.SOLN. 9 UNITS CONT INF (02:41)
[2023-03-23] MEDS: 0.9% Saline Lock 10 ML Syringe IV ×2 (05:14→17:14)
[2023-03-23] MEDS: Pregabalin 50 MG Capsule PO ×3 (05:14→21:48)
[2023-03-23 05:32] LABS: Absolute Lymphocyte Count 0.62 X10^3/uL (0.83-4.51); Absolute Neutrophil Count 7.2 X10^3/uL (2.0-7.7); Hemoglobin 9.8 g/dL (13.0-16.5); Lymphocyte # 0.62 X10^3/ul (0.83-4.51); Lymphocyte % 7.5 % (19-41); Mean Corp Hgb Conc 33.8 g/dL (32-36); Mean Corpuscular Hgb 31.1 pg (27.0-32.0); Mean Corpuscular Volume 92.1 fL (80-94); Mean Platelet Vol. 11.7 fl (6.2-12.0); Monocyte# 0.41 X10^3/uL; NRBC Flagged by Analyzer 0 % (0-5); Neutrophil # 7.16 X10^3/uL (2.7-7.7); Neutrophil % 86.7 % (47-70); Platelet Count 167 K/mm3 (150-450); RBC Distribution Width CV 13.5 % (11.6-14.6); RBC Distribution Width SD 45.5 fl (35.1-43.9); Red Blood Count 3.15 M/mm3 (4.6-6.2); White Blood Count 8.3 K/mm3 (4.4-11.0)
[2023-03-23 05:54] LABS: Partial Thromboplast Time 54.1 Seconds (24.1-36.2)
[2023-03-23 06:05] LABS: Anion Gap 3 (5-15); BUN 27 mg/dL (7-18); BUN/Creat Ratio 25.5 RATIO (10-20); Calcium,Total 8.4 mg/dL (8.5-10.1); Chloride 104 mmol/L (98-107); Creatinine, Serum 1.06 mg/dL (0.70-1.30); EST Glomerular Filtration Rate 72 mL/min (>60); Est Glom Filt Rate - Afr Amer 87 mL/min (>60); Estimated Creatinine Clearance 49.96 ml/min; Glucose 230 mg/dL (74-106); Potassium 3.5 mmol/L (3.5-5.1); Sodium Level 136 mmol/L (136-145)
[2023-03-23] MEDS: Insulin Lispro 100 UNIT/ML INSULN.PEN SC ×4 (06:21→21:49)
[2023-03-23 07:05] LABS: Bedside Glucose 213 mg/dL (74-106)
[2023-03-23] MEDS: Ipratropium/Albuterol Sulfate 3 ML AMPUL.NEB INHALATION ×4 (07:25→20:49)
[2023-03-23] MEDS: Heparin Injection (Vial) 5,000 UNIT/ML VIAL IV (08:34)
[2023-03-23] MEDS: Ipratropium Bromide 0.06% NASAL SPRAY 1 SPRAY NASAL ×2 (08:43→21:49)
[2023-03-23] MEDS: Docusate Sodium 100 MG Capsule PO (08:43)
[2023-03-23] MEDS: Lactulose 20 GM/30 ML UDC PO ×2 (08:45→21:48)
[2023-03-23] MEDS: amLODIPine 10 MG Tablet PO (08:45)
[2023-03-23] MEDS: Carvedilol 12.5 MG Tablet PO ×2 (08:45→21:48)
[2023-03-23] MEDS: Aspirin E.C. 81 MG Tablet PO (08:45)
[2023-03-23] MEDS: Losartan Potassium 100 MG Tablet PO (08:45)
--- NOTE | 2023-03-23 09:15 | PCM.PN.HOSP ---
Reason for Visit Reason for Visit: Diagnoses Sepsis, unspecified organism (03/20/23) Type 2 diabetes mellitus without complications (03/20/23) Pure hypercholesterolemia, unspecified (03/20/23) Essential (primary) hypertension (03/20/23) Non-ST elevation (NSTEMI) myocardial infarction (03/20/23) Nonrheumatic aortic (valve) stenosis (03/20/23) Portal vein thrombosis (03/20/23) Pneumonia, unspecified organism (03/20/23) Acute respiratory failure with hypoxia (03/20/23) Acute kidney failure, unspecified (03/20/23) Presence of aortocoronary bypass graft (03/20/23) Subjective Subjective Still complaining about inability to abduct his left arm. Objective Data Objective Data Vital Signs: Vital Signs Temp Pulse Resp BP Pulse Ox O2 Del Method O2 Flow Rate 36.6 C 69 16 129/61 H 98 Nasal Cannula 2 03/23/23 08:38 03/23/23 08:38 03/23/23 08:38 03/23/23 08:38 03/23/23 08:38 03/23/23 08:38 03/23/23 08:38 FiO2 30 03/22/23 23:26 Oxygen Flow Rate (L/min) 2 Oxygen Delivery Method Nasal Cannula Weight: 84.9 kg Body Mass Index (BMI) 31.1 Intake & Output: Intake and Output for Last 24 Hours 03/21/23 03/22/23 03/23/23 23:59 23:59 23:59 Intake Total 1513.4 / 1513.4 1308.5 / 1308.5 335.30 / 335.30 Output Total 3425 / 3425 750 / 750 300 / 300 Balance -1911.6 / -1911.6 558.5 / 558.5 35.30 / 35.30 Medical Nutrition Assessment Dietitian: Malnutrition Criteria Met Start: 03/21/23 14:27 Freq: Status: Active Protocol: Document 03/21/23 14:27 (Rec: 03/21/23 14:28 [id number]) Nutrition Malnutrition Evidence of Malnutrition Exists Yes Malnutrition (moderate): Chronic Evidenced By Suboptimal Energy Intake ( Moderate),Weight Loss ( Moderate) Clinical Problem Chronic Disease or Condition Related Malnutrition Etiology chronic, moderate malnutrition related to inadequate energy intake Signs/Symptoms as evidenced by estimated PO intake meeting <75% of estimated energy needs x 3 months; unintentional 17.8#/9% wt loss x 3 months Status Active Problem Recommendation Dietitian Recommendations/Changes continue cardiac, 1800 calorie controlled diet as ordered; 120mL glucerna w/ medpass if pt becomes agreeable. Will monitor PO intake and liberalize diet as indicated. Lab / Micro Data Result Diagrams: 03/23/23 05:00 03/23/23 05:00 Labs: Laboratory Results - last 24 hr 03/20/23 20:40: Tumor Marker AFP 51.2 H, Hepatitis A IgM Ab Negative, Hep Bs Antigen Negative, Hep B Core IgM Ab Negative, Hepatitis C Ab (EIA) Non Reactive, Hep C Ab Comment Comment 03/22/23 08:40: APTT 57.3 H 03/22/23 11:23: POC Glucose 227 H 03/22/23 16:37: POC Glucose 298 H 03/22/23 21:06: POC Glucose 279 H 03/22/23 21:11: Ammonia 23.0 03/23/23 05:00: WBC 8.3, RBC 3.15 L, Hgb 9.8 L, Hct 29.0 L, MCV 92.1, MCH 31.1, MCHC 33.8, RDW Std Deviation 45.5 H, RDW Coeff of Ashley 13.5, Plt Count 167, MPV 11.7, Immature Gran % (Auto) 0.800, Neut % (Auto) 86.7 H, Lymph % (Auto) 7.5 L, [place] % (Auto) 5.0, Eos % (Auto) 0.0, Baso % (Auto) 0.0, Absolute Neuts (auto) 7.2, Absolute Lymphs (auto) 0.62 L, Nucleated RBC % 0 03/23/23 05:00: Sodium 136, Potassium 3.5, Chloride 104, Carbon Dioxide 29.0, Anion Gap 3 L, BUN 27 H, Creatinine 1.06, Estim Creat Clear Calc 49.96, Est GFR (MDRD) Af Amer 87, Est GFR (MDRD) Non-Af 72, BUN/Creatinine Ratio 25.5 H, Glucose 230 H, Calcium 8.4 L 03/23/23 05:00: APTT 54.1 H 03/23/23 06:20: POC Glucose 213 H Micro: Microbiology 03/20/23 18:25 Blood Culture (Wb) - Right Forearm Blood Culture - Preliminary No growth in 48 hours. 03/20/23 18:00 Blood Culture (Wb) - Anticubital Right Blood Culture - Preliminary No growth in 48 hours. 03/22/23 05:54 Sputum, Expectorated/Coughed Gram Stain - Final 03/20/23 17:40 Urine, Clean Catch Urine Culture - Final Mixed Gram Positive Organisms 03/20/23 22:30 Mucosa - Nose Respiratory Panel (PCR) - Final Rhinovirus 03/20/23 17:40 Urine, Clean Catch Legionella Antigen - Final 03/20/23 17:40 Urine, Clean Catch Streptococcus pneumoniae Antigen (M - Final 03/20/23 18:05 Nasal Secretion SARS-CoV-2 & FLU Antigen (Rapid) - Final Physical Exam Const alert and no apparent distress HEENT head/scalp atraumatic and moist oral mucous membranes Resp normal respiratory effort and no retractions Resp Narrative: crackles in bases Cardio regular rate, regular rhythm, S1 normal heart sound and S2 normal heart sound GI normal to inspection, nondistended, normoactive bowel sounds and soft to palpation Extremity Extremity Narrative: + empty can test on left. Assessment & Plan Assessment/Plan (1) Sepsis: PLAN: Acute Sepsis (Fever, leukocytosis, hypoxia, tachypnea, lactic acidosis, source present) secondary to pneumonia IV solumedrol, maintained on IV Zosyn and Vancomycin w/ MRSA screen pending w/ de-escalation as able, HOB, IS parameters w/ pending sputum cultures, full respiratory viral panel, COVID PCR and urine antigens. Bld cx x 2 obtained in the ED. COVID 19 and influenza negative BCx pending (2) Acute respiratory failure with hypoxia: PLAN: Acute Hypoxic Respiratory Failure secondary to RLL PNA and CHF and rhinovirus Doubt COPD exacerbation, so I will dc steroids. +Rhinovirus. Legionella and strep antigens negative. CT showed RLL infiltrate, pleural effusion, pulmonary vascular congestion. (3) Pneumonia: PLAN: Suspected pneumococcal On Pip/tazo and vanc pulmonary toilet SCx pending If Cx negative, consider discontinuing abx (4) NSTEMI, initial episode of care: PLAN: Troponins peaked at 2811 on heparin gtt ASA, carvedilol Cardiology consult echo shows and EF 40-45% severe with mild AI tentative plan for [facility] on 03/24 (5) HFrEF (heart failure with reduced ejection fraction): PLAN: EF 40-45% Complicated by severe start furosemide (6) Portal vein thrombosis: PLAN: In main portal vein, right portal vein. Cirrhotic liver. MRCP ordered. continue heparin gtt check hepatitis profile consult GI. Dr. Booker recommends checking an AFP MRI shows portal venous thrombus within main portal vein, right portal vein. No suspicious mass. Cirrhotic liver with evidence of portal hypertension including small volume ascites. (7) Cirrhosis: PLAN: etiology unclear started on lactulose by GI. Acute viral hepatitis profile negative AFP elevated CEA, CA19-9 pending (8) Aortic stenosis: PLAN: severe Eventual referral for TAVR, defer to cardiology if needs to be this admission or as outpt If patient requires transfer for this, he wants to go to [facility] (9) Type 2 diabetes mellitus: PLAN: Uncontrolled a1c 6.2 continue home insulin regimen, ADA diet, accu checks w/ ISS. hopefully improves with discontinuation of steroids. (10) Rotator cuff (capsule) sprain: PLAN: sprain v tear prior to hospitalization told patient he will need PT Pt informed that he would require clearance before surgery which would be a long ways off PLAN: Plan The patient is a 77 y/o M w/ PMHx: Chronic anemia, CAD s/p CABG, HTN, HLD, BPH, Chronic pain syndrome, Valvular Heart Disease, Diabetes mellitus type II, COPD w/ former tobacco use history who presents to the [facility] ED on 03/20/23 with history of progressively worsening dyspnea over the last week although more severe approximately 1 hour prior to ED presentation reportedly being unable to catch his breath noting he had initially been walking outside but had to go in because of dyspnea prompting EMS call with significant respiratory distress upon their arrival prompting CPAP administration with also wheezing noted with breathing treatment administered with no recent fevers or chills although he does report some chronic abdominal discomfort to the right lower quadrant which has been persistent and ongoing for nearly 2 years with reportedly planned outpatient CT per his PCP this week but he denies any significant severe pain to this region and this has been stable and constant. Chronic conditions: Chronic right lower quadrant abdominal pain: Notes that this is stable and unchanged with planned PCP evaluation this coming week for planned scheduling of CT, ED physician did obtain CT abdomen pelvis, results pending upon evaluation. Chronic macrocytic anemia: Admission hemoglobin 12.7, baseline appears primarily 10-13 but more recently 10-11, stable, continue to trend. CAD: Status post prior CABG, will continue aspirin, statin intolerance, continue fenofibrate regimen, continue Coreg, holding patient home losartan given acute kidney injury is noted. Hypertension: Continue home regimen including Coreg, amlodipine, losartan, IV Lasix given concern for mild overload with transition back to oral once appropriate, as needed IV hydralazine. Hyperlipidemia: We will continue patient home fenofibrate regimen, not on statin therapy per current list with noted reaction of significant myalgias. FLP in AM. Obesity: Weight loss and lifestyle changes encouraged. Former tobacco usage: Encourage continued tobacco cessation. BPH: We will continue patient home Flomax regimen. GERD: We will continue patient home PPI. Chronic pain syndrome with severe osteoarthritis: Patient on chronic narcotic therapies as well as meloxicam as well as pregabalin regimen, will continue with hold parameters as needed. DVT Prophylaxis: Lovenox. CODE status: Full Code status. DW patient's at bedside. Charges/Coding Visit Charges Inpatient E&M: 34290 Subs Hosp L2
[2023-03-23] MEDS: Furosemide 40 MG/4 ML Vial IV ×2 (10:09→17:14)
[2023-03-23 13:05] LABS: Bedside Glucose 304 mg/dL (74-106)
--- NOTE | 2023-03-23 14:50 | PCM.PN.CARD ---
Subjective Subjective Patient seen and evaluated today at bedside He does not have any active chest pain Sitting out in a chair comfortable. Objective Data Vital Signs: Vital Signs Temp Pulse Resp BP Pulse Ox O2 Del Method O2 Flow Rate 98 F 68 22 H 122/52 H 100 Nasal Cannula 2 03/23/23 13:33 03/23/23 14:33 03/23/23 14:33 03/23/23 13:33 03/23/23 13:33 03/23/23 13:33 03/23/23 13:33 FiO2 30 03/22/23 23:26 Oxygen Flow Rate (L/min) 2 Oxygen Delivery Method Nasal Cannula Weight: 187 lb 2.759 oz Body Mass Index (BMI) 31.1 Intake & Output: Intake and Output for Last 24 Hours 03/21/23 03/22/23 03/23/23 23:59 23:59 23:59 Intake Total 1513.4 / 1513.4 1308.5 / 1308.5 890.30 / 890.30 Output Total 3425 / 3425 750 / 750 940 / 940 Balance -1911.6 / -1911.6 558.5 / 558.5 -49.70 / -49.70 Lab / Micro Data Result Diagrams: 03/23/23 05:00 03/23/23 05:00 Labs: Laboratory Results - last 24 hr 03/22/23 16:37: POC Glucose 298 H 03/22/23 21:06: POC Glucose 279 H 03/22/23 21:11: Ammonia 23.0 03/23/23 05:00: WBC 8.3, RBC 3.15 L, Hgb 9.8 L, Hct 29.0 L, MCV 92.1, MCH 31.1, MCHC 33.8, RDW Std Deviation 45.5 H, RDW Coeff of Ashley 13.5, Plt Count 167, MPV 11.7, Immature Gran % (Auto) 0.800, Neut % (Auto) 86.7 H, Lymph % (Auto) 7.5 L, [place] % (Auto) 5.0, Eos % (Auto) 0.0, Baso % (Auto) 0.0, Absolute Neuts (auto) 7.2, Absolute Lymphs (auto) 0.62 L, Nucleated RBC % 0 03/23/23 05:00: Sodium 136, Potassium 3.5, Chloride 104, Carbon Dioxide 29.0, Anion Gap 3 L, BUN 27 H, Creatinine 1.06, Estim Creat Clear Calc 49.96, Est GFR (MDRD) Af Amer 87, Est GFR (MDRD) Non-Af 72, BUN/Creatinine Ratio 25.5 H, Glucose 230 H, Calcium 8.4 L 03/23/23 05:00: APTT 54.1 H 03/23/23 06:20: POC Glucose 213 H 03/23/23 12:39: POC Glucose 304 H Micro: Microbiology 03/22/23 05:54 Sputum, Expectorated/Coughed Gram Stain - Final 03/22/23 05:54 Sputum, Expectorated/Coughed Respiratory Culture - Preliminary Appears to be normal respiratory shweta. Further studies to follow. 03/20/23 18:25 Blood Culture (Wb) - Right Forearm Blood Culture - Preliminary No growth in 48 hours. 03/20/23 18:00 Blood Culture (Wb) - Anticubital Right Blood Culture - Preliminary No growth in 48 hours. Cardiology Labs/Tests 03/23/23 05:00: WBC 8.3, RBC 3.15 L, Hgb 9.8 L, Hct 29.0 L, MCV 92.1, MCH 31.1, MCHC 33.8, Plt Count 167, MPV 11.7, Immature Gran % (Auto) 0.800, Neut % (Auto) 86.7 H, Lymph % (Auto) 7.5 L, [place] % (Auto) 5.0, Eos % (Auto) 0.0, Baso % (Auto) 0.0, Absolute Neuts (auto) 7.2, Nucleated RBC % 0 03/23/23 05:00: Sodium 136, Potassium 3.5, Chloride 104, Carbon Dioxide 29.0, Anion Gap 3 L, BUN 27 H, Creatinine 1.06, Est GFR (MDRD) Af Amer 87, Est GFR (MDRD) Non-Af 72, BUN/Creatinine Ratio 25.5 H, Glucose 230 H, Calcium 8.4 L 03/23/23 05:00: APTT 54.1 H Rhythm: EKG: ECHO: Stress Test: Cardiac Cath: PCI: CT Surgery: Holter monitor: EPS: PPM: CXR: Chest CT Scan: Physical Exam Cardio Cardio Narrative: Of lunchroom monitor showed underlying normal sinus rhythm Cardiovascular Leo S1-S2 is regular Chest exam clear to auscultation bilateral. Assessment & Plan Assessment/Plan (1) Aortic stenosis: (2) HFrEF (heart failure with reduced ejection fraction): (3) NSTEMI, initial episode of care: (4) Pneumonia: (5) SOB (shortness of breath) on exertion: (6) History of coronary artery bypass surgery: PLAN: Plan 77-year-old patient with history of CAD prior CABG With KNOWLES to LAD, SVG to ramus, SVG to circumflex, SVG to RPDA. Presentation with symptoms of chest pain and has a elevated cardiac biomarker with high sensitive troponin up to 2811 Symptoms of chest pain resolved also patient had a pneumonia in this admission treated with IV antibiotic Reduced LV systolic function by echocardiogram and severe aortic stenosis. Ejection fraction 40-45% Aortic valve area 0.73 cm? with mild aortic incompetence Mean gradient across aortic valve is 53.4 mmHg with a maximum gradient of 83.9 mmHg Cardiac care plan recommendation This patient with multiple medical comorbidities Diabetes mellitus CAD with a prior CABG Recent pneumonia On this admission he had an non-ST elevation NM and has been stable on medical therapy. On the echocardiogram he had reduced LV systolic function as well has severe aortic stenosis. Patient stable on medical treatment he does not have any active chest pain I scheduled the patient for cardiac catheterization /patient requested to be done from the left radial artery. We will continue to monitor and follow-up clinically.
[2023-03-23 15:04] LABS: Partial Thromboplast Time 67.4 Seconds (24.1-36.2)
[2023-03-23 16:46] LABS: Bedside Glucose 363 mg/dL (74-106)
[2023-03-23 20:49] LABS: Partial Thromboplast Time 59.8 Seconds (24.1-36.2)
[2023-03-23 21:28] LABS: Vancomycin, Trough Level 16.9 ug/mL (5.0-15.0)
--- NOTE | 2023-03-23 21:38 | PCM.RX.CS ---
Consult Pharmacy has been consulted to manage selected antiobiotic: Vancomycin Type of Consult: Follow-up Labs: Sodium 136 mmol/L (136-145) 03/23/23 05:00 Potassium 3.5 mmol/L (3.5-5.1) 03/23/23 05:00 Chloride 104 mmol/L (98-107) 03/23/23 05:00 Carbon Dioxide 29.0 mmol/L (21.0-32.0) 03/23/23 05:00 Anion Gap 3 (5-15) L 03/23/23 05:00 BUN 27 mg/dL (7-18) H 03/23/23 05:00 Creatinine 1.06 mg/dL (0.70-1.30) 03/23/23 05:00 Est GFR (MDRD) Af Amer 87 mL/min (>60) 03/23/23 05:00 Est GFR (MDRD) Non-Af 72 mL/min (>60) 03/23/23 05:00 BUN/Creatinine Ratio 25.5 RATIO (10-20) H 03/23/23 05:00 Glucose 230 mg/dL (74-106) H 03/23/23 05:00 Vancomycin Trough 16.9 ug/mL (5.0-15.0) H 03/23/23 20:25 Microbiology: Microbiology 03/22/23 05:54 Sputum, Expectorated/Coughed Gram Stain - Final 03/22/23 05:54 Sputum, Expectorated/Coughed Respiratory Culture - Preliminary Appears to be normal respiratory shweta. Further studies to follow. 03/20/23 18:25 Blood Culture (Wb) - Right Forearm Blood Culture - Preliminary No growth in 48 hours. 03/20/23 18:00 Blood Culture (Wb) - Anticubital Right Blood Culture - Preliminary No growth in 48 hours. 03/20/23 17:40 Urine, Clean Catch Urine Culture - Final Mixed Gram Positive Organisms 03/20/23 22:30 Mucosa - Nose Respiratory Panel (PCR) - Final Rhinovirus 03/20/23 17:40 Urine, Clean Catch Legionella Antigen - Final 03/20/23 17:40 Urine, Clean Catch Streptococcus pneumoniae Antigen (M - Final 03/20/23 18:05 Nasal Secretion SARS-CoV-2 & FLU Antigen (Rapid) - Final Goal Trough: 15-20 mcg/mL Pharmacy Plan for Drug Dosing: Pharmacy Service will continue to monitor and adjust dosing as required. TROUGH 16.9 @ 10.5 HRS. NO CHANGES, FOLLOW UP TROUGH IN 2 DAYS Follow-Up Labs: Trough Vancomycin Labs to be done on [date and time ordered]: 03/25 @ 4762
[2023-03-23] MEDS: Tamsulosin HCl 0.4 MG Capsule PO (21:48)
[2023-03-23 22:15] LABS: Bedside Glucose 295 mg/dL (74-106)
[2023-03-24] VITALS (15 sets, daily range): BP systolic 110–155; BP diastolic 49–101; PULSE 61–70; RESP 12–19; TEMP 36.4–36.8; O2SAT 93–98; BMI 31.2
--- NOTE | 2023-03-24 00:42 | EKG12_ITS ---
Test Reason : RHYTHM CHANGE Blood Pressure : / mmHG Vent. Rate : 068 BPM Atrial Rate : 068 BPM P-R Int : 162 ms QRS Dur : 166 ms QT Int : 454 ms P-R-T Axes : 053 -43 115 degrees QTc Int : 482 ms Sinus rhythm with occasional Premature ventricular complexes Left axis deviation Left bundle branch block Abnormal ECG When compared with ECG of 20-MAR-2023 17:31, MANUAL COMPARISON REQUIRED, DATA IS UNCONFIRMED Confirmed by SARAH JHAVERI, TOLU ([id number]), index editor ANSELMO HAMPTON ([id number]) on 03/25/2023 10:27:38 AM Referred By: Dominic Lugo Confirmed By:TOUL SMITH MD
[2023-03-24 04:30] LABS: Absolute Lymphocyte Count 0.94 X10^3/uL (0.83-4.51); Absolute Neutrophil Count 7.3 X10^3/uL (2.0-7.7); Basophil# 0.01 X10^3/uL; Basophil% 0.1 % (0-1); Hematocrit 31.6 % (40-54); Hemoglobin 10.7 g/dL (13.0-16.5); Lymphocyte # 0.94 X10^3/ul (0.83-4.51); Mean Corp Hgb Conc 33.9 g/dL (32-36); Mean Corpuscular Hgb 31.2 pg (27.0-32.0); Mean Corpuscular Volume 92.1 fL (80-94); Mean Platelet Vol. 11.8 fl (6.2-12.0); Monocyte# 0.95 X10^3/uL; Monocyte% 10.1 % (0-10); NRBC Flagged by Analyzer 0 % (0-5); Neutrophil # 7.31 X10^3/uL (2.7-7.7); Neutrophil % 77.9 % (47-70); Platelet Count 184 K/mm3 (150-450); RBC Distribution Width CV 13.4 % (11.6-14.6); RBC Distribution Width SD 45.9 fl (35.1-43.9); Red Blood Count 3.43 M/mm3 (4.6-6.2); White Blood Count 9.4 K/mm3 (4.4-11.0)
[2023-03-24 04:51] LABS: Partial Thromboplast Time 62.2 Seconds (24.1-36.2)
[2023-03-24 04:52] LABS: Anion Gap 5 (5-15); BUN 27 mg/dL (7-18); BUN/Creat Ratio 28.2 RATIO (10-20); Calcium,Total 8.7 mg/dL (8.5-10.1); Chloride 103 mmol/L (98-107); Creatinine, Serum 0.96 mg/dL (0.70-1.30); EST Glomerular Filtration Rate 81 mL/min (>60); Est Glom Filt Rate - Afr Amer 98 mL/min (>60); Estimated Creatinine Clearance 55.16 ml/min; Glucose 181 mg/dL (74-106); Potassium 2.8 mmol/L (3.5-5.1); Sodium Level 138 mmol/L (136-145)
[2023-03-24] MEDS: HEPARIN/D5w 25,000 UNITS 25,000 UNITS/250 ML IV.SOLN. 10 UNITS CONT INF (05:44)
[2023-03-24] MEDS: Pregabalin 50 MG Capsule PO ×2 (05:47→13:35)
[2023-03-24] MEDS: Acetaminophen 325 MG Tablet 650 MG PO ×2 (05:47→13:35)
[2023-03-24] MEDS: Carvedilol 12.5 MG Tablet PO (06:45)
[2023-03-24] MEDS: Losartan Potassium 100 MG Tablet PO (06:45)
[2023-03-24] MEDS: Aspirin E.C. 81 MG Tablet PO (06:45)
[2023-03-24] MEDS: amLODIPine 10 MG Tablet PO (06:45)
[2023-03-24 07:10] LABS: Bedside Glucose 147 mg/dL (74-106)
[2023-03-24] MEDS: Ipratropium/Albuterol Sulfate 3 ML AMPUL.NEB INHALATION ×2 (07:27→14:34)
--- NOTE | 2023-03-24 08:00 | PCM.PROGNOTE ---
Subjective Subjective He had one bowel movement. He denies any chest pain or shortness of breath Objective Data Objective Data Vital Signs: Vital Signs Temp Pulse Resp BP Pulse Ox O2 Del Method O2 Flow Rate 97.6 F L 63 14 110/74 97 Room Air 2 03/24/23 11:05 03/24/23 15:00 03/24/23 15:00 03/24/23 15:00 03/24/23 15:00 03/24/23 15:00 03/23/23 13:33 FiO2 30 03/22/23 23:26 Oxygen Flow Rate (L/min) 2 Oxygen Delivery Method Room Air Weight: 187 lb 6.287 oz Body Mass Index (BMI) 31.2 Intake & Output: Intake and Output for Last 24 Hours 03/22/23 03/23/23 03/24/23 23:59 23:59 23:59 Intake Total 1308.5 / 1308.5 1705.30 / 1705.30 648.89 / 648.89 Output Total 750 / 750 2590 / 2590 1300 / 1300 Balance 558.5 / 558.5 -884.70 / -884.70 -651.11 / -651.11 Medical Nutrition Assessment Dietitian: Malnutrition Criteria Met Start: 03/21/23 14:27 Freq: Status: Active Protocol: Document 03/24/23 10:46 RMA (Rec: 03/24/23 10:46 RMA [id number]) Nutrition Malnutrition Evidence of Malnutrition Exists Yes Malnutrition (moderate): Chronic Evidenced By Suboptimal Energy Intake ( Moderate),Weight Loss ( Moderate) Clinical Problem Chronic Disease or Condition Related Malnutrition Etiology chronic, moderate malnutrition related to inadequate energy intake Signs/Symptoms as evidenced by estimated PO intake meeting <75% of estimated energy needs x 3 months; unintentional 17.8#/9% wt loss x 3 months Status Active Problem Recommendation Dietitian Recommendations/Changes Resume 1800 calorie controlled /cardiac diet as able s/p cath . Recommend 120mL glucerna shake w/ medpass if pt becomes agreeable. Will monitor PO intake and liberalize diet as indicated. Lab / Micro Data Result Diagrams: 03/24/23 04:10 03/24/23 04:10 Labs: Laboratory Results - last 24 hr 03/23/23 15:50: POC Glucose 363 H 03/23/23 20:25: Vancomycin Trough 16.9 H 03/23/23 20:25: APTT 59.8 H 03/23/23 21:39: POC Glucose 295 H 03/24/23 04:10: WBC 9.4, RBC 3.43 L, Hgb 10.7 L, Hct 31.6 L, MCV 92.1, MCH 31.2, MCHC 33.9, RDW Std Deviation 45.9 H, RDW Coeff of Ashley 13.4, Plt Count 184, MPV 11.8, Immature Gran % (Auto) 1.900 H, Neut % (Auto) 77.9 H, Lymph % (Auto) 10.0 L, [place] % (Auto) 10.1 H, Eos % (Auto) 0.0, Baso % (Auto) 0.1, Absolute Neuts (auto) 7.3, Absolute Lymphs (auto) 0.94, Nucleated RBC % 0 03/24/23 04:10: Sodium 138, Potassium 2.8 L, Chloride 103, Carbon Dioxide 30.0, Anion Gap 5, BUN 27 H, Creatinine 0.96, Estim Creat Clear Calc 55.16, Est GFR (MDRD) Af Amer 98, Est GFR (MDRD) Non-Af 81, BUN/Creatinine Ratio 28.2 H, Glucose 181 H, Calcium 8.7 03/24/23 04:10: APTT 62.2 H 03/24/23 06:43: POC Glucose 147 H Micro: Microbiology 03/22/23 05:54 Sputum, Expectorated/Coughed Gram Stain - Final 03/22/23 05:54 Sputum, Expectorated/Coughed Respiratory Culture - Final Mixed normal respiratory shweta. No Streptococcus pneumoniae, beta-hemolytic Streptococcus or Staphylococcus aureus isolated. 03/20/23 18:25 Blood Culture (Wb) - Right Forearm Blood Culture - Preliminary No growth in 48 hours. 03/20/23 18:00 Blood Culture (Wb) - Anticubital Right Blood Culture - Preliminary No growth in 48 hours. 03/20/23 17:40 Urine, Clean Catch Urine Culture - Final Mixed Gram Positive Organisms 03/20/23 22:30 Mucosa - Nose Respiratory Panel (PCR) - Final Rhinovirus 03/20/23 17:40 Urine, Clean Catch Legionella Antigen - Final 03/20/23 17:40 Urine, Clean Catch Streptococcus pneumoniae Antigen (M - Final 03/20/23 18:05 Nasal Secretion SARS-CoV-2 & FLU Antigen (Rapid) - Final Physical Exam Const alert, oriented x3, no apparent distress and well nourished Constitutional Narrative: Very pleasant, elderly, white male, lying in bed, has just returned from [employer], family at bedside, patient appears comfortable and nontoxic, on room air General Appearance: cooperative, comfortable, well kempt and well developed Orientation / Consciousness: awake, oriented to person, oriented to place and oriented to time Exam Limitations: no limitations Nutritional Appearance: obese HEENT normocephalic, head/scalp atraumatic and moist oral mucous membranes; Negative for hearing grossly normal bilaterally HEENT Narrative: Moderate hearing loss, edentulous, Mallampati 2-3, no thrush Eyes PERRL, EOMs intact bilaterally and conjunctivae normal Neck no lymphadenopathy, supple and no JVD Neck Narrative: Trachea midline, no thyroid enlargement Resp normal respiratory effort, no retractions, no use of accessory muscles and clear to auscultation bilaterally Resp Narrative: Diffusely diminished but clear Auscultation: Negative for rales, rhonchi or wheezes Cardio regular rate, regular rhythm, S1 normal heart sound, no rub, no gallops and no clicks; Negative for S2 normal heart sound or no murmurs Cardio Narrative: 4 out of 6 systolic murmur loudest at right upper sternal border, soft S2 GI normal to inspection, nondistended, normoactive bowel sounds and soft to palpation GI Narrative: Mild tenderness on the left side of the abdomen Extremity no clubbing, cyanosis or edema Extremity Narrative: 2+ pedal pulses Skin no rashes or lesions noted, no wounds, skin turgor normal and no jaundice Skin Narrative: Left radial compression device in place status post cath with no signs of bleeding or oozing Neuro oriented x3, CN's II-XII intact bilaterally, moves all extremities and no sensory deficits noted Speech: speech normal Psych affect normal Psych Narrative: Very pleasant, appropriately interactive Assessment & Plan Assessment/Plan (1) SARTHAK (acute kidney injury): (2) NSTEMI, initial episode of care: (3) Portal vein thrombosis: PLAN: Plan Patient is a 77-year-old gentleman with multiple comorbidities including diabetes mellitus type 2 presented with shortness of breath and abdominal pain and discovered to have a non-ST segment elevation [place] and portal vein thrombosis. He is currently on a heparin drip. For a cirrhotic patient with non-acute symptomatic PVT, the initiation of antithrombotic therapy should depend on the grade, extension, and dynamic evolution of PVT. When deciding whether and when to start treatment for cirrhotic. -I can tell that the clot extends up into the portal vein without extension into the mesenteric vein. You get 50 to 74% of your blood supply through the liver portal vein and 20% at that hepatic artery. This was confirmed by the MRI that the patient had today. A clot that extensive usually involves a HCC (hepatocellular carcinoma). Awaiting CEA, AFP and CA 19-9. He seems to have a grade 1 encephalopathy. I will order Ammonia level and continue lactulose. - Coronary artery disease with non-ST segment ovation [place] ? With previous CABG. Patient is on aspirin as well as carvedilol continued. - Worsening Aortic stenosis with Aortic Insufficiency. - Management as per cardiology - Hypertension - Blood pressure controlled, home medications continued with dose adjustment as needed -Anemia - Secondary to chronic disorder monitoring H&H and transfuse if patient becomes symptomatic or hemoglobin falls below 7 Charges/Coding Visit Charges Inpatient E&M: 61400 Subs Hosp L3
--- NOTE | 2023-03-24 10:40 | PN.CARD_ITS ---
Subjective Subjective Seen and evaluated. Underwent cardiac catheterization this morning. Objective Data Vital Signs: Vital Signs Temp Pulse Resp BP Pulse Ox O2 Del Method O2 Flow Rate 98.3 F 61 18 133/57 H 97 Room Air 2 03/24/23 08:58 03/24/23 08:58 03/24/23 08:58 03/24/23 08:58 03/24/23 08:58 03/24/23 08:58 03/23/23 13:33 FiO2 30 03/22/23 23:26 Oxygen Flow Rate (L/min) 2 Oxygen Delivery Method Room Air Weight: 187 lb 6.287 oz Body Mass Index (BMI) 31.2 Intake & Output: Intake and Output for Last 24 Hours 03/22/23 03/23/23 03/24/23 23:59 23:59 23:59 Intake Total 1308.5 / 1308.5 1705.30 / 1705.30 323.89 / 323.89 Output Total 750 / 750 2590 / 2590 1300 / 1300 Balance 558.5 / 558.5 -884.70 / -884.70 -976.11 / -976.11 Lab / Micro Data Result Diagrams: 03/24/23 04:10 03/24/23 04:10 Labs: Laboratory Results - last 24 hr 03/23/23 12:39: POC Glucose 304 H 03/23/23 14:25: APTT 67.4 H 03/23/23 15:50: POC Glucose 363 H 03/23/23 20:25: Vancomycin Trough 16.9 H 03/23/23 20:25: APTT 59.8 H 03/23/23 21:39: POC Glucose 295 H 03/24/23 04:10: WBC 9.4, RBC 3.43 L, Hgb 10.7 L, Hct 31.6 L, MCV 92.1, MCH 31.2, MCHC 33.9, RDW Std Deviation 45.9 H, RDW Coeff of Ashley 13.4, Plt Count 184, MPV 11.8, Immature Gran % (Auto) 1.900 H, Neut % (Auto) 77.9 H, Lymph % (Auto) 10.0 L, [place] % (Auto) 10.1 H, Eos % (Auto) 0.0, Baso % (Auto) 0.1, Absolute Neuts (auto) 7.3, Absolute Lymphs (auto) 0.94, Nucleated RBC % 0 03/24/23 04:10: Sodium 138, Potassium 2.8 L, Chloride 103, Carbon Dioxide 30.0, Anion Gap 5, BUN 27 H, Creatinine 0.96, Estim Creat Clear Calc 55.16, Est GFR (MDRD) Af Amer 98, Est GFR (MDRD) Non-Af 81, BUN/Creatinine Ratio 28.2 H, Glucose 181 H, Calcium 8.7 03/24/23 04:10: APTT 62.2 H 03/24/23 06:43: POC Glucose 147 H Micro: Microbiology 03/22/23 05:54 Sputum, Expectorated/Coughed Gram Stain - Final 03/22/23 05:54 Sputum, Expectorated/Coughed Respiratory Culture - Final Mixed normal respiratory shweta. No Streptococcus pneumoniae, beta-hemolytic Streptococcus or Staphylococcus aureus isolated. 03/20/23 18:25 Blood Culture (Wb) - Right Forearm Blood Culture - Preliminar y No growth in 48 hours. 03/20/23 18:00 Blood Culture (Wb) - Anticubital Right Blood Culture - Preliminary No growth in 48 hours. Cardiology Labs/Tests 03/23/23 14:25: APTT 67.4 H 03/23/23 20:25: APTT 59.8 H 03/24/23 04:10: WBC 9.4, RBC 3.43 L, Hgb 10.7 L, Hct 31.6 L, MCV 92.1, MCH 31.2, MCHC 33.9, Plt Count 184, MPV 11.8, Immature Gran % (Auto) 1.900 H, Neut % (Au to) 77.9 H, Lymph % (Auto) 10.0 L, [place] % (Auto) 10.1 H, Eos % (Auto) 0.0, Baso % (Auto) 0.1, Absolute Neuts (auto) 7.3, Nucleated RBC % 0 03/24/23 04:10: Sodium 138, Potassium 2.8 L, Chloride 103, Carbon Dioxide 30.0, Anion Gap 5, BUN 27 H, Creatinine 0.96, Est GFR (MDRD) Af Amer 98, Est GFR (MDRD) Non-Af 81, BUN/Creatinine Ratio 28.2 H, Glucose 181 H, Calcium 8.7 03/24/23 04:10: APTT 62.2 H Rhythm: EKG: ECHO: Stress Test: Cardiac Cath: PCI: CT Surgery: Holter monitor: EPS: PPM: CXR: Chest CT Scan: Physical Exam Const alert, oriented x3 and no apparent distress General Appearance: cooperative HEENT hearing grossly normal bilaterally Head and Scalp: atraumatic Eyes EOMs intact bilaterally Neck General: normal visual inspection Chest inspection of chest normal and palpation of chest normal Resp normal respiratory effort Auscultation: clear to auscultation bilaterally Cardio regular rate, regular rhythm, S1 normal heart sound and S2 normal heart sound Jugular Venous Distention: JVD Heart Sounds: murmur systolic III/ harsh early GI normal to inspection, nondistended, normoactive bowel sounds Extremity normal capillary refill and no pedal edema Peripheral Pulses: Yes pulses 2+ throughout and femoral pulses present Skin no rashes or lesions noted Neuro oriented x3 and CN's II-XII intact bilaterally Psych Appearance: grossly normal and appropriate Assessment & Plan Assessment/Plan (1) HFrEF (heart failure with reduced ejection fraction): PLAN: He does appear to have mild reduction in left ventricular systolic function with estimated ejection fraction of 45%. The plan will be to continue him on the current medical therapy with diuretic. (2) NSTEMI, initial episode of care: PLAN: He had a mild cardiac enzyme elevation. Cardiac catheterization today did not demonstrate any high-grade obstructive coronary lesions. (3) Nonrheumatic aortic (valve) stenosis: PLAN: He does have evidence of aortic stenosis which appears to be severe. His bypass grafts are patent and I will recommend that we send him as an outpatient for consideration for a TAVR. (4) History of coronary artery bypass surgery: PLAN: He is status post coronary artery bypass surgery. His KNOWLES to the LAD is patent, saphenous vein graft to the posterior descending artery and circumflex artery are patent, and saphenous vein graft to the ramus intermedius also noted to be patent. Thank you for allowing me to participate in the care of your patient. Please don't hesitate to call if any issues arise.
[2023-03-24] MEDS: Ipratropium Bromide 0.06% NASAL SPRAY 1 SPRAY NASAL (11:09)
[2023-03-24] MEDS: Lactulose 20 GM/30 ML UDC PO (11:11)
[2023-03-24] MEDS: Docusate Sodium 100 MG Capsule PO (11:12)
--- NOTE | 2023-03-24 11:13 | CL.D_ITS ---
Patient Name: MODESTA CARRILLO Study Date: 03/24/2023 Performing: Kaushik Diaz MD Ht: 65 inches 165.1 cm : 1945 Wt: 187.6 lbs 85 kg Age: 77 Gender: male BSA: 1.92 PROCEDURE(S) PERFORMED [id number])LHC/COR/CABG CLINICAL PROFILE AND INDICATIONS Indications: Suspected CAD Heart Failure: NYHA Class: 2, Newly Diagnosed: Yes, Heart Failure Type: Diastolic Stress/Imaging Stress/Image Study Performed: No CAD Presentations: Non-STEMI. Symptom onset Date/Time: 03/20/23 CONCLUSIONS Aortic Valve Stenosis- Severe Patent bypass graft to the obtuse marginal branch, ramus intermedius, posterior descending artery, and KNOWLES to the LAD. RECOMMENDATIONS For TAVR. DESCRIPTION OF PROCEDURE The patient arrived to the procedure lab. The risks and benefits of the procedure as well as a full description of our services here and current unavailability of surgical backup were fully explained to the patient and/or their significant other prior to the catheterization. The Timeout was completed, verifying the correct patient and procedure. The patient's procedural site was prepped and draped in the usual fashion. Local anesthetic was given subcutaneously to left radial region with Lidocaine 2%. Using a modified Seldinger technique, arterial access was obtained via the left radial artery, a 6Fr sheath was inserted. Left internal mammary artery graft to the LAD selective angiography was performed in multiple views using a 5 Fr. IM catheter. Left Coronary Artery selective angiography was performed in multiple views using a 5 Fr. JL3.5 catheter. Right Coronary Artery selective angiography was then performed in multiple views using a 5 Fr. 3DRC (Rico) catheter. Saphenous Vein graft to the RPDA selective angiography was performed in multiple views using a 5 Fr. AR MOD catheter. Graft is also sequential to circumflex.. Saphenous Vein graft to the Ramus selective angiography was performed in multiple views using a 5 Fr. AR MOD catheter. graft is sequential to OM..The arterial sheath was pulled and a TR Band was applied for hemostasis CORONARY ANGIOGRAPHY DOMINANCE: Left Dominant LEFT HEART ASSESSMENT Left Ventricular Ejection Fraction: by Echo 45 % Global Hypokinesis - Mild Depressed Left Ventricular systolic function LEFT MAIN: High-grade distal left main coronary artery stenosis LEFT ANTERIOR DESCENDING ARTERY: High-grade stenosis CIRCUMFLEX ARTERY: Proximal circumflex artery disease with moderate mid circumflex artery disease and filling of a large AV groove branch via the saphenous vein graft RIGHT CORONARY ARTERY: Appears to be nondominant GRAFTS: KNOWLES graft to the Mid LAD is patent Sequential graft to the Ramus intermedius as well as obtuse marginal branches patent with no significant stenosis Sequential graft to the Posterior descending artery and then sequential to the distal circumflex artery is noted to be patent VALVE FINDINGS: Aortic Valve Stenosis - severe COMPLICATIONS No Complications PROCEDURE MEDICATIONS Versed 1 mg IV Fentanyl 50 mcg IV Versed 1 mg IV Oxygen: 2 L/min via nasal cannula Potassium Chloride 10 mEq in 100cc NS 03/24/2023 09:48:16 Potassium Chloride 40 mEq PO 03/24/2023 10:01:52 SUMMARY OF HEMODYNAMIC DATA Time AIR REST ECG 09:29:57 Art 155/61 (94) 10:04:27 AO 150/64 (93) SA 10:12:41 Signed By Kaushik Diaz MD On 03/24/2023 11:21:19 Kaushik Diaz MD
[2023-03-24] MEDS: oxyCODONE 5 MG Tablet 7.5 MG PO (11:17)
--- NOTE | 2023-03-24 12:14 | PCM.DC.SUM ---
Providers Date of Admission: 03/20/23 Date of Discharge: 03/24/23 Primary Care Physician: Dr. Jhon Alvarez, DO Consultations 03/20/23 21:46 Consult: Cardiology Routine Consulting Provider: Mark James Reason for Consult: NSTEMI, setting of PNA, Poss CHF Exac, Thrombi in abd EMERGENT Consult: No MD Notified: Yes Date Notified: 03/20/23 Time Notified: 21:47 Method of Notification: Text 03/21/23 08:20 Consult: Gastroenterology Routine Consulting Provider: S[facility] Reason for Consult: cirrhosis EMERGENT Consult: No MD Notified: Yes Date Notified: 03/21/23 Time Notified: 08:21 Method of Notification: Verbal Reason For Visit: RESP FAILURE, SEPSIS, PNA, ? CHF EXAC Diagnosis Discharge Diagnosis (1) HFrEF (heart failure with reduced ejection fraction): Status: Acute Code(s): I50.20 - Unspecified systolic (congestive) heart failure (2) NSTEMI, initial episode of care: Status: Acute Code(s): I21.4 - Non-ST elevation (NSTEMI) myocardial infarction (3) Nonrheumatic aortic (valve) stenosis: Status: Chronic Code(s): I35.0 - Nonrheumatic aortic (valve) stenosis (4) History of coronary artery bypass surgery: Status: Chronic Code(s): Z95.1 - Presence of aortocoronary bypass graft Medications at Discharge Home Medications aspirin 81 mg tablet,delayed release (Adult Low Dose Aspirin) 81 mg PO QDAY [facility] 11/03/17 albuterol sulfate 90 mcg/actuation aerosol inhaler 1 - 2 puff inhalation Q4H PRN PRN COPD 05/25/19 docusate sodium 100 mg capsule 100 mg PO DAILY stool softener 02/21/22 oxycodone-acetaminophen 7.5 mg-325 mg tablet (Percocet) 0.5 tab PO Q8H PRN Pain 02/21/22 pregabalin 50 mg capsule 50 mg PO TID neuropathy 02/21/22 carvedilol 12.5 mg tablet (Coreg) 12.5 mg PO BID HTN 01/08/23 acetaminophen 325 mg capsule (Tylenol) 650 mg PO Q6H PRN Pain 01/09/23 albuterol sulfate 90 mcg/actuation aerosol inhaler 2 puff inhalation Q4H PRN PRN COPD 01/09/23 cholecalciferol (vitamin D3) 1,250 mcg (50,000 unit) tablet 1,250 mcg PO QWEEK supplement 01/09/23 amlodipine 10 mg tablet 10 mg PO DAILY HTN #90 tabs 03/18/23 losartan 100 mg tablet 100 mg PO DAILY HTN #90 tabs 03/18/23 furosemide 40 mg tablet 40 mg PO BIDLX #60 tabs 03/24/23 lactulose 20 gram/30 mL oral solution 20 g (30 mL) PO BID #1,200 mL 03/24/23 tamsulosin 0.4 mg capsule 0.4 mg PO QHS #30 caps 03/24/23 Hospital Course Operations None Procedures 2-D Echocardiogram, Cardiac catheterization, EKG and - (MRCP/CT of the abdomen pelvis/chest x-ray) Summary of Care Provided Minutes Spent on Discharge: 39 Hospital Course: Mr. Bronson is a 77-year-old white male who presented to the emergency department at [facility] on 03/20/2023 with shortness of breath and respiratory distress. Patient has a complex past medical history. Upon presentation the patient reported of progressively worsening shortness of breath over a week prior to presentation that was acutely severe approximately 1 hour prior to coming to the emergency department. He was able to catch his breath and had initially been walking outside but had to go in and lie down secondary to his dyspnea at which time he called EMS. He had significant respiratory distress at the time of presentation requiring CPAP administration. He had significant wheezing on presentation and required administration of nebulizer treatments. Patient reported significant increase in a productive cough, congestion, postnasal drip, and headache. Work-up in the ED included T98.4, heart rate 107 with most recent repeat 83, BP initially 182/147 with most recent repeat 134/80, initially presenting with respiratory rate 30 with oxygenation 91% on a nonrebreather worsening to 85% on a nonrebreather eventually placed on BiPAP with 60% FiO2 improving to oxygenation 98% with respiratory rate 22, CBC with WBC 19.4, hemoglobin 12.7, MCV 94.9, platelet 283 with left shift, coags with PT 15.9 and D-dimer 1.56 otherwise not marked appearing, CMP with glucose 209, lactic acid 2.6, T. bili 1.30, BNP 796.1, troponin 62, urinalysis with specific gravity 1.015, protein 500, occult blood 25, negative nitrite, leukocyte Estrace negative, urine 1+ bacteria, rapid SARS COVID and influenza antigen negative, chest x-ray with right lower lobe pneumonia with parapneumonic effusion with mild central pulmonary venous congestion concurrently. CT of the abdomen/pelvis was performed given his abdominal pain and demonstrated portal vein thrombus in the main portal vein, right portal vein and more peripheral wedge-shaped area in the right hepatic lobe, cirrhotic liver with evidence of portal hypertension, cholelithiasis, nonobstructive nephrolithiasis and small fat-containing bilateral inguinal hernias. CTA of the chest was also obtained at that time and demonstrated cardiomegaly with pulmonary edema and small to trace pleural effusion with possible infection of the right lung base. Cultures were obtained he was placed on vancomycin and Zosyn. Heparin drip was initiated given the findings on his abdominal CT. Case was discussed with gastroenterology and MRCP was recommended and performed. MRCP was limited due to motion however did redemonstrate portal venous thrombus in the main portal vein, right portal vein and more peripheral wedge-shaped area in the right hepatic lobe with no suspicious T2 hyperintense or enhancing mass noted, cirrhotic liver with evidence of portal hypertension, and cholelithiasis. Respiratory viral panel demonstrated rhinovirus and I suspect this is the etiology for his respiratory issues along with acute exacerbation of CHF. An echocardiogram was performed and demonstrated an EF of 40 to 45% with a peak aortic valve gradient of 83.9 mmHg and a mean aortic valve gradient of 53.4 mmHg with an aortic valve area of 0.73 cm? and severe calcific aortic stenosis and mild AI as well as mild to moderate LV systolic dysfunction and moderate concentric LVH. Cardiology was consulted secondary to troponin elevation. At the time of elevator constructor evaluation he was pain-free and shortness of breath had improved. Diagnostic cardiac catheterization was recommended and this was pursued on 03/24/2023. Catheterization revealed aortic valve stenosis that was severe and patent bypass graft to the obtuse marginal branch, ramus intermedius and PDA along with KNOWLES to the LDA. TAVR was recommended and per discussion with cardiology outpatient follow-up for this will be made. He was stable on Lasix 40 mg p.o. twice daily and was discharged with prescription for 1 month supply of this. I have recommended a follow-up BMP be obtained on 03/28/2023 and the patient is to call his primary care physician to obtain an order for this. He is also to follow-up as an outpatient with cardiology. With regards to his liver and his portal vein thrombus. He was maintained on heparin during his hospital course. He was transitioned to Eliquis to 5 mg p.o. twice daily at discharge. He is to follow-up with gastroenterology within the next 2 weeks for ongoing evaluation with regards to his cirrhosis and ongoing management for his portal vein thrombus. He had been weaned to room air by the time of discharge. Infectious work-up was otherwise negative and his sepsis picture at presentation was likely related to his rhinovirus among other issues noted above. Patient was able to be discharged home in stable condition on 03/24/2023. He had 2 prescriptions for his Eliquis, Lasix, and Flomax were sent to his pharmacy and again he is to follow-up with a basic metabolic profile to be done on Friday to reassess his renal function and potassium with new diuretics. He is to follow-up with GI as noted above, cardiology, and his primary care physician. He has an appointment with his primary care physician on 04/02/2023. Discharge diagnoses: Sepsis-secondary to viral pneumonia Acute [id number] Acute viral pneumonia secondary to rhinovirus Severe aortic stenosis NSTEMI type II HFrEF CAD Portal vein thrombus Cirrhosis-->Suspect DALY AFP elevation--> will have ongoing GI consultation/follow-up DM-2 Rotator cuff sprain Chronic abdominal pain Chronic macrocytic anemia Hypertension Hyperlipidemia GERD Chronic pain syndrome Osteoarthritis Obesity History of tobacco abuse BPH Physical Exam Const alert, oriented x3, no apparent distress and well nourished Constitutional Narrative: Very pleasant, elderly, white male, lying in bed, has just returned from [facility], family at bedside, patient appears comfortable and nontoxic, on room air General Appearance: cooperative, comfortable, well kempt and well developed Orientation / Consciousness: awake, oriented to person, oriented to place and oriented to time Exam Limitations: no limitations Nutritional Appearance: obese HEENT normocephalic, head/scalp atraumatic and moist oral mucous membranes; Negative for hearing grossly normal bilaterally HEENT Narrative: Moderate hearing loss, edentulous, Mallampati 2-3, no thrush Eyes PERRL, EOMs intact bilaterally and conjunctivae normal Neck no lymphadenopathy, supple and no JVD Neck Narrative: Trachea midline, no thyroid enlargement Resp normal respiratory effort, no retractions, no use of accessory muscles and clear to auscultation bilaterally Resp Narrative: Diffusely diminished but clear Auscultation: Negative for rales, rhonchi or wheezes Cardio regular rate, regular rhythm, S1 normal heart sound, no rub, no gallops and no clicks; Negative for S2 normal heart sound or no murmurs Cardio Narrative: 4 out of 6 systolic murmur loudest at right upper sternal border, soft S2 GI normal to inspection, nondistended, normoactive bowel sounds and soft to palpation GI Narrative: Mild tenderness on the left side of the abdomen Extremity no clubbing, cyanosis or edema Extremity Narrative: 2+ pedal pulses Skin no rashes or lesions noted, no wounds, skin turgor normal and no jaundice Skin Narrative: Left radial compression device in place status post cath with no signs of bleeding or oozing Neuro oriented x3, CN's II-XII intact bilaterally, moves all extremities and no sensory deficits noted Speech: speech normal Psych affect normal Psych Narrative: Very pleasant, appropriately interactive Medical Records Data Medical Nutrition Assessment Dietitian: Malnutrition Criteria Met Start: 03/21/23 14:27 Freq: Status: Active Protocol: Document 03/24/23 10:46 RMA (Rec: 03/24/23 10:46 RMA [id number]) Nutrition Malnutrition Evidence of Malnutrition Exists Yes Malnutrition (moderate): Chronic Evidenced By Suboptimal Energy Intake ( Moderate),Weight Loss ( Moderate) Clinical Problem Chronic Disease or Condition Related Malnutrition Etiology chronic, moderate malnutrition related to inadequate energy intake Signs/Symptoms as evidenced by estimated PO intake meeting <75% of estimated energy needs x 3 months; unintentional 17.8#/9% wt loss x 3 months Status Active Problem Recommendation Dietitian Recommendations/Changes Resume 1800 calorie controlled /cardiac diet as able s/p cath . Recommend 120mL glucerna shake w/ medpass if pt becomes agreeable. Will monitor PO intake and liberalize diet as indicated. Weight / BMI Weight Weight: 85 kg Body Mass Index (BMI) 31.2 ABG / Lab / Microbiology Data Result Diagrams: 03/24/23 04:10 03/24/23 04:10 Laboratory: Laboratory Results - last 24 hr 03/23/23 12:39: POC Glucose 304 H 03/23/23 14:25: APTT 67.4 H 03/23/23 15:50: POC Glucose 363 H 03/23/23 20:25: Vancomycin Trough 16.9 H 03/23/23 20:25: APTT 59.8 H 03/23/23 21:39: POC Glucose 295 H 03/24/23 04:10: WBC 9.4, RBC 3.43 L, Hgb 10.7 L, Hct 31.6 L, MCV 92.1, MCH 31.2, MCHC 33.9, RDW Std Deviation 45.9 H, RDW Coeff of Ashley 13.4, Plt Count 184, MPV 11.8, Immature Gran % (Auto) 1.900 H, Neut % (Auto) 77.9 H, Lymph % (Auto) 10.0 L, Ponce % (Auto) 10.1 H, Eos % (Auto) 0.0, Baso % (Auto) 0.1, Absolute Neuts (auto) 7.3, Absolute Lymphs (auto) 0.94, Nucleated RBC % 0 03/24/23 04:10: Sodium 138, Potassium 2.8 L, Chloride 103, Carbon Dioxide 30.0, Anion Gap 5, BUN 27 H, Creatinine 0.96, Estim Creat Clear Calc 55.16, Est GFR (MDRD) Af Amer 98, Est GFR (MDRD) Non-Af 81, BUN/Creatinine Ratio 28.2 H, Glucose 181 H, Calcium 8.7 03/24/23 04:10: APTT 62.2 H 03/24/23 06:43: POC Glucose 147 H Microbiology: Microbiology 03/22/23 05:54 Sputum, Expectorated/Coughed Gram Stain - Final 03/22/23 05:54 Sputum, Expectorated/Coughed Respiratory Culture - Final Mixed normal respiratory shweta. No Streptococcus pneumoniae, beta-hemolytic Streptococcus or Staphylococcus aureus isolated. 03/20/23 18:25 Blood Culture (Wb) - Right Forearm Blood Culture - Preliminary No growth in 48 hours. 03/20/23 18:00 Blood Culture (Wb) - Anticubital Right Blood Culture - Preliminary No growth in 48 hours. 03/20/23 17:40 Urine, Clean Catch Urine Culture - Final Mixed Gram Positive Organisms 03/20/23 22:30 Mucosa - Nose Respiratory Panel (PCR) - Final Rhinovirus 03/20/23 17:40 Urine, Clean Catch Legionella Antigen - Final 03/20/23 17:40 Urine, Clean Catch Streptococcus pneumoniae Antigen (M - Final 03/20/23 18:05 Nasal Secretion SARS-CoV-2 & FLU Antigen (Rapid) - Final Meaningful Use Info Meaningful Use Diagnoses (Choose all that apply): None applicable Discharge Plan Admission Admit Date/Time: 03/20/23 19:21 Primary Reason for Your Visit: Shortness of breath Attending Provider: Kanwal Aguila Primary Care Provider: Jhon Alvarez Consulting Providers: Mark James ; Amber Virgen ; Michael Walker Instructions Additional Instructions / Restrictions: 1. Please call your primary care physician and ask that lab drawl be done on 03/28/2023 for a basic metabolic profile to recheck kidney function and potassium levels with starting Lasix at home (diuretic) Discharge Orders/Prescriptions Prescriptions: New tamsulosin 0.4 mg Capsule 0.4 mg PO QHS Qty: 30 0RF lactulose 20 gram/30 mL Solution 20 g PO BID Qty: 1200 0RF Rx Instructions: goal is 2-3 loose BM daily furosemide 40 mg Tablet 40 mg PO BIDLX Qty: 60 0RF Continued aspirin [Adult Low Dose Aspirin] 81 mg tablet,delayed release (DR/EC) 81 mg PO QDAY Label Comments: has not taken since May oxycodone-acetaminophen [Percocet] 7.5-325 mg tablet 0.5 tab PO Q8H PRN (Reason: Pain) pregabalin 50 mg capsule 50 mg PO TID docusate sodium 100 mg capsule 100 mg PO DAILY albuterol sulfate 1 INHALER inhaler 1 - 2 puff INHALATION Q4H PRN PRN (Reason: COPD) carvedilol [Coreg] 12.5 mg tablet 12.5 mg PO BID Rx Instructions: must administer with a meal/food albuterol sulfate 90 mcg/actuation HFA aerosol inhaler 2 puff INHALATION Q4H PRN PRN (Reason: COPD) acetaminophen [Tylenol] 325 mg Capsule 650 mg PO Q6H PRN (Reason: Pain) cholecalciferol (vitamin D3) 1,250 mcg (50,000 unit) Tablet 1,250 mcg PO QWEEK losartan 100 mg tablet 100 mg PO DAILY Qty: 90 3RF amlodipine 10 mg tablet 10 mg PO DAILY Qty: 90 3RF Referrals / Follow Up: Kaushik Diaz MD [Med Staff - Active Staff] - Within 2 Weeks Jhon Alvarez DO [Primary Care Provider] - 04/02/23 3:20 pm Kai Booker DO [Med Staff - Active Staff] - Within 2 Weeks (Please call for hospital follow-up appointment to be seen within the next 2 weeks) Disposition Disposition (needs filled in before D/C Order can be placed): Home, Self Care Charges/Coding Visit Charges Inpatient E&M: 41430 Disch Hosp
--- NOTE | 2023-03-24 13:09 | CASEMGMT ---
RN CM in to patient's room to discuss needs at discharge. at bedside. Patient and decline needs at discharge at this time. Patient and had no further questions or concerns at this time.
--- NOTE | 2023-03-24 14:42 | CASEMGMT ---
SUSAN FERNANDES called [facility] and Hilario cost is $10.35. No savings card given as patient is able to afford medication.
[2023-03-25 05:07] LABS: Carbohydrate AG 19-9 22 U/mL (0-35); Carcinoembryonic Antigen 1.6 ng/mL (0.0-4.7)
== END 2023-03-24 17:03 | disposition home or self-care (01) | DRG 193 ==
LOC: ED 19:23 → PCU 19:32
PROVIDERS: Internal Medicine Gastroenterology; Admitting Provider Family Medicine; Emergency Provider Student in an Organized Health Care Education/Training Program; PCP Student in an Organized Health Care Education/Training Program; Referring Provider Student in an Organized Health Care Education/Training Program; Visit Provider Internal Medicine
DX: J12.89 Other viral pneumonia (principal); J96.01 Acute respiratory failure with hypoxia; I81 Portal vein thrombosis; I50.21 Acute systolic (congestive) heart failure; I21.A1 Myocardial infarction type 2; E44.0 Moderate protein-calorie malnutrition; G93.40 Encephalopathy, unspecified; K76.6 Portal hypertension; J44.0 Chronic obstructive pulmonary disease with (acute) lower respiratory infection; J44.1 Chronic obstructive pulmonary disease with (acute) exacerbation; I11.0 Hypertensive heart disease with heart failure; E11.9 Type 2 diabetes mellitus without complications; Z79.4 Long term (current) use of insulin; K74.60 Unspecified cirrhosis of liver; D63.8 Anemia in other chronic diseases classified elsewhere; I35.2 Nonrheumatic aortic (valve) stenosis with insufficiency; E78.00 Pure hypercholesterolemia, unspecified; I25.10 Atherosclerotic heart disease of native coronary artery without angina pectoris; K21.9 Gastro-esophageal reflux disease without esophagitis; M19.90 Unspecified osteoarthritis, unspecified site; K75.81 Nonalcoholic steatohepatitis (NASH); E66.9 Obesity, unspecified; B97.89 Other viral agents as the cause of diseases classified elsewhere; N40.0 Benign prostatic hyperplasia without lower urinary tract symptoms; G89.4 Chronic pain syndrome; Z68.31 Body mass index [BMI] 31.0-31.9, adult; Z79.82 Long term (current) use of aspirin; Z79.899 Other long term (current) drug therapy; Z20.822 Contact with and (suspected) exposure to COVID-19; Z87.891 Personal history of nicotine dependence; Z95.1 Presence of aortocoronary bypass graft
CPT/HCPCS: 36415; 71045; 71275; 74177; 74183; 80048; 80053; 80061; 80074; 80202; 81001; 82105; 82140; 82378; 82962; 83036; 83605; 83735; 83880; 84145; 84443; 84484; 85025; 85379; 85610; 85730; 86301; 87040; 87070; 87086; 87088; 87205; 87428; 87449; 87633; 87635; 87641; 93005; 93306; 93455; 94002; 94003; 94640; 94660; 94762; 97116; 97162; 97166; 97530; 97535; 99152; 99153; 99252; 99285; A9575; C1894; J7040; J7050; Q9957; Q9967; A4216; C1769; C8929; G0463; J1940; U0003; U0005

== ENCOUNTER 2023-08-02 10:29 | Observation (INO) | payer MEDICARE, SELFPAY ==
[2023-08-02] VITALS (8 sets, daily range): BP systolic 106–139; BP diastolic 54–70; PULSE 76–88; RESP 16–20; TEMP 36.1–36.7; O2SAT 94–100; BMI 30.1
--- NOTE | 2023-08-02 10:57 | EX.ED.DYSGE1 ---
HPI History of Present Illness Chief Complaint: Abn Labs Narrative Narrative: 77-year-old male past medical history of COPD, CAD and remote CABG, is on Eliquis presents with abnormal labs and dyspnea on exertion that he had for the last few days. He and his state that they saw their primary care provider few days ago and had laboratory work performed. They state that his iron is low and he has a hemoglobin of 7.4. They presented here originally for iron infusion and/or blood transfusion. Patient denies any nausea or vomiting, no hematemesis, no black stool or rectal bleeding but he does state that he has become more short of breath with dyspnea on exertion. He does not wear oxygen at home but has a history of COPD and quit smoking 18 to 20 years ago. They present because of his dyspnea on exertion and the abnormal laboratory values. [facility] Medical History Aortic stenosis Atherosclerotic heart disease of [place] coronary artery without angina pectoris BPH (benign prostatic hyperplasia) CAD (coronary artery disease) Chronic pain syndrome Contact with or suspected exposure to other viral communicable disease COPD (chronic obstructive pulmonary disease) Essential hypertension Gastroenteritis GERD (gastroesophageal reflux disease) HFrEF (heart failure with reduced ejection fraction) Hypertriglyceridemia Kidney stones Nonrheumatic aortic (valve) stenosis NSTEMI, initial episode of care Portal vein thrombosis Pure hypercholesterolemia Rotator cuff (capsule) sprain Type 2 diabetes mellitus Home Medications aspirin 81 mg tablet,delayed release (Adult Low Dose Aspirin) 81 mg PO QDAY [facility] 11/03/17 [History Last Taken 03/20/23] acetaminophen 325 mg capsule (Tylenol) 650 mg PO Q6H PRN Pain 01/09/23 [History Last Taken Unknown] albuterol sulfate 90 mcg/actuation aerosol inhaler 2 puff inhalation Q4H PRN PRN COPD 01/09/23 [History Last Taken Unknown] cholecalciferol (vitamin D3) 1,250 mcg (50,000 unit) tablet 1,250 mcg PO QWEEK supplement 01/09/23 [History Last Taken Unknown] amlodipine 10 mg tablet 10 mg PO DAILY HTN #90 tabs 03/18/23 [Rx Last Taken 03/20/23] tamsulosin 0.4 mg capsule 0.4 mg PO QHS #30 caps 03/24/23 [Rx Last Taken Unknown] carvedilol 12.5 mg tablet (Coreg) 12.5 mg PO BID HTN #180 tabs 04/25/23 [Rx Last Taken Unknown] furosemide 40 mg tablet 40 mg PO BIDLX #60 tabs 05/12/23 [Rx Last Taken Unknown] losartan 100 mg tablet 100 mg PO DAILY HTN #90 tabs 07/07/23 [Rx Last Taken Unknown] apixaban 5 mg tablet (Eliquis) 5 mg PO BID #60 tabs 07/31/23 [Rx Last Taken Unknown] cyclobenzaprine 7.5 mg tablet 7.5 mg PO QHS 07/31/23 [History Last Taken Unknown] ferrous sulfate 325 mg (65 mg iron) tablet 325 mg PO DAILY 07/31/23 [History Last Taken Unknown] ascorbic acid (vitamin C) 1,000 mg tablet 08/02/23 [History Last Taken Unknown] Allergy/AdvReac Type Severity Reaction Status Date / Time tramadol [From Ultra] Allergy Severe Itching Verified 07/31/23 08:26 adhesive Allergy Rash Verified 07/31/23 08:26 gabapentin Allergy Itching Verified 07/31/23 08:26 Ktzmmco-GYM-KsD Reductase AdvReac Severe myalgias Verified 07/31/23 08:26 Inhibitor [Xvuuqzg-Yld-Ehg Reductase Inhibitor] clonidine AdvReac dry mouth Verified 07/31/23 08:26 ropinirole AdvReac Vomiting Verified 07/31/23 08:26 Family History Mother , at age 48 PVD CAD (coronary artery disease) PVD (peripheral vascular disease) Father , Black lung disease No problems noted. Brother Hypertension PVD (peripheral vascular disease) Son Hypertension Surgical History History of coronary artery bypass surgery (~09/30/12) History of knee surgery Social History adopted: No household members: spouse housing: house number of children: 5 current occupational status: retired current occupational exposures/hazards: No pets and animals: Yes (2) pets and animals: cat(s) leisure activities: other history of recent travel: No other: watching television Smoking Status: Former smoker how long ago did patient quit smoking: Reports quiting remotely. second hand exposure: Yes alcohol intake: current alcohol intake frequency: a few times a month Alcohol type: beer substance use type: does not use well-balanced diet: about half the time caffeine: Yes Type: coffee Number of servings: 1 eating out: 1-3 times/week what type of physical activity do you participate in: none seatbelt use: always do you feel safe at home: Yes ROS ROS ED ROS Narrative Constitutional: No fever, no chills. HEENT: No sore throat. No neck pain. No loss of vision. No rhinorrhea. Cardiovascular: No chest pain. No palpitations. No pedal edema. Respiratory: No cough, positive shortness of breath and dyspnea on exertion. Abdominal: No abdominal pain. No nausea. No vomiting. Genitourinary: No dysuria. No hematuria. Musculoskeletal: No myalgias. No arthralgias. Neurologic: No headaches. No dizziness. No lightheadedness. Skin: No rash. No change in color. Psychiatric: No depression. No anxiety. EXAM Physical Exam Narrative Exam Narrative: Afebrile. Vital signs noted. HEENT: Normocephalic. Atraumatic. PERRL, EOMI. Neck soft and supple. No point tenderness or step off. Cardiovascular: Regular rate and rhythm. Holosystolic murmur consistent with aortic stenosis, rubs, or gallops appreciated. Respiratory: No tachypnea. Lungs clear to auscultation bilaterally. Gastrointestinal: Abdomen soft, nontender, with normoactive bowel sounds. No rebound or guarding. Neurological: Awake. Alert. Nonfocal, nonlateralizing. Skin: No rash. Normal color. Mild pallor. Musculoskeletal: No pedal edema. Full range of motion extremities. Const Vital Signs: 08/02/23 10:30 08/02/23 10:45 08/02/23 11:30 Temperature 96.9 F L Temperature Source Temporal Pulse Rate 82 78 Respiratory Rate 16 19 H Respiratory Effort Normal Non-Labored Respiratory Pattern Tachypnea Blood Pressure 113/65 110/67 Blood Pressure Mean 81 81 Pulse Ox 100 98 Oxygen Delivery Method Room Air Nasal Cannula Oxygen Flow Rate (L/min) 2 MDM MDM MDM Narrative Medical decision making narrative: As the patient is on Eliquis, concern would be for GI bleeding causing low hemoglobin. As he had a reported 7.4 hemoglobin, this will be rechecked to make sure that it has not dropped below that and that he would require transfusion. Patient and were informed that iron infusion is not performed from the emergency department. I will check a CMP as well. He may have increasing dyspnea on exertion secondary to COPD exacerbation versus pneumonia versus critical aortic stenosis. Pulse ox is currently 100% on room air without evidence of hypoxia. He is not tachycardic or hypotensive. I will also obtain an EKG and a troponin along with a BNP, which after review of his prior laboratories has been elevated in the past. I interpreted his chest x-ray independently and so no evidence of pneumonia or pneumothorax. I reviewed the radiology report which shows bibasilar atelectasis but no consolidation confirms my independent interpretation. I do not feel antibiotics are indicated. I reviewed his laboratory work and he has a normal white count of 5.9, hemoglobin 7.6, improved from his reported value of 7.4, hematocrit 24.5, platelet count normal at 233. BMP shows a potassium low at 3.3 with a BUN of 23 and a creatinine normal at 1.30. In review of his prior labs he has had acute kidney injuries for which she has been admitted in the past. Glucose appropriately elevated at 167 with a normal anion gap of 8. Of significance is his high-sensitivity troponin which is elevated at 1135. Upon his admission back in March of this year, he had an initial normal HST of 62 which then increased to 1400 and as high as 2800. I reviewed the catheterization report and the cardiology report which showed no acute occlusions of his arteries or his bypass graft. In discussion with the patient and his , while it was recommended that he have a TAVR performed, patient states that he went to [place] twice, and was told that he needs to go to [place] to have surgery. However they are reluctant to go there at this time. I discussed patient with Dr. Elaine with cardiology. As the patient is on Eliquis already it was not felt that he requires heparin, and in review of the catheterization report it is plausible that he be admitted to ensure downtrending troponins. While I do not feel he requires emergent blood transfusion, he is symptomatic with his aortic stenosis and lower hemoglobin. I will discuss patient with the hospitalist for admission. Patient discussed with Dr. Roman. Disposition is assigned to observation in stable condition. History & Record Review Discussion w/independent historian: Patient and Family Additional record(s) reviewed:: Prior ED visit and Prior labs Lab Data Attestation: I reviewed the patient's lab results. Labs: Laboratory Results - last 24 hr 08/02/23 10:50 WBC 5.9 RBC 2.45 L Hgb 7.6 L Hct 24.5 L MCV 100.0 H MCH 31.0 MCHC 31.0 L RDW Std Deviation 67.8 H RDW Coeff of Ashley 19.5 H Plt Count 233 MPV 10.9 Immature Gran % (Auto) 0.200 Neut % (Auto) 54.2 Lymph % (Auto) 28.8 [place] % (Auto) 11.7 H Eos % (Auto) 3.7 Baso % (Auto) 1.4 H Absolute Neuts (auto) 3.2 Absolute Lymphs (auto) 1.70 Nucleated RBC % 0 Differential Comment SCANNED Hypochromasia 1+ Anisocytosis 2+ Microcytosis 1+ Macrocytosis 1+ Sodium 139 Potassium 3.3 L Chloride 103 Carbon Dioxide 28.0 Anion Gap 8 BUN 23 H Creatinine 1.30 Est GFR (MDRD) Af Amer 69 Est GFR (MDRD) Non-Af 57 L BUN/Creatinine Ratio 17.7 Glucose 167 H Calcium 8.6 Troponin I High Sens 1135 H* Radiography Diagnostic Testing: Clinical Impression(s) from Imaging Studies Chest X-Ray 08/02/23 11:15 IMPRESSION: Mild bibasilar atelectasis. Electronically Signed: Viola Smiley MD at 11:27 EDT , Discharge Plan Dx/Rx/DC Orders Clinical Impression: ROJAS (dyspnea on exertion), Aortic stenosis, Elevated troponin, Symptomatic anemia, Hypokalemia Disposition Disposition: Acute Care Hospital [facility]
[2023-08-02 11:08] LABS: Absolute Neutrophil Count 3.2 X10^3/uL (2.0-7.7); Basophil# 0.08 X10^3/uL; Basophil% 1.4 % (0-1); Eosinophil# 0.22 X10^3/uL; Eosinophils% 3.7 % (0-5); Hematocrit 24.5 % (40-54); Hemoglobin 7.6 g/dL (13.0-16.5); Lymphocyte % 28.8 % (19-41); Mean Platelet Vol. 10.9 fl (6.2-12.0); Monocyte# 0.69 X10^3/uL; Monocyte% 11.7 % (0-10); NRBC Flagged by Analyzer 0 % (0-5); Neutrophil % 54.2 % (47-70); POSITIVE MORPHOLOGY YES; Platelet Count 233 K/mm3 (150-450); RBC Distribution Width CV 19.5 % (11.6-14.6); RBC Distribution Width SD 67.8 fl (35.1-43.9); Red Blood Count 2.45 M/mm3 (4.6-6.2); White Blood Count 5.9 K/mm3 (4.4-11.0)
[2023-08-02 11:09] LABS: Differential Indicated SCAN CRITERIA MET
--- NOTE | 2023-08-02 11:15 | RAD_ITS ---
HISTORY: shortness of breath. TECHNIQUE: XR Chest 1 View. COMPARISON: 03/20/2023. FINDINGS: CARDIOMEDIASTINAL BORDERS: Unchanged mild cardiomegaly. Mediastinal contour unremarkable with calcification of the aortic knob and midline sternotomy. LUNGS: Mild linear bibasilar opacities, decreased from prior. PLEURA: No pleural effusion or pneumothorax seen. OSSEOUS STRUCTURES: Mild degenerative change. RAD/Chest 1 View (Portable) IMPRESSION: Mild bibasilar atelectasis. Electronically Signed: Viola Smiley MD at 11:27 EDT ,
[2023-08-02 11:33] LABS: Anion Gap 8 (5-15); BUN 23 mg/dL (7-18); BUN/Creat Ratio 17.7 RATIO (10-20); Calcium,Total 8.6 mg/dL (8.5-10.1); Chloride 103 mmol/L (98-107); EST Glomerular Filtration Rate 57 mL/min (>60); Est Glom Filt Rate - Afr Amer 69 mL/min (>60); Glucose 167 mg/dL (74-106); Potassium 3.3 mmol/L (3.5-5.1); Sodium Level 139 mmol/L (136-145); Troponin-I HS 1135 pg/mL (3.0-78.0)
[2023-08-02 12:09] LABS: Differential Comment SCANNED
[2023-08-02 12:10] LABS: Anisocytosis 2+; Hypochromasia 1+; Macrocytosis 1+; Microcytosis 1+
--- NOTE | 2023-08-02 12:53 | NURSING ---
111 OBS TERELETSKY ELEVATED TROP, AORTIC STENOSIS, HYPOKALEMIA, DYSPNEA ON EXERTION
--- NOTE | 2023-08-02 12:55 | ED.RN ---
SPOUSE AND PATIENT DOES NOT WANT TO BE ADMITTED STATES I AM TIRED OF SLEEPING IN HOSPITALS; INFORMED OF NECESSITY OF STAYING, ANSWERED ALL QUESTIONS/CONCERNS THEY HAD. STATES I WILL BE PICKING HIM UP AT 3PM TOMORROW, NO LATER. ASSURED PATIENT/SPOUSE THAT THEIR RIGHTS WERE HEARD, NO REQUIREMENTS ON STAYING HOWEVER THE NEED FOR FURTHER TESTING IS NECESSARY. AGREED TO STAY BUT SET ON 3PM D/C TIME TOMORROW EVENING.
[2023-08-02 14:49] LABS: Troponin-I HS 1174 pg/mL (3.0-78.0)
[2023-08-02 17:20] LABS: Troponin-I HS 1095 pg/mL (3.0-78.0)
[2023-08-02] MEDS: Pantoprazole Sodium 40 MG Tablet PO (18:29)
[2023-08-02] MEDS: Furosemide 40 MG Tablet PO (18:30)
[2023-08-02] MEDS: oxyCODONE 5 MG Tablet PO (18:36)
--- NOTE | 2023-08-02 18:51 | PCM.HP.STD ---
HPI - General General Date of Admission: 08/02/23 Date of Service: 08/02/23 Chief Complaint: Abnormal outpatient labs HPI Narrative MODESTA CARRILLO, is a 77 M who presents to the emergency room at [facility] with complaint of dyspnea on exertion over the last few days along with abnormal outpatient labs. Lab have been drawn earlier in the week, lab called the patient and stated that his iron was low and he had a hemoglobin of 7.4. They were instructed to come to the emergency room for an iron infusion but the emergency room does not perform those. Work-up in the emergency room included a CBC which showed normal white blood cell count, hemoglobin of 7.6, platelet count was 233. Chest x-ray showed mild bibasilar atelectasis, patient's troponin was 1135. Patient's EKG showed a normal sinus rhythm at 79 with a left bundle branch block pattern. Patient will be placed in observation status on PCU, he will be given 1 unit of packed red blood cells due to his complaints of dyspnea, I will also give him an iron infusion. The etiology of the elevated troponins are not known at this time. [facility] Medical History Aortic stenosis Atherosclerotic heart disease of [place] coronary artery without angina pectoris BPH (benign prostatic hyperplasia) CAD (coronary artery disease) Chronic pain syndrome Contact with or suspected exposure to other viral communicable disease COPD (chronic obstructive pulmonary disease) Essential hypertension Gastroenteritis GERD (gastroesophageal reflux disease) HFrEF (heart failure with reduced ejection fraction) Hypertriglyceridemia Kidney stones Nonrheumatic aortic (valve) stenosis NSTEMI, initial episode of care Portal vein thrombosis Pure hypercholesterolemia Rotator cuff (capsule) sprain Type 2 diabetes mellitus Home Medications aspirin 81 mg tablet,delayed release (Adult Low Dose Aspirin) 81 mg PO QDAY [facility] 11/03/17 [History Last Taken 03/20/23] acetaminophen 325 mg capsule (Tylenol) 650 mg PO Q6H PRN Pain 01/09/23 [History Last Taken Unknown] albuterol sulfate 90 mcg/actuation aerosol inhaler 2 puff inhalation Q4H PRN PRN COPD 01/09/23 [History Last Taken Unknown] cholecalciferol (vitamin D3) 1,250 mcg (50,000 unit) tablet 1,250 mcg PO QWEEK supplement 01/09/23 [History Last Taken Unknown] amlodipine 10 mg tablet 10 mg PO DAILY HTN #90 tabs 03/18/23 [Rx Last Taken 03/20/23] tamsulosin 0.4 mg capsule 0.4 mg PO QHS #30 caps 03/24/23 [Rx Last Taken Unknown] carvedilol 12.5 mg tablet (Coreg) 12.5 mg PO BID HTN #180 tabs 04/25/23 [Rx Last Taken Unknown] furosemide 40 mg tablet 40 mg PO BIDLX #60 tabs 05/12/23 [Rx Last Taken Unknown] losartan 100 mg tablet 100 mg PO DAILY HTN #90 tabs 07/07/23 [Rx Last Taken Unknown] apixaban 5 mg tablet (Eliquis) 5 mg PO BID #60 tabs 07/31/23 [Rx Last Taken Unknown] cyclobenzaprine 7.5 mg tablet 7.5 mg PO QHS 07/31/23 [History Last Taken Unknown] ferrous sulfate 325 mg (65 mg iron) tablet 325 mg PO DAILY 07/31/23 [History Last Taken Unknown] ascorbic acid (vitamin C) 1,000 mg tablet 1 g PO BID 08/02/23 [History Last Taken Unknown] oxycodone 10 mg tablet 5 mg PO Q8H PRN pain 08/02/23 [History Last Taken 08/02/23] promethazine 12.5 mg tablet 12.5 mg PO Q6H PRN nausea and vomiting 08/02/23 [History Last Taken 08/02/23] Allergy/AdvReac Type Severity Reaction Status Date / Time tramadol [From [facility]] Allergy Severe Itching Verified 07/31/23 08:26 adhesive Allergy Rash Verified 07/31/23 08:26 gabapentin Allergy Itching Verified 07/31/23 08:26 Ohhmapc-FTS-UxZ Reductase AdvReac Severe myalgias Verified 07/31/23 08:26 Inhibitor [Ilpoxbj-Nix-Cwp Reductase Inhibitor] clonidine AdvReac dry mouth Verified 07/31/23 08:26 ropinirole AdvReac Vomiting Verified 07/31/23 08:26 Family History Mother , at age 48 PVD CAD (coronary artery disease) PVD (peripheral vascular disease) Father , Black lung disease No problems noted. Brother Hypertension PVD (peripheral vascular disease) Son Hypertension Surgical History History of coronary artery bypass surgery (~09/30/12) History of knee surgery Social History adopted: No household members: spouse housing: house number of children: 5 current occupational status: retired current occupational exposures/hazards: No pets and animals: Yes (2) pets and animals: cat(s) leisure activities: other history of recent travel: No other: watching television Smoking Status: Former smoker how long ago did patient quit smoking: Reports quiting remotely. second hand exposure: Yes alcohol intake: current alcohol intake frequency: a few times a month Alcohol type: beer substance use type: does not use well-balanced diet: about half the time caffeine: Yes Type: coffee Number of servings: 1 eating out: 1-3 times/week what type of physical activity do you participate in: none seatbelt use: always do you feel safe at home: Yes ROS Constitutional Constitutional: Denies anorexia, change in weight, fever(s), night sweats or weakness Eyes Eyes: Denies blurry vision, change in vision, discharge from eye(s) or eye pain Cardiovascular Cardiovascular: Reports dyspnea on exertion; Denies chest pain, claudication, edema or palpitations Respiratory/Chest Respiratory/Chest: Reports shortness of breath at rest and shortness of breath with exertion; Denies cough or hemoptysis Gastrointestinal Gastrointestinal: Denies abdominal pain, constipation, diarrhea, hematemesis, hematochezia, melena, nausea or vomiting Genitourinary Genitourinary: Denies dysuria, hematuria, urinary frequency, urinary hesitancy, urinary incontinence or urinary urgency Musculoskeletal Musculoskeletal: Denies back pain, joint pain, joint stiffness, joint swelling, myalgias or neck pain Neurologic Neurologic: Denies abnormal gait, abnormal speech, confusion, disequilibrium, dizziness, focal weakness, headache(s), loss of vision, numbness, other visual disturbances, paresthesias, syncope or tingling Psychiatric Psychiatric: Denies anxiety, cognitive impairment, depression, irritability, mood swings or suicidal ideation Endocrine Endocrinology: Denies change in body appearance, cold intolerance, excessive sweating, heat intolerance, polydipsia or polyuria Hematologic/Lymphatic Hematologic/Lymphatic: Denies none, anemia, easy bleeding, easy bruising or lymphadenopathy Allergic/Immunologic Allergic/Immunologic: Denies rhinitis, urticaria, eczemia or asthma Vital Signs Vital Signs Vital Signs: 08/02/23 10:30 08/02/23 10:45 08/02/23 11:30 Temperature 96.9 F L Temperature Source Temporal Pulse Rate 82 78 Respiratory Rate 16 19 H Respiratory Effort Normal Non-Labored Respiratory Depth Respiratory Pattern Tachypnea Blood Pressure 113/65 110/67 Blood Pressure Mean 81 81 Blood Pressure Source Blood Pressure Position Blood Pressure Location Pulse Ox 100 98 Oxygen Delivery Method Room Air Nasal Cannula Oxygen Flow Rate (L/min) 2 08/02/23 12:54 08/02/23 13:32 08/02/23 16:10 Temperature 97.1 F L 97.5 F L Temperature Source Temporal Oral Pulse Rate 76 80 Respiratory Rate 16 16 Respiratory Effort Normal Non-Labored Respiratory Depth Normal Respiratory Pattern Normal Blood Pressure 106/64 124/70 H Blood Pressure Mean 78 88 Blood Pressure Source Monitor Blood Pressure Position Semi-Fowlers Blood Pressure Location Right Arm Pulse Ox 94 100 Oxygen Delivery Method Nasal Cannula Nasal Cannula Room Air Oxygen Flow Rate (L/min) 2 08/02/23 16:25 08/02/23 17:20 Temperature 97.7 F L 98.0 F Temperature Source Temporal Temporal Pulse Rate 81 82 Respiratory Rate 16 16 Respiratory Effort Respiratory Depth Respiratory Pattern Blood Pressure 106/54 L 111/56 L Blood Pressure Mean 71 74 Blood Pressure Source Monitor Monitor Blood Pressure Position Semi-Fowlers Semi-Fowlers Blood Pressure Location Right Arm Right Arm Pulse Ox 100 100 Oxygen Delivery Method Room Air Room Air Oxygen Flow Rate (L/min) Weight Weight: 82.191 kg Body Mass Index (BMI) 30.1 Physical Exam Const alert, oriented x3, no apparent distress and average body habitus General Appearance: cooperative, well kempt and well developed Orientation / Consciousness: awake, oriented to person, oriented to place and oriented to time HEENT normocephalic, head/scalp atraumatic, hearing grossly normal bilaterally and moist oral mucous membranes Eyes PERRL, EOMs intact bilaterally and conjunctivae normal Neck supple, no JVD, thyroid normal and no carotid bruits General: trachea midline Resp normal respiratory effort, no retractions, no use of accessory muscles and clear to auscultation bilaterally Auscultation: Negative for rales, rhonchi or wheezes Cardio regular rate, regular rhythm, no rub and no gallops Cardio Narrative: There is a 2/6 systolic murmur noted at the left sternal border, apex, and right sternal border GI normal to inspection, nondistended, normoactive bowel sounds, soft to palpation, non-tender and non-distended Extremity no clubbing, cyanosis or edema Skin no rashes or lesions noted General Skin Exam: no breakdown Neuro oriented x3, CN's II-XII intact bilaterally, moves all extremities, no focal motor deficits and no sensory deficits noted Sensorium / Orientation: awake and alert Speech: speech normal Psych affect normal Results Lab / Micro Data 08/02/23 10:50 08/02/23 10:50 Labs: Laboratory Results - last 24 hr 08/02/23 10:45: Blood Type A NEGATIVE, Antibody Screen NEGATIVE, Crossmatch See Detail 08/02/23 10:50: WBC 5.9, RBC 2.45 L, Hgb 7.6 L, Hct 24.5 L, MCV 100.0 H, MCH 31.0, MCHC 31.0 L, RDW Std Deviation 67.8 H, RDW Coeff of [place] 19.5 H, Plt Count 233, MPV 10.9, Immature Gran % (Auto) 0.200, Neut % (Auto) 54.2, Lymph % (Auto) 28.8, [place] % (Auto) 11.7 H, Eos % (Auto) 3.7, Baso % (Auto) 1.4 H, Absolute Neuts (auto) 3.2, Absolute Lymphs (auto) 1.70, Nucleated RBC % 0, Differential Comment SCANNED, Hypochromasia 1+, Anisocytosis 2+, Microcytosis 1+, Macrocytosis 1+, Sodium 139, Potassium 3.3 L, Chloride 103, Carbon Dioxide 28.0, Anion Gap 8, BUN 23 H, Creatinine 1.30, Est GFR (MDRD) Af Amer 69, Est GFR (MDRD) Non-Af 57 L, BUN/Creatinine Ratio 17.7, Glucose 167 H, Calcium 8.6, Troponin I High Sens 1135 H* 08/02/23 13:51: Troponin I High Sens 1174 H* 08/02/23 16:40: Troponin I High Sens 1095 H* Radiology Impression Chest X-Ray 08/02/23 11:15 IMPRESSION: Mild bibasilar atelectasis. Electronically Signed: Viola Smiley MD at 11:27 EDT , Assessment & Plan Assessment/Plan (1) Symptomatic anemia: PLAN: Plan 1. Iron deficiency anemia-acute on chronic, patient will be placed in observation status on PCU, he will receive 1 unit of packed red blood cells and also iron infusion. CBC will be checked tomorrow. I have elected to keep the patient off Eliquis at this time due to the fact that his blood count dropped from his previous blood count of 10.7 in March 2023. #2 elevated troponin-etiology unclear, possibly due to a non-STEMI, cardiac enzymes will be cycled, patient will remain on his home medications, monitor, evaluate, assess, and treat #3 severe aortic stenosis-patient states that he had an appointment in [place] at a physician's office to discuss a TAVR procedure, he was told by that physician that he would have to go to a bigger facility to undergo the procedure and the patient told me that he did not want to go to [facility]. I had a discussion with him concerning the severity of his valve disease and told him that he should reconsider going and getting an evaluation for valve repair. Patient understood this. #4 essential hypertension-patient's remain on his present medicines, monitor, evaluate, assess, and treat #5 chronic pain-patient is on oxycodone, this may be adjusted as needed Total clinical time spent by myself addressing the patient's medical issues, reviewing all of his data, and collaborating with patient's care team: 55 minutes Charges/Coding Visit Charges Inpatient E&M: [id number] Init Hosp L2
[2023-08-02] MEDS: 0.9% Saline Lock 10 ML Syringe IV (21:56)
[2023-08-02] MEDS: Carvedilol 12.5 MG Tablet PO (21:57)
[2023-08-02] MEDS: Tamsulosin HCl 0.4 MG Capsule PO (21:57)
[2023-08-02] MEDS: cycloBENZAPRine HCl 5 MG TABLET 7.5 MG PO (21:57)
[2023-08-03] VITALS (11 sets, daily range): BP systolic 93–123; BP diastolic 55–82; PULSE 74–88; RESP 14–18; TEMP 36.6–37; O2SAT 94–100; BMI 30.1
[2023-08-03] MEDS: oxyCODONE 5 MG Tablet PO ×3 (00:59→17:08)
[2023-08-03 06:35] LABS: Absolute Lymphocyte Count 1.33 X10^3/uL (0.83-4.51); Absolute Neutrophil Count 3.6 X10^3/uL (2.0-7.7); Basophil# 0.05 X10^3/uL; Basophil% 0.9 % (0-1); Eosinophil# 0.18 X10^3/uL; Eosinophils% 3.1 % (0-5); Hematocrit 25.3 % (40-54); Hemoglobin 7.9 g/dL (13.0-16.5); Lymphocyte # 1.33 X10^3/ul (0.83-4.51); Mean Corp Hgb Conc 31.2 g/dL (32-36); Mean Corpuscular Hgb 30.7 pg (27.0-32.0); Mean Corpuscular Volume 98.4 fL (80-94); Monocyte# 0.65 X10^3/uL; Monocyte% 11.2 % (0-10); NRBC Flagged by Analyzer 0 % (0-5); Neutrophil # 3.56 X10^3/uL (2.7-7.7); Neutrophil % 61.6 % (47-70); POSITIVE MORPHOLOGY YES; Platelet Count 206 K/mm3 (150-450); RBC Distribution Width CV 19.4 % (11.6-14.6); RBC Distribution Width SD 67.5 fl (35.1-43.9); Red Blood Count 2.57 M/mm3 (4.6-6.2); White Blood Count 5.8 K/mm3 (4.4-11.0)
[2023-08-03 06:43] LABS: Differential Indicated SCAN CRITERIA MET
[2023-08-03 07:04] LABS: Anion Gap 5 (5-15); BUN 21 mg/dL (7-18); BUN/Creat Ratio 16.8 RATIO (10-20); Calcium,Total 8.4 mg/dL (8.5-10.1); Chloride 103 mmol/L (98-107); Creatinine, Serum 1.25 mg/dL (0.70-1.30); EST Glomerular Filtration Rate 59 mL/min (>60); Est Glom Filt Rate - Afr Amer 72 mL/min (>60); Estimated Creatinine Clearance 42.37 ml/min; Glucose 175 mg/dL (74-106); Potassium 3.6 mmol/L (3.5-5.1); Sodium Level 139 mmol/L (136-145)
[2023-08-03 08:29] LABS: Anisocytosis 2+; Differential Comment SCANNED; Hypochromasia 1+; Macrocytosis 1+; Microcytosis 1+
[2023-08-03 09:56] LABS: Troponin-I HS 1241 pg/mL (3.0-78.0)
[2023-08-03] MEDS: Acetaminophen 325 MG Tablet 650 MG PO ×2 (11:04→17:08)
[2023-08-03] MEDS: Losartan Potassium 100 MG Tablet PO (11:06)
[2023-08-03] MEDS: Furosemide 40 MG Tablet PO ×2 (11:06→17:08)
[2023-08-03] MEDS: 0.9% Saline Lock 10 ML Syringe IV (11:07)
[2023-08-03] MEDS: Ferrous Sulfate 325 MG Tablet PO (11:07)
[2023-08-03] MEDS: amLODIPine 10 MG Tablet PO (11:07)
[2023-08-03] MEDS: Pantoprazole Sodium 40 MG Tablet PO (11:07)
[2023-08-03] MEDS: Carvedilol 12.5 MG Tablet PO ×2 (11:07→21:23)
--- NOTE | 2023-08-03 14:54 | PCM.PN.HOSP ---
Reason for Visit Reason for Visit: Diagnoses Anemia, unspecified (08/02/23) Subjective Subjective Patient was seen and examined today, I talked extensively with his stepdaughter who was in the room at the time my examination I talked to her about getting an appointment for him to be seen at the [facility] for TAVR, he has put this off but now understands that he needs to proceed with that. Patient's hemoglobin was 7.9 today, I elected to give him 1 more unit of packed red blood cells. Patient's stepdaughter states that patient occasionally sees blood in his stool but he attributes this to hemorrhoids. Patient cannot remember when he had a colonoscopy last. It appears patient has a history of portal vein thrombosis, I talked informally with Dr. Booker who is seen the patient in the past, he recommends that since I have taken the patient off Eliquis that he have a repeat CT to verify that he does not have a thrombosis anymore or tell that it is a chronic thrombosis. Objective Data Objective Data Vital Signs: Vital Signs Temp Pulse Resp BP Pulse Ox O2 Del Method O2 Flow Rate 98 F 81 18 111/55 L 98 Nasal Cannula 2 08/03/23 04:10 08/03/23 04:10 08/03/23 04:10 08/03/23 04:10 08/03/23 04:10 08/03/23 04:10 08/03/23 08:14 Oxygen Flow Rate (L/min) 2 Oxygen Delivery Method Nasal Cannula Weight: 82.191 kg Body Mass Index (BMI) 30.1 Intake & Output: Intake and Output for Last 24 Hours 08/01/23 08/02/23 08/03/23 23:59 23:59 23:59 Intake Total 510 / 510 520 / 520 Balance 510 / 510 520 / 520 Lab / Micro Data 08/03/23 05:35 08/03/23 05:35 Labs: Laboratory Results - last 24 hr 08/02/23 10:45: Blood Type A NEGATIVE, Antibody Screen NEGATIVE, Crossmatch See Detail 08/02/23 10:45: Crossmatch See Detail 08/02/23 16:40: Troponin I High Sens 1095 H* 08/03/23 05:35: WBC 5.8, RBC 2.57 L, Hgb 7.9 L, Hct 25.3 L, MCV 98.4 H, MCH 30.7, MCHC 31.2 L, RDW Std Deviation 67.5 H, RDW Coeff of Ashley 19.4 H, Plt Count 206, MPV 11.0, Immature Gran % (Auto) 0.200, Neut % (Auto) 61.6, Lymph % (Auto) 23.0, [place] % (Auto) 11.2 H, Eos % (Auto) 3.1, Baso % (Auto) 0.9, Absolute Neuts (auto) 3.6, Absolute Lymphs (auto) 1.33, Nucleated RBC % 0, Differential Comment SCANNED, Hypochromasia 1+, Anisocytosis 2+, Microcytosis 1+, Macrocytosis 1+, Sodium 139, Potassium 3.6, Chloride 103, Carbon Dioxide 31.0, Anion Gap 5, BUN 21 H, Creatinine 1.25, Estim Creat Clear Calc 42.37, Est GFR (MDRD) Af Amer 72, Est GFR (MDRD) Non-Af 59 L, BUN/Creatinine Ratio 16.8, Glucose 175 H, Calcium 8.4 L 08/03/23 09:28: Troponin I High Sens 1241 H* Physical Exam Narrative alert, oriented x3, no apparent distress and average body habitus General Appearance: cooperative, well kempt and well developed Orientation / Consciousness: awake, oriented to person, oriented to place and oriented to time HEENT normocephalic, head/scalp atraumatic, hearing grossly normal bilaterally and moist oral mucous membranes Eyes PERRL, EOMs intact bilaterally and conjunctivae normal Neck supple, no JVD, thyroid normal and no carotid bruits General: trachea midline Resp normal respiratory effort, no retractions, no use of accessory muscles and clear to auscultation bilaterally Auscultation: Negative for rales, rhonchi or wheezes Cardio regular rate, regular rhythm, no rub and no gallops Cardio Narrative: There is a 2/6 systolic murmur noted at the left sternal border, apex, and right sternal border GI normal to inspection, nondistended, normoactive bowel sounds, soft to palpation, non-tender and non-distended Extremity no clubbing, cyanosis or edema Skin no rashes or lesions noted General Skin Exam: no breakdown Neuro oriented x3, CN's II-XII intact bilaterally, moves all extremities, no focal motor deficits and no sensory deficits noted Sensorium / Orientation: awake and alert Speech: speech normal Psych affect normal Assessment & Plan Assessment/Plan (1) Symptomatic anemia: PLAN: Plan 1. Iron deficiency anemia-acute on chronic, patient will receive another unit of packed red blood cells, I will also give him IV Venofer today. Patient may need to undergo endoscopy if he is to stay on his Eliquis-I have stopped his Eliquis for now, I will order a CT of the abdomen and pelvis to verify he still has a portal vein thrombosis.. #2 Type II non-STEMI-I do not feel the patient needs to undergo cardiac catheterization at this time, I talked informally with cardiology today by phone and went over the case with them, they state that the patient had a similar elevation in his troponin before he underwent a cardiac catheterization in March, cardiology stated that the patient probably had a type II non-STEMI this admission because of anemia and demand ischemia. Patient will remain on his present medications, he will be monitored #3 severe aortic stenosis-patient was instructed to follow-up with the [facility] in [place], I talked to his stepdaughter and told her that she needs to call the adjutant general that he saw in [place] to facilitate an appointment at the [facility] in [place] for his valve. Patient has multiple medical problems and they have declined to do the TAVR in [place]. #4 essential hypertension-patient's remain on his present medicines, monitor, evaluate, assess, and treat #5 chronic pain-patient is on oxycodone, this may be adjusted as needed Total clinical time spent by myself addressing the patient's medical issues, reviewing all of his data, and collaborating with patient's care team: 35 minutes Charges/Coding Visit Charges Inpatient E&M: 65477 Subs Hosp L2
--- NOTE | 2023-08-03 15:29 | CT_ITS ---
STUDY: CT ABDOMEN AND PELVIS WITHOUT CONTRAST REASON FOR EXAM: Male, 77 years old. Portal vein thrombosis RADIATION DOSAGE (If Supplied By Facility): CTDIvol = ( 17.88 ) mGy, DLP = ( 1712.68 ) mGycm TECHNIQUE: Transaxial images were obtained from the dome of the diaphragm to the symphysis pubis without oral contrast, and without intravenous contrast. Sagittal and coronal images were reconstructed. Individualized dose optimization techniques were used for this CT. COMPARISON: 03/20/2023. FINDINGS: Mild right-sided pleural effusion. Trace left-sided pleural effusion. Mild bilateral lower lobe atelectasis, right more than left. Number cardiac size. Nodular margins of the liver suggestive of underlying cirrhosis. Areas of hypodensity within the posterior aspect of the right liver lobe noted which could represent fatty infiltration versus perfusion abnormality. There is a heterogeneous lesion within the right lower lobe measuring 4 cm concerning for neoplasm. Cavernous transformation of the portal vein consistent with chronic portal vein thrombosis. Incompletely distended gallbladder. Otherwise unremarkable gallbladder and extrahepatic biliary system. Normal spleen. Normal pancreas. Normal bilateral adrenal glands. Right lower renal pole stones, largest measuring 3.9 mm. Otherwise normal right kidney. Small low-attenuation structures within the left kidney, largest measuring 4.6 mm, too small to characterize and statistically consistent with simple renal cysts, otherwise stable in the interval. Otherwise normal left kidney. Normal visualized stomach. Normal small intestine. Moderate to abundant fecal debris within the colon. The sigmoid colon is partially decompressed. There is non-visualization of the appendix. There is diffuse atherosclerotic calcification of the abdominal aorta, without a demonstrated aneurysm. Normal inferior vena cava. Normal retroperitoneum. Normal urinary bladder. Small bilateral fat-containing inguinal hernias. There are diffuse degenerative changes of the visualized lumbar spine. CT/Abdomen/Pelvis W IV Cont ONLY IMPRESSION: Heterogeneous lesion involving the posterior aspect of the right liver lobe measuring approximately 4 cm concerning for neoplasm. Surrounding hypodensity throughout the liver which could represent perfusion abnormality versus fatty infiltration. If indicated, these findings may be further assessed with [address] or MRI examination with intravenous contrast in nonacute setting. Cavernous transformation of the portal vein suggestive of chronic thrombosis. Nonobstructive right-sided intrarenal stones with tiny left-sided simple renal cysts. No further imaging recommended for follow-up, findings stable in the interval. No bowel obstruction or focal inflammatory process throughout the gastrointestinal tract. Electronically Signed: Yun Becker MD at 20:15 EDT ,
[2023-08-03 21:16] LABS: Hemoglobin 9.8 g/dL (13.0-16.5)
[2023-08-03] MEDS: cycloBENZAPRine HCl 5 MG TABLET 7.5 MG PO (21:23)
[2023-08-03] MEDS: Tamsulosin HCl 0.4 MG Capsule PO (21:23)
[2023-08-04 03:23] VITALS: BP 106/64; PULSE 79; RESP 15; TEMP 36.6; O2SAT 96
[2023-08-04] MEDS: Acetaminophen 325 MG Tablet 650 MG PO ×2 (04:09→10:26)
[2023-08-04] MEDS: oxyCODONE 5 MG Tablet PO ×2 (04:10→10:26)
[2023-08-04 05:16] LABS: Hematocrit 29.9 % (40-54); Hemoglobin 9.3 g/dL (13.0-16.5)
[2023-08-04 09:23] VITALS: BP 100/58; PULSE 80; RESP 16; TEMP 36.5; O2SAT 96
[2023-08-04] MEDS: 0.9% Saline Lock 10 ML Syringe IV (10:28)
[2023-08-04] MEDS: amLODIPine 10 MG Tablet PO (10:45)
[2023-08-04] MEDS: Carvedilol 12.5 MG Tablet PO (10:45)
[2023-08-04] MEDS: Ferrous Sulfate 325 MG Tablet PO (10:45)
[2023-08-04] MEDS: Losartan Potassium 100 MG Tablet PO (10:45)
[2023-08-04] MEDS: Furosemide 40 MG Tablet PO (10:45)
[2023-08-04] MEDS: Pantoprazole Sodium 40 MG Tablet PO (10:46)
--- NOTE | 2023-08-04 13:17 | DCINST_ITS ---
Discharge Instructions Diet Discharge Diet: No restrictions Activity Discharge Activity: Return to Normal Activity Weight Bearing Status: Full weight bearing Follow Up Care Test Results: Test results from this visit will be discussed in further detail at your follow- up appointment, if applicable. Discharge Plan Admission Admit Date/Time: 08/02/23 12:29 Primary Reason for Your Visit: anemia Attending Provider: Dc Roman Primary Care Provider: Jhon Alvarez Discharge Orders/Prescriptions Prescriptions: New pantoprazole 40 mg Tablet,Delayed Release (Dr/Ec) 40 mg PO DAILY Qty: 30 0RF Continued ferrous sulfate 325 mg (65 mg iron) tablet 325 mg PO DAILY cyclobenzaprine 7.5 mg tablet 7.5 mg PO QHS albuterol sulfate 90 mcg/actuation HFA aerosol inhaler 2 puff INHALATION Q4H PRN PRN (Reason: COPD) acetaminophen [Tylenol] 325 mg Capsule 650 mg PO Q6H PRN (Reason: Pain) cholecalciferol (vitamin D3) 1,250 mcg (50,000 unit) Tablet 1,250 mcg PO QWEEK tamsulosin 0.4 mg Capsule 0.4 mg PO QHS Qty: 30 0RF ascorbic acid (vitamin C) 1,000 mg tablet 1 g PO BID Patient Comments: Take 1 tablet by mouth twice daily. oxycodone 10 mg tablet 5 mg PO Q8H PRN (Reason: pain) Patient Comments: TAKE 1/2 (ONE-HALF) OF A TABLET BY MOUTH EVERY 8 HOURS NEEDED FOR PAIN promethazine 12.5 mg tablet 12.5 mg PO Q6H PRN (Reason: nausea and vomiting) Patient Comments: Take 1 tablet by mouth every 6 hours as needed for nausea/vomiting. amlodipine 10 mg tablet 10 mg PO DAILY Qty: 90 3RF carvedilol [Coreg] 12.5 mg tablet 12.5 mg PO BID Qty: 180 3RF Rx Instructions: must administer with a meal/food furosemide 40 mg tablet 40 mg PO BIDLX Qty: 60 12RF losartan 100 mg tablet 100 mg PO DAILY Qty: 90 3RF Discontinued aspirin [Adult Low Dose Aspirin] 81 mg tablet,delayed release (DR/EC) 81 mg PO QDAY Patient Comments: has not taken since May Eliquis 5 mg tablet 5 mg PO BID Qty: 60 12RF Referrals / Follow Up: Jhon Alvarez DO [Primary Care Provider] - Within 1 Week Disposition Disposition (needs filled in before D/C Order can be placed): Home, Self Care
--- NOTE | 2023-08-04 13:30 | DS.PCM_ITS ---
Providers Date of Admission: 08/02/23 Date of Discharge: 08/04/23 Primary Care Physician: Dr. Jhon Alvarez, Reason For Visit: ANEMIA Diagnosis Discharge Diagnosis (1) Symptomatic anemia: Status: Acute Code(s): D64.9 - Anemia, unspecified Plan 1. Iron deficiency anemia-acute on chronic, patient will receive another unit of packed red blood cells, I will also give him IV Venofer today. Patient may need to undergo endoscopy if he is to stay on his Eliquis-I have stopped his Eliquis for now, I will order a CT of the abdomen and pelvis to verify he still has a portal vein thrombosis.. #2 Type II non-STEMI-I do not feel the patient needs to undergo cardiac catheterization at this time, I talked informally with cardiology today by phone and went over the case with them, they state that the patient had a similar elevation in his troponin before he underwent a cardiac catheterization in [facility], cardiology stated that the patient probably had a type II non-STEMI this admission because of anemia and demand ischemia. Patient will remain on his present medications, he will be monitored #3 severe aortic stenosis-patient was instructed to follow-up with the [facility] in [place], I talked to his stepdaughter and told her that she needs to call the linux system administrator that he saw in [place] to facilitate an appointment at the [facility] in [place] for his valve. Patient has multiple medical problems and they have declined to do the TAVR in [place]. #4 essential hypertension-patient's remain on his present medicines, monitor, evaluate, assess, and treat #5 chronic pain-patient is on oxycodone, this may be adjusted as needed #6 chronic cirrhosis #7 liver mass-probably cancerous #8 chronic portal vein thrombosis Total clinical time spent by myself addressing the patient's medical issues, reviewing all of his data, and collaborating with patient's care team: 35 minute s Medications at Discharge Home Medications acetaminophen 325 mg capsule (Tylenol) 650 mg PO Q6H PRN Pain 01/09/23 albuterol sulfate 90 mcg/actuation aerosol inhaler 2 puff inhalation Q4H PRN PRN COPD 01/09/23 cholecalciferol (vitamin D3) 1,250 mcg (50,000 unit) tablet 1,250 mcg PO QWEEK supplement 01/09/23 amlodipine 10 mg tablet 10 mg PO DAILY HTN #90 tabs 03/18/23 tamsulosin 0.4 mg capsule 0.4 mg PO QHS prostate #30 caps 03/24/23 carvedilol 12.5 mg tablet (Coreg) 12.5 mg PO BID HTN #180 tabs 04/25/23 furosemide 40 mg tablet 40 mg PO BIDLX diurtetic #60 tabs 05/12/23 losartan 100 mg tablet 100 mg PO DAILY HTN #90 tabs 07/07/23 cyclobenzaprine 7.5 mg tablet 7.5 mg PO QHS muscle relaxer 07/31/23 ferrous sulfate 325 mg (65 mg iron) tablet 325 mg PO DAILY supplement 07/31/23 ascorbic acid (vitamin C) 1,000 mg tablet 1 g PO BID vitamin 08/02/23 oxycodone 10 mg tablet 5 mg PO Q8H PRN pain 08/02/23 promethazine 12.5 mg tablet 12.5 mg PO Q6H PRN nausea and vomiting 08/02/23 pantoprazole 40 mg tablet,delayed release 40 mg PO DAILY #30 tabs 08/04/23 Hospital Course Operations None Procedures Blood transfusion Summary of Care Provided Minutes Spent on Discharge: 32 Hospital Course: This 77-year-old white male was seen in the emergency room at [facility] after being instructed to come to the hospital for possible blood transfusion due to anemia on labs obtained as an outpatient. Hemoglobin as an outpatient was noted to be low at 7.4. Patient was admitted to PCU, he was transfused 2 units of packed red blood cells, since the patient was on Eliquis as an outpatient for a portal vein thrombosis which had been diagnosed several months prior, CT scan of the abdomen and pelvis was obtained to see if the patient still had a portal vein thrombosis as his Eliquis was being held. CAT scan of the abdomen and pelvis showed a 4 cm neoplasm in the patient's liver, I discussed this with the patient and the patient's daughter, patient was unsure whether he wanted to do anything further about this. Patient had also been evaluated for possible TAVR and [place] due to his severe aortic stenosis, patient elected not to have anything done because he was told to go to the main campus for further evaluation and he did not want to go to [place]. On 08/04/2023, patient was seen and examined: On examination he appeared in good health and spirits. Vital signs as documented. Skin warm and dry and without overt rashes. Neck without JVD, neck was supple, trachea midline, thyroid was normal. Lungs clear bilaterally, normal air movement was noted. Heart exam notable for regular rhythm, normal sounds and absence of murmurs, rubs or ga llops. Abdomen unremarkable and without evidence of organomegaly, masses, or abdominal aortic enlargement. Bowel sounds are present, abdomen is not distended. Extremities nonedematous, no cyanosis was noted, no clubbing was noted. Neuro: Cranial nerves II through XII are grossly intact, no focal motor deficits were noted, sensation to light touch and pinprick intact, motor exam 5/5 throughout. Psych: Patient is alert and oriented x3, he does not appear anxious or depressed, he does not appear agitated. On 08/04/2023, patient appears stable for discharge home, again I reviewed all of his medical findings with his , I also called his PCP (Dr. Jhon Alvarez) for continuity of care on 08/05/2023 to let her know what his hospital course consisted of. Weight / BMI Weight Weight: 82.191 kg Body Mass Index (BMI) 30.1 ABG / Lab / Microbiology Data 08/04/23 04:30 08/03/23 05:35 Laboratory: Laboratory Results - last 24 hr 08/02/23 10:45: Crossmatch See Detail 08/02/23 10:45: Crossmatch See Detail 08/03/23 21:09: Hgb 9.8 L, Hct 30.0 L 08/04/23 04:30: Hgb 9.3 L, Hct 29.9 L Radiography Diagnostic Testing: Radiology Impression Abdomen/Pelvis CT 08/03/23 15:29 IMPRESSION: Heterogeneous lesion involving the posterior aspect of the right liver lobe measuring approximately 4 cm concerning for neoplasm. Surrounding hypodensity throughout the liver which could represent perfusion abnormality versus fatty infiltration. If indicated, these findings may be further assessed with [address] or MRI examination with intravenous contrast in nonacute setting. Cavernous transformation of the portal vein suggestive of chronic thrombosis. Nonobstructive right-sided intrarenal stones with tiny left-sided simple renal cysts. No further imaging recommended for follow-up, findings stable in the interval. No bowel obstruction or focal inflammatory process throughout the gastrointestinal tract. Electronically Signed: Yun Becker MD at 20:15 EDT , D/C Instructions Discharge Diet: No restrictions Weight Bearing Status: Full weight bearing Meaningful Use Info Meaningful Use Diagnoses (Choose all that apply): None applicable Discharge Plan Admission Admit Date/Time: 08/02/23 12:29 Primary Reason for Your Visit: anemia Attending Provider: Dc Roman Primary Care Provider: Jhon Alvarez Discharge Orders/Prescriptions Prescriptions: New pantoprazole 40 mg Tablet,Delayed Release (Dr/Ec) 40 mg PO DAILY Qty: 30 0RF Continued ferrous sulfate 325 mg (65 mg iron) tablet 325 mg PO DAILY cyclobenzaprine 7.5 mg tablet 7.5 mg PO QHS albuterol sulfate 90 mcg/actuation HFA aerosol inhaler 2 puff INHALATION Q4H PRN PRN (Reason: COPD) acetaminophen [Tylenol] 325 mg Capsule 650 mg PO Q6H PRN (Reason: Pain) cholecalciferol (vitamin D3) 1,250 mcg (50,000 unit) Tablet 1,250 mcg PO QWEEK tamsulosin 0.4 mg Capsule 0.4 mg PO QHS Qty: 30 0RF ascorbic acid (vitamin C) 1,000 mg tablet 1 g PO BID Patient Comments: Take 1 tablet by mouth twice daily. oxycodone 10 mg tablet 5 mg PO Q8H PRN (Reason: pain) Patient Comments: TAKE 1/2 (ONE-HALF) OF A TABLET BY MOUTH EVERY 8 HOURS NEEDED FOR PAIN promethazine 12.5 mg tablet 12.5 mg PO Q6H PRN (Reason: nausea and vomiting) Patient Comments: Take 1 tablet by mouth every 6 hours as needed for nausea/vomiting. amlodipine 10 mg tablet 10 mg PO DAILY Qty: 90 3RF carvedilol [Coreg] 12.5 mg tablet 12.5 mg PO BID Qty: 180 3RF Rx Instructions: must administer with a meal/food furosemide 40 mg tablet 40 mg PO BIDLX Qty: 60 12RF losartan 100 mg tablet 100 mg PO DAILY Qty: 90 3RF Discontinued aspirin [Adult Low Dose Aspirin] 81 mg tablet,delayed release (DR/EC) 81 mg PO QDAY Patient Comments: has not taken since May Eliquis 5 mg tablet 5 mg PO BID Qty: 60 12RF Referrals / Follow Up: Jhon Alvarez DO [Primary Care Provider] - Within 1 Week Disposition Disposition (needs filled in before D/C Order can be placed): Home, Self Care Charges/Coding Visit Charges Inpatient E&M: 09327 Disch Hosp >30min
[2023-08-04 14:45] VITALS: BP 103/60; PULSE 82; RESP 14; TEMP 36.7; O2SAT 97
[2023-08-05 16:33] LABS: BNP,B-Type NATRIURETIC PEPTIDE 442.7 pg/mL (0-100)
== END 2023-08-04 14:49 | disposition home or self-care (01) ==
LOC: ED 12:31 → PCU 12:54
PROVIDERS: Admitting Provider Internal Medicine; Emergency Provider Emergency Medicine; PCP Student in an Organized Health Care Education/Training Program; Visit Provider Internal Medicine
DX: I11.0 Hypertensive heart disease with heart failure (principal); K74.60 Unspecified cirrhosis of liver; J44.9 Chronic obstructive pulmonary disease, unspecified; I50.22 Chronic systolic (congestive) heart failure; I21.A1 Myocardial infarction type 2; E11.9 Type 2 diabetes mellitus without complications; I44.7 Left bundle-branch block, unspecified; G89.4 Chronic pain syndrome; Z87.891 Personal history of nicotine dependence; R77.8 Other specified abnormalities of plasma proteins; D50.9 Iron deficiency anemia, unspecified; E78.00 Pure hypercholesterolemia, unspecified; E87.6 Hypokalemia; I25.10 Atherosclerotic heart disease of native coronary artery without angina pectoris; Z79.899 Other long term (current) drug therapy; Z79.82 Long term (current) use of aspirin; Z79.01 Long term (current) use of anticoagulants; K21.9 Gastro-esophageal reflux disease without esophagitis; N40.0 Benign prostatic hyperplasia without lower urinary tract symptoms; Z95.1 Presence of aortocoronary bypass graft; I35.0 Nonrheumatic aortic (valve) stenosis; R16.0 Hepatomegaly, not elsewhere classified; I81 Portal vein thrombosis
CPT/HCPCS: 36415; 71045; 74177; 80048; 83880; 84484; 85014; 85018; 85025; 86850; 86900; 86901; 86920; 86922; 93005; 97802; 99284; J7040; J7050; P9016; Q9967; A4216; J2916

== ENCOUNTER → 2023-08-19 | Outpatient (CLI) | payer MEDICARE, SELFPAY ==
[2023-08-19 09:30] LABS: Erythrocyte Sedimentation Rate 10 mm/hr (0-20)
[2023-08-19 09:34] LABS: Absolute Lymphocyte Count 1.42 X10^3/uL (0.83-4.51); Absolute Neutrophil Count 2.5 X10^3/uL (2.0-7.7); Basophil# 0.05 X10^3/uL; Eosinophil# 0.25 X10^3/uL; Eosinophils% 5.2 % (0-5); Hematocrit 35.7 % (40-54); Hemoglobin 11.5 g/dL (13.0-16.5); Lymphocyte # 1.42 X10^3/ul (0.83-4.51); Lymphocyte % 29.6 % (19-41); Mean Corp Hgb Conc 32.2 g/dL (32-36); Mean Corpuscular Hgb 30.7 pg (27.0-32.0); Mean Corpuscular Volume 95.5 fL (80-94); Mean Platelet Vol. 10.8 fl (6.2-12.0); Monocyte# 0.57 X10^3/uL; Monocyte% 11.9 % (0-10); NRBC Flagged by Analyzer 0 % (0-5); Neutrophil % 52.1 % (47-70); Platelet Count 188 K/mm3 (150-450); RBC Distribution Width SD 56.2 fl (35.1-43.9); Red Blood Count 3.74 M/mm3 (4.6-6.2); White Blood Count 4.8 K/mm3 (4.4-11.0)
[2023-08-19 09:36] LABS: International Normalized Ratio 1.1; Prothrombin Time (Protime)PT. 13.9 SECONDS (11.7-14.9)
[2023-08-19 09:58] LABS: ALB/GLOB Ratio 0.9 RATIO (0.9-2.4); AST(SGOT) 21 U/L (15-37); Alanine Aminotransfer ALT/SGPT 18 U/L (16-61); Albumin, Serum 3.5 g/dL (3.2-5.0); Alkaline Phosphatase 84 U/L (45-117); Anion Gap 5 (5-15); BUN 21 mg/dL (7-18); BUN/Creat Ratio 17.1 RATIO (10-20); CRP 4.29 mg/L (0.0-3.0); Calcium,Total 9.1 mg/dL (8.5-10.1); Chloride 104 mmol/L (98-107); Creatinine, Serum 1.23 mg/dL (0.70-1.30); EST Glomerular Filtration Rate 60 mL/min (>60); Est Glom Filt Rate - Afr Amer 73 mL/min (>60); Glucose 215 mg/dL (74-106); LDH 157 U/L (87-241); Potassium 3.6 mmol/L (3.5-5.1); Protein, Total 7.5 g/dL (6.4-8.2); Sodium Level 139 mmol/L (136-145)
== END | disposition home or self-care (01) ==
PROVIDERS: PCP Student in an Organized Health Care Education/Training Program; Referring Provider Internal Medicine Gastroenterology; Visit Provider Internal Medicine Gastroenterology
DX: K74.60 Unspecified cirrhosis of liver (principal); I35.0 Nonrheumatic aortic (valve) stenosis
CPT/HCPCS: 36415; 80053; 82105; 82140; 83615; 85025; 85610; 85652; 86140

== ENCOUNTER → 2023-12-30 | Outpatient (CLI) | payer MEDICARE, SELFPAY ==
--- NOTE | 2023-12-30 13:59 | CT_ITS ---
STUDY: CT ABDOMEN AND PELVIS WITH AND WITHOUT CONTRAST REASON FOR EXAM: Male, 78 years old. Cirrhosis, Liver mass -- HCC Protocol RADIATION DOSAGE (If Supplied By Facility): CTDIvol = ( 20.68 ) mGy, DLP = ( 2396.45 ) mGycm TECHNIQUE: Transaxial images were obtained from the dome of the diaphragm to the symphysis pubis without oral contrast. IV 100mL Isovue-300 was administered. Sagittal and coronal images were reconstructed. Individualized dose optimization techniques were used for this CT. COMPARISON: Comparison is made with prior study dated August 03, 2023. FINDINGS: The visualized lung bases are unremarkable. Coronary artery calcification. There is a 3.2 cm x 1.7 cm enhancing heterogeneous mass in the posterior midportion of the right lobe of the liver. This is not a typical hemangioma. There is also evidence of a wedgelike hypodensity in the inferior aspect of the right lobe of the liver. A neoplastic process should be ruled out. Possible tiny polyps adherent to the gallbladder wall. Normal spleen. Normal pancreas. Once again, there is evidence of the cavernous transformation of the portal vein consistent with chronic portal venous thrombosis. Normal bilateral adrenal glands. Tiny calculus in the lower pole calyx of the right kidney. Nonspecific perinephric stranding. Normal left kidney. Normal visualized stomach. Normal small intestine. There are multiple colonic diverticula consistent with diverticulosis. The appendix is visualized and appears normal. There is diffuse atherosclerotic calcification of the abdominal aorta, without a demonstrated aneurysm. Normal inferior vena cava. Normal retroperitoneum. Diffuse bladder wall thickening. There is a right-sided inguinal hernia containing adipose tissue. Normal osseous structures. CT/CT Abd/Pelvis W/WO Contrast IMPRESSION: Heterogeneous enhancement of the nodule in the posterior aspect of the right lobe of liver as described. A neoplastic process should BE ruled out. Cavernous transformation of the portal vein suggestive of a chronic venous thrombosis. Sigmoid diverticulosis. Diffuse bladder wall thickening. Findings suggestive of gallbladder polyps. Electronically Signed: Truong Murray MD at 15:30 EST ,
[2023-12-30 14:39] LABS: CREATININE FINGERSTICK < 1.0 mg/dL (0.70-1.30); EGFR FINGERSTICK > 60.0000 mL/min (>60)
== END | disposition home or self-care (01) ==
LOC: CT 13:49
PROVIDERS: PCP Student in an Organized Health Care Education/Training Program; Referring Provider Internal Medicine; Visit Provider Internal Medicine
DX: K74.69 Other cirrhosis of liver (principal); R16.0 Hepatomegaly, not elsewhere classified
CPT/HCPCS: 74178; Q9967; A4216

== ENCOUNTER → 2024-02-04 | Outpatient (CLI) | payer MEDICARE, SELFPAY ==
--- OUTSIDE RECORDS SUMMARY | 2024-02-04 06:07 | XMS RPT_ITS | CCD ---
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 Name Role Phone ELIO DUNHAM Unavailable Unavailable JHON ALVAREZ Unavailable Unavailable JHON ALVAREZ Unavailable Unavailable Unavailable Primary Care Provider Unavailabl e Jhon Alvarez DO Primary Care Provider Kanwal Salcido RN Unavailable Unavail able Moodispaw, Shiraz F Unavailable Kanwal Salcido RN Unavailable Jhon Alvarez DO Primary Care Provider Kanwal Salcido RN Unavailable Moodispaw, Shiraz F Unavailable Jhon Alvarez DO Primary Care Provider Kanwal Salcido RN Unavailable Moodispaw, Shiraz F Unavailable Jhon Alvarez DO Primary Care Provider Kanwal Salcido RN Unavailable Moodispaw, Shiraz F Unavailable Anibal RN, Yarelis Unavailable Unavailable Anibal RN, Yarelis Unavailable Unavailable Stone RN, Crystal Unavailable Moodispaellen, Shiraz F Unavailable Stone RN, Crystal Unavailable Stone RN, Crystal Unavailable Shiva DAVIS, Nupur Unavailable Unavailable Farhana JHAVERI, Shawna Unavailable Sandi JHAVERI, Amar Unavailable [phone] Roberto JHAVERI, Shiraz Padilla Unavailable [phone] VincentNayelish Unavailable ALVAREZ, JHON L Primary Care Unavailable INEMANCATHERINEYEHUDA L Referring Unavailable ALVAREZ, JHON L Primary Care Unavailable YEHUDA VUONG Referring Unavailable KEYANNA MISHRA Attending Unavailable ALVAREZ, JHON L Primary Care Unavailable ALVAREZ, JHON L Primary Care Unavailable INEMANYEHUDA L Referring Unavailable BELEN, NORMA Referring Unavailable ALVAREZ, JHON L Primary Care Unavailable ALVAREZ, JHON L Primary Care Unavailable DHALIWAL, NICKI Attending Unavailable ALVAREZ, JHON L Primary Care Unavailable TJ, SHIRAZ A Referring Unavailable ALVAREZ, JHON L Primary Care Unavailable ALVAREZ, JHON L Primary Care Unavailable BELEN, NORMA Attending Unavailable YEHUDA VUONG Referring Unavailable ALVAREZ, JHON L Primary Care Unavailable ALVAREZ, JHON L Primary Care Unavailable DHALIWAL, NICKI Referring Unavailable ALVAREZ, JHON L Primary Care Unavailable DHALIWAL, NICKI Attending Unavailable ALVAREZ, JHON L Primary Care Unavailable DHALIWAL, NICKI Referring Unavailable ALVAREZ, JHON L Primary Care Unavailable ALEAHMANCATHERINEYEHUDA L Referring Unavailable ALVAREZ, JHON L Primary Care Unavailable DHALIWAL, NICKI Referring Unavailable JESSICA, JESSICA B Referring Unavailable LUDMILAI, SHIRAZ A Attending Unavailable ALVAREZ, JHON L Primary Care Unavailable BELEN, NORMA Attending Unavailable ALVAREZ, JHON L Primary Care Unavailable BELEN, NORMA Attending Unavailable ALVAREZ, JHON L Primary Care Unavailable BELEN, NORMA Referring Unavailable ALVAREZ, JHON L Primary Care Unavailable ALVAREZ, JHON L Primary Care Unavailable CRISTAL GARZON Attending Unavailable ALVAREZ, JHON L Primary Care Unavailable BELEN, NORMA Referring Unavailable BELEN, NORMA Referring Unavailable ALVAREZ, JHON L Primary Care Unavailable ALVAREZ, JHON L Primary Care Unavailable DHALIWAL, NICKI Referring Unavailable LUDMILAI, SHIRAZ A Attending Unavailable ALVAREZ, JHON L Primary Care Unavailable DHALIWAL, NICKI Referring Unavailable CRISTAL GARZON Referring Unavailable ALVAREZ, JHON L Primary Care Unavailable LUDMILAI, SHIRAZ A Referring Unavailable ALVAREZ, JHON L Primary Care Unavailable ALVAREZ, JHON L Primary Care Unavailable NICKI DHALIWAL Referring Unavailable SHIRAZ SPENCER Referring Unavailable ALVAREZ, JHON L Primary Care Unavailable CRISTAL GARZON Referring Unavailable ALVAREZJHON Primary Care Unavailable ALVAREZ, JHON L Primary Care Unavailable NICKI DHALIWAL Attending Unavailable ALVAREZ, JHON L Primary Care Unavailable NICKI DHALIWAL Referring Unavailable GERRY BRONSON Attending Unavailable JHON ALVAREZ Primary Care Unavailable GERRY BRONSON Attending Unavailable JHON ALVAREZ Primary Care Unavailable ROSARIO JOY Admitting Unavail able ROSARIO JOY Attending Unavail able JHON ALVAREZ Primary Care Unavailable ROSARIO JOY Admitting Unavail able ROSARIO JOY Attending Unavail able
[2024-02-04 07:54] LABS: AST(SGOT) 26 U/L (15-37); Alanine Aminotransfer ALT/SGPT 22 U/L (16-61); Albumin, Serum 3.8 g/dL (3.2-5.0); Alkaline Phosphatase 76 U/L (45-117); Bilirubin, Direct 0.29 mg/dL (0.00-0.30); Cholesterol 222 mg/dL (200); Globulin 3.7 g/dL (2.2-4.2); High Density Lipoprotein 41 mg/dL; Protein, Total 7.5 g/dL (6.4-8.2); Triglycerides 143 mg/dL; Very Low Density Lipoprotein 29 mg/dL (5-40)
== END | disposition home or self-care (01) ==
LOC: LAB 05:58
PROVIDERS: PCP Student in an Organized Health Care Education/Training Program; Referring Provider Nurse Practitioner Gerontology; Visit Provider Nurse Practitioner Gerontology
DX: E78.1 Pure hyperglyceridemia (principal)
CPT/HCPCS: 36415; 80061; 80076

== ENCOUNTER → 2024-07-22 | Outpatient (CLI) | payer MEDICARE, SELFPAY ==
--- NOTE | 2024-07-22 15:27 | CT_ITS ---
STUDY: CT CHEST WITHOUT CONTRAST REASON FOR EXAM: Male, 78 years old. Hepatocellular carcinoma staging RADIATION DOSAGE (If Supplied By Facility): CTDIvol = ( 10.26 ) mGy, DLP = ( 333.85 ) mGycm TECHNIQUE: Transaxial imaging was performed without the administration of intravenous contrast material. Multiplanar coronal and sagittal images were reformatted. Individualized dose optimization techniques were used for this CT. COMPARISON: Comparison is made with prior study dated March 20, 2023. FINDINGS: CHEST The lungs are normal. There is no demonstrated pleural abnormality. Sternal cerclage wires and vascular clips are present from a prior sternotomy and coronary artery bypass graft procedure (CABG). There are calcifications of the coronary arteries. Normal mediastinum. Normal hilar regions. Normal unenhanced pulmonary arteries. There is atherosclerotic calcification of the aortic arch with tortuosity and elongation of the aortic arch and descending thoracic aorta. There are multi-level degenerative changes of the thoracic spine. There is a 2.9 cm x 2.4 cm hypodense nodule in the posterior lateral aspect of the right lobe of the liver. The gallbladder is not visualized. CT/Chest without Contrast IMPRESSION: No pulmonary nodule is seen. Prior CABG. 2.9 cm x 2.4 cm hypodense nodule in the posterior lateral aspect of the right lobe of the liver. Electronically Signed: Truong Murray MD at 15:14 EDT ,
== END | disposition home or self-care (01) ==
LOC: CT 15:24
PROVIDERS: PCP Student in an Organized Health Care Education/Training Program; Referring Provider Internal Medicine Hematology & Oncology; Visit Provider Internal Medicine Hematology & Oncology
DX: K74.60 Unspecified cirrhosis of liver (principal); C22.0 Liver cell carcinoma; R93.2 Abnormal findings on diagnostic imaging of liver and biliary tract
CPT/HCPCS: 71250

== ENCOUNTER → 2024-07-24 | Outpatient (CLI) | payer MEDICARE, SELFPAY ==
[2024-07-24 08:35] LABS: Anion Gap 7 (5-15); BUN 27 mg/dL (7-18); BUN/Creat Ratio 22.5 RATIO (10-20); Calcium,Total 9.4 mg/dL (8.5-10.1); Chloride 102 mmol/L (98-107); EST Glomerular Filtration Rate 62 mL/min (>60); Est Glom Filt Rate - Afr Amer 75 mL/min (>60); Glucose 137 mg/dL (74-106); Potassium 4.2 mmol/L (3.5-5.1); Sodium Level 139 mmol/L (136-145)
[2024-07-24 10:29] LABS: AST(SGOT) 24 U/L (15-37); Alanine Aminotransfer ALT/SGPT 24 U/L (16-61); Albumin, Serum 3.9 g/dL (3.2-5.0); Alkaline Phosphatase 90 U/L (45-117); Bilirubin, Direct 0.24 mg/dL (0.00-0.30); Cholesterol 217 mg/dL (200); Globulin 3.9 g/dL (2.2-4.2); High Density Lipoprotein 37 mg/dL; Protein, Total 7.8 g/dL (6.4-8.2); Triglycerides 181 mg/dL; Very Low Density Lipoprotein 36 mg/dL (5-40)
== END | disposition home or self-care (01) ==
LOC: LAB 07:05
PROVIDERS: Nurse Practitioner Gerontology; PCP Student in an Organized Health Care Education/Training Program
DX: I35.0 Nonrheumatic aortic (valve) stenosis (principal); E78.1 Pure hyperglyceridemia
CPT/HCPCS: 36415; 80048; 80061; 80076

== ENCOUNTER → 2024-07-27 | Outpatient (CLI) | payer MEDICARE, SELFPAY | END | disposition home or self-care (01) | LOC: MRI 15:24 | PROVIDERS: PCP Student in an Organized Health Care Education/Training Program; Referring Provider Internal Medicine Hematology & Oncology; Visit Provider Internal Medicine Hematology & Oncology | DX: K74.60 Unspecified cirrhosis of liver (principal); R93.2 Abnormal findings on diagnostic imaging of liver and biliary tract ==

== ENCOUNTER 2025-03-11 06:51 | Emergency (ER) | payer MEDICARE, SELFPAY ==
[2025-03-11] VITALS (20 sets, daily range): BP systolic 108–139; BP diastolic 44–95; PULSE 65–96; RESP 9–30; TEMP 35.9–36.7; O2SAT 94–98; BMI 29.9
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
--- NOTE | 2025-03-11 07:13 | CT_ITS ---
PROCEDURE: CT CHEST, ABD, PEL W/CONTRAST 03/11/2025 REASON FOR EXAM: [facility] TECHNIQUE: Chest, abdomen and pelvis CT with intravenous contrast. Coronal and Sagittal reconstruction series were provided. One or more dose reduction techniques were used (e.g., Automated exposure control, adjustment of the mA and/or kV according to patient size, use of iterative reconstruction technique. PATIENT PREPARATION: Per protocol ORAL CONTRAST TYPE: None. CONTRAST: Yes RADIATION DOSE SUMMARY: CTDlvol: 27 mGy DLP: 900 mGycm COMPARISON: None. FINDINGS: The trachea and central bronchial tree are patent. There is no pleural pericardial effusion. The heart is normal in size. There are dense coronary artery calcifications. There is no mediastinal hematoma. Patient has undergone TAVR procedure. There is atheromatous calcification is present within the thoracic aorta. There is no pneumothorax there is no evidence of pulmonary contusion. Although evaluation of lung parenchyma is slightly limited due to respiratory motion abnormality. 4 mm nodule seen within the right lower lobe (image 51/101), 3 mm node is seen within the left upper lobe (image ). There is no free air within the abdomen and pelvis. An 11.3 x 9.6 by 10 cm masses seen within the right lobe of the liver (image 18/120). This mass demonstrates a central area of hypoattenuation. Differential possibility includes necrotic malignancy versus abscess versus other etiologies. Further evaluation is warranted. The gallbladder is within normal limits. Surgical clips seen near the hepatic hilum, etiology to be determined. The spleen, right adrenal gland are within normal limits. There is mild thickening involving the left adrenal gland. Bilateral kidneys are without evidence of obstructive uropathy. A Diaz is present within a decompressed urinary bladder. The prostate does not appear enlarged. Scattered gas and stool seen within colon. There is no bowel obstruction. The appendix is normal. No abnormal free fluid seen within the abdomen and pelvis. Extensive atheromatous calcification seen within the aorta and its branches. There are no acute osseous abnormality is present. There are median sternotomy wires present, likely from prior CABG surgery. CT/CT Chest, Abd, Pel w/Contrast IMPRESSION: 11.3 cm large heterogeneous right lobe liver masses highly worrisome for necrot ic malignancy versus abscess versus other etiologies. Further workup is recommended at this time. This may include furt her metastatic workup with PET imaging versus tissue sampling. No definitive acute traumatic injury seen within the chest, abdomen or pelvis. Reading Location: [id number]
--- NOTE | 2025-03-11 07:19 | ED.RN ---
Patient's Zenaida called by this RN. Zenaida advised this patient was here and states she will try and get here as soon as she is able.
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
[2025-03-11 07:34] LABS: Absolute Neutrophil Count 3.3 X10^3/uL (2.0-7.7); Basophil# 0.06 X10^3/uL; Basophil% 1.1 % (0-1); Eosinophil# 0.19 X10^3/uL; Eosinophils% 3.5 % (0-5); Hemoglobin 9.6 g/dL (13.0-16.5); Lymphocyte % 21.9 % (19-41); Mean Corp Hgb Conc 34.3 g/dL (32-36); Mean Corpuscular Hgb 32.9 pg (27.0-32.0); Mean Corpuscular Volume 95.9 fL (80-94); Monocyte# 0.69 X10^3/uL; Monocyte% 12.6 % (0-10); NRBC Flagged by Analyzer 0 % (0-5); Neutrophil # 3.33 X10^3/uL (2.7-7.7); Neutrophil % 60.7 % (47-70); Platelet Count 128 K/mm3 (150-450); RBC Distribution Width CV 12.7 % (11.6-14.6); RBC Distribution Width SD 43.8 fl (35.1-43.9); Red Blood Count 2.92 M/mm3 (4.6-6.2); White Blood Count 5.5 K/mm3 (4.4-11.0)
[2025-03-11 07:43] LABS: Mucous, Urine 0 SEEN /hpf (<or=2+); Squamous Epithelial Cells - UA 0 SEEN /hpf (0-5)
[2025-03-11] MEDS: 0.9% Normal Saline (1000mL) 1,000 ML 999 ML IV (07:50)
[2025-03-11 07:53] LABS: Color, Urine Yellow (Yellow); Glucose, Dipstick Normal (Normal); Ketone-Dipstick Negative (Negative); Leukocyte Esterase-Dipstick Negative /ul (Negative); Nitrite-Dipstick Negative (Negative); Occult Blood-Urine 10 /ul (Negative); Protein-Dipstick 30 mg/dl (Negative); Urine Bilirubin Dipstick Negative (Negative); Urine Clarity Clear (Clear); Urine Urobilinogen 4 mg/dl (Normal); Urine pH 6.5 (5.0 - 8.0)
[2025-03-11] MEDS: Diphth,Pertuss(Acell),Tet Vac 0.5 ML Vial IM (07:57)
[2025-03-11 08:00] LABS: Bacteria RARE /hpf (None Seen); Red Blood Cells-Urine 0-5 SEEN /hpf (0-5); White Blood Cells 0-5 SEEN /hpf (0-5)
[2025-03-11 08:01] LABS: Calcium Oxalate Crystals Ur 1+ /hpf (<or=2+); Hyaline Cast 50-100 SEEN /lpf (0-5)
[2025-03-11 08:02] LABS: Fine Granular Cast- Urine 5-10 SEEN /lpf (0-5)
[2025-03-11 08:15] LABS: AST(SGOT) 35 U/L (<=37); Alanine Aminotransfer ALT/SGPT 10 U/L (<=46); Albumin, Serum 3.2 g/dL (3.4-4.8); Alkaline Phosphatase 184 U/L (40-129); Anion Gap 14 (5-15); BUN 23 mg/dL (4-19); BUN/Creat Ratio 16.9 RATIO (10-20); Bilirubin, Direct 0.37 mg/dL (0.00-0.30); Calcium,Total 8.8 mg/dL (7.6-11.0); Carbon Dioxide 22.4 mmol/L (21.0-32.0); Chloride 101 mmol/L (98-108); Creatinine, Serum 1.34 mg/dL (0.70-1.20); EST Glomerular Filtration Rate 54 (>60); Globulin 3.2 g/dL (2.2-4.2); Glucose 163 mg/dL (70-99); Potassium 4.2 mmol/L (3.3-5.1); Protein, Total 6.5 g/dL (5.9-8.4); Sodium Level 137 mmol/L (133-145); Total Bilirubin 1.09 mg/dL (0.00-1.30)
[2025-03-11 08:44] LABS: International Normalized Ratio 1.2; Partial Thromboplast Time 33.7 Seconds (24.1-36.2); Prothrombin Time (Protime)PT. 15.3 SECONDS (11.7-14.9)
[2025-03-11] MEDS: Lidocaine 1% (20 ml mdv) 20 ML Vial 10 ML INFILT (08:48)
[2025-03-11] MEDS: Ondansetron 4 MG/2 ML Vial IV (09:29)
[2025-03-11 09:34] LABS: Hemoglobin 8.6 g/dL (13.0-16.5)
== END 2025-03-11 11:33 | disposition other institution (70) ==
PROVIDERS: Emergency Provider Emergency Medicine; PCP Student in an Organized Health Care Education/Training Program; Visit Provider Emergency Medicine
DX: R41.82 Altered mental status, unspecified (principal); I11.0 Hypertensive heart disease with heart failure; I50.22 Chronic systolic (congestive) heart failure; J44.9 Chronic obstructive pulmonary disease, unspecified; E11.9 Type 2 diabetes mellitus without complications; R93.2 Abnormal findings on diagnostic imaging of liver and biliary tract; R11.2 Nausea with vomiting, unspecified; Z23 Encounter for immunization; S01.421A Laceration with foreign body of right cheek and temporomandibular area, initial encounter; I25.10 Atherosclerotic heart disease of native coronary artery without angina pectoris; J32.9 Chronic sinusitis, unspecified; E78.00 Pure hypercholesterolemia, unspecified; D64.9 Anemia, unspecified; I35.0 Nonrheumatic aortic (valve) stenosis; V89.2XXA Person injured in unspecified motor-vehicle accident, traffic, initial encounter; R16.0 Hepatomegaly, not elsewhere classified; I44.7 Left bundle-branch block, unspecified; Z79.82 Long term (current) use of aspirin; Z79.899 Other long term (current) drug therapy; Z87.891 Personal history of nicotine dependence; Z95.1 Presence of aortocoronary bypass graft
CPT/HCPCS: 13132; 12011; 51702; 70450; 70486; 71260; 72125; 74177; 80048; 80076; 81001; 85014; 85018; 85025; 85610; 85730; 86850; 86900; 86901; 90715; 93005; 96361; 96374; 99285; P9016; Q9967; A4216; J2405

== ENCOUNTER 2025-03-18 18:02 | Emergency (ER) | payer MEDICARE, SELFPAY ==
[2025-03-18 18:03] VITALS: BP 138/75; PULSE 107; RESP 18; TEMP 36.8; O2SAT 100
[2025-03-18] MEDS: Lidocaine 1% /Epi 1:100 (20ml) 20 ML Vial INFILT (19:24)
[2025-03-18 19:27] VITALS: BP 138/75; PULSE 107; RESP 16; TEMP 36.8; O2SAT 100
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
== END 2025-03-18 19:27 | disposition home or self-care (01) ==
PROVIDERS: Emergency Provider Emergency Medicine; PCP Student in an Organized Health Care Education/Training Program; Referring Provider Emergency Medicine; Visit Provider Emergency Medicine
DX: S01.81XA Laceration without foreign body of other part of head, initial encounter (principal); I11.0 Hypertensive heart disease with heart failure; I50.22 Chronic systolic (congestive) heart failure; J44.9 Chronic obstructive pulmonary disease, unspecified; E11.9 Type 2 diabetes mellitus without complications; V99.XXXA Unspecified transport accident, initial encounter; E78.00 Pure hypercholesterolemia, unspecified; I25.10 Atherosclerotic heart disease of native coronary artery without angina pectoris; G89.4 Chronic pain syndrome; Z79.82 Long term (current) use of aspirin; Z79.899 Other long term (current) drug therapy; Z87.891 Personal history of nicotine dependence; Z95.1 Presence of aortocoronary bypass graft
CPT/HCPCS: 12001; 99283